=== PATIENT | female | born 1970 | race Caucasian/White ===

== ENCOUNTER 2023-10-15 16:56 | Outpatient (OUT) | payer OTHER, SELFPAY ==
[2023-10-15 17:41] LABS: Erythrocyte Sedimentation Rate 18 mm/hr (<=30)
[2023-10-15 18:56] LABS: Alanine Aminotransferase 22 U/L (14-59); Albumin Level 3.3 g/dL (3.4-5.0); Alkaline Phosphatase 105 U/L (46-116); Aspartate Amino Transferase 12 U/L (15-37); Bilirubin Direct <0.1 mg/dL (0.0-0.2); Bilirubin Total <0.1 mg/dL (0.2-1.0); Globulin 3.3 g/dL; Thyroid Stimulating Hormone 1.624 uIU/mL (0.358-3.740); Total Protein 6.6 g/dL (6.4-8.2)
[2023-10-15 19:01] LABS: C Reactive Protein 0.63 mg/dL (<=0.50)
[2023-10-17 08:15] LABS: HIV Ab/p24 Ag Screen Non Reactive (Non Reactive)
[2023-10-17 16:11] LABS: Deamidated Gliadin Abs, IgA 5 units (0-19); Deamidated Gliadin Abs, IgG 2 units (0-19); Endomysial Antibody IgA Negative (Negative); Immunoglobulin A, Qn, Serum 62 mg/dL (87-352); t-Transglutaminase (tTG) IgA <2 U/mL (0-3); t-Transglutaminase (tTG) IgG <2 U/mL (0-5)
[2023-10-20 22:07] LABS: Calprotectin, Fecal 47 ug/g (0-120)
[2023-10-22 12:08] LABS: Pancreatic Elastase, Fecal 125 (>200)
[2023-10-22 15:08] LABS: Ova + Parasite Exam Final report (.)
== END 2023-10-15 16:57 | disposition home or self-care (01) ==
PROVIDERS: PCP Family Medicine
DX: R19.8 Other specified symptoms and signs involving the digestive system and abdomen (principal)
CPT/HCPCS: 36415; 80076; 82656; 82784; 83993; 84443; 85652; 86140; 86231; 86258; 86364; 87045; 87046; 87177; 87209; 87389; 87427; 87493

== ENCOUNTER 2023-10-16 16:30 | Outpatient (REF) | payer OTHER, SELFPAY ==
[2023-10-17 12:10] LABS: C. Difficile PCR NEGATIVE (NEGATIVE)
== END 2023-10-16 16:31 | disposition home or self-care (01) ==
LOC: LAB 16:30
PROVIDERS: PCP Family Medicine
DX: R19.8 Other specified symptoms and signs involving the digestive system and abdomen (principal)
CPT/HCPCS: 87493

== ENCOUNTER 2024-05-20 10:57 | Outpatient (OUT) | payer OTHER, SELFPAY ==
--- NOTE | 2024-05-20 10:59 | MM_ITS ---
Patient Name: MIRIAM ALEXANDER MR#: [id number] : 1970 Exam Date: 05/20/2024 Ordering Doctor: ALEENA ORNELAS . RADIOLOGY REPORT PROCEDURE: MM TOMOSYNTHESIS SCREENING BI COMPARISON: MG MAMM SCREEN CRUZITO W CAD, 07/18/2018. MG MAMM SCREEN 3D [place] CAD, 01/26/2021. INDICATIONS: Screening Calculator Name NCI Breast Cancer Risk Assessment Tool 5 Year Breast Cancer Risk 0.80% Lifetime Breast Cancer Risk 7.00% Personal Breast Cancer No Personal Ovarian Cancer No Treatments None Family Cancers None LOCATION: [facility] BREAST COMPOSITION: There are scattered areas of fibroglandular density. FINDINGS: DIAGNOSTIC CATEGORY 2--BENIGN FINDING. NO CHANGE FROM COMPARISON. This exam includes additional mammographic views for implant evaluation and shows no visible implant abnormality. Scattered benign-appearing calcifications are present. Scattered benign-appearing lymph nodes are present. RIGHT BREAST: No significant suspicious finding. LEFT BREAST: No significant suspicious finding. RECOMMENDATIONS: ROUTINE MAMMOGRAM AND CLINICAL EVALUATION IN 12 MONTHS. PLEASE NOTE: A NORMAL MAMMOGRAM DOES NOT EXCLUDE THE POSSIBILITY OF BREAST CANCER. A CLINICALLY SUSPICIOUS PALPABLE LUMP SHOULD BE BIOPSIED. Dictated by: Keith Narayanan MD on 05/20/2024 at 12:08 Approved by: Keith Narayanan MD on 05/20/2024 at 12:10
--- OUTSIDE RECORDS SUMMARY | 2024-05-20 11:08 | XMS_ITS | CCD ---
Author Organization [facility] Care Team Providers Care Officer Lieutenant Name Role Phone MD Kristin Young Primary Care Provider [phone] MICHAEL Green Attending Provider Emery Cash Unavailable CECE GREEN Admitting Unavailable CECE GREEN Attending Unavailable HECTOR, DR ZARATE Primary Care Unavailable PETERCECE CHAPPELL Consulting Unavailable HECTOR, DR ZARATE Admitting Unavailable HECTOR, DR ZARATE Attending Unavailable HECTOR, DR ZARATE Primary Care Unavailable HECTOR, DR ZARATE Consulting Unavailable KARASIK ., DR HERRERA Admitting Unavailabl e KARASIK ., DR HERRERA Attending Unavailabl e HECTOR, DR ZARATE Primary Care Unavailable KARASIK ., DR HERRERA Consulting Unavailabl e PETERCECE Admitting Unavailable PETERCECE CHAPPELL Attending Unavailable HECTOR, DR ZARATE Primary Care Unavailable MISC, DR WELSH Consulting Unavailable HECTOR, DR ZARATE Primary Care Unavailable MISC, DR WELSH Admitting Unavailable MISC, DR WELSH Attending Unavailable MISC, DR WELSH Consulting Unavailable HECTOR, DR ZARATE Admitting Unavailable HECTOR, DR ZARATE Attending Unavailable HECTOR, DR ZARATE Primary Care Unavailable HECTOR, DR ZARATE Consulting Unavailable Lomax Kristin FRANZ Primary Care Provider Asaad, Imad Unavailable Asaad, Imad Attending Unavailable Asaad, Imad Admitting Unavailable Kristin Young Primary Care Unavailable FATUMA, LUIS ANTONIO E Attending Unavailable KRISTIN YOUNG Primary Care Unavailable SAROJ RAMIREZ Referring Unavailable LUIS ANTONIO BURRIS Attending Unavailable KRISTIN YOUNG Primary Care Unavailable SAROJ RAMIREZ Referring Unavailable FATUMA, LUIS ANTONIO E Attending Unavailable KRISTIN YOUNG Primary Care Unavailable LEVI, SAROJ B Referring Unavailable GRIM, LUIS ANTONIO E Attending Unavailable HECTOR, RUGEN Primary Care Unavailable LEVI, SAROJ B Referring Unavailable HECTOR, RUGEN Primary Care Unavailable GRIM, LUIS ANTONIO E Attending Unavailable LEVI, SAROJ B Referring Unavailable HECTOR, RUGEN Primary Care Unavailable LEVI, SAROJ B Referring Unavailable GRIM, LUIS ANTONIO E Attending Unavailable HECTOR, RUGEN Referring Unavailable LEVI, SAROJ B Attending Unavailable LEVI, SAROJ B Referring Unavailable LEVI, SAROJ B Attending Unavailable HECTOR, RUGEN Primary Care Unavailable LEVI, SAROJ B Referring Unavailable HECTOR, RUGEN Primary Care Unavailable GRIM, LUIS ANTONIO E Attending Unavailable Wilfrido, Katharina Mathews Attending Unavailable Wilfrido, Katharina Mathews Attending Unavailable Wilfrido, Katharina Mathews Attending Unavailable Wilfrido, Katharina Mathews Attending Unavailable Wilfrido, Katharina L Admitting Unavailable Wilfrido, Katharina Mathews Attending Unavailable HEMMERKIMBERLEE Attending Unavailable HECTOR, KANWALEN M Attending Unavailable WINDNABENJAMIN WOOD Attending Unavailable JEFF JOHNSON Attending Unavailable WINDBENJAMIN HERNDON Attending Unavailable WilfridoKatharina liz Primary Care Physician [phone] Allergies Allergy Classification Reported Allergen(s) Allergy Type Date of Onset Reaction(s) Facility (5 sources) NSAIDs Drug allergy 04-08-20 15 Unknown [place] [facility] Other (3 sources) Sulfonamides (Antibiotic) Drug allergy Unknown [place] [facility] Other (1 source) NSAIDs Drug allergy (disorder) 03-31-20 15 [facility] Repository (1 source) Sulfonamides (Antibiotic) Drug allergy (disorder) 03-24-20 15 [facility] Repository (2 sources) metroNIDAZOLE Drug Allergy 05-04-20 23 Nausea and Vomiting [facility] (2 sources) Sulfonamides (Antibiotic) Propensity to adverse reactions to drug 10-20-20 21 Rash, Hives [facility] (1 source) NSAIDs Drug allergy (disorder) 08-20-20 23 [facility] Repository (1 source) Sulfonamides (Antibiotic) Drug allergy (disorder) 10-24-20 23 [facility] Repository (2 sources) Sulfonamides (Antibiotic); Translations: [sulfa drugs] Propensity to adverse reactions (disorder) Miliaria crystallina (disorder), Nicole (disorder) [facility] Repository Medications Current Medications Medication Drug Class(es) Dates Sig (Normalized) Sig (Original) acetaminophen 500 mg oral tablet (2 sources) acetaminophen (TYLENOL) 500 MG tablet Take 1-2 tablets by mouth as needed for Pain or Fever. 0 Active ALPRAZolam 0.5 mg oral tablet (2 sources) Benzodiazepine Start: 11-16-2022 take 1 tablet by mouth twice daily as needed ALPRAZolam (Xanax) 0.5 MG tablet Take 1 tablet by mouth 2 times daily as needed. 0 11/16/2022 Active aspirin 81 mg delayed release oral tablet (1 source) Platelet Aggregation Inhibitor, Nonsteroidal Anti-inflammatory Drug take 1 tablet by mouth once daily as needed Aspirin [address] tablet Take 1 tablet by mouth daily. As needed 0 Active bacillus coagulans [id number] unt / inulin 250 mg oral capsule (2 sources) take 1-250 capsules by mouth once daily Bacillus Coagulans-Inulin (Probiotic) 1-250 BILLION-MG capsule Take by mouth. daily 0 Active clonazePAM 0.5 mg oral tablet (6 sources) Benzodiazepine Start: 05-14-2024 ClonazePAM 0.5 mg Tab 0.5 mg = 1 tab(s), Refills(s) 0 Start Date: 05/14/24 Status: Ordered take 1 tablet by jerry th once daily as needed, then take 0.5-1 tablets by mouth twice daily as needed clonazePAM (KlonoPIN) 1 MG tablet Take 1 tablet by mouth daily. 0.5 - 1 tablet BID prn tremor 0 Active clonazePAM 0.5 M G 1 tablet Orally PRN Active cyclobenzaprine hydrochloride 5 mg oral tablet (6 sources) Muscle Relaxant Start: 05-14-2024 take 1 tablet by mouth three times daily cyclobenzaprine 5 mg Tab 1 tab(s), Oral, TID, # 15, Refills(s) 0 Start Date: 05/14/24 Status: Ordered Start: 03-07-2023 take 1 tablet by jerry th three times daily as needed Cyclobenzaprine 5 MG tablet Take 1 tablet by mouth 3 times daily as needed. 0 03/07/2023 Active escitalopram 20 mg oral tablet (6 sources) Serotonin Reuptake Inhibitor Start: 05-14-2024 take 1 tablet by mouth once daily Lexapro 20 mg Tab 20 mg = 1 tab(s), Oral, Daily, # 30 tab(s), Refills(s) 0 Start Date: 05/14/24 Status: Ordered Start: 04-26-2023 take 1 tablet by jerry th once daily escitalopram 20 MG tablet Take 1 tablet by mouth daily. 0 04/26/2023 Active estrogens, conjugated ([facility]) 1.25 mg oral tablet (6 sources) Estrogen Start: 05-14-2024 take 1 tablet by mouth once daily Premarin 1.25 mg Tab 1.25 mg = 1 tab(s), Oral, Daily, # 30 tab(s), Refills(s) 0 Start Date: 05/14/24 Status: Ordered Start: 02-14-2023 Premarin 1.25 MG tablet famotidine 20 mg oral tablet (5 sources) Histamine-2 Receptor Antagonist take 1 tablet by mouth once daily faMOTIdine 20 MG tablet Take 1 tablet by mouth daily. 0 Active fluticasone propionate 0.05 mg/actuat metered dose nasal spray (1 source) Corticosteroid Start: 4 fluticasone Nasal 0.05 mg/inh Guffey 2 spray(s), Nasal, Daily, 16 gram, Refill(s) 0, each nostril Start Date: 05/14/24 Status: Ordered folic acid 1 mg oral tablet (4 sources) Start: 4 take 1 tablet by mouth once daily folic acid 1 mg Tab 1 mg = 1 tab(s), Oral, Daily, # 30 tab(s), Refills(s) 0 Start Date: 05/14/24 Status: Ordered Start: 04-25-2023 take 1 tablet by jerry th once daily Folic acid 1 MG tablet 1 tablet Orally Once a day for 30 day(s) 0 04/25/2023 Active 1.5 ml fremanezumab-vfrm 150 mg/ml auto-injector (6 sources) Start: 05-14-2024 Ajovy Autoinje ctor 225 mg/1.5 mL subcutaneous solution USE DIRECTED SUBCUTANEOUSLY EVERY 28 DAYS SUBCUTANEOUS MONTHLY 30 DAYS Start Date: 05/14/24 Status: Ordered Start: 02-08-2023 Ajovy 225 MG/1 .5ML Solution Prefilled Syringe INJECT SUBCUTANEOUSLY DIRECTED EVERY 28 DAYS 0 02/08/2023 Active Ajovy 225 MG/1.5 ML 1.5 mL Subcutaneous Active gabapentin 300 mg oral capsule (2 sources) Anti-epileptic Agent Start: 05-14-2024 take 1 capsule by mouth twice daily gabapentin 300 mg Cap 300 mg = 1 cap(s), Oral, BID, # 60 cap(s), Refills(s) 0 Start Date: 05/14/24 Status: Ordered Start: 10-15-2023 End: 04-12-2024 take 1 capsule by mouth at bedtime Gabapentin 300 MG capsule Take 1 capsule by mouth at bedtime. 90 capsule 1 10/15/2023 04/12/2024 Active ibuprofen 400 mg oral tablet (2 sources) Nonsteroidal Anti-inflammatory Drug Ibuprofen 400 MG tablet 1 tablet with food or milk as needed Orally PRN 0 Active levothyroxine sodium 0.05 mg oral tablet (4 sources) l-Thyroxine Start: 05-14-20 take 1 tablet by mouth once daily Synthroid 50 mcg Tab 50 mcg = 1 tab(s), Oral, Daily, # 60 tab(s), Refills(s) 0 Start Date: 05/14/24 Status: Ordered Start: 04-25-2023 Synthroid 50 M CG tablet Synthroid 50 MCG Oral for 90 Days Active metroNIDAZOLE 0.01 mg/mg topical gel (1 source) Nitroimidazole Antimicrobial Start: 05-14-2024 End: 06-11-2024 MetroGel 1% topical gel 1 jenniffer, Topical, Daily for 14 day(s), 60 gm, Refill(s) 1, [facility], 149, cm, 05/14/24 9:37:00 EDT, Height/Length Dosing, 64.2, kg, 05/14/24 9:37:00 EDT, Weight Dosing Start Date: 05/14/24 Stop Date: 06/11/24 Status: Ordered montelukast 10 mg oral tablet (6 sources) Leukotriene Receptor Antagonist Start: 05-14-2024 take 1 tablet by mouth once daily in the evening Singulair 10 mg Tab 10 mg = 1 tab(s), Oral, qPM, # 30 tab(s), Refills(s) 0 Start Date: 05/14/24 Status: Ordered take 1 tablet by mouth once lesa y Montelukast (Singulair) 10 MG tablet 1 tablet Orally Once a day 0 Active OXcarbazepine 300 mg oral tablet (6 sources) Anti-epileptic Agent Start: 05-14-2024 take 2 tablets by mouth twice daily Trileptal 300 mg Tab 600 mg = 2 tab(s), Oral, BID, # 120 tab(s), Refills(s) 0 Start Date: 05/14/24 Status: Ordered take 1 tablet by mouth twice tito ly OXcarbazepine (Trileptal) 300 MG tablet 1 tablet Orally BID 0 Active promethazine hydrochloride 12.5 mg oral tablet (6 sources) Phenothiazine Start: 05-14-2024 take 1 tablet by mouth every four hours as needed promethazine 12.5 mg oral tablet 12.5 mg = 1 tab(s), Oral, q4hr, PRN for motion sickness, # 60 tab(s), Refills(s) 0 Start Date: 05/14/24 Status: Ordered Promethazine HCl 12.5 MG tablet 1 tablet as needed Orally PRN 0 Active take 1 tablet by jerry th every twelve hours Promethazine HCl 25 MG 1 tablet as neede d Orally every 12 hrs Active sodium fluoride 0.011 mg/mg oral gel (2 sources) SODIUM FLUORIDE, DENTAL GEL, (PreviDent 5000 Dry Mouth) 1.1 % Gel PreviDent 5000 Dry Mouth 0 Active sucralfate 100 mg/ml oral suspension (7 sources) Aluminum Complex Start: 07-10-2023 take 10 mL by mouth twice daily 1 hour(s) before bedtime Sucralfate 1 GM/10ML 10 mL 1 hour before meals and at bedtime on an empty stomach Orally Twice a day for 90 days Jul, Active take 10 mL by mouth twice daily Sucralfate (Carafate) 1 GM/10ML oral suspension 10ml Orally BID 0 Active Zanaflex (1 source) Central alpha-2 Adrenergic Agonist Start: 05-14-2024 Zanaflex Oral, PRN Anxiety, Refills(s) 0 Start Date: 05/14/24 Status: Ordered topiramate 25 mg oral tablet (3 sources) take 1 tablet by mouth every twelve hours Topamax 25 MG 1 tablet Orally bid Active Ubrelvy 100 MG (2 sources) Ubrelvy 100 MG 1 tablet may take second dose at least 2 hours after first dose as needed Orally Once a day Active ubrogepant 100 mg oral tablet (2 sources) Start: 05-14-2024 Ubrelvy 100 mg oral tablet 100 mg = 1 tab(s), Refills(s) 0 Start Date: 05/14/24 Status: Ordered Ubrelvy 100 MG 1 tablet may take second dose at least 2 hours after first dose as needed Orally Once a day Active valACYclovir (5 sources) Herpesvirus Nucleoside Analog DNA Polymerase Inhibitor, Herpes Simplex Virus Nucleoside Analog DNA Polymerase Inhibitor, Herpes Zoster Virus Nucleoside Analog DNA Polymerase Inhibitor valACYclovir HC l (VALACYCLOVIR PO) Take by mouth. prn 0 Active Valtrex Active Completed/Discontinued Medications Medication Drug Class(es) Dates Sig (Normalized) Sig (Original) primidone 50 mg oral tablet (4 sources) Anti-epileptic Agent End: 10-15-2023 Primidone 50 MG tablet 2 tablets in morning and 3 tablets evening. 0 10/15/2023 Discontinued take 1 tablet by jerry th every twenty-four hours Primidone 50 MG 1 tablet Orally Once a day Active Problems Active Problems Problem Classification Problem Date Documented Da te Episodic/Chronic Adjustment disorders (2 sources) Adjustment disorder with anxious mood; Translations: [Adjustment disorder with anxiety] Onset: 8 05-04-2023 Chronic Complications of surgical procedures or medical care (4 sources) Post gastrointestinal tract surgery hypoglycemia; Translations: [Postsurgical malabsorption, not elsewhere classified] Onset: 1 05-04-2023 Chronic Diverticulosis and diverticulitis (2 sources) Diverticulitis; Translations: [Diverticulitis of intestine, part unspecified, without perforation or abscess without bleeding] Onset: 9 05-04-2023 Chronic Esophageal disorders (5 sources) Gastroesophageal reflux disease; Translations: [Gastro-esophageal reflux disease without esophagitis] Onset: 7 05-04-2023 Chronic Genitourinary symptoms and ill-defined conditions (4 sources) Female stress incontinence; Translations: [Stress incontinence (female) (male)] Onset: 8 05-04-2023 Chronic Headache; including migraine (6 sources) Migraine, unspecified, not intractable, without status migrainosus; Translations: [Migraine with aura] Onset: Chronic Immunizations and screening for infectious disease (1 source) Encounter for screening for human papillomavirus (HPV); Translations: [ENC SCREENING HUMAN PAPILLOMAVIRUS] Onset: 3 Episodic Inflammatory diseases of female pelvic organs (1 source) Bacterial vaginosis 05-14-2024 Episodic Menstrual disorders (2 sources) Excessive and frequent menstruation; Translations: [Excessive and frequent menstruation with regular cycle] Onset: 8 05-04-2023 Chronic Mood disorders (2 sources) Atypical depressive disorder; Translations: [Other specified depressive episodes] Onset: 8 05-04-2023 Chronic Nausea and vomiting (9 sources) Vomiting; Translations: [Vomiting, unspecified] Onset: 2 Resolved: 2 Episodic Nutritional deficiencies (2 sources) Vitamin D deficiency; Translations: [Vitamin D deficiency, unspecified] Onset: 7 05-04-2023 Chronic Osteoarthritis (2 sources) Arthritis of right acromioclavicular joint; Translations: [Primary osteoarthritis, right shoulder] Onset: 1 05-04-2023 Chronic Other and unspecified benign neoplasm (1 source) History of polyp of colon; Translations: [Personal history of colonic polyps] Episodic Other and unspecified benign neoplasm (1 source) Personal history of colonic polyps Episodic Other ear and sense organ disorders (2 sources) Otitis externa; Translations: [Unspecified otitis externa, unspecified ear] Onset: 0 05-04-2023 Chronic Other endocrine disorders (2 sources) Hypoglycemia; Translations: [Hypoglycemia, unspecified] Onset: 1 05-04-2023 Chronic Other gastrointestinal disorders (3 sources) Constipation alternates with diarrhea; Translations: [Other specified symptoms and signs involving the digestive system and abdomen] Episodic Other gastrointestinal disorders (2 sources) Bariatric surgery status Onset: 2 Resolved: 2 Episodic Other gastrointestinal disorders (2 sources) Other specified symptoms and signs involving the digestive system and abdomen Onset: 2 Resolved: 2 Episodic Other hereditary and degenerative nervous system conditions (2 sources) Essential tremor; Translations: [Essential tremor] Onset: 9 05-04-2023 Chronic Other hereditary and degenerative nervous system conditions (2 sources) Spasmodic torticollis; Translations: [Spasmodic torticollis] Onset: 7 05-04-2023 Chronic Other hereditary and degenerative nervous system conditions (2 sources) Restless legs; Translations: [Restless legs syndrome] Onset: 3 10-15-2023 Chronic Other liver diseases (5 sources) Disease of liver; Translations: [Liver disease, unspecified] Onset: 7 05-04-2023 Chronic Other lower respiratory disease (2 sources) Interstitial lung disease; Translations: [Interstitial pulmonary disease, unspecified] Onset: 7 05-04-2023 Chronic Other lower respiratory disease (1 source) Hiccough Episodic Other nervous system disorders (2 sources) Lesion of ulnar nerve; Translations: [Lesion of ulnar nerve, unspecified upper limb] Onset: 1 05-04-2023 Chronic Other nervous system disorders (4 sources) Psychosomatic musculoskeletal symptoms; Translations: [Tremor, unspecified] Onset: 3 05-04-2023 Episodic Other nervous system disorders (4 sources) Functional gait abnormality; Translations: [Unspecified abnormalities of gait and mobility] Onset: 3 05-04-2023 Episodic Other non-traumatic joint disorders (2 sources) Derangement of right shoulder joint; Translations: [Other specific joint derangements of right shoulder, not elsewhere classified] Onset: 1 05-04-2023 Chronic Other nutritional; endocrine; and metabolic disorders (3 sources) Body mass index 30+ - obesity; Translations: [Body mass index (BMI) 37.0-37.9, adult] Chronic Other nutritional; endocrine; and metabolic disorders (3 sources) Body mass index 40+ - severely obese; Translations: [Body mass index (BMI) 40.0-44.9, adult] Chronic Other skin disorders (1 source) Disorder of skin 05-14-2024 Episodic Other upper respiratory disease (2 sources) Allergic rhinitis; Translations: [Allergic rhinitis, unspecified] Onset: 9 05-04-2023 Chronic Other upper respiratory infections (2 sources) Chronic sinusitis; Translations: [Chronic sinusitis, unspecified] Onset: 8 05-04-2023 Chronic Regional enteritis and ulcerative colitis (2 sources) Ulcerative colitis; Translations: [Ulcerative colitis, unspecified, without complications] Onset: 8 05-04-2023 Chronic Residual codes; unclassified (4 sources) Obstructive sleep apnea (adult) (pediatric); Translations: [OBSTRUCTIVE SLEEP APNEA] Onset: Chronic Substance-related disorders (2 sources) Smoker; Translations: [Nicotine dependence, unspecified, uncomplicated] Onset: 7 05-04-2023 Chronic Systemic lupus erythematosus and connective tissue disorders (6 sources) Mucous membrane dryness; Translations: [Sicca syndrome, unspecified] Onset: 7 05-04-2023 Chronic Thyroid disorders (2 sources) Acquired hypothyroidism; Translations: [Hypothyroidism, unspecified] Onset: 3 05-04-2023 Chronic Unclassified (1 source) Cancer cervix screening status 05-14-2024 Unclassified (2 sources) Patient encounter status 05-14-2024 Past or Other Problems Problem Classification Problem Date Documented Da te Episodic/Chronic Abdominal pain (8 sources) Right sided abdominal pain; Translations: [Unspecified abdominal pain] Onset: 08-18-2015 05-04-2023 Episodic Deficiency and other anemia (2 sources) Anemia; Translations: [Anemia, unspecified] Onset: 04-27-2008 05-04-2023 Episodic Deficiency and other anemia (2 sources) Iron deficiency anemia; Translations: [Iron deficiency anemia, unspecified] Onset: 03-05-2017 05-04-2023 Episodic Diabetes mellitus without complication (2 sources) Impaired fasting glycemia; Translations: [Impaired fasting glucose] Onset: 04-27-2008 05-04-2023 Episodic Intestinal obstruction without hernia (2 sources) Intestinal obstruction; Translations: [Unspecified intestinal obstruction, unspecified as to partial versus complete obstruction] Onset: 07-23-2015 05-04-2023 Episodic Nutritional deficiencies (2 sources) Vitamin B deficiency; Translations: [Vitamin B deficiency, unspecified] Onset: 04-25-2023 05-04-2023 Episodic Other connective tissue disease (1 source) Myalgia, unspecified site; Translations: [MYALGIA UNSPECIFIED SITE] Onset: 07-07-2022 Episodic Other connective tissue disease (2 sources) Fibromyalgia; Translations: [Fibromyalgia] Onset: 01-12-2017 05-04-2023 Episodic Other eye disorders (2 sources) Dry eyes; Translations: [Dry eye syndrome of bilateral lacrimal glands] Onset: 04-25-2023 05-04-2023 Episodic Other gastrointestinal disorders (2 sources) Slow transit constipation; Translations: [Slow transit constipation] Onset: 04-22-2018 05-04-2023 Episodic Other lower respiratory disease (4 sources) Shortness of breath; Translations: [SHORTNESS OF BREATH] Onset: 07-06-2022 Episodic Other lower respiratory disease (2 sources) Parietoalveolar pneumopathy; Translations: [Other alveolar and parieto-alveolar conditions] Onset: 02-05-2017 05-04-2023 Episodic Other screening for suspected conditions (not mental disorders or infectious disease) (10 sources) Encounter for screening for malignant neoplasm of cervix; Translations: [Unspecified abnormal finding in specimens from other organs, systems and tissues] Onset: 01-01-2023 Episodic Residual codes; unclassified (4 sources) Other amnesia; Translations: [OTHER AMNESIA] Onset: 11-14-2022 Episodic Viral infection (4 sources) COVID-19; Translations: [Other specified viral infection] Onset: 03-24-2010 05-04-2023 Episodic Results Test Name Value Interpretation Reference Range Facility Ambulatory Visit Summaryon 0 05-14-2024 Ambulatory Visit Summary Ambulatory Visit Summary MIRIAM ESTRADA :1970 Visit Date:05/14/2024 Ambulatory Visit Instructions Your Diagnosis Well woman exam Cervical cancer screening Breast cancer screening by mammogram Your Care Team Attending Physician - Katharina Wu Primary Care Physician - Katharina Wu This Is Your Medications List clonazepam (ClonazePAM 0.5 mg Tab) conjugated estrogens (Premarin 1.25 mg Tab) cyclobenzaprine (cyclobenzaprine 5 mg Tab) escitalopram (Lexapro 20 mg Tab) fluticasone nasal (fluticasone Nasal 0.05 mg/inh Guffey) folic acid (folic acid 1 mg Tab) fremanezumab (Ajovy Autoinjector 225 mg/1.5 mL subcutaneous solution) gabapentin (gabapentin 300 mg Cap) levothyroxine (Synthroid 50 mcg Tab) montelukast (Singulair 10 mg Tab) oxcarbazepine (Trileptal 300 mg Tab) promethazine (promethazine 12.5 mg oral tablet) tizanidine (Zanaflex) ubrogepant (Ubrelvy 100 mg oral tablet) Procedures Performed Hysterectomy (04/18/2006). Discharge Vitals Temperature (Temporal Artery) 36.9 ?C Heart Rate (Peripheral) 83 Respiratory Rate 18 Blood Pressure 126/84 Height 149 cm Height 59 in Weight 64.25 kg Weight 141.35 lb BMI 28.94 What to do next Scheduled Follow-Up Appointments Sunday 1:40 PM EDT With: Katharina Wu Where: [facility] Medicine [facility] Ambulatory Visit Summary Ambulatory Visit Summary MIRIAM ESTRADA :1970 Visit Date:05/14/2024 Ambulatory Visit Instructions Your Care Team Attending Physician - Katharina Wu Primary Care Physician - Katharina Wu Procedures Performed Hysterectomy (04/18/2006). Discharge Vitals Height 149 cm Height 59 in Weight 64.25 kg Weight 141.35 lb BMI 28.94 Allergies sulfa drugs (Sweat rash, Hives) Patient Survey You may receive a survey via text or e-mail asking about your office visit. Please share your experience with us by completing your survey. We appreciate your feedback and thank you for choosing us for your care. [facility] Family Medicine Office/Clini c Noteon 05-14-2024 Family Medicine Office/Clinic Note Family Medicine Office/Clinic Note HPI Staff Miriam is a 53 year old female presenting for well woman Woman check up: Last pap: 05/2023 Last Vesta: 05/26 Results of lap pap: Where was it done: [place] at Dr. Rodriguez hx: # of pregnancies..3 ...abortions... none live births.... 3 living children.. 2 menstrual cycle (normal,heavy,ect): none since 2006 with Hysterectomy History of STD: none Do you want tested for STD today: no Vaginal discharge, odor, itching: odor Self breast exam at home? yes, 2x yearly Family Hx of breast, cervical or uterine cancer- none Has vaginal bacteria vaginosis is taking Vee gentle wash, vaginal probiotic,vaginal suppositories for this when it flares up Has breast implants 2009 History of Present Illness pt presents today for well woman exam Review of Systems PHQ Score Initial Depression Screen Score: 0 SCORE Physical Exam Vitals & Measurements T: 36.9 ?C(Temporal Artery) HR: 83(Peripheral) RR: 18 BP: 126/84 SpO2: 94% HT: 59 in HT: 149 cm WT: 64.25 kg WT: 141.35 lb BMI: 28.94 General: Well developed, well nourished, in no acute distress Neck: Neck supple. No masses or palpable cervical nodes. Trachea midline. Thyroid without nodules, masses, tenderness, or enlargement Breast: No mass, nodule, discharge, or erythema bilaterally, and no axillary lymphadenopathy implants [id number] Lungs: Normal respiratory effort and clear to auscultation Cardio: Regular rate and rhythm, normal S1 and S2, no murmur, no rub Abdomen: Soft, non-distended, non-tender, normal bowel sounds x4 Gyno: normal external genitalia. Urethra no discharge. Vagina normal without lesions, no vaginal discharge. Cervix normal, without lesions. Uterus normal. No adnexal masses. Pap obtained Neurologic: Grossly normal Skin: [place], moist, no tenting Lymph Nodes: No cervical adenopathy, nodes normal Mental Status: Alert and oriented x3. Normal mood and affect Assessment/Plan 1. Well woman exam (Z01.419: Encounter for gynecological examination (general) (routine) without abnormal findings) pt presents today for well woman exam. pap obtained without difficulty. BSE discussed. mammogram order provided for [facility]. pt has issues with chronic BV. will send orders to [facility] for suppositories. will treat with metrogel for 14 days first. RTC 3 months Ordered: metronidazole topical, 1 jenniffer, Topical, Daily for 14 day(s), 60 gm, Refill(s) 1, [facility], 149, cm, 05/14/24 9:37:00 EDT, Height/Length Dosing, 64.2, kg, 05/14/24 9:37:00 EDT, Weight Dosing New Preventive 40 to 64 years 6[address] PAP w/ HPV and Genotype rflx 2. Cervical cancer screening (Z12.4: Encounter for screening for malignant neoplasm of cervix) pap obtained without difficulty Ordered: metronidazole topical, 1 jenniffer, Topical, Daily for 14 day(s), 60 gm, Refill(s) 1, [facility], 149, cm, 05/14/24 9:37:00 EDT, Height/Length Dosing, 64.2, kg, 05/14/24 9:37:00 EDT, Weight Dosing New Preventive 40 to 64 years 85756 PAP 524174 w/ HPV and Genotype rflx 3. Breast cancer screening by mammogram (Z12.31: Encounter for screening mammogram for malignant neoplasm of breast) mammogram order given Ordered: metronidazole topical, 1 jenniffer, Topical, Daily for 14 day(s), 60 gm, Refill(s) 1, [facility], 149, cm, 05/14/24 9:37:00 EDT, Height/Length Dosing, 64.2, kg, 05/14/24 9:37:00 EDT, Weight Dosing New Preventive 40 to 64 years 03531 PAP 117623 w/ HPV and Genotype rflx 4. Other skin changes (R23.8: Other skin changes) pt has a raised, dry, flaky area on right areola at the 3 o'clock position, that has been there for about 1 year. will refer to derm for further evaluation. Ordered: metronidazole topical, 1 jenniffer, Topical, Daily for 14 day(s), 60 gm, Refill(s) 1, [facility], 149, cm, 05/14/24 9:37:00 EDT, Height/Length Dosing, 64.2, kg, 05/14/24 9:37:00 EDT, Weight Dosing [facility] [place] Referral New Preventive 40 to 64 years 73170 PAP 614639 w/ HPV and Genotype rflx 5. Bacterial vaginitis (N76.0: Acute vaginitis) pt has been struggling with BV for 2 years. has been using OTC washes and supplements. but it just keeps coming back. will order 14 day course of metrogel. then will send order for Boric acid through [facility] Ordered: metronidazole topical, 1 jenniffer, Topical, Daily for 14 day(s), 60 gm, Refill(s) 1, [facility], 149, cm, 05/14/24 9:37:00 EDT, Height/Length Dosing, 64.2, kg, 05/14/24 9:37:00 EDT, Weight Dosing New Preventive 40 to 64 years 86418 PAP 030265 w/ HPV and Genotype rflx 6. BMI 28.0-28.9,adult (Z68.28: Body mass index [BMI] 28.0-28.9, adult) BMI education given Ordered: New Preventive 40 to 64 years [address]95 7. Former smoker (Z87.891: Personal history of nicotine dependence) continue not smoking Ordered: New Preventive 40 to 64 years 28243 Follow-up No qualifying data available Problem List/Past Medical History Ongoing Bacterial vaginitis Breast cancer scr (more content not included)... Normal [facility] Comment on above: Result Comment: Elec tronically Signed By: Katharina Wu\.ana lilia\Date and Time Signed: 05/14/24 12:44 EDT SED RATE - CRPon 11-15-2023 CRP EXTENDED RANGE 3.25 MG/L High (0.00 - 3.20) [facility] Comment on above: Order Comment: FACIL ITY: [facility] [id number] Performed By: #### E SRCRP #### [facility] [address] [facility], [id number] SED RATE WEST. 11 MM/HR Normal (0 - 25) [facility] Comment on above: Order Comment: FACIL ITY: [facility] [id number] Performed By: #### E SRCRP #### [facility] [address] [facility], [id number] Drug Screen,Urineon 12-20-20 23 Amphetamine Screen,Urine Negative Normal Negative [facility] Comment on above: Performed By: #### U RDS #### [facility] [address] [id number] [place] Barbiturate Screen,Urine Negative Normal Negative [facility] Comment on above: Performed By: #### U RDS #### [facility] [address] [place] [address] [place] Benzodiazepines Screen,Urine Negative Normal Negative [facility] Comment on above: Performed By: #### U RDS #### [address] Cannabinoid Screen,Urine Positive High Negative [facility] Comment on above: Result Comment: Thes e are unconfirmed results and should not be used for legal purposes. Drug Cut-Off Concentration: AMPH 1000 ng/mL MARCELLUS 200 ng/mL TULIO 200 ng/mL COCM 300 ng/mL OP 300 ng/mL PCP 25 ng/mL THC 20 ng/mL PERFORMED BY: [place] [address] PATHOLOGIST [employer] PROFESSOR KENNEDY LEBRON M.D. Performed By: #### U RDS #### [address] Cocaine Screen,Urine Negative Normal Negative [facility] Comment on above: Performed By: #### U RDS #### [address] Opiate Screen,Urine Negative Normal Negative [facility] Comment on above: Performed By: #### U RDS #### [address] Phencyclidine Screen,Urine Negative Normal Negative [facility] Comment on above: Performed By: #### U RDS #### [address] 10-24-2023 L - -------- Specimen: [id number] Received: 10/24/23 Status: TEJAS Payne Num: [id number] Spec Type: Surgical Subm Dr: Mariza Paredes MD Tissues: A Colon Biopsy (DUODENUM BX) B Colon Biopsy (RANOM COLON BX) Procedures: HE/4, Gross/Micro L4/2 -------- Age/ Patient Sex Location Account Attending Physician -------- Miriam Estrada 53/F [id number] Mariza Paredes MD -------- SPEC NUM: [id number] RECD: 10/24/23 STATUS: TEJAS PAYNE NUM: [id number] JACKIE: 10/24/23[facility] DR: Mariza Paredes MD ENTERED: 10/24/23 [facility] DR: KALA TYPE: Surgical DEPT: S ORDERED: HE/4, Gross/Micro L4/2 ORDERED: HE/4, Gross/Micro L4/2 Pathological Diagnosis A. Duodenum, Biopsy: No Significant Pathologic Abnormality. B. Colon, Biopsy: No Evidence Of Colitis. Clinical Information Nausea, colon polyps, rule out celiac, rule out microscopic colitis Gross Description A. Received in formalin labeled with the patient's name, date of and duodenum, rule out celiac are two bauer tissues measuring 0.3 x 0.2 x 0.2 cm and 0.5 x 0.2 x 0.2 cm. Entirely submitted in one cassette labeled A1. B. Received in formalin labeled with the patient's name, date of and random colon biopsy are four bauer tissues ranging from 0.2 cm to 0.3 x 0.2 x 0.2 cm. Entirely submitted in one cassette labeled B1. -------- Specimen: [id number] Received: 10/24/23 Status: TEJAS Payne Num: [id number] Spec Type: Surgical Subm Dr: Mariza Paredes MD Tissues: A Colon Biopsy (DUODENUM BX) B Colon Biopsy (RANOM COLON BX) Procedures: HE/Humberto, Gross/Micro L4/2 -------- Patient: Miriam Estrada [id number] (Continued) -------- Specimen: [id number] Received: 10/24/23 (Continued) Signed (signature on file) Kathrin Steel MD 10/25/23 2103 -------- Specimen: [id number] Received: 10/24/23 Status: TEJAS Payne Num: [id number] Spec Type: Surgical Subm Dr: Mariza Paredes MD Tissues: A Colon Biopsy (DUODENUM BX) B Colon Biopsy (RANOM COLON BX) Procedures: HE/4, Gross/Micro L4/2 -------- Patient: Miriam Estrada [id number] (Continued) -------- Specimen: [id number] Received: 10/24/23 (Continued) Microscopic Description A. Two H E slides reviewed. The microscopic examination confirms the diagnosis. B. Two H E slides reviewed. The microscopic examination confirms the diagnosis. CPT Codes 54418q9 -------- -------- Specimen: [id number] Received: 10/24/23-1258 Status: TEJAS Payne Num: [id number] Spec Type: Surgical Subm Dr: Mariza Paredes MD Tissues: A Colon Biopsy (DUODENUM BX) B Colon Biopsy (RANOM COLON BX) Procedures: HE/4, Gross/Micro L4/2 -------- Patient: Miriam Estrada [id number] (Continued) -------- Signed (signature on file) Kathrin Steel MD 10/25/232102 Normal [facility] PAP ACOG PANEL 2: 30 to 65on 03-19-2023 Age Gdln ACOG Testing 30-[address] [facility] Comment on above: Performed By: #### 4 [id number] #### [facility] [address] [place] [address] Dr. Elke Mart FOLATEon 01-01-2023 FOLATE 23.80 ng/mL Normal 8.60-58.[address] [facility] Comment on above: Performed By: #### F OL, FT4 #### [facility] [address] [place] [address] Dr. Elke Mart FREE T4on 01-01-2023 Free T4 [Mass/Vol] 0.59 ng/dL Critically low 0.76-1.46 [facility] Comment on above: Performed By: #### F OL, FT4 #### [facility] [address] [place] [address] Dr. Elke Mart TSHon 01-01-2023 TSH 1.091 uIU/mL Normal 0.358-3.740 [facility] Comment on above: Performed By: #### T SH #### [facility] [address] [place] [address] Dr. Elke Mart METHYLMALONIC ACID (MMA)on 0 11-18-2022 Methylmalonic Acid, Serum 109 nmol/L Normal 0-[address] [facility] Comment on above: Performed By: #### M MA2 #### [facility] [address] [place] [address] Dr. Elke Mart FREE T4on 11-14-2022 Free T4 [Mass/Vol] 0.44 ng/dL Critically low 0.76-1.46 [facility] Comment on above: Performed By: #### B 12FOL, FT4 #### [facility] [address] [place] [address] Dr. Elke Mart TSHon 11-14-2022 TSH 0.856 uIU/mL Normal 0.358-3.740 [facility] Comment on above: Performed By: #### T SH #### [facility] [address] [place] [address] Dr. Elke Mart VIT B12 AND FOLATEon 023 Cobalamin (Vitamin B12) [Mass/Vol] 356.0 pg/mL Normal 193.0-986.[address] [facility] Comment on above: Performed By: #### B 12FOL, FT4 #### [facility] [address] [place] [address] Dr. Elke Mart FOLATE 7.80 ng/mL Critically low 8.60-58.90 [facility] Comment on above: Performed By: #### B 12FOL, FT4 #### [facility] [address] [place] [address] Dr. Elke Mart RESPIRATORY PANEL PLUSon Adenovirus Not detected Normal NOT DETECTED [facility] Comment on above: Performed By: #### R SPLUS #### [facility] [address] [place] [address] Dr. Elke Lowery. Parapertusis Not detected Normal NOT DETECTED [facility] Comment on above: Performed By: #### R SPLUS #### [facility] [address] [place] [address] Dr. Elke Clay Pertussis Not detected Normal NOT DETECTED [facility] [place] [facility] Comment on above: Performed By: #### R SPLUS #### [facility] [address] [place] [address] Dr. Elke Mart Chlamydia Pneumoniae Not detected Normal NOT DETECTED [facility] Comment on above: Performed By: #### R SPLUS #### [facility] [address] [place] [address] Dr. Elke Mart Coronavirus 229E Not detected Normal NOT DETECTED [facility] Comment on above: Performed By: #### R SPLUS #### [facility] [address] [place] [address] Dr. Elke Mart Coronavirus HKU1 Not detected Normal NOT DETECTED [facility] Comment on above: Performed By: #### R SPLUS #### [facility] [address] [place] [address] Dr. Elke Mart Coronavirus NL63 Not detected Normal NOT DETECTED [facility] Comment on above: Performed By: #### R SPLUS #### [facility] [address] [place] [address] Dr. Elke Matr Coronavirus OC43 Not detected Normal NOT DETECTED [facility] Comment on above: Performed By: #### R SPLUS #### [facility] [address] [place] [address] Dr. Elke Mart Influenza A H1 2009 Not detected Normal NOT DETECTED [facility] Comment on above: Performed By: #### R SPLUS #### [facility] [address] [place] [address] Dr. Elke Mart Influenza A H3 Not detected Normal NOT DETECTED [facility] Comment on above: Performed By: #### R SPLUS #### [facility] [address] [address] [address] Elke Mart Influenza B Not detected Normal NOT DETECTED [facility] Comment on above: Performed By: #### R SPLUS #### [facility] [address] [place] [address] Dr. Elke Mart Metapneumovirus Not detected Normal NOT DETECTED [facility] Comment on above: Performed By: #### R SPLUS #### [facility] [address] [place] [address] Dr. Elke Mart Mycoplas. Pneumoniae Not detected Normal NOT DETECTED [facility] Comment on above: Performed By: #### R SPLUS #### [facility] [address] [place] [address] Dr. Elke Mart Parainfluenza 1 Not detected Normal NOT DETECTED [facility] Comment on above: Performed By: #### R SPLUS #### [facility] [address] [place] [address] Dr. Elke Mart Parainfluenza 2 Not detected Normal NOT DETECTED [facility] Comment on above: Performed By: #### R SPLUS #### [facility] [address] [place] [address] Dr. Elke Mart Parainfluenza 3 Not detected Normal NOT DETECTED [facility] Comment on above: Performed By: #### R SPLUS #### [facility] [address] [place] [address] Dr. Elke Mart Parainfluenza 4 Not detected Normal NOT DETECTED [facility] Comment on above: Performed By: #### R SPLUS #### [facility] [address] [place] [address] Dr. Elke Mart Rhino/Enterovirus Not detected Normal NOT DETECTED [facility] Comment on above: Performed By: #### R SPLUS #### [facility] [address] [place] [address] Dr. Elke Mart RP2 Header 1 RESPIRATORY PANEL: VIRUSES Normal [facility] Comment on above: Performed By: #### R SPLUS #### [facility] [address] [place] [address] Dr. Elke Mart RP2 Header 2 RESPIRATORY PANEL: BACTERIA Normal [facility] Comment on above: Performed By: #### R SPLUS #### [facility] [address] [place] [address] Dr. Elke Mart RSV Not detected Normal NOT DETECTED [facility] Comment on above: Performed By: #### R SPLUS #### [facility] [address] [place] [address] Dr. Elke Mart SARS-CoV-2 (COVID-19) RNA ROMERO+probe Ql (Unsp spec) Not detected Normal NOT DETECTED [facility] Comment on above: Performed By: #### R SPLUS #### [facility] [address] [place] [address] Dr. Elke Mart CNOVSPon 11-12-2019 CNOVS Visit (SP) Office ([place]) BENJAMINMIRIAM L ([id number]) 1970 F Date Time Provider Department 11/12/19 3:30 PM SUMAYA JEAN During your visit today, we recorded the following information about you: Temperature Pulse Respiration Blood pressure 97.7 degrees 71/minute 16/minute 107/58 Weight Height 51.5 kg 1.524 m SUMAYA JEAN PA-C 11/12/2019 4:03 PM Signed CC: Iron deficieny anemia S/p gastric bypass HPI: Miriam Estrada is a 49 year old female who presents in follow up. She has a history of gastric bypass surgery and has required IV iron. With her last IV injectafer infusions in September 2019, she did develop hypophosphotemia and required supplementation for this. She has been on K phos since. She denies any bleeding or significant fatigue. She feels well overall. SUBJECTIVE ROS: GENERAL: No weight loss, malaise or fevers., SEE HPI HEENT: Negative for frequent or significant headaches, No changes in hearing or vision, no nose bleeds or other nasal problems RESPIRATORY: Negative for cough, wheezing or shortness of breath. CARDIOVASCULAR: Negative for chest pain, leg swelling or palpitations. GI: Negative for abdominal discomfort, blood in stools or black stools or change in bowel habits : No history of dysuria, frequency or incontinence MUSCULOSKELETAL: Negative for: joint pain or swelling, back pain and muscle pain SKIN: Negative for lesions, rash, and itching. HEMATOLOGY/LYMPHOLOGY : Negative for prolonged bleeding, bruising easily or swollen nodes. NEURO: No history of headaches, syncope, paralysis, seizures or tremors All other systems reviewed are negative. Current Outpatient Medications Medication Sig - sucralfate (CARAFATE) 100 mg/mL suspension Take 1 g by mouth four times daily. - K-PHOS ORIGINAL 500 mg tablet Take 500 mg by mouth four times daily. - ALPRAZolam (XANAX) 0.5 mg tablet Take 0.5 mg by mouth as needed. - cyclobenzaprine (FLEXERIL) 5 mg tablet Take 5 mg by mouth as needed. - eletriptan (RELPAX) 40 mg tablet TAKE 1 TABLET BY MOUTH FOR HEADACH, IF HEADACHE RETURNS MAY REPEAT DOSE AFTER - ondansetron (ZOFRAN) 4 mg tablet Take 4 mg by mouth as needed. - OXcarbazepine (TRILEPTAL) 300 mg tablet Take 300 mg by mouth twice daily. - valACYclovir (VALTREX) 500 mg tablet Take 500 mg by mouth as needed. - PREMARIN 0.9 mg tablet 0.9 mg once daily. No current facility-administered medications for this visit. PAST MEDICAL HISTORY Diagnosis Date - Lymphadenopathy, inguinal PHYSICAL EXAM: LMP (LMP Unknown) BP 107/58 Pulse 71 Temp 36.5 ?C (97.7 ?F) (Oral) Resp 16 Ht 152.4 cm (5') Wt 51.5 kg (113 lb 9.6 oz) LMP (LMP Unknown) SpO2 100% BMI 22.19 kg/m? General appearance: well appearing, alert, in no acute distress, well-hydrated, well nourished Skin: skin color, texture, turgor normal, no suspicious rashes or lesions Head: normal Eyes: Anicteric sclera. Pupils are equally round and reactive to light. Extraocular movements are intact. Neck: Supple, no adenopathy; thyroid symmetric, normal size Lymph Nodes: No Submandibular, cervical, supraclavicular, axillary, or inguinal lymphadenopathy present Back: no tenderness to palpation Lungs: clear to auscultation, no wheezing or rhonchi Heart: Negative. RRR without murmur, gallop, or rubs. No ectopy. Abdomen: Normal abdominal exam, Abdomen soft, non-tender. Bowel sounds normal. No masses, organomegaly Extremities: Extremities normal. No deformities, edema, or skin discoloration. Good capillary refill. Musculoskeletal: No joint swelling, deformity, or tenderness. Peripheral pulses: Normal Neuro: Gait normal. Power normal. Reflexes normal and symmetric. Sensation grossly intact. LAB: Hemoglobin (g/dL) Date Value 11/12/2019 12.2 Hematocrit (%) Date Value 11/12/2019 38.6 WBC (k/uL) Date Value 11/12/2019 6.78 ASSESSMENT/PLAN: 1. Iron deficiency anemia, unspecified iron deficiency anemia type - ICD9: 280.9, ICD10: D50.9 (primary diagnosis) She has a history of iron deficiency anemia from gastric bypass surgery. Her last injectafer was in 09/2018. She is feeling well and her hemoglobin remains normal. Her iron studies are pending. At this time we will check her labs every 6 months or sooner if she becomes symptomatic. She will follow up with Dr. Summers in 1 year. 2. History of Jd-en-Y gastric bypass - ICD9: V45.86, ICD10: Z98.84 Probably cause of her iron deficiency. MICHAEL DE LEON 11/12/2019 3:48 PM Signed Patient noticed some weight loss the last couple months. Madeleine Greene Referring Provider: KRISTIN YOUNG [[id number]] Allergies As of Date: 11/12/2019 Noted Allergy Reaction NSAIDS (NON-STEROIDAL ANTI-INFLAM* 5 16 - Unknown SULFA (SULFONAMIDE ANTIBIOTICS) 04/08/2015 4 - Hives Date Reviewed: 11/12/2019 Reviewed by: Sumaya Jean - Fully Assessed Reason for Visit: Fe DEF [Other] Cmt: follow up ([place] patient) Reason For Visit History Recorded Primary Visit Diagnosis:Iron deficiency anemia, unspecified iron deficiency anemia type [D50.9] Other Visit Diagnosis:History of Jd-en-Y gastric bypass [Z98.84] Order(s):CBC + DIFF (FOR REMOTE [facility] USE) [SQRCBCDF] Order #: [id number] STANDING IRON + TIBC [SQIRON] Order #: [id number] STANDING FERRITIN BLD [SQFERR] Order #: [id number] STANDING Follow-up and Disposition History Recorded Prescriptions as of 11/12/2019 Sig: SUCRALFATE 100 MG/ML ORAL PETE* Take 1 g by mouth four times * K-PHOS ORIGINAL 500 MG SOLUBL* Take 500 mg by mouth four teressa* ALPRAZOLAM 0.5 MG TABLET Take 0.5 mg by mouth as neede* CYCLOBENZAPRINE 5 MG TABLET Take 5 mg by mouth as needed.* ELETRIPTAN 40 MG TABLET TAKE 1 TABLET BY MOUTH FOR HE* ONDANSETRON HCL 4 MG TABLET Take 4 mg by mouth as needed.* OXCARBAZEPINE 300 MG TABLET Take 300 mg by mouth twice da* VALACYCLOVIR 500 MG TABLET Take 500 mg by mouth as neede* PREMARIN 0.9 MG TABLET 0.9 mg once daily. 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 Madeleine Greene Encounter Status:Closed by SUMAYA JEAN on 11/12/19 Normal [facility] [place] Comp Metabolic Panelon 11-12 Albumin [Mass/Vol] 4.6 g/dL Normal 3.9-4.9 [facility] Comment on above: Performed By: #### I LUKAS, FERR #### [facility] [address] [place], [place] [address] ALP [Catalytic activity/Vol] 71 U/L Normal 34-123 [facility] [place] Comment on above: Performed By: #### I LUKAS, FERR #### [facility] [address] [address] ALT [Catalytic activity/Vol] 16 U/L Normal 7-38 [facility] [place] Comment on above: Performed By: #### I LUKAS, FERR #### [facility] [address] [place], [place] [address] Anion gap [Moles/Vol] 12 mmol/L Normal 9-18 [facility] Comment on above: Performed By: #### I LUKAS, FERR #### [facility] [address] [place], [place] [address] AST [Catalytic activity/Vol] 18 U/L Normal 13-35 [facility] [place] Comment on above: Performed By: #### I LUKAS, FERR #### [facility] [address] [place], [place] [address] Bilirubin [Mass/Vol] 0.2 mg/dL Normal 0.2-1.3 [facility] Comment on above: Performed By: #### I LUKAS, FERR #### [facility] [address] [place], [place] [address] Calcium [Mass/Vol] 9.3 mg/dL Normal 8.5-10.2 [facility] Comment on above: Performed By: #### I LUKAS, FERR #### [facility] [address] [place], [place] [address] Chloride [Moles/Vol] 101 mmol/L Normal 97-105 [facility] Comment on above: Performed By: #### I LUKAS, FERR #### [facility] [address] [phone] CO2 [Moles/Vol] 23 mmol/L Normal 22-30 [facility] [place] Comment on above: Performed By: #### Manish GAYTAN, FERR #### [facility] [address] [phone] Creatinine [Mass/Vol] 0.69 mg/dL Normal 0.58-0.96 [facility] Comment on above: Performed By: #### Manish GAYTAN, FERR #### [address] [place] [id number] [place] [place] [phone] eGFR- Amer. >60 Normal [facility] Comment on above: Performed By: #### Manish GAYTAN, FERR #### [place] [id number] [place] [phone] GFR/1.73 sq M predicted among non-blacks MDRD (S/P/Bld) [Vol rate/Area] mL/min/{1.73_m2} Normal [facility] [place] Comment on above: Result Comment: eGFR (Estimated GFR) Units of measure: mL/min/1.73 meters squared eGFR is derived from the reexpressed MDRD Study equation using the following parameters: serum creatinine, age, gender and race. The creatinine assay has been calibrated to be traceable to IDMS. An eGFR <60 mL/min/1.73m2 for >3 months is consistent with chronic kidney disease. Refer to KDOQI guidelines for clinical interpretation. In patients with unstable renal function, e.g. those with acute kidney injury, the eGFR may not accurately reflect actual GFR. Performed By: #### Manish GAYTAN, FERR #### [facility] [address] [place] [phone] Glucose [Mass/Vol] 103 mg/dL High 74-99 [facility] Comment on above: Result Comment: The [place] Diabetes Association (ADA) provides guidance for cutoff values for fasting glucose and random glucose. The ADA defines fasting as no caloric intake for at least 8 hours. Fasting plasma glucose results between 100 to 125 mg/dL indicate increased risk for diabetes (prediabetes). Fasting plasma glucose results greater than or equal to 126 mg/dL meet the criteria for diagnosis of diabetes. In the absence of unequivocal hyperglycemia, results should be confirmed by repeat testing. In a patient with classic symptoms of hyperglycemia or hyperglycemic crisis, random plasma glucose results greater than or equal to 200 mg/dL meet the criteria for diagnosis of diabetes. Reference: Standards of Medical Care in Diabetes 2016, [place] [employer] Association. Diabetes Care. 2016.39(Suppl 1). Performed By: #### Manish GAYTAN FERR #### [facility] [address] [place] [address] Potassium [Moles/Vol] 4.3 mmol/L Normal 3.7-5.1 [facility] Comment on above: Performed By: #### Manish GAYTAN FERR #### [place] [address] Protein [Mass/Vol] 6.5 g/dL Normal 6.3-8.0 [facility] Comment on above: Performed By: #### Manish GAYTAN FERR #### [place] [address] [place] [address] Sodium [Moles/Vol] 136 mmol/L Normal 136-144 [facility] Comment on above: Performed By: #### Manish GAYTAN FERR #### [place] [address] [place] [address] Urea nitrogen [Mass/Vol] 5 mg/dL Low 7-21 [facility] [place] Comment on above: Performed By: #### Manish GAYTAN FERR #### [place] [address] [place] [address] Ferritinon 11-12-2019 Ferritin [Mass/Vol] 148.0 ng/mL Normal 14.7-205.1 [facility] Comment on above: Performed By: #### Manish GAYTAN FERR #### [place] [address] Iron and TIBCon 11-12-2019 Iron [Mass/Vol] 86 ug/dL Normal 41-186 [facility] [place] Comment on above: Performed By: #### I LUKAS, FERR #### [facility] [address] [place], [place] [address] TIBC 382 ug/dL Normal 232-386 [facility] [place] Comment on above: Performed By: #### I LUKAS, FERR #### [facility] [address] [place], [place] [address] Transferrin Saturatn 23 % Normal 15-57 [facility] Comment on above: Performed By: #### I LUKAS, FERR #### [facility] [address] [place], [place] [id number] PROGRESSon 11-12-2019 PROGRESS HNO ID: [id number] Author: Sumaya Jean Service: ? Author Type: Physician Devops Architect Type: Progress Notes Filed: 11/12/2019 4:03 PM Note Text: CC: Iron deficieny anemia S/p gastric bypass HPI: Miriam Estrada is a 49 year old female who presents in follow up. She has a history of gastric bypass surgery and has required IV iron. With her last IV injectafer infusions in September 2019, she did develop hypophosphotemia and required supplementation for this. She has been on K phos since. She denies any bleeding or significant fatigue. She feels well overall. SUBJECTIVE ROS: GENERAL: No weight loss, malaise or fevers., SEE HPI HEENT: Negative for frequent or significant headaches, No changes in hearing or vision, no nose bleeds or other nasal problems RESPIRATORY: Negative for cough, wheezing or shortness of breath. CARDIOVASCULAR: Negative for chest pain, leg swelling or palpitations. GI: Negative for abdominal discomfort, blood in stools or black stools or change in bowel habits : No history of dysuria, frequency or incontinence MUSCULOSKELETAL: Negative for: joint pain or swelling, back pain and muscle pain SKIN: Negative for lesions, rash, and itching. HEMATOLOGY/LYMPHOLOGY : Negative for prolonged bleeding, bruising easily or swollen nodes. NEURO: No history of headaches, syncope, paralysis, seizures or tremors All other systems reviewed are negative. Current Outpatient Medications Medication Sig - sucralfate (CARAFATE) 100 mg/mL suspension Take 1 g by mouth four times daily. - K-PHOS ORIGINAL 500 mg tablet Take 500 mg by mouth four times daily. - ALPRAZolam (XANAX) 0.5 mg tablet Take 0.5 mg by mouth as needed. - cyclobenzaprine (FLEXERIL) 5 mg tablet Take 5 mg by mouth as needed. - eletriptan (RELPAX) 40 mg tablet TAKE 1 TABLET BY MOUTH FOR HEADACH, IF HEADACHE RETURNS MAY REPEAT DOSE AFTER - ondansetron (ZOFRAN) 4 mg tablet Take 4 mg by mouth as needed. - OXcarbazepine (TRILEPTAL) 300 mg tablet Take 300 mg by mouth twice daily. - valACYclovir (VALTREX) 500 mg tablet Take 500 mg by mouth as needed. - PREMARIN 0.9 mg tablet 0.9 mg once daily. No current facility-administered medications for this visit. PAST MEDICAL HISTORY Diagnosis Date - Lymphadenopathy, inguinal PHYSICAL EXAM: LMP (LMP Unknown) BP 107/58 Pulse 71 Temp 36.5 ?C (97.7 ?F) (Oral) Resp 16 Ht 152.4 cm (5') Wt 51.5 kg (113 lb 9.6 oz) LMP (LMP Unknown) SpO2 100% BMI 22.19 kg/m? General appearance: well appearing, alert, in no acute distress, well-hydrated, well nourished Skin: skin color, texture, turgor normal, no suspicious rashes or lesions Head: normal Eyes: Anicteric sclera. Pupils are equally round and reactive to light. Extraocular movements are intact. Neck: Supple, no adenopathy; thyroid symmetric, normal size Lymph Nodes: No Submandibular, cervical, supraclavicular, axillary, or inguinal lymphadenopathy present Back: no tenderness to palpation Lungs: clear to auscultation, no wheezing or rhonchi Heart: Negative. RRR without murmur, gallop, or rubs. No ectopy. Abdomen: Normal abdominal exam, Abdomen soft, non-tender. Bowel sounds normal. No masses, organomegaly Extremities: Extremities normal. No deformities, edema, or skin discoloration. Good capillary refill. Musculoskeletal: No joint swelling, deformity, or tenderness. Peripheral pulses: Normal Neuro: Gait normal. Power normal. Reflexes normal and symmetric. Sensation grossly intact. LAB: Hemoglobin (g/dL) Date Value 11/12/2019 12.2 Hematocrit (%) Date Value 11/12/2019 38.6 WBC (k/uL) Date Value 11/12/2019 6.78 ASSESSMENT/PLAN: 1. Iron deficiency anemia, unspecified iron deficiency anemia type - ICD9: 280.9, ICD10: D50.9 (primary diagnosis) She has a history of iron deficiency anemia from gastric bypass surgery. Her last injectafer was in 09/2018. She is feeling well and her hemoglobin remains normal. Her iron studies are pending. At this time we will check her labs every 6 months or sooner if she becomes symptomatic. She will follow up with Dr. Summers in 1 year. 2. History of Jd-en-Y gastric bypass - ICD9: V45.86, ICD10: Z98.84 Probably cause of her iron deficiency. SUMAYA JEAN PA-C Normal [facility] [place] Remote CBCDIF (for [facility] use o nly)on 11-12-2019 Abs Baso 0.06 k/uL Normal <0.11 [facility] [place] Abs Hemphill 0.44 k/uL Normal <0.87 [facility] [place] Abs Neut 4.85 k/uL Normal 1.45-7.50 [facility] [place] Absolute nRBC <0.01 Normal <0.01 [facility] Basophils/100 WBC (Bld) 0.9 % Normal [facility] DTYPE Auto Diff Normal [facility] Eosinophils (Bld) [#/Vol] 0.05 10*3/uL Normal <0.46 [facility] [place] Eosinophils/100 WBC (Bld) 0.7 % Normal [facility] Erythrocyte distribution width (RBC) [Ratio] 13.3 % Normal 11.5-15.0 [facility] Hematocrit (Bld) [Volume fraction] 38.6 % Normal 36.0-46.0 [facility] Hemoglobin (Bld) [Mass/Vol] 12.2 g/dL Normal 11.5-15.5 [facility] Lymphocytes (Bld) [#/Vol] 1.37 10*3/uL Normal 1.00-4.00 [facility] Lymphocytes/100 WBC (Bld) 20.2 % Normal [facility] MCH (RBC) [Entitic mass] 31.1 pG Normal 26.0-34.0 [facility] MCHC (RBC) [Mass/Vol] 31.6 g/dL Normal 30.5-36.0 [facility] MCV (RBC) [Entitic vol] 98.5 fL Normal 80.0-100.0 [facility] Monocytes/100 WBC (Bld) 6.5 % Normal [facility] Neutrophils/100 WBC (Bld) 71.7 % Normal [facility] NRBCs 0.0 /100 WBC Normal 0 [facility] Platelet mean volume (Bld) [Entitic vol] 8.9 fL Low 9.0-12.7 [facility] [place] Platelets (Bld) [#/Vol] 383 10*3/uL Normal 150-400 [facility] RBC (Bld) [#/Vol] 3.92 10*6/uL Normal 3.90-5.20 [facility] WBC (Bld) [#/Vol] 6.78 10*3/uL Normal 3.70-11.00 [facility] Ferritinon 07-22-2019 Ferritin [Mass/Vol] 138.0 ng/mL Normal 14.7-205.1 [facility] Comment on above: Performed By: #### I LUKAS, FERR #### [facility] [address] [place] [address] Iron and TIBCon 07-22-2019 Iron [Mass/Vol] 73 ug/dL Normal 41-186 [facility] [place] Comment on above: Performed By: #### I LUKAS, FERR #### [facility] [address] [place] [id number] TIBC 360 ug/dL Normal 232-386 [facility] [place] Comment on above: Performed By: #### I LUKAS, FERR #### [facility] [address] [place] [address] Transferrin Saturatn 20 % Normal 15-57 [facility] Comment on above: Performed By: #### I LUKAS FERR #### [facility] [place] [address] Remote Abs Gran + CBC (for F HC use only)on 07-22-2019 Absol Gran Count 8.16 k/uL High 1.45-7.50 [facility] Erythrocyte distribution width (RBC) [Ratio] 13.1 % Normal 11.5-15.0 [facility] [place] Hematocrit (Bld) [Volume fraction] 36.4 % Normal 36.0-46.0 [facility] Hemoglobin (Bld) [Mass/Vol] 11.8 g/dL Normal 11.5-15.5 [facility] [place] MCH (RBC) [Entitic mass] 31.8 pG Normal 26.0-34.0 [facility] [place] MCHC (RBC) [Mass/Vol] 32.4 g/dL Normal 30.5-36.0 [facility] MCV (RBC) [Entitic vol] 98.1 fL Normal 80.0-100.0 [facility] [place] Platelet mean volume (Bld) [Entitic vol] 8.7 fL Low 9.0-12.7 [facility] [place] Platelets (Bld) [#/Vol] 353 10*3/uL Normal 150-400 [facility] RBC (Bld) [#/Vol] 3.71 10*6/uL Low 3.90-5.20 [facility] WBC (Bld) [#/Vol] 8.59 10*3/uL Normal 3.70-11.00 [facility] Ferritinon 04-22-2019 Ferritin [Mass/Vol] 186.3 ng/mL Normal 14.7-205.1 [facility] Comment on above: Performed By: #### I CHRIS GAYTAN #### [facility] [address] [place] [address] Iron and TIBCon 04-22-2019 Iron [Mass/Vol] 91 ug/dL Normal 41-186 [facility] [place] Comment on above: Performed By: #### I LUKAS FERR #### [facility] [place] [id number] TIBC 309 ug/dL Normal 232-386 [facility] [place] Comment on above: Performed By: #### I LUKAS, CHRIS #### [facility] [address] [place] [id number] Transferrin Saturatn 29 % Normal 15-57 [facility] Comment on above: Performed By: #### I LUKAS, CHRIS #### [facility] [address] [place] [id number] Remote Abs Gran + CBC (for F HC use only)on 04-22-2019 Absol Gran Count 5.01 k/uL Normal 1.45-7.50 [facility] Erythrocyte distribution width (RBC) [Ratio] 12.7 % Normal 11.5-15.0 [facility] Hematocrit (Bld) [Volume fraction] 36.7 % Normal 36.0-46.0 [facility] Hemoglobin (Bld) [Mass/Vol] 12.3 g/dL Normal 11.5-15.5 [facility] MCH (RBC) [Entitic mass] 32.3 pG Normal 26.0-34.0 [facility] MCHC (RBC) [Mass/Vol] 33.5 g/dL Normal 30.5-36.0 [facility] MCV (RBC) [Entitic vol] 96.3 fL Normal 80.0-100.0 [facility] [place] Platelet mean volume (Bld) [Entitic vol] 8.5 fL Low 9.0-12.7 [facility] [place] Platelets (Bld) [#/Vol] 289 10*3/uL Normal 150-400 [facility] RBC (Bld) [#/Vol] 3.81 10*6/uL Low 3.90-5.20 [facility] WBC (Bld) [#/Vol] 7.10 10*3/uL Normal 3.70-11.00 [facility] CBCon 01-21-2019 Absolute nRBC <0.01 Normal <0.01 [facility] [place] Comment on above: Performed By: #### C BC #### [facility] [address] [place], [place] [address] Erythrocyte distribution width (RBC) [Ratio] 13.4 % Normal 11.5-15.0 [facility] [place] Comment on above: Performed By: #### C BC #### [facility] [address] [place], [place] [address] Hematocrit (Bld) [Volume fraction] 36.7 % Normal 36.0-46.0 [facility] [place] Comment on above: Performed By: #### C BC #### [facility] [address] [place], [place] [address] Hemoglobin (Bld) [Mass/Vol] 11.7 g/dL Normal 11.5-15.5 [facility] [place] Comment on above: Performed By: #### C BC #### [place] [address] [place], [place] [address] MCH (RBC) [Entitic mass] 31.5 pG Normal 26.0-34.0 [facility] [place] Comment on above: Performed By: #### C BC #### [place] [address] [place], [place] [address] MCHC (RBC) [Mass/Vol] 31.9 g/dL Normal 30.5-36.0 [facility] Comment on above: Performed By: #### C BC #### [facility] [address] [place], [place] [address] MCV (RBC) [Entitic vol] 98.7 fL Normal 80.0-100.0 [facility] [place] Comment on above: Performed By: #### C BC #### [facility] [address] [place], [place] [address] Platelet mean volume (Bld) [Entitic vol] 10.0 fL Normal 9.0-12.7 [facility] [place] Comment on above: Performed By: #### C BC #### [place] [address] [place], [place] [address] Platelets (Bld) [#/Vol] 348 10*3/uL Normal 150-400 [facility] [place] Comment on above: Performed By: #### C BC #### [place] [address] RBC (Bld) [#/Vol] 3.72 10*6/uL Low 3.90-5.20 [facility] Comment on above: Performed By: #### C BC #### [place] [phone] WBC (Bld) [#/Vol] 6.03 10*3/uL Normal 3.70-11.00 [facility] Comment on above: Performed By: #### C BC #### [place] [phone] Ferritinon 01-21-2019 Ferritin [Mass/Vol] 201.0 ng/mL Normal 14.7-205.1 [facility] Comment on above: Performed By: #### I LUKAS, FERR #### [place] [phone] Iron and TIBCon 01-21-2019 Iron [Mass/Vol] 85 ug/dL Normal 41-186 [facility] [place] Comment on above: Performed By: #### I LUKAS, FERR #### [place] [phone] TIBC 346 ug/dL Normal 232-386 [facility] [place] Comment on above: Performed By: #### I LUKAS, FERR #### [place] [phone] Transferrin Saturatn 25 % Normal 15-57 [facility] Comment on above: Performed By: #### I LUKAS, FERR #### [place] [phone] Remote Abs Gran + CBC (for [facility] use only)on 01-21-2019 Absol Gran Count Duplicate request Normal 1.45-7.50 [facility] Comment on above: Result Comment: Acco unt Credited Performed By: #### R AGCBC #### [facility] [address] [place] [address] Absolute nRBC Duplicate request Normal <0.01 [facility] Comment on above: Result Comment: Acco unt Credited BB [id number] 0010 Performed By: #### R AGCBC #### [place] [address] [place] [address] Comment Duplicate request Normal [facility] Comment on above: Result Comment: Acco unt Credited BB [id number] 0010 Performed By: #### R AGCBC #### [place] [phone] Erythrocyte distribution width (RBC) [Ratio] Duplicate request Normal 11.5-15.0 [facility] [place] Comment on above: Result Comment: Acco unt Credited BB [id number] 0010 Performed By: #### R AGCBC #### [facility] [address] [place] [address] Hematocrit (Bld) [Volume fraction] Duplicate request Normal 36.0-46.0 [facility] [place] Comment on above: Result Comment: Acco unt Credited BB [id number] 0010 Performed By: #### R AGCBC #### [facility] [address] [place] [address] Hemoglobin (Bld) [Mass/Vol] Duplicate request Normal 11.5-15.5 [facility] [place] Comment on above: Result Comment: Acco unt Credited BB [id number] [id number] Performed By: #### R AGCBC #### [facility] [address] [place] [address] MCH (RBC) [Entitic mass] Duplicate request Normal 26.0-34.0 [facility] [place] Comment on above: Result Comment: Acco unt Credited BB [id number] 0010 Performed By: #### R AGCBC #### [facility] [address] [place], [place] [address] MCHC (RBC) [Mass/Vol] Duplicate request Normal 30.5-36 .0 [facility] [place] Comment on above: Result Comment: Acco unt Credited BB [id number] 0010 Performed By: #### R AGCBC #### [facility] [address] [place] [address] MCV (RBC) [Entitic vol] Duplicate request Normal 80.0-100.0 [facility] [place] Comment on above: Result Comment: Acco unt Credited BB [id number] 0010 Performed By: #### R AGCBC #### [place] [address] [place] [address] Platelet mean volume (Bld) [Entitic vol] Duplicate request Normal 9.0-12.7 [facility] [place] Comment on above: Result Comment: Acco unt Credited BB [id number] 0010 Performed By: #### R AGCBC #### [facility] [address] [place], [place] [address] Platelets (Bld) [#/Vol] Duplicate request Normal 150-400 [facility] [place] Comment on above: Result Comment: Acco unt Credited BB [id number] 0010 Performed By: #### R AGCBC #### [facility] [address] [place], [place] [address] RBC (Bld) [#/Vol] Duplicate request Normal 3.90-5.20 [facility] [place] Comment on above: Result Comment: Acco unt Credited BB [id number] 0010 Performed By: #### R AGCBC #### [facility] [address] [place] [id number] Recheck Duplicate request Normal [facility] Comment on above: Result Comment: Acco unt Credited BB [id number] 0010 Performed By: #### R AGCBC #### [facility] [address] [place], [place] [address] Review Duplicate request Normal [facility] Comment on above: Result Comment: Acco unt Credited BB [id number] 0010 Performed By: #### R AGCBC #### [facility] [address] [place], [place] [address] WBC (Bld) [#/Vol] Duplicate request Normal 3.70-11.00 [facility] [place] Comment on above: Result Comment: Acco unt Credited BB [id number] 0010 Performed By: #### R AGCBC #### [facility] [address] [place], [place] [address] Vital Signs Date Time Vital Sign Value Performing Clinician Facility 10-15-2023 11:26-0500 Body height 149.9 cm Saroj Ramirez MD Work Phone: [facility] 10-15-2023 11:26-0500 Body mass index (BMI) [Ratio] 27.47 kg/m2 Saroj Ramirez MD Work Phone: [facility] 10-15-2023 11:26-0500 Body weight 61.69 kg Saroj Ramirez MD Work Phone: [facility] 10-15-2023 11:26-0500 Diastolic blood pressure 67 mm[Hg] Saroj Ramirez MD Work Phone: [facility] 10-15-2023 11:26-0500 Heart rate 86 /min Saroj Ramirez MD Work Phone: [facility] 10-15-2023 11:26-0500 Systolic blood pressure 128 mm[Hg] Saroj Ramirez MD Work Phone: [facility] 08-20-2023 13:30-0400 Body height 149.86 cm Imad Asaad Other [employer] Other 08-20-2023 13:30-0400 Body mass index (BMI) [Ratio] 27.83 kg/m2 Imad Asaad Other [facility] [facility] Other 08-20-2023 13:30-0400 Body weight 62.51 kg Imad Asaad Other [facility] Other 08-20-2023 13:30-0400 Diastolic blood pressure 88 mm[Hg] Imad Asaad Other [facility] Other 08-20-2023 13:30-0400 Systolic blood pressure 127 mm[Hg] Imad Asaad Other [facility] [facility] Other 05-04-2023 08:10-0400 Body height 149.9 cm Saroj Ramirez MD Work Phone: [facility] 05-04-2023 08:10-0400 Body mass index (BMI) [Ratio] 26.38 kg/m2 Saroj Ramirez MD Work Phone: [facility] 05-04-2023 08:10-0400 Body weight 59.24 kg Saroj Ramirez MD Work Phone: [facility] 05-04-2023 08:10-0400 Diastolic blood pressure 87 mm[Hg] Saroj Ramirez MD Work Phone: [facility] 05-04-2023 08:10-0400 Heart rate 73 /min Saroj Ramirez MD Work Phone: [facility] 05-04-2023 08:10-0400 Systolic blood pressure 134 mm[Hg] Saroj Ramirez MD Work Phone: [facility] 06-26-2022 13:45-0400 Body height 149.86 cm Emery Cash Other [facility] [employer] Other 06-26-2022 13:45-0400 Body mass index (BMI) [Ratio] 27.26 kg/m2 Emery Gonzalezcatrina Other [employer] Other 06-26-2022 13:45-0400 Body weight 61.24 kg Emery Cash Other [employer] Other 06-26-2022 13:45-0400 Diastolic blood pressure 81 mm[Hg] Emery Gonzalezcatrina Other [employer] Other 06-26-2022 13:45-0400 Systolic blood pressure 123 mm[Hg] Emery Cash Other [employer] Other Encounters Encounter Date Encounter Type Care Provider Facility Start: 05-14-2024 End: 05-14-2024 ambulatory Katharina L Wilfrido [place] [place]: 05-14-2024 End: 05-14-2024 Lab Drop off Katharina L Wilfrido [facility] Start: 05-14-2024 End: 05-14-2024 ambulatory Katharina L Wilfrido Facility:[facility] [employer] [facility] Start: 05-12-2024 End: 05-12-2024 ambulatory BENJAMIN LAMBERT Not Available Start: 04-29-2024 End: 04-29-2024 ambulatory JEFF JOHNSON Not Available Start: 04-24-2024 ambulatory RUGEN HECTOR Facility:[facility] Start: 04-10-2024 ambulatory RUGEN HECTOR Facility:[facility] Start: 04-04-2024 ambulatory LIUS ANTONIO E GRIM Facility:[facility] Start: 03-26-2024 ambulatory LUIS ANTONIO E IM Facility:[facility] Start: 03-14-2024 End: 03-14-2024 ambulatory [facility] Start: 03-13-2024 End: 03-13-2024 ambulatory Katharina L Wilfrido Facility:[facility] Emperatriz gaxiola Start: 03-12-2024 ambulatory CANTON Glendy VANDANA Facility:[facility] Start: 02-28-2024 ambulatory LUIS ANTONIO Glendy VANDANA Facility:[facility] Start: 02-27-2024 End: 02-27-2024 ambulatory BENJAMIN LAMBERT Not Available Start: 02-22-2024 ambulatory SAROJ Guerra ty:[facility] Start: 01-18-2024 End: 01-18-2024 ambulatory KIMBERLEE ECHAVARRIA Not Available Start: 10-24-2023 End: 10-24-2023 ambulatory Imad Asaad Facility:[facility] Start: 10-15-2023 End: 10-15-2023 Office outpatient visit 25 minutes Saroj Ramirez MD Work Phone: [facility] Comment on above: Functional tremor (P rimary Dx); Functional gait disorder; Restless legs syndrome (RLS) Start: 10-15-2023 ambulatory SAROJ Guerra ty:[facility] Start: 10-02-2023 End: 10-02-2023 ambulatory KRISTIN Barrett HECTOR Not Available Start: 08-20-2023 End: 08-20-2023 ambulatory Imad Asaad Other [employer] Other Start: 08-20-2023 Office outpatient ne w 45 minutes Imad Asaad [facility] Start: 07-05-2023 End: 07-05-2023 ambulatory Emery Cash Other [employer] Other Start: 07-05-2023 Telephone encounter Emery aCsh [facility] Start: 05-04-2023 End: 05-04-2023 Office consultation new/estab patient 80 min Saroj Ramirez MD Work Phone: [facility] Comment on above: Functional tremor (P rimary Dx); Functional gait disorder Start: 05-04-2023 ambulatory RUGEN HECTOR Facility:[facility] Start: 03-12-2023 End: 03-12-[address] JAVIER LEIVA . Facility:[facility] Start: 01-01-2023 End: 01-02-[address] KRISTIN YOUNG Facility:[facility] Start: 12-05-2022 End: 12-06-2022 ambulatory CECE GREEN Facility:[facility] Start: 11-14-2022 End: 11-15-2022 ambulatory CECE GREEN Facility:[facility] Start: 07-06-2022 End: 07-06-[address] KRISTIN YOUNG Facility:[facility] Start: 06-26-2022 End: 06-26-2022 ambulatory Emery Cash Other [place] [employer] Other Start: 06-26-2022 Patient encounter procedure Emery Cash [facility] Start: 2022 End: 2022 Patient encounter procedure MD Kristin Young Work Phone: [facility] [address] Start: 04-21-2022 End: 04-21-[address] KRISTIN YOUNG Facility:[facility] Procedures Date Procedure Procedure Detail Performing Clinician Start: 04-25-2023 Laboratory test result abnormal Abnormal laboratory test result Saroj Ramirez MD Work Phone: Start: 2022 MRI of head MD Kristin Young Work Phone: Start: 04-17-2019 H/O: hysterectomy History of hysterectomy Saroj Beck Work Phone: Start: 04-18-2006 Hysterectomy Katharina Wilfrido Bilateral augmentati on mammoplasty Katharina Wilfrido Bypass of stomach Katharina Schwa b Cholecystectomy Katharina Wilfrido H/O: surgery Emery Cash Other Tonsillectomy Katharina Wilfrido Plan of Treatment Date Care Activity Detail Author Start: 08-13-2024 ambulatory Ambulatory Facility:[facility] Emperatriz padillae Start: 04-28-2024 End: 04-28-2024 Patient encounter procedure 04/28/2024 11:30 AM EDT Office Visit [facility] [address] [place] [address] [place] [address] Saroj Ramirez MD [address] [place] [id number] [facility] Start: 10-15-2023 End: 10-15-2023 Patient encounter procedure 10/15/2023 11:30 AM EST Office Visit [facility] [address] [place] [address] [place] [address] Saroj Ramirez MD [address] [place] [id number] [facility] Start: 07-06-2023 Influenza vaccination [facility] Start: 2022 Zoster vaccine hzv live for subcutaneous use ZOSTER (SHINGLES) VACCINE (1 of 2) [facility] Start: 04-04-2020 Screening for malignant neoplasm of colon COLORECTAL CANCER SCREENING DISCUSSION [facility] Start: 2017 Screening for malignant neoplasm of colon COLORECTAL CANCER SCREENING DISCUSSION [facility] Start: 2012 Lipid panel LIPID SCREENING [facility] Start: 2012 Screening for malignant neoplasm of breast MAMMOGRAM SCREENING DISCUSSION [facility] Start: 1993 Screening for malignant neoplasm of cervix CERVICAL CANCER SCREENING DISCUSSION [facility] Start: 1991 Third diphtheria, tetanus and acellular pertussis (DTaP) vaccination TDAP (ADULT) [facility] Start: 1987 HIV screening HIV SCREENING DISCUSSION [facility] Start: 1978 PNEUMOCOCCAL VACCINE SERIES (1 - PCV) PNEUMOCOCCAL VACCINE SERIES (1 - PCV) [facility] Start: 1972 COVID-19 VACCINE (#1) COVID-19 VACCINE (#1) [facility] Start: 1972 Hepatitis B vaccination HEP B VACCINE (1 of 3 - 3-dose series) [facility] Start: 1972 Hepatitis C screening HEPATITIS C VIRUS SCREENING [facility] Start: 1972 Tetanus vaccination TETANUS [facility] Start: 1972 Thyroid stimulating hormone measurement TSH [facility] Payers Date Payer Category Payer Unknown [id number] 2023 Self-pay [id number] 2022 Unknown [id number] 2002 Unknown [employer] [place] [id number] 2002-Present [address] [place] [address] [id number] 1972 Unknown [id number] 2.16.840.1.009847.3.579.2.593 1972 Unknown [id number] 2.16.840.1.729535.3.579.2.593 1972 Unknown [id number] 2.16.840.1.738417.3.579.2.593 1972 Unknown [id number] 2.16.840.1.344702.3.579.2.593 1972 Unknown [id number] 2.16.840.1.053612.3.579.2.593 1972 Unknown [id number] 2.16.840.1.972306.3.579.2.593 1972 Unknown [id number] 2.16.840.1.107360.3.579.2.727 1972 Unknown [id number] 2.16.840.1.691233.3.579.2.727 1972 Unknown [id number] 2.16.840.1.602493.3.579.2.727 1972 Unknown [id number] 2.16840.1.911129.3.579.2.727 1972 Unknown [id number] 2.16840.1.382557.3.579.2.7 1972 Unknown [id number] 2.16840.1.268196.3.579.2.1258 1972 Unknown [id number] 2.840.1.799968.3.579.2.1258 1972 Unknown [id number] 2.840.1.197895.3.579.2.1258 1972 Unknown [id number] 2.0.1.238526.3.579.2.1258 1972 Unknown [id number] 2.840.1.435050.3.579.2.9 1969 Unknown [id number] 2.840.1.826696.3.579.2.594 1969 Unknown [id number] 2.0.1.787683.3.579.2.594 1969 Unknown [id number] 2.0.1.679570.3.579.2.594 1969 Unknown [id number] 2.840.1.729812.3.579.2.594 1969 Unknown [id number] 2.840.1.018752.3.579.2.594 1969 Unknown [id number] 2.840.1.473873.3.579.2.594 1969 Unknown [id number] 2.840.1.499974.3.579.2.594 1969 Unknown [id number] 2.840.1.269933.3.579.2.594 1969 Unknown [id number] 2.840.1.516842.3.579.2.594 1959 Unknown [id number] 1959 Unknown [id number] 2.16. 840.1.458984.19 Unknown [id number] 2.16.840.1.853973.3.579.2.531 Social History Date Type Detail Facility Tobacco smoking stat [facility] Unknown if ever smoked [facility] Work Phone: Start: 1970 Sex Assigned At Female F [facility] Start: 05-04-2023 Sex Assigned At F [facility] Start: 05-04-2023 Tobacco smoking stat [facility] Occasional tobacco smoker [facility] History of tobacco use Cigarette Smoker [facility] Start: 05-04-2023 Tobacco use and exposure Smokeless tobacco non-user [facility] Start: 05-04-2023 End: 10-15-2023 Alcohol intake Current drinker of alcohol (finding) [facility] Start: 05-04-2023 End: 10-15-2023 Alcohol intake [facility] Start: 1970 Sex Assigned At Not on file [facility] Start: 05-14-2024 Tobacco smoking status Ex-smoker (fi nding) [facility] Tobacco smoking status Never [facility] Clinical Notes 06-26-2022 to 10-15-2023 Aniya Ware - 10/15/2023 11:30 AM All Ramirez MD - 10/15/2023 11:30 AM ESTPatient Instructions Note Date & Type Note Facility 10-15-2023 History of Presen t illness Narrative Patient name and verified. [facility] Follow up visit Miriam Estrada returns today to the Movement Disorders clinic for follow up for tremor. She presents unaccompanied. HISTORY OF PRESENT ILLNESS: Interval History: At her last visit, 05/04/2023 Saroj Ramirez MD, made the diagnosis of FND. Since then, she has been doing more reading about the condition and is part of the FND hope group on facebook. The condition has been making more sense to her. She recounts that when the tremor first started it was intermittent and mild. Her mother passed about 2 months before she got COVID and after she got COVID the tremor became much more prominent. 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 She has been noticing that her symptoms are worsening. She is now having some cognitive difficulties. She is having a difficult time remembering things even when she was just told them. She has a sister who was diagnosed with cervical dystonia. Her sisters head tremor looks very similar to the patients head tremor. We stopped primidone and she is having a lot more difficulty falling asleep. Her legs are restless and hurt very badly. She gets creepy crawlies and aching. Disease Summary: Handedness: right handed Onset of symptoms: 2017 Initial symptoms: Head tremor Initial history (04/2023): Tremor began in 2017 in the head. Had been having an internal tremor for 2 years prior to that when she looks back. Also notes that in 2017 the tremor seemed to begin all the sudden in 2017. Diagnosed with Essential Tremors by Dr. Chauhan at [facility]. The head was always moving side to side (no-no). The tremor had an intermittent quality at first. She notices that earlier in the day the tremor is much slower earlier in the day and becomes much quicker in terms of frequency later in the day. She describes times when the tremor is so severe that it will feel like a whole body convulsion like state. Alcohol will temporily slow the tremor. Xanax and clonazepam have also helped the tremor in the past In the last year she has developed weird tics. Hard to describe and has not seen these.When the tremor is severe it is difficult to stand. It is more difficult to stand than it is to walk. She is in the process for an appeal for disability. Sister has cervical dystonia with a no-no head tremor. Mother had hand and voice tremor. Current relevant medication regimen Trileptal for migraines Promethlazine Primidone 50mg, 2 tabs AM and 3 tabs PM Medications Tried Propranolol - made her nauseous all the time PAST MEDICAL HISTORY, FAMILY HISTORY, SOCIAL HISTORY, ALLERGIES, MEDICATIONS Past Medical History She has a past medical history of Anxiety, Depression, and GERD (gastroesophageal reflux disease). She has no past medical history of Hyperthyroidism. Past Surgical History She has no past surgical history on file. Family History She family history is not on file. Social History She reports that she has been smoking cigarettes. She has never used smokeless tobacco. She reports current alcohol use of about 1.0 standard drink of alcohol per week. She reports current drug use. Drug: Marijuana. Allergies She is allergic to metronidazole, nsaids, and sulfa antibiotics. Current Medications Current Outpatient Medications Medication Sig acetaminophen (TYLENOL) 500 MG tablet Take 1-2 tablets by mouth as needed for Pain or Fever. Ajovy 225 MG/1.5ML Solution Prefilled Syringe INJECT SUBCUTANEOUSLY DIRECTED EVERY 28 DAYS ALPRAZolam (Xanax) 0.5 MG tablet Take 1 tablet by mouth 2 times daily as needed. Aspirin [address] tablet Take 1 tablet by mouth daily. As needed Bacillus Coagulans-Inulin (Probiotic) 1-250 BILLION-MG capsule Take by mouth. daily clonazePAM (KlonoPIN) 1 MG tablet Take 1 tablet by mouth daily. 0.5 - 1 tablet BID prn tremor Cyclobenzaprine 5 MG tablet Take 1 tablet by mouth 3 times daily as needed. escitalopram 20 MG tablet Take 1 tablet by mouth daily. faMOTIdine 20 MG tablet Take 1 tablet by mouth daily. Folic acid 1 MG tablet 1 tablet Orally Once a day for 30 day(s) Ibuprofen 400 MG tablet 1 tablet with food or milk as needed Orally PRN Montelukast (Singulair) 10 MG tablet 1 tablet Orally Once a day OXcarbazepine (Trileptal) 300 MG tablet 1 tablet Orally BID Premarin 1.25 MG tablet Promethazine HCl 12.5 MG tablet 1 tablet as needed Orally PRN SODIUM FLUORIDE, DENTAL GEL, (PreviDent 5000 Dry Mouth) 1.1 % Gel PreviDent 5000 Dry Mouth Sucralfate (Carafate) 1 GM/10ML oral suspension 10ml Orally BID Synthroid 50 MCG tablet valACYclovir HCl (VALACYCLOVIR PO) Take by mouth. prn Primidone 50 MG tablet 2 tablets in morning and 3 tablets evening. (Patient not taking: Reported on 08/15/2023) REVIEW OF SYSTEMS: 14 point review of systems were reviewed and pertinent findings are as noted in the HPI. All others were negative. RELEVANT PRIOR EVALUATIONS AND TESTS: Imaging (personally reviewed): PHYSICAL EXAM: Vitals: Vitals: 10/15/23 1126 BP: 128/67 Pulse: 86 Coordination/Complex Motor: - Yes-yes head tremor, no dystonia, 6-7hz - Mild postural arm tremor bilaterally, possibly transmitted from neck - Whole body tremor affecting legs and arms. - With finger finger tapping at different speeds the tremor adopted the frequency of the finger tapping. - There was suppression of the whole body tremor with tongue drawing ABCs, the head tremor dampened but did not fully suppress - With walking there was a whole body bouncing type tremor this did not improve with walking backward or walking in tandem forwards or backwards. - With stance and drawing a figure of eight with the foot on the floor there was a decrease in frequency in leg tremor and there was full suppression of the head tremor. 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 Restless legs syndrome (RLS) She has tremor with variability, inconsistency, distractibility, and incongruence which fulfills criteria for clinically definite functional movement disorder expressed as functional tremor. This is further supported by giveaway weakness in the legs. The neurological examination is otherwise normal. Deep brain stimulation would not likely help this etiology of tremor. We again discussed the diagnosis and it seemed to resonate with her more so than last visit. She may benefit from cognitive behavioral therapy. 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 Cognitive therapy induces and trains normal function when there is dysfunction of networks I will start gabapentin 300mg before bed for the restless legs and difficulty sleeping - Follow up with me in 6 months Total time: 33 minutes, which includes [id number] time, counseling and educating the patient, chart completion, reviewing records and relevant labs/imaging, review of medications, changes in medical history and placing referrals. 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 Cognitive therapy induces and trains normal function when there is dysfunction of networks I will start gabapentin 300mg before bed for the restless legs and difficulty sleeping - Follow up with me in 6 months documented in this encounter [facility] 08-20-2023 Evaluation note Encounter Date Diagnosis Assessment Notes Aug, Alternating constipation and diarrhea (ICD-10 - R19.8) Aug, Nausea (ICD-10 - R11.0) Aug, History of Jd-en-Y gastric bypass (ICD-10 - Z98.84) Patient is post gastric bypass about 17 years ago Aug, Personal history of colonic polyps (ICD-10 - Z86.010) Patient is over due for a colonoscopy scheduled today, prep instructions given today, Risks and benefits of procedure explained to patient; patient verbalizes understanding. Aug, Hiccups (ICD-10 - R06.6) Patient reports that she had the flu a few months ago and now has reoccuring hiccups Paitent is advised to have a EGD scheduled today, prep instructions given today Risks and benefits of procedure explained to patient; patient verbalizes understanding. [employer] Other 06-30-2023 History of Present illness Narrative* Saroj Ramirez MD - 05/04/2023 8:00 AM EDT Movement Disorders Clinic New Patient Visit Miriam Estrada is here today to the Movement Disorders clinic for a new patient visit. She is accompanied by and additional history is obtained from her , Vick. She was referred by Kristin Young MD regarding Severe tremors, wants to get a Deep Brain Stimulator HISTORY OF PRESENT ILLNESS: Handedness: right handed Onset of symptoms: 2017 Initial symptoms: Head tremor Miriam Estrada is a 52 y.o. female who presents for evaluation for advanced therapy for severe medication refractory tremor. Tremor began in 2017 in the head. Had been having an internal tremor for 2years prior to that when she looks back. Also notes that in 2017 the tremor seemed to begin all thesudden in 2017. Diagnosed with Essential Tremors by Dr. hCauhan at [facility]. The head was always movingside to side (no-no). The tremor had an intermittent quality at first. She notices that earlier in the day the tremor is much slower earlier in the day and becomes much quicker in terms of frequency later in the day. She describes times when the tremor is so severe that it will feel like a whole body convulsion like state. Alcohol will temporily slow the tremor. Xanax and clonazepam have also helped the tremor in the past In the last year she has developed weird tics. Hard to describe and has not seen these. When the tremor is severe it is difficult to stand. It is more difficult to stand than it is to walk. She is in the process for an appeal for disability. Sister has cervical dystonia with a no-no head tremor. Mother had hand and voice tremor. Current relevant medication regimen Trileptal for migraines Promethlazine Primidone 50mg, 2 tabs AM and 3 tabs PM Medications Tried Propranolol - made her nauseous all the time PAST MEDICAL HISTORY, FAMILY HISTORY, SOCIAL HISTORY, ALLERGIES, MEDICATIONS Past Medical History She has a past medical history of Anxiety, Depression, and GERD (gastroesophageal reflux disease). She has no past medical history of Hyperthyroidism. Past Surgical History She has no past surgical history on file. Family History She family history is not on file. Social History She has no history on file for tobacco use, alcohol use, and drug use. Allergies She is allergic to metronidazole, nsaids, and sulfa antibiotics. Current Medications Current Outpatient Medications Medication Sig acetaminophen (TYLENOL) 500 MG tablet Take 1-2 tablets by mouth as needed for Pain or Fever. ALPRAZolam (Xanax) 0.5 MG tablet Take 1 tablet by mouth 2 times daily as needed. Aspirin [address] tablet Take 1 tablet by mouth daily. clonazePAM (KlonoPIN) 1 MG tablet Take 1 tablet by mouth daily. Cyclobenzaprine 5 MG tablet Take 1 tablet by mouth 3 times daily as needed. escitalopram 20 MG tablet Take 1 tablet by mouth daily. REVIEW OF SYSTEMS: 14 point review of systems were reviewed and pertinent findings are as noted in the HPI. All otherswere negative. RELEVANT PRIOR EVALUATIONS AND TESTS: Imaging (personally reviewed): PHYSICAL EXAM: Vitals: Vitals: 05/04/23 0810 BP: 134/87 Pulse: 73 Mental status/Cognition: Alert; good attention, responds appropriately Speech/language: fluency intact and comprehension intact Cranial nerves: CN II CN III,IV, Pupils equal, round, reactive and with consensual response.. Extraocular movements intact and There are no square wave jerks CN V CN VII There is no hypomimia CN VIII Hearing intact to voice grossly and No nystagmus noted CN IX & X No dysarthria. There is no hypophonia CN XI Shoulder shrug strength 5/5 bilaterally CN XII Tongue protrudes midline Motor: Normal muscle bulk throughout Mvmt Root Nerve Muscle Right Left Comments SA C5/6 Ax Deltoid 5 5 EF C5/6 Mc Biceps 5 5 EE C6/7/8 Rad Triceps 5 5 WF C6/7 Med FCR 5 5 WE C7/8 PIN ECU 5 5 F Ab C8/T1 U ADM/FDI 5 5 HF L1/2/3 Fem Illopsoas [address] weakness KE L2/3/4 Fem Quad 5 5 DF L4/5 D Peron Tib Ant 5 5 PF S1/2 Tibial Grc/Meliza 5 5 Reflexes: Right Left Comments Pectoralis Biceps (C5/6) 2+ 2+ Brachioradialis (C5/6) 2+ 2+ Triceps (C6/7) 2+ 2+ Patellar (L3/4) 2+ 2+ Achilles (S1) 2+ 2+ Ellis Plantar Jaw jerk Coordination/Complex Motor: - Yes-yes head tremor, no dystonia, 6-7hz - Mild postural arm tremor bilaterally, possibly transmitted from neck - Whole body tremor affecting legs and arms. - With finger finger tapping at different speeds the tremor adopted the frequency of the finger tapping. - There was suppression of the whole body tremor with tongue drawing ABCs, the head tremor dampenedbut did not fully suppress - With walking there was a whole body bouncing type tremor this did not improve with walking backward or walking in tandem forwards or backwards. - With stance and drawing a figure of eight with the foot on the floor there was a decrease in frequency in leg tremor and there was full suppression of the head tremor. 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 This is further supported by giveaway weakness in the legs. The neurological examination is otherwise normal. Deep brain stimulation would not likely help this etiology of tremor. - I extensively discussed the diagnosis, how the diagnosis was made at the bedside, and some strategies to address these symptoms. - Cognitive behavioral therapy can be beneficial if patient fully understand the diagnosis and is willing to commit substantial resources to ensure its success. - Physical therapy would also be benficial - It was not clear that she was ready to accept the diagnosis - Resources to help in the recovery were discussed, including www.neurosymptoms.org and the book Overcoming functional neurological symptoms . - If the diagnosis begins to resonate with her, we will be happy to provide resources for CBT and PT - I would be delighted to review progress in a follow up evaluation in 6 months and welcome troubleshooting via telephone or mychart as needed in the interim. Total time: 71 minutes, which includes [id number] time, counseling and educating the patient, chart completion, reviewing records and relevant labs/imaging, review of medications, changes in medical history and placing referrals. Signed, Bhavesh Ramirez MD [employer] - Clinical Movement Disorders Division Department of Neurology [facility]* Patient Instructions* Saroj Ramirez MD - 05/04/2023 8:00 AM EDT It was good to meet you today. Your condition is most consistent with Functional Neurologic Disorder (FND) manifesting as Functional Tremor Here are resources to help recovery for functional neurologic disorder: - www.neurosymptoms.org - www.fndhope.org - the book Overcoming functional neurological symptoms . When you are ready and the diagnosis makes sense to you. Let us know and we can set up Cognitive Behavioral Therapy (CBT) in our Functional Movement Disorders clinic. We will also set you up with physical therapy for motor retrainment to augment training of normal function. [facility] NotePROCEDURE: Departing VCT 64, 5 mm slice axial images were acquired with coronal reconstruction through the sinuses without contrast. HISTORY: Bilateral orbital pressure, chronic sinus infections FINDINGS: Normal paranasal sinus and ethmoid air cell development. No significant mucosal thickening, mass or fluid collections. No osteomeatal unit compromise. Midline nasal septum. No nasal mass. No significant leodan bullosa formation. Normal intracranial and orbital contents. Normal mastoid air cells and tympanic cavity aeration. Normal nasopharyngeal soft tissues. IMPRESSION: 1. No evidence of acute or chronic sinusitis, or osteomeatal unit compromise. 2. Normal orbits. Report reported and signed by Kyle Villaseñor on 08/04/[address] [place], [place] [id number] Evaluation note* Encounter Date Diagnosis Assessment Notes Treatment Notes Treatment Clinical Notes Jun, Nausea (ICD-10 - R11.0) Continue Carafate without change Follow up in 1 year Jun, History of Jd-en-Y gastric bypass (ICD-10 - Z98.84) Jun, Alternating constipation and diarrhea (ICD-10 - R19.8) Pt to call if symptoms worsen [employer] Other Evaluation + Plan note Future Appointments Appointment Date:08/13/2024 01:40:00 PM Scheduled Provider:Katharina Wu Location:[facility] Appointment Type: Open Diagnostic Tests Pending * PAP [id number] w/ HPV and Genotype rflx [facility] assessment information available [facility] Work Phone: Evaluation note* Diagnosis Functional tremor- Primary Musculoskeletal malfunction arising from mental factors Functional gait disorder Abnormality of gait [facility] [employer] Other Evaluation note* Diagnosis Functional tremor- Primary Musculoskeletal malfunction arising from mental factors Functional gait disorder Abnormality of gait Restless legs syndrome (RLS) [facility] - Reported* Type Description Date Surgical History CHOLECYSTECTOMY 2006 Surgical History GASTRIC BYPASS RUEN-Y 2006 Surgical History HYSTERECTOMY 2006 Surgical History TUBAL LIGATION Hospitalization History see above [facility] [employer] Other Hospital course Narrative No data available for this section [facility] No data available for this section [facility] No data available for this section [facility] (narrative)* Consultation (Routine) - New Request Specialty Diagnoses / Procedures Referred By Tyrone chavarria Referred To Contact Neurology Diagnoses Functional tremor Saroj Ramirez MD [address] [place] [address] Referral ID Status Reason Start Date Expiration Date V isits Requested Visits Authorized [id number] New Request 10/15/2023 11/08/2024 1 1 [facility] Summary Purpose Family History No Family History Records FoundNo Family History Records FoundNo Family History Records FoundNo Family History Records FoundNo Family History Records FoundNo Family History Records FoundNo Family History Records FoundNo Family History Records Found No data available for this section Advance Directives Advance Directive Response Recorded Date/ Time Advance Directives No May 03 1:57pm Chief Complaint and Reason for Visit Chief Complaint g43.909 Additional Source Comments INFORMATION SOURCE (unrecogn ized section and content) DATE CREATED AUTHOR 11/13/2019 [facility] DATE CREATED AUTHOR AUTHOR'S ORGANIZ ATION 08/08/2022 [facility] DATE CREATED AUTHOR AUTHOR'S ORGANIZ ATION 03/20/2023 [facility] DATE CREATED AUTHOR AUTHOR'S ORGANIZ ATION 11/17/2023 [facility] DATE CREATED AUTHOR AUTHOR'S ORGANIZ ATION 12/14/2023 [facility] DATE CREATED AUTHOR AUTHOR'S ORGANIZ ATION 04/25/2024 [facility] DATE CREATED AUTHOR AUTHOR'S ORGANIZ ATION 05/19/2024 [facility] DATE CREATED AUTHOR AUTHOR'S ORGANIZ ATION 05/19/2024 [facility] d[facility] Specialists EPIC Care Teams (unrecognized sec tion and content) Personnel Name: Wilfrido BALL Katharina L Address: Address: [address] [place] [address]- Team Status: Inactive Member Role Status Dates Kristin Young MD Primary Care Provider Active Cece Green PA-C Attending Provider Active Team Status: Active Member Role Status Dates Kristin Young MD Primary Care Provider Active Officer Lieutenant Relationship Specialty Start Date End Date Kristin Young MD [address] [address] PCP - General Family Medicine 05/04/23 Officer Lieutenant Relationship Specialty Start Date End Date Kristin Young MD [address] [place] [address] [address] PCP - General Family Medicine 05/04/23 Goals (unrecognized section and content) Goals may be documented in a n alternate sectionNo InformationNo InformationNo Information No data available for this section REASON FOR VISIT (unrecogniz ed section and content) Reason Comments New Patient 52 y.o female here f or consult. Specialty Diagnoses / Procedures Referred By Contac t Referred To Contact Neurologic Surgery Diagnoses Essential tremor Kristin Young MD [address] [place] [address] Referral ID Status Reason Start Date Expiration Date V isits Requested Visits Authorized [id number] New Request 03/22/2023 04/15/2024 1 1 Reason Comments Follow-up tremor FOR RECORDS PERTAINING TO PATIENTS WHO ARE OR HAVE BEEN ENROLLED IN A CHEMICAL DEPENDENCY/SUBSTANCEABUSE PROGRAM, SOME INFORMATION MAY BE OMITTED. This clinical summary was aggregated from multiple sources. Caution should be exercised in using it in the provision of clinical care. This summary normalizes information from multiple sources, and as a consequence, information in this document may materially change the coding, format and clinical context of patient data. In addition, data may be omitted in some cases. CLINICAL DECISIONS SHOULD BE BASED ON THE PRIMARY CLINICAL RECORDS. [facility]. provides no warranty or guarantee of the accuracy or completeness of information in this document.
== END 2024-05-20 10:58 | disposition home or self-care (01) ==
LOC: MAMMO 10:57
PROVIDERS: PCP Family Medicine; Visit Provider Nurse Practitioner
DX: Z12.31 Encounter for screening mammogram for malignant neoplasm of breast (principal)
CPT/HCPCS: 77063; 77067

== ENCOUNTER 2024-05-20 11:45 | Outpatient (OUT) | payer OTHER, SELFPAY ==
--- OUTSIDE RECORDS SUMMARY | 2024-05-20 11:52 | XMS_ITS | CCD ---
Author Organization [facility] Care Team Providers Care Camera Systems Engineer Name Role Phone MD Kristin Young Primary Care Provider MICHAEL Green Attending Provider Emery Cash Unavailable [...] Care Unavailable HECTOR, DR ZARATE Consulting Unavailable [place] Kristin FRANZ Primary Care Provider [phone] Asaad, Imad Unavailable Asaad, Imad Attending Unavailable [...] Attending Unavailable WilfridoKatharina liz Primary Care Physician [phone] Allergies Allergy Classification Reported Allergen(s) Allergy Type Date of Onset Reaction(s) Facility (5 sources) NSAIDs Drug allergy 04-08-20 15 Unknown [facility] Other (3 sources) Sulfonamides (Antibiotic) Drug allergy Unknown [facility] Other (1 source) NSAIDs Drug allergy (disorder) 03-31-20 15 [facility] (1 source) Sulfonamides (Antibiotic) Drug allergy (disorder) 03-24-20 15 [facility] (2 sources) metroNIDAZOLE Drug Allergy 05-04-20 23 Nausea and Vomiting [facility] (2 sources) Sulfonamides (Antibiotic) Propensity to adverse reactions to drug 10-20-20 21 Rash, Hives [facility] (1 source) NSAIDs Drug allergy (disorder) 08-20-20 23 [facility] Repository (1 source) Sulfonamides (Antibiotic) Drug allergy (disorder) 10-24-20 23 [facility] Repository (2 sources) Sulfonamides (Antibiotic); Translations: [sulfa drugs] Propensity to adverse reactions (disorder) Miliaria crystallina (disorder), Nicole (disorder) [facility] Repository Medications Current Medications Medication Drug [...] daily. As needed 0 Active bacillus coagulans [id number] unt / inulin 250 mg oral capsule [...] mouth daily. 0 04/26/2023 Active estrogens, conjugated (half-way) 1.25 mg oral tablet (6 sources) Estrogen [...] Corticosteroid Start: 4 fluticasone Nasal 0.05 mg/inh Dike 2 spray(s), Nasal, Daily, 16 gram, Refill(s) [...] Ordered take 1 tablet by mouth once elsa y Montelukast (Singulair) 10 MG tablet 1 [...] Tab) fluticasone nasal (fluticasone Nasal 0.05 mg/inh Dike) folic acid (folic acid 1 mg Tab) [...] 1:40 PM EDT With: Katharina Wu Where: [facility] [place] [facility] Ambulatory Visit Summary Ambulatory Visit Summary MIRIAM [...] you for choosing us for your care. [facility] Family Medicine Office/Clini c Noteon 05-14-2024 Family [...] masses. Pap obtained Neurologic: Grossly normal Skin: [place], moist, no tenting Lymph Nodes: No cervical adenopathy, nodes normal Mental Status: Alert and oriented x3. Normal mood and affect Assessment/Plan 1. Well woman exam (Z01.419: Encounter for gynecological examination (general) (routine) without abnormal findings) pt presents today for well woman exam. pap obtained without difficulty. BSE discussed. mammogram order provided for [facility]. pt has issues with chronic BV. will send orders to [facility] for suppositories. will treat with metrogel for 14 days first. RTC 3 months Ordered: metronidazole topical, 1 jenniffer, Topical, Daily for 14 day(s), 60 gm, Refill(s) 1, [facility], 149, cm, 05/14/24 9:37:00 EDT, Height/Length Dosing, 64.2, kg, 05/14/24 9:37:00 EDT, Weight Dosing [facility] 40 to 64 years [address] PAP w/ HPV and Genotype rflx 2. Cervical cancer screening (Z12.4: Encounter for screening for malignant neoplasm of cervix) pap obtained without difficulty Ordered: metronidazole topical, 1 jenniffer, Topical, Daily for 14 day(s), 60 gm, Refill(s) 1, [facility], 149, cm, 05/14/24 9:37:00 EDT, Height/Length Dosing, 64.2, kg, 05/14/24 9:37:00 EDT, Weight Dosing [facility] 40 to 64 years [address]1294 PAP 072469 w/ HPV and Genotype rflx 3. Breast cancer screening by mammogram (Z12.31: Encounter for screening mammogram for malignant neoplasm of breast) mammogram order given Ordered: metronidazole topical, 1 jenniffer, Topical, Daily for 14 day(s), 60 gm, Refill(s) 1, [facility], 149, cm, 05/14/24 9:37:00 EDT, Height/Length Dosing, 64.2, kg, 05/14/24 9:37:00 EDT, Weight Dosing New Preventive 40 to 64 years [address]128 PAP 303848 w/ HPV and Genotype rflx 4. Other [...] 64.2, kg, 05/14/24 9:37:00 EDT, Weight Dosing [facility] External Ambulatory Referral New Preventive 40 to 64 years 67149 PAP 607677 w/ HPV and Genotype rflx 5. Bacterial [...] Dosing New Preventive 40 to 64 years 89430 PAP 714112 w/ HPV and Genotype rflx 6. BMI 28.0-28.9,adult (Z68.28: Body mass index [BMI] 28.0-28.9, adult) BMI education given Ordered: New Preventive 40 to 64 years [address]95 7. Former smoker (Z87.891: Personal history of nicotine dependence) continue not smoking Ordered: New Preventive 40 to 64 years [address]248 Follow-up No qualifying data available Problem List/Past Medical History Ongoing Bacterial vaginitis Breast cancer scr (more content not included)... Normal [facility] Comment on above: Result Comment: Elec tronically Signed By: Katharina Wu\.ana lilia\Date and Time Signed: 05/14/24 12:44 EDT SED RATE - CRPon 11-15-2023 CRP EXTENDED RANGE 3.25 MG/L High (0.00 - 3.20) [facility] Comment on above: Order Comment: FACIL ITY: [facility] [id number] Performed By: #### E SRCRP #### [facility] [address] [facility], [id number] SED RATE WEST. 11 MM/HR Normal (0 - 25) [place] [facility] Comment on above: Order Comment: FACIL ITY: [facility] [id number] Performed By: #### E SRCRP #### [facility] [address] [facility], [id number] Drug Screen,Urineon 12-20-20 23 Amphetamine Screen,Urine Negative Normal Negative [facility] Comment on above: Performed By: #### U RDS #### [facility] [address] [id number] [place] Barbiturate Screen,Urine Negative Normal Negative [facility] Comment on above: Performed By: #### U RDS #### [facility] [address] [place] [address] [place] Benzodiazepines Screen,Urine Negative Normal Negative [facility] Comment on above: Performed By: #### U RDS #### [address] Cannabinoid Screen,Urine Positive High Negative [facility] Comment on above: Result Comment: Thes e are unconfirmed results and should not be used for legal purposes. Drug Cut-Off Concentration: AMPH 1000 ng/mL MARCELLUS 200 ng/mL TULIO 200 ng/mL COCM 300 ng/mL OP 300 ng/mL PCP 25 ng/mL THC 20 ng/mL PERFORMED BY: [place] [address] PATHOLOGIST ENGRAVER AUTOMATIC KENNEDY LEBRON M.D. Performed By: #### U RDS #### [address] Cocaine Screen,Urine Negative Normal Negative [facility] Comment on above: Performed By: #### U RDS #### [address] Opiate Screen,Urine Negative Normal Negative [facility] Comment on above: Performed By: #### U RDS #### [address] Phencyclidine Screen,Urine Negative Normal Negative [facility] Comment on above: Performed By: #### U RDS #### [address] 10-24-2023 L - -------- Specimen: [id number] Received: 10/24/23 Status: TEJAS Payne Num: [id number] Spec Type: Surgical Subm Dr: Mariza Paredes MD Tissues: A Colon Biopsy (DUODENUM BX) B Colon Biopsy (RANOM COLON BX) Procedures: HE/4, Gross/Micro L4/2 -------- Age/ Patient Sex Location Account Attending Physician -------- Miriam Estrada 53/F [id number] Mariza Paredes MD -------- SPEC NUM: [id number] RECD: 10/24/23 STATUS: TEJAS PAYNE NUM: [id number] JACKIE: 10/24/23- [facility] DR: Mariza Paredes MD ENTERED: 10/24/[address] [facility] [address]: KALA TYPE: Surgical DEPT: S ORDERED: [...] in one cassette labeled B1. -------- Specimen: [id number] Received: 10/24/23 Status: TEJAS Payne Num: [id number] Spec Type: Surgical Subm Dr: Mariza Paredes MD Tissues: A Colon Biopsy (DUODENUM BX) B Colon Biopsy (RANOM COLON BX) Procedures: HE/Humberto, Gross/Micro L4/2 -------- Patient: Miriam Estrada [id number] (Continued) -------- Specimen: [id number] Received: 10/24/23 (Continued) Signed (signature on file) Kathrin Steel MD 10/25/23 2103 -------- Specimen: [id number] Received: 10/24/23 Status: TEJAS Payne Num: [id number] Spec Type: Surgical Subm Dr: Mariza Paredes MD Tissues: A Colon Biopsy (DUODENUM BX) B Colon Biopsy (RANOM COLON BX) Procedures: HE/4, Gross/Micro L4/2 -------- Patient: Miriam Estrada [id number] (Continued) -------- Specimen: [id number] Received: 10/24/23 (Continued) Microscopic Description A. Two H E slides reviewed. The microscopic examination confirms the diagnosis. B. Two H E slides reviewed. The microscopic examination confirms the diagnosis. CPT Codes [id number] -------- -------- Specimen: [id number] Received: 10/24/23-1258 Status: TEJAS Payne Num: [id number] Spec Type: Surgical Subm Dr: Mariza Paredes MD Tissues: A Colon Biopsy (DUODENUM BX) B Colon Biopsy (RANOM COLON BX) Procedures: HE/4, Gross/Micro L4/2 -------- Patient: Miriam Estrada [id number] (Continued) -------- Signed (signature on file) Kathrin Steel MD 10/25/232102 Normal [facility] PAP ACOG PANEL 2: 30 to 65on 03-19-2023 Age Gdln ACOG Testing [address] [facility] Comment on above: Performed By: #### 4 [id number] #### [facility] [address] [place] [address] Dr. Elke Mart FOLATEon 01-01-2023 FOLATE 23.80 ng/mL Normal 8.60-58.90 [facility] Comment on above: Performed By: #### F OL, FT4 #### [facility] [address] [place] [address] Dr. Elke Mart FREE T4on 01-01-2023 Free T4 [Mass/Vol] 0.59 ng/dL Critically low 0.76-1.46 [facility] Comment on above: Performed By: #### F OL, FT4 #### [facility] [address] [place] [address] Dr. Elke Mart TSHon 01-01-2023 TSH 1.091 uIU/mL Normal 0.358-3.740 [facility] Comment on above: Performed By: #### T SH #### [facility] [address] [place] [address] Dr. Elke Mart METHYLMALONIC ACID (MMA)on 0 11-18-2022 Methylmalonic Acid, Serum 109 nmol/L Normal 0-378 [facility] Comment on above: Performed By: #### M MA2 #### [facility] [address] [place] [address] Dr. Elke Mart FREE T4on 11-14-2022 Free T4 [Mass/Vol] 0.44 ng/dL Critically low 0.76-1.46 [facility] Comment on above: Performed By: #### B 12FOL, FT4 #### [facility] [address] [place] [address] Dr. Elke Mart TSHon 11-14-2022 TSH 0.856 uIU/mL Normal 0.358-3.740 [facility] Comment on above: Performed By: #### T SH #### [facility] [address] [place] [address] Dr. Elke Mart VIT B12 AND FOLATEon 023 Cobalamin (Vitamin B12) [Mass/Vol] 356.0 pg/mL Normal 193.0-986.0 [facility] Comment on above: Performed By: #### B 12FOL, FT4 #### [facility] [address] [place] [address] Dr. Elke Mart FOLATE 7.80 ng/mL Critically low 8.60-58.90 [facility] Comment on above: Performed By: #### B 12FOL, FT4 #### [facility] [address] [place] [address] Dr. Elke Mart RESPIRATORY PANEL PLUSon Adenovirus Not detected Normal NOT DETECTED [facility] Comment on above: Performed By: #### R SPLUS #### [facility] [address] [place] [address] Dr. Elke Lowery. Parapertusis Not detected Normal NOT DETECTED [facility] Comment on above: Performed By: #### R SPLUS #### [facility] [address] [place] [address] Dr. Elke Clay Pertussis Not detected Normal NOT DETECTED [facility] Comment on above: Performed By: #### R SPLUS #### [facility] [address] [place] [address] Dr. Elke Mart Chlamydia Pneumoniae Not detected Normal NOT DETECTED [facility] Comment on above: Performed By: #### R SPLUS #### [facility] [address] [place] [address] Dr. Elke Mart Coronavirus 229E Not detected Normal NOT DETECTED [facility] Comment on above: Performed By: #### R SPLUS #### [facility] [address] [place] [address] Dr. Elke Mart Coronavirus HKU1 Not detected Normal NOT DETECTED [facility] Comment on above: Performed By: #### R SPLUS #### [facility] [address] [place] [address] Dr. Elke Mart Coronavirus NL63 Not detected Normal NOT DETECTED [facility] Comment on above: Performed By: #### R SPLUS #### [facility] [address] [place] [address] Dr. Elke Mart Coronavirus OC43 Not detected Normal NOT DETECTED [facility] Comment on above: Performed By: #### R SPLUS #### [facility] [address] [place] [address] Dr. Elke Mart Influenza A H1 2009 Not detected Normal NOT DETECTED [facility] Comment on above: Performed By: #### R SPLUS #### [facility] [address] [place] [address] Dr. Elke Mart Influenza A H3 Not detected Normal NOT DETECTED The [facility] Comment on above: Performed By: #### R SPLUS #### [facility] [address] [address] [address] Elke Mart Influenza B Not detected Normal NOT DETECTED [facility] Comment on above: Performed By: #### R SPLUS #### [facility] [address] [place] [address] Dr. Elke Mart Metapneumovirus Not detected Normal NOT DETECTED [facility] Comment on above: Performed By: #### R SPLUS #### [facility] [address] [place] [address] Dr. Elke Mart Mycoplas. Pneumoniae Not detected Normal NOT DETECTED [facility] Comment on above: Performed By: #### R SPLUS #### [facility] [address] [place] [address] Dr. Elke Mart Parainfluenza 1 Not detected Normal NOT DETECTED [facility] Comment on above: Performed By: #### R SPLUS #### [facility] [address] [place] [address] Dr. Elke Mart Parainfluenza 2 Not detected Normal NOT DETECTED [facility] Comment on above: Performed By: #### R SPLUS #### [facility] [address] [place] [address] Dr. Elke Mart Parainfluenza 3 Not detected Normal NOT DETECTED [facility] Comment on above: Performed By: #### R SPLUS #### [facility] [address] [place] [address] Dr. Elke Mart Parainfluenza 4 Not detected Normal NOT DETECTED [facility] Comment on above: Performed By: #### R SPLUS #### [facility] [address] [place] [address] Dr. Elke Mart Rhino/Enterovirus Not detected Normal NOT DETECTED [facility] Comment on above: Performed By: #### R SPLUS #### [facility] [address] [place] [address] Dr. Elke Mart RP2 Header 1 RESPIRATORY PANEL: VIRUSES Normal [facility] Comment on above: Performed By: #### R SPLUS #### [facility] [address] [place] [address] Dr. Elke Mart RP2 Header 2 RESPIRATORY PANEL: BACTERIA Normal [facility] Comment on above: Performed By: #### R SPLUS #### [facility] [address] [place] [address] Dr. Elke Mart RSV Not detected Normal NOT DETECTED [facility] Comment on above: Performed By: #### R SPLUS #### [facility] [address] [place] [address] Dr. Elke Mart SARS-CoV-2 (COVID-19) RNA ROMERO+probe Ql (Unsp spec) Not detected Normal NOT DETECTED [facility] Comment on above: Performed By: #### R SPLUS #### [facility] [address] [place] [address] Dr. Elke Mart CNOVSPon 11-12-2019 CNOVS Visit (SP) Office ([place]) BENJAMINMIRIAM L ([id number]) 1970 F Date Time Provider Department 11/12/19 [...] months. Madeleine Greene Referring Provider: KRISTIN YOUNG [[id number]] Allergies As of Date: 11/12/2019 Noted Allergy [...] (FOR REMOTE [facility] USE) [SQRCBCDF] Order #: [id number] STANDING IRON + TIBC [SQIRON] Order #: [id number] STANDING FERRITIN BLD [SQFERR] Order #: [id number] STANDING Follow-up and Disposition History Recorded Prescriptions [...] 11/12/19 Normal [facility] Comp Metabolic Panelon 11-12 Albumin [Mass/Vol] 4.6 g/dL Normal 3.9-4.9 [facility] Comment on above: Performed By: #### I LUKAS, FERR #### [facility] [address] [place], [place] [address] ALP [Catalytic activity/Vol] 71 U/L Normal 34-123 [facility] Comment on above: Performed By: #### I LUKAS, FERR #### [facility] [address] [address] ALT [Catalytic activity/Vol] 16 U/L Normal 7-38 [facility] Comment on above: Performed By: #### I LUKAS, FERR #### [facility] [address] [place], [place] [address] Anion gap [Moles/Vol] 12 mmol/L Normal 9-18 [facility] Comment on above: Performed By: #### I LUKAS, FERR #### [facility] [address] [place], [place] [address] AST [Catalytic activity/Vol] 18 U/L Normal 13-35 [facility] Comment on above: Performed By: #### I LUKAS, FERR #### [facility] [address] [place], [place] [address] Bilirubin [Mass/Vol] 0.2 mg/dL Normal 0.2-1.3 [facility] Comment on above: Performed By: #### I LUKAS, FERR #### [facility] [address] [place], [place] [address] Calcium [Mass/Vol] 9.3 mg/dL Normal 8.5-10.2 [facility] Comment on above: Performed By: #### I LUKAS, FERR #### [facility] [address] [place], [place] [address] Chloride [Moles/Vol] 101 mmol/L Normal 97-105 [facility] Comment on above: Performed By: #### I LUKAS, FERR #### [facility] [address] [place] [phone] CO2 [Moles/Vol] 23 mmol/L Normal 22-30 [facility] Comment on above: Performed By: #### Manish GAYTAN, FERR #### [facility] [address] [phone] Creatinine [Mass/Vol] 0.69 mg/dL Normal 0.58-0.96 [facility] Comment on above: Performed By: #### Manish GAYTAN, FERR #### [address] [place] [phone] eGFR- Amer. >60 Normal [facility] Comment on above: Performed By: #### Manish GAYTAN, FERR #### [address] [place] [phone] GFR/1.73 sq M predicted among non-blacks MDRD (S/P/Bld) [Vol rate/Area] mL/min/{1.73_m2} Normal [facility] Comment on above: Result Comment: eGFR (Estimated [...] Performed By: #### Manish GAYTAN, FERR #### [facility] [address] [phone] Glucose [Mass/Vol] 103 mg/dL High 74-99 [facility] Comment on above: Result Comment: The [place] Diabetes Association (ADA) provides guidance for cutoff [...] Standards of Medical Care in Diabetes 2016, [place] [employer]. Diabetes Care. 2016.39(Suppl 1). Performed By: #### Manish GAYATN FERR #### [facility] [address] [address] Potassium [Moles/Vol] 4.3 mmol/L Normal 3.7-5.1 [facility] Comment on above: Performed By: #### Manish GAYTAN FERR #### [place] [address] Protein [Mass/Vol] 6.5 g/dL Normal 6.3-8.0 [facility] Comment on above: Performed By: #### Manish GAYTAN FERR #### [address] [place] [address] Sodium [Moles/Vol] 136 mmol/L Normal 136-144 [facility] Comment on above: Performed By: #### Manish GAYTAN FERR #### [address] [place] [address] Urea nitrogen [Mass/Vol] 5 mg/dL Low 7-21 [facility] Comment on above: Performed By: #### Manish GAYTAN FERR #### [address] [place] [address] Ferritinon 11-12-2019 Ferritin [Mass/Vol] 148.0 ng/mL Normal 14.7-205.1 [facility] Comment on above: Performed By: #### Manish GAYTAN FERR #### [place] [address] Iron and TIBCon 11-12-2019 Iron [Mass/Vol] 86 ug/dL Normal 41-186 [facility] Comment on above: Performed By: #### I LUKAS, FERR #### [facility] [address] [place], [place] [address] TIBC 382 ug/dL Normal 232-386 [facility] Comment on above: Performed By: #### I LUKAS, FERR #### [facility] [address] [place], [place] [address] Transferrin Saturatn 23 % Normal 15-57 [facility] Comment on above: Performed By: #### I LUKAS, FERR #### [facility] [address] [place], [place] [id number] PROGRESSon 11-12-2019 PROGRESS HNO ID: [id number] Author: Sumaya Jean Service: ? Author Type: Physician Inorganic Chemistry Professor Type: Progress Notes Filed: 11/12/2019 4:03 PM [...] PA-C Normal [facility] Remote CBCDIF (for [facility] use o nly)on 11-12-2019 Abs Baso 0.06 k/uL Normal <0.11 [facility] Abs Peach 0.44 k/uL Normal <0.87 [facility] Abs Neut 4.85 k/uL Normal 1.45-7.50 [facility] Absolute nRBC <0.01 Normal <0.01 [facility] Basophils/100 WBC (Bld) 0.9 % Normal [facility] DTYPE Auto Diff Normal [facility] Eosinophils (Bld) [#/Vol] 0.05 10*3/uL Normal <0.46 [facility] Eosinophils/100 WBC (Bld) 0.7 % Normal [facility] Erythrocyte distribution width (RBC) [Ratio] 13.3 % Normal 11.5-15.0 [facility] Hematocrit (Bld) [Volume fraction] 38.6 % Normal 36.0-46.0 [facility] Hemoglobin (Bld) [Mass/Vol] 12.2 g/dL Normal 11.5-15.5 [facility] Lymphocytes (Bld) [#/Vol] 1.37 10*3/uL Normal 1.00-4.00 [facility] Lymphocytes/100 WBC (Bld) 20.2 % Normal [facility] MCH (RBC) [Entitic mass] 31.1 pG Normal 26.0-34.0 [facility] MCHC (RBC) [Mass/Vol] 31.6 g/dL Normal 30.5-36.0 [facility] MCV (RBC) [Entitic vol] 98.5 fL Normal 80.0-100.0 [facility] Monocytes/100 WBC (Bld) 6.5 % Normal [facility] Neutrophils/100 WBC (Bld) 71.7 % Normal [facility] NRBCs 0.0 /100 WBC Normal 0 [facility] Platelet mean volume (Bld) [Entitic vol] 8.9 fL Low 9.0-12.7 [facility] Platelets (Bld) [#/Vol] 383 10*3/uL Normal 150-400 [facility] RBC (Bld) [#/Vol] 3.92 10*6/uL Normal 3.90-5.20 [facility] WBC (Bld) [#/Vol] 6.78 10*3/uL Normal 3.70-11.00 [facility] Ferritinon 07-22-2019 Ferritin [Mass/Vol] 138.0 ng/mL Normal 14.7-205.1 [facility] Comment on above: Performed By: #### I LUKAS, FERR #### [facility] [address] [place] [address] Iron and TIBCon 07-22-2019 Iron [Mass/Vol] 73 ug/dL Normal 41-186 [facility] Comment on above: Performed By: #### I LUKAS, FERR #### [facility] [address] [place] [id number] TIBC 360 ug/dL Normal 232-386 [facility] Comment on above: Performed By: #### I LUKAS, FERR #### [facility] [address] [place] [address] Transferrin Saturatn 20 % Normal 15-57 [facility] Comment on above: Performed By: #### I LUKAS FERR #### [facility] [place] [address] Remote Abs Gran + CBC (for F HC use only)on 07-22-2019 Absol Gran Count 8.16 k/uL High 1.45-7.50 [facility] Erythrocyte distribution width (RBC) [Ratio] 13.1 % Normal 11.5-15.0 [facility] Hematocrit (Bld) [Volume fraction] 36.4 % Normal 36.0-46.0 [facility] Hemoglobin (Bld) [Mass/Vol] 11.8 g/dL Normal 11.5-15.5 [facility] MCH (RBC) [Entitic mass] 31.8 pG Normal 26.0-34.0 [facility] MCHC (RBC) [Mass/Vol] 32.4 g/dL Normal 30.5-36.0 [facility] MCV (RBC) [Entitic vol] 98.1 fL Normal 80.0-100.0 [facility] Platelet mean volume (Bld) [Entitic vol] 8.7 fL Low 9.0-12.7 [facility] Platelets (Bld) [#/Vol] 353 10*3/uL Normal 150-400 [facility] RBC (Bld) [#/Vol] 3.71 10*6/uL Low 3.90-5.20 [facility] WBC (Bld) [#/Vol] 8.59 10*3/uL Normal 3.70-11.00 [facility] Ferritinon 04-22-2019 Ferritin [Mass/Vol] 186.3 ng/mL Normal 14.7-205.1 [facility] Comment on above: Performed By: #### I CHRIS GAYTAN #### [facility] [place] [address] Iron and TIBCon 04-22-2019 Iron [Mass/Vol] 91 ug/dL Normal 41-186 [facility] Comment on above: Performed By: #### I LUKAS FERR #### [facility]0 [place] [id number] TIBC 309 ug/dL Normal 232-386 [facility] Comment on above: Performed By: #### I LUKAS, CHRIS #### [facility] [address] [place] [id number] Transferrin Saturatn 29 % Normal 15-57 [facility] Comment on above: Performed By: #### I LUKAS, CHRIS #### [facility] [address] [place] [id number] Remote Abs Gran + CBC (for F HC use only)on 04-22-2019 Absol Gran Count 5.01 k/uL Normal 1.45-7.50 [facility] Erythrocyte distribution width (RBC) [Ratio] 12.7 % Normal 11.5-15.0 [facility] Hematocrit (Bld) [Volume fraction] 36.7 % Normal 36.0-46.0 [facility] Hemoglobin (Bld) [Mass/Vol] 12.3 g/dL Normal 11.5-15.5 [facility] MCH (RBC) [Entitic mass] 32.3 pG Normal 26.0-34.0 [facility] MCHC (RBC) [Mass/Vol] 33.5 g/dL Normal 30.5-36.0 [facility] MCV (RBC) [Entitic vol] 96.3 fL Normal 80.0-100.0 [facility] Platelet mean volume (Bld) [Entitic vol] 8.5 fL Low 9.0-12.7 [facility] Platelets (Bld) [#/Vol] 289 10*3/uL Normal 150-400 [facility] RBC (Bld) [#/Vol] 3.81 10*6/uL Low 3.90-5.20 [facility] WBC (Bld) [#/Vol] 7.10 10*3/uL Normal 3.70-11.00 [facility] CBCon 01-21-2019 Absolute nRBC <0.01 Normal <0.01 [facility] Comment on above: Performed By: #### C BC #### [facility] [address] [place], [place] [address] Erythrocyte distribution width (RBC) [Ratio] 13.4 % Normal 11.5-15.0 [facility] Comment on above: Performed By: #### C BC #### [facility] [address] [place], [place] [address] Hematocrit (Bld) [Volume fraction] 36.7 % Normal 36.0-46.0 [facility] Comment on above: Performed By: #### C BC #### [facility] [address] [place], [place] [address] Hemoglobin (Bld) [Mass/Vol] 11.7 g/dL Normal 11.5-15.5 [facility] Comment on above: Performed By: #### C BC #### [place] [address] [place], [place] [address] MCH (RBC) [Entitic mass] 31.5 pG Normal 26.0-34.0 [facility] Comment on above: Performed By: #### C BC #### [place] [address] [place], [place] [address] MCHC (RBC) [Mass/Vol] 31.9 g/dL Normal 30.5-36.0 [facility] Comment on above: Performed By: #### C BC #### [facility] [address] [place], [place] [address] MCV (RBC) [Entitic vol] 98.7 fL Normal 80.0-100.0 [facility] Comment on above: Performed By: #### C BC #### [facility] [address] [place], [place] [address] Platelet mean volume (Bld) [Entitic vol] 10.0 fL Normal 9.0-12.7 [facility] Comment on above: Performed By: #### C BC #### [place] [address] [place], [place] [address] Platelets (Bld) [#/Vol] 348 10*3/uL Normal 150-400 [facility] Comment on above: Performed By: #### C BC #### [place] [address] RBC (Bld) [#/Vol] 3.72 10*6/uL Low 3.90-5.20 [facility] Comment on above: Performed By: #### C BC #### [place] [phone] WBC (Bld) [#/Vol] 6.03 10*3/uL Normal 3.70-11.00 [facility] Comment on above: Performed By: #### C BC #### [place] [phone] Ferritinon 01-21-2019 Ferritin [Mass/Vol] 201.0 ng/mL Normal 14.7-205.1 [facility] Comment on above: Performed By: #### I LUKAS, FERR #### [place] [phone] Iron and TIBCon 01-21-2019 Iron [Mass/Vol] 85 ug/dL Normal 41-186 [facility] Comment on above: Performed By: #### I LUKAS, FERR #### [place] [phone] TIBC 346 ug/dL Normal 232-386 [facility] Comment on above: Performed By: #### I LUKAS, FERR #### [place] [phone] Transferrin Saturatn 25 % Normal 15-57 [facility] Comment on above: Performed By: #### I LUKAS, FERR #### [place] [phone] Remote Abs Gran + CBC (for F HC use only)on 01-21-2019 Absol Gran Count Duplicate request Normal 1.45-7.50 [facility] Comment on above: Result Comment: Acco unt Credited Performed By: #### R AGCBC #### [facility] [address] [place] [address] Absolute nRBC Duplicate request Normal <0.01 [facility] Comment on above: Result Comment: Acco unt Credited BB [id number] 0010 Performed By: #### R AGCBC #### [place] [address] [place] [address] Comment Duplicate request Normal [facility] Comment on above: Result Comment: Acco unt Credited BB [id number] 0010 Performed By: #### R AGCBC #### [place] [phone] Erythrocyte distribution width (RBC) [Ratio] Duplicate request Normal 11.5-15.0 [facility] Comment on above: Result Comment: Acco unt Credited BB [id number] 0010 Performed By: #### R AGCBC #### [facility] [address] [place] [address] Hematocrit (Bld) [Volume fraction] Duplicate request Normal 36.0-46.0 [facility] Comment on above: Result Comment: Acco unt Credited BB [id number] 0010 Performed By: #### R AGCBC #### [facility] [address] [place] [address] Hemoglobin (Bld) [Mass/Vol] Duplicate request Normal 11.5-15.5 [facility] Comment on above: Result Comment: Acco unt Credited BB [id number] 0010 Performed By: #### R AGCBC #### [facility] [address] [place] [address] MCH (RBC) [Entitic mass] Duplicate request Normal 26.0-34.0 [facility] Comment on above: Result Comment: Acco unt Credited BB [id number] 0010 Performed By: #### R AGCBC #### [facility] [address] [place], [place] [address] MCHC (RBC) [Mass/Vol] Duplicate request Normal 30.5-36 .0 [facility] Comment on above: Result Comment: Acco unt Credited BB [id number] 0010 Performed By: #### R AGCBC #### [facility] [address] [place] [address] MCV (RBC) [Entitic vol] Duplicate request Normal 80.0-100.0 [facility] Comment on above: Result Comment: Acco unt Credited BB [id number] 0010 Performed By: #### R AGCBC #### [place] [address] [place] [address] Platelet mean volume (Bld) [Entitic vol] Duplicate request Normal 9.0-12.7 [facility] Comment on above: Result Comment: Acco unt Credited BB [id number] 0010 Performed By: #### R AGCBC #### [facility] [address] [place], [place] [address] Platelets (Bld) [#/Vol] Duplicate request Normal 150-400 [facility] Comment on above: Result Comment: Acco unt Credited BB [id number] 0010 Performed By: #### R AGCBC #### [facility] [address] [place], [place] [address] RBC (Bld) [#/Vol] Duplicate request Normal 3.90-5.20 [facility] Comment on above: Result Comment: Acco unt Credited BB [id number] 0010 Performed By: #### R AGCBC #### [facility] [address] [place] [id number] Recheck Duplicate request Normal [facility] Comment on above: Result Comment: Acco unt Credited BB [id number] 0010 Performed By: #### R AGCBC #### [facility] [address] [place], [place] [address] Review Duplicate request [facility] [place] Comment on above: Result Comment: Acco unt Credited BB [id number] 0010 Performed By: #### R AGCBC #### [facility] [address] [place], [place] [address] WBC (Bld) [#/Vol] Duplicate request Normal 3.70-11.00 [facility] Comment on above: Result Comment: Acco unt Credited BB [id number] 0010 Performed By: #### R AGCBC #### [facility] [address] [place], [place] [address] Vital Signs Date Time Vital Sign Value Performing Clinician Facility 10-15-2023 11:26-0500 Body height 149.9 cm Saroj Ramirez MD Work Phone: [facility] 10-15-2023 11:26-0500 Body mass index (BMI) [Ratio] 27.47 kg/m2 Saroj Ramirez MD Work Phone: [facility] 10-15-2023 11:26-0500 Body weight 61.69 kg Saroj Ramirez MD Work Phone: [facility] 10-15-2023 11:26-0500 Diastolic blood pressure 67 mm[Hg] Saroj Ramirez MD Work Phone: [facility] 10-15-2023 11:26-0500 Heart rate 86 /min Saroj Ramirez MD Work Phone: [facility] 10-15-2023 11:26-0500 Systolic blood pressure 128 mm[Hg] Saroj Ramirez MD Work Phone: [facility] 08-20-2023 13:30-0400 Body height 149.86 cm Imad Asaad Other [facility] Other 08-20-2023 13:30-0400 Body mass index (BMI) [Ratio] 27.83 kg/m2 Imad Asaad Other [facility] Other 08-20-2023 13:30-0400 Body weight 62.51 kg Imad Asaad Other [facility] Other 08-20-2023 13:30-0400 Diastolic blood pressure 88 mm[Hg] Imad Asaad Other [facility] Other 08-20-2023 13:30-0400 Systolic blood pressure 127 mm[Hg] Imad Asaad Other [facility] Other 05-04-2023 08:10-0400 Body height 149.9 cm Saroj Ramirez MD Work Phone: [facility] 05-04-2023 08:10-0400 Body mass index (BMI) [Ratio] 26.38 kg/m2 Saroj Ramirez MD Work Phone: [facility] 05-04-2023 08:10-0400 Body weight 59.24 kg Saroj Ramirez MD Work Phone: [facility] 05-04-2023 08:10-0400 Diastolic blood pressure 87 mm[Hg] Saroj Ramirez MD Work Phone: [facility] 05-04-2023 08:10-0400 Heart rate 73 /min Saroj Ramirez MD Work Phone: [facility] 05-04-2023 08:10-0400 Systolic blood pressure 134 mm[Hg] Saroj Ramirez MD Work Phone: [facility] 06-26-2022 13:45-0400 Body height 149.86 cm Emery Cash Other [facility] [employer] Other 06-26-2022 13:45-0400 Body mass index (BMI) [Ratio] 27.26 kg/m2 Emery Gonzalezcatrina Other [facility] Other 06-26-2022 13:45-0400 Body weight 61.24 kg Emery Cash Other [facility] Other 06-26-2022 13:45-0400 Diastolic blood pressure 81 mm[Hg] Emery Gonzalezcatrina Other [facility] Other 06-26-2022 13:45-0400 Systolic blood pressure 123 mm[Hg] Emery Cash Other [facility] Other Encounters Encounter Date Encounter Type Care Provider Facility Start: 05-14-2024 End: 05-14-2024 ambulatory Katharina L Wilfrido Facility:[facility] Start: 05-14-2024 End: 05-14-2024 Lab Drop off Katharina L Wilfrido [facility] Start: 05-14-2024 End: 05-14-2024 ambulatory Katharina L Wilfrido Facility:[facility] Emperatriz gaxiola Start: 05-12-2024 End: 05-12-2024 ambulatory BENJAMIN LAMBERT Not Available Start: 04-29-2024 End: 04-29-2024 ambulatory JEFF JOHNSON Not Available Start: 04-24-2024 ambulatory RUGEN HECTOR Facility:[facility] Start: 04-10-2024 ambulatory RUGEN HECTOR Facility:[facility] Start: 04-04-2024 ambulatory LUIS ANTONIO E GRIM Facility:[facility] Start: 03-26-2024 ambulatory LUIS ANTONIO E IM Facility:[facility] Start: 03-14-2024 End: 03-14-2024 ambulatory [facility] Start: 03-13-2024 End: 03-13-2024 ambulatory Katharina L Wilfrido Facility:[facility] Emperatriz gaxiola Start: 03-12-2024 ambulatory BALLWIN Glendy VANDANA Facility:[facility] Start: 02-28-2024 ambulatory LUIS ANTONIO Glendy VANDANA Facility:[facility] Start: 02-27-2024 End: 02-27-2024 ambulatory BENJAMIN LAMBERT Not Available Start: 02-22-2024 ambulatory SAROJ Guerra ty:[facility] Start: 01-18-2024 End: 01-18-2024 ambulatory KIMBERLEE ECHAVARRIA Not Available Start: 10-24-2023 End: 10-24-2023 ambulatory Imad Asaad Facility:[facility] Start: 10-15-2023 End: 10-15-2023 Office outpatient visit 25 minutes Saroj Ramirez MD Work Phone: [facility] Comment on above: Functional tremor (P rimary Dx); Functional gait disorder; Restless legs syndrome (RLS) Start: 10-15-2023 ambulatory SAROJ Guerra ty:[facility] Start: 10-02-2023 End: 10-02-2023 ambulatory KRISTIN Barrett HECTOR Not Available Start: 08-20-2023 End: 08-20-2023 ambulatory Imad Asaad Other [facility] Other Start: 08-20-2023 Office outpatient ne w 45 minutes Imad Asaad [facility] Start: 07-05-2023 End: 07-05-2023 ambulatory Emery Cash Other [facility] Other Start: 07-05-2023 Telephone encounter Emery Cash [facility] Start: 05-04-2023 End: 05-04-2023 Office consultation new/estab patient 80 min Saroj Ramirez MD Work Phone: [facility] Comment on above: Functional tremor (P rimary Dx); Functional gait disorder Start: 05-04-2023 ambulatory RUGEN HECTOR Facility:[facility] Start: 03-12-2023 End: 03-12-[address] JAVIER LEIVA . Facility:[facility] Start: 01-01-2023 End: 01-02-[address] KRISTIN YOUNG Facility:[facility] Start: 12-05-2022 End: 12-06-2022 ambulatory CECE GREEN Facility:[facility] Start: 11-14-2022 End: 11-15-2022 ambulatory CECE GREEN Facility:[facility] Start: 07-06-2022 End: 07-06-[address] KRISTIN YOUNG Facility:[facility] Start: 06-26-2022 End: 06-26-2022 ambulatory Emery Cash Other [employer] Other Start: 06-26-2022 Patient encounter procedure Emery Cash [facility] Start: 2022 End: 2022 Patient encounter procedure MD Kristin Young Work Phone: [facility] [address] Start: 04-21-2022 End: 04-21-2022 ambulatory [...] Activity Detail Author Start: 08-13-2024 ambulatory Ambulatory Facility:[facility] Emperatriz padillae Start: 04-28-2024 End: 04-28-2024 Patient encounter procedure 04/28/2024 11:30 AM EDT Office Visit [facility] [address] [place] [address] [place] [address] Saroj Ramirez MD [address] [place] [address] [facility] Start: 10-15-2023 End: 10-15-2023 Patient encounter procedure 10/15/2023 11:30 AM EST Office Visit [facility] [address] [place] [address] [place] [address] Saroj Ramirez MD [address] [place] [address] [facility] Start: 07-06-2023 Influenza vaccination [facility] Start: 2022 Zoster vaccine hzv live for subcutaneous use ZOSTER (SHINGLES) VACCINE (1 of 2) [facility] Start: 04-04-2020 Screening for malignant neoplasm of colon COLORECTAL CANCER SCREENING DISCUSSION [facility] Start: 2017 Screening for malignant neoplasm of colon COLORECTAL CANCER SCREENING DISCUSSION [facility] Start: 2012 Lipid panel LIPID SCREENING [facility] Start: 2012 Screening for malignant neoplasm of breast MAMMOGRAM SCREENING DISCUSSION [facility] Start: 1993 Screening for malignant neoplasm of cervix CERVICAL CANCER SCREENING DISCUSSION [facility] Start: 1991 Third diphtheria, tetanus and acellular pertussis (DTaP) vaccination TDAP (ADULT) [facility] Start: 1987 HIV screening HIV SCREENING DISCUSSION [facility] Start: 1978 PNEUMOCOCCAL VACCINE SERIES (1 - PCV) PNEUMOCOCCAL VACCINE SERIES (1 - PCV) [facility] Start: 1972 COVID-19 VACCINE (#1) COVID-19 VACCINE (#1) [facility] Start: 1972 Hepatitis B vaccination HEP B VACCINE (1 of 3 - 3-dose series) [facility] Start: 1972 Hepatitis C screening HEPATITIS C VIRUS SCREENING [facility] Start: 1972 Tetanus vaccination TETANUS [facility] Start: 1972 Thyroid stimulating hormone measurement TSH [facility] Payers Date Payer Category Payer Unknown [id number] 2023 Self-pay [id number] 2022 Unknown [id number] 2002 Unknown [employer] [place] [id number] 2002-Present [address] [place] [address] [id number] 1972 Unknown [id number] 2.16.840.1.994906.3.579.2.593 1972 Unknown [id number] 2.16.840.1.428449.3.579.2.593 1972 Unknown [id number] 2.16.840.1.292700.3.579.2.593 1972 Unknown [id number] 2.16.840.1.373311.3.579.2.593 1972 Unknown [id number] 2.16.840.1.429735.3.579.2.593 1972 Unknown [id number] 2.16.840.1.310843.3.579.2.593 1972 Unknown [id number] 2.16.840.1.284376.3.579.2.727 1972 Unknown [id number] 2.16.840.1.114539.3.579.2.727 1972 Unknown [id number] 2.16.840.1.614427.3.579.2.727 1972 Unknown [id number] 2.16840.1.969336.3.579.2.727 1972 Unknown [id number] 2.16840.1.243709.3.579.2.7 1972 Unknown [id number] 2.16840.1.684395.3.579.2.1258 1972 Unknown [id number] 2.840.1.617314.3.579.2.1258 1972 Unknown [id number] 2.840.1.178793.3.579.2.1258 1972 Unknown [id number] 2.0.1.423984.3.579.2.1258 1972 Unknown [id number] 2.840.1.381278.3.579.2.9 1969 Unknown [id number] 2.840.1.057112.3.579.2.594 1969 Unknown [id number] 2.0.1.934182.3.579.2.594 1969 Unknown [id number] 2.0.1.986875.3.579.2.594 1969 Unknown [id number] 2.840.1.593295.3.579.2.594 1969 Unknown [id number] 2.840.1.151636.3.579.2.594 1969 Unknown [id number] 2.840.1.407494.3.579.2.594 1969 Unknown [id number] 2.840.1.687275.3.579.2.594 1969 Unknown [id number] 2.840.1.347014.3.579.2.594 1969 Unknown [id number] 2.840.1.781226.3.579.2.594 1959 Unknown [id number] 1959 Unknown [id number] 2.16. 840.1.169293.19 Unknown [id number] 2.16.840.1.733767.3.579.2.531 Social History Date Type Detail Facility Tobacco smoking stat [facility] Unknown if ever smoked [facility] Work Phone: Start: 1970 Sex Assigned At Female F [facility] Start: 05-04-2023 Sex Assigned At F [facility] Start: 05-04-2023 Tobacco smoking stat [facility] Occasional tobacco smoker [facility] History of tobacco use Cigarette Smoker [facility] Start: 05-04-2023 Tobacco use and exposure Smokeless tobacco non-user [facility] Start: 05-04-2023 End: 10-15-2023 Alcohol intake Current drinker of alcohol (finding) [facility] Start: 05-04-2023 End: 10-15-2023 Alcohol intake [facility] Start: 1970 Sex Assigned At Not on file [facility] Start: 05-14-2024 Tobacco smoking status Ex-smoker (fi nding) [facility] Tobacco smoking status Never [facility] Clinical Notes 06-26-2022 to 10-15-2023 Aniya Ware [...] with Essential Tremors by Dr. Chauhan at [facility]. The head was always moving side [...] months Total time: 33 minutes, which includes papw-db-nhxr time, counseling and educating the patient, chart completion, reviewing records and relevant labs/imaging, review of medications, changes in medical history and placing referrals. Signed, Bhavehs Ramirez MD Adjunct Political Science Instructor - Clinical Movement Disorders Division Department of Neurology [facility] documented in this encounter [facility] 10-15-2023 Instructions Saroj Ramirez MD - [...] in 6 months documented in this encounter [facility] 08-20-2023 Evaluation note Encounter Date Diagnosis [...] procedure explained to patient; patient verbalizes understanding. [facility] Other 06-30-2023 History of Present illness Narrative* [...] with Essential Tremors by Dr. Chauhan at [facility]. The head was always movingside to [...] interim. Total time: 71 minutes, which includes lyno-ai-njtq time, counseling and educating the patient, chart completion, reviewing records and relevant labs/imaging, review of medications, changes in medical history and placing referrals. Signed, Bhavesh Ramirez MD Adjunct Political Science Instructor - Clinical Movement Disorders Division Department of Neurology [facility] Inst[facility]* Patient Instructions* Saroj Ramirez MD [...] of [facility]. 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 Appointment Type: Open Diagnostic Tests Pending * PAP [id number] w/ HPV and Genotype rflx [facility] Work Phone: Evaluation note* Diagnosis Functional tremor- Primary Musculoskeletal malfunction arising from mental factors Functional gait disorder Abnormality of gait [facility] [facility]Evaluation noteNo InformationNortLower [facility]ucks [facility] [employer] Other Evaluation note* Diagnosis Functional tremor- Primary Musculoskeletal malfunction arising from mental factors Functional gait disorder Abnormality of gait Restless legs syndrome (RLS) documented in [facility] N[facility]ative - Reported* Type Description Date Surgical History CHOLECYSTECTOMY 2006 Surgical History GASTRIC BYPASS RUEN-Y 2006 Surgical History HYSTERECTOMY 2006 Surgical History TUBAL LIGATION Hospitalization History see above [facility] [employer] Other Hospital course Narrative No data available for this section [facility] No data available for this section [facility] No data available for this section [facility] System[facility] (narrative)* Consultation (Routine) - New Request Specialty Diagnoses / Procedures Referred By Tyrone chavarria Referred To Contact Neurology Diagnoses Functional tremor Saroj Ramirez MD [address] [place] [address] Referral ID Status Reason Start Date Expiration Date V isits Requested Visits Authorized [id number] New Request 10/15/2023 11/08/2024 1 1 [facility] Summary Purpose Family History No Family History [...] AUTHOR 11/13/2019 [facility] DATE CREATED AUTHOR AUTHOR'S ORGANIZ ATION 08/08/2022 [facility] Specialist DATE CREATED AUTHOR AUTHOR'S ORGANIZ ATION 03/20/2023 [facility] DATE CREATED AUTHOR AUTHOR'S ORGANIZ ATION 11/17/2023 [facility] DATE CREATED AUTHOR AUTHOR'S ORGANIZ ATION 12/14/2023 [facility] DATE CREATED AUTHOR AUTHOR'S ORGANIZ ATION 04/25/2024 [facility] DATE CREATED AUTHOR AUTHOR'S ORGANIZ ATION 05/19/2024 [facility] DATE CREATED AUTHOR AUTHOR'S ORGANIZ ATION 05/19/2024 [facility] dical Specialists EPIC Care Teams (unrecognized sec tion and content) Personnel Name: Wilfrido BALL Katharina L Address: Address: [address] [place] [id number]- Team Status: Inactive Member Role Status Dates Kristin Young MD Primary Care Provider Active Cece Green PA-C Attending Provider Active Team Status: Active Member Role Status Dates Kristin Young MD Primary Care Provider Active Camera Systems Engineer Relationship Specialty Start Date End Date Kristin Young MD [address] [address] PCP - General Family Medicine 05/04/23 Camera Systems Engineer Relationship Specialty Start Date End Date Kristin Young MD [address] [address] PCP - General Family Medicine 05/04/23 Goals [...] Diagnoses Essential tremor Kristin Young MD [address] [place] [address] Referral ID Status Reason Start Date Expiration Date V isits Requested Visits Authorized [id number] New Request 03/22/2023 04/15/2024 1 1 Reason [...] BE BASED ON THE PRIMARY CLINICAL RECORDS. [facility]. provides no warranty or guarantee of the accuracy or completeness of information in this document.
[2024-05-20 12:16] LABS: Erythrocyte Sedimentation Rate 25 mm/hr (<=30)
[2024-05-20 16:13] LABS: C Reactive Protein <0.50 mg/dL (<=0.50)
== END 2024-05-20 11:46 | disposition home or self-care (01) ==
LOC: LAB 11:46
PROVIDERS: PCP Family Medicine
DX: Z12.31 Encounter for screening mammogram for malignant neoplasm of breast (principal); M79.7 Fibromyalgia; R76.8 Other specified abnormal immunological findings in serum; Z79.899 Other long term (current) drug therapy
CPT/HCPCS: 36415; 77063; 77067; 85652; 86140

== ENCOUNTER 2025-03-02 14:02 | Outpatient (OUT) | payer OTHER, SELFPAY ==
[2025-03-03 05:09] LABS: C-Reactive Protein, Cardiac 0.65 mg/L (0.00-3.00)
== END 2025-03-02 14:03 | disposition home or self-care (01) ==
PROVIDERS: PCP Family Medicine
DX: M35.00 Sjogren syndrome, unspecified (principal); R76.8 Other specified abnormal immunological findings in serum; Z79.899 Other long term (current) drug therapy
CPT/HCPCS: 36415; 86140

== ENCOUNTER 2025-06-25 11:35 | Outpatient (OUT) | payer OTHER, SELFPAY ==
--- OUTSIDE RECORDS SUMMARY | 2025-06-25 11:46 | XMS_ITS | CCD ---
Author Organization [facility] Care Team Providers Care Crayon Sawyer Name Role Phone MD Tessa Young Primary Care Provider MICHEAL Green Attending Provider Emery Cash Unavailable CECE GREEN Admitting Unavailable PETER, CECE Attending Unavailable HECTOR, DR ZARATE Primary Care Unavailable PETER, CECE Consulting Unavailable HECTOR, DR ZARATE Admitting Unavailable HECTOR, DR ZARATE Attending Unavailable HECTOR, DR AZRATE Primary Care Unavailable HECTOR, DR ZARATE Consulting Unavailable KARASIK ., DR HERRERA Admitting Unavailabl e KARASIK ., DR HERRERA Attending Unavailabl e HECTOR, DR ZARATE Primary Care Unavailable KARASIK ., DR HERRERA Consulting Unavailabl e PETER, CECE Admitting Unavailable PETER, CECE Attending Unavailable HECTOR, DR ZARATE Primary Care Unavailable MISC, DR WELSH Consulting Unavailable HECTOR, DR ZARATE Primary Care Unavailable MISC, DR WELSH Admitting Unavailable MISC, DR WELSH Attending Unavailable MISC, DR WELSH Consulting Unavailable HECTOR, DR ZARATE Admitting Unavailable HECTOR, DR ZARATE Attending Unavailable HECTOR, DR ZARATE Primary Care Unavailable HECTOR, DR ZARATE Consulting Unavailable Hector Tessa FRANZ Primary Care Provider Asaad, Imad Unavailable Asaad, Imad Attending Unavailable Asaad, Imad Admitting Unavailable HectorTessa navarro Primary Care Unavailable Katharina Anna Primary Care Physician [phone] SAROJ RAMIREZ Referring Unavailable HECTORTESSA Primary Care Unavailable SAROJ RAMIREZ Referring Unavailable HECTORTESSA Primary Care Unavailable SAROJ RAMIREZ Referring Unavailable HECTORTESSA Primary Care Unavailable SAROJ RAMIREZ Referring Unavailable HECTORTESSA Primary Care Unavailable Wilfrido, Katharina Mathews Attending Unavailable Wilfrido, Katharina Mathews Attending Unavailable Wilfrido, Katharina Mathews Attending Unavailable Wilfrido, Katharina Mathews Attending Unavailable Wilfrido, Katharina Mathews Admitting Unavailable Wilfrido, Katharina Mathews Attending Unavailable Hector Tessa FRANZ Primary Care Provider Tessa Young MD Unavailable YOLANDA JIMENEZ Attending Unavailable JEFF DHILLON Attending Unavailable ALEJO, JEFF Attending Unavailable BENJAMIN LOZANO Attending Unavailable ALEJO, JEFF Attending Unavailable LUZ HALL Attending Unavailable YOLANDA JIMENEZ Attending Unavailable HEMYOLANDA GIL Attending Unavailable ALEJO, JEFF Attending Unavailable ISABEL, LUZ Attending Unavailable BENJAMIN LOZANO Attending Unavailable Tessa Young MD Primary Care Provider Jeff Dhillon DO Attending Provider LEVI, SAROJ B Referring Unavailable GRIM, ANALIA E Attending Unavailable HECTOR, RUGEN Primary Care Unavailable HECTOR, RUGEN Primary Care Unavailable LEVI, SAROJ B Referring Unavailable GRIM, ANALIA E Attending Unavailable HECTOR, RUGEN Primary Care Unavailable LEVI, SAROJ B Referring Unavailable GRIM, ANALIA E Attending Unavailable HECTOR, RUGEN Primary Care Unavailable LEVI, SAROJ B Referring Unavailable GRIM, ANALIA E Attending Unavailable GRIM, ANALIA E Attending Unavailable HECTOR, RUGEN Primary Care Unavailable SELF, SELF Referring Unavailable HECTOR, RUGEN Primary Care Unavailable GRIM, ANALIA E Attending Unavailable LEONIE ALBRIGHT Referring Unavailable LEVI, SAROJ B Referring Unavailable GRIM, ANALIA E Attending Unavailable HECTOR, RUGEN Primary Care Unavailable LEVI, SAROJ B Referring Unavailable HECTOR, RUGEN Primary Care Unavailable GRIM, ANALIA E Attending Unavailable LEVI, SAROJ B Referring Unavailable HECTOR, RUGEN Primary Care Unavailable GRIM, ANALIA E Attending Unavailable LEVI, SAROJ B Referring Unavailable GRIM, ANALIA E Attending Unavailable HECTOR, RUGEN Primary Care Unavailable LEVI, SAROJ B Referring Unavailable GRIM, ANALIA E Attending Unavailable HECTOR, RUGEN Primary Care Unavailable LEONIE ALBRIGHT Attending Unavailable SELF, SELF Referring Unavailable HECTOR, RUGEN Primary Care Unavailable LEVI, SAROJ B Referring Unavailable GRIM, ANALIA E Attending Unavailable HECTOR, RUGEN Primary Care Unavailable LEVI, SAROJ B Referring Unavailable GRIMANALIA E Attending Unavailable HECTOR, RUGEN Primary Care Unavailable HECTOR, RUGEN Primary Care Unavailable LEVI, SAROJ B Referring Unavailable GRIM, ANALIA E Attending Unavailable HECTOR, RUGEN Primary Care Unavailable LEVI, SAROJ B Referring Unavailable GRIM, ANALIA E Attending Unavailable LEVI, SAROJ B Referring Unavailable GRIM, ANALIA E Attending Unavailable HECTOR, RUGEN Primary Care Unavailable LEVI, SAROJ B Referring Unavailable HECTOR, RUGEN Primary Care Unavailable GRIM, ANALIA E Attending Unavailable LEVI, SAROJ B Referring Unavailable HECTOR, RUGEN Primary Care Unavailable GRIM, ANALIA E Attending Unavailable HECTOR, RUGEN Primary Care Unavailable GRIM, ANALIA E Attending Unavailable HECTOR, RUGEN Referring Unavailable HECTOR, RUGEN Primary Care Unavailable GRIM, ANALIA E Attending Unavailable JOSE RAMON, ROZENA L Referring Unavailable GRIM, ANALIA E Attending Unavailable HECTOR, RUGEN Primary Care Unavailable JOSE RAMON, ROZENA L Referring Unavailable GRIM, ANALIA E Attending Unavailable HECTOR, RUGEN Primary Care Unavailable JOSE RAMON, ROZENA L Referring Unavailable GRIM, ANALIA E Attending Unavailable HECTOR, RUGEN Primary Care Unavailable JOSE RAMON, ROZENA L Referring Unavailable GRIM, ANALIA E Attending Unavailable HECTOR, RUGEN Primary Care Unavailable HECTOR, RUGEN Referring Unavailable GRIM, ANALIA E Attending Unavailable HECTOR, RUGEN Primary Care Unavailable JOSE RAMON, ROZENA L Referring Unavailable LEVI, SAROJ B Referring Unavailable GRIM, ANALIA E Attending Unavailable HECTOR, RUGEN Primary Care Unavailable HECTOR, RUGEN Primary Care Unavailable LEVI, SAROJ B Referring Unavailable GRIM, ANALIA E Attending Unavailable LEVI, SAROJ B Referring Unavailable GRIM, ANALIA E Attending Unavailable HECTOR, RUGEN Primary Care Unavailable Allergies Allergy Classification Reported Allergen(s) Allergy Type Date of Onset Reaction(s) Facility (20 sources) NSAIDs Drug allergy 04-08-20 15 Unknown ii4b Other (3 sources) Sulfonamides (Antibiotic) Drug allergy Unknown ii4b Other (1 source) NSAIDs Drug allergy (disorder) 03-31-20 15 [facility] (1 source) Sulfonamides (Antibiotic) Drug allergy (disorder) 03-24-20 15 [facility] (20 sources) metroNIDAZOLE Drug Allergy 05-04-20 23 Nausea and Vomiting, GI intolerance [facility] (20 sources) Sulfonamides (Antibiotic) Propensity to adverse reactions to drug 10-20-20 21 Rash, Hives [facility] (2 sources) NSAIDs Drug allergy (disorder) 08-20-20 23 [facility] Repository (2 sources) Sulfonamides (Antibiotic) Drug allergy (disorder) 10-24-20 23 [facility] Repository (2 sources) Sulfonamides (Antibiotic); Translations: [sulfa drugs] Propensity to adverse reactions to drug Miliaria crystallina (disorder), Weal (disorder) [facility] [place] (20 sources) levoFLOXacin Drug Allergy 02-26-20 24 [facility] (20 sources) Sulfanilamide Allergy to substance 07-01-20 23 Unknown [facility] Medications Current Medications Medication Drug Class(es) Dates Sig (Normalized) Sig (Original) acetaminophen 500 mg oral tablet (3 sources) acetaminophen (TYLENOL) 500 MG tablet Take 1-2 tablets by mouth as needed for Pain or Fever. Active ALPRAZolam 0.5 mg oral tablet (20 sources) Benzodiazepine Start: 10-02-2023 End: 02-06-2025 take 1 tablet by mouth once as needed ALPRAZolam (Xanax) 0.5 MG tablet Indications: Adjustment disorder with anxiety (CMS/HCC) Take 1 tablet (0.5 mg) by mouth every 12 (twelve) hours for 15 days PRN 30 tablet 01/22/2025 Active Start: 11-16-2022 take 1 tablet by [facility] twice daily as needed ALPRAZolam (Xanax) 0.5 MG tablet Take 1 tablet by mouth 2 times daily as needed. 11/16/2022 Active Atogepant (Qulipta) 60 MG tablet (15 sources) Start: 02-23-2025 End: 03-11-2025 take 1 tablet by mouth once daily Atogepant (Qulipta) 60 MG tablet Indications: Migraine without aura and without status migrainosus, not intractable (CMS/HCC) , Migraine with aura and without status migrainosus, not intractable (CMS/HCC) Take 1 tablet by mouth Daily 30 tablet 2 02/23/2025 03/11/2025 Discontinued (Other) Start: 02-23-2025 End: 03-25-2025 take 1 tablet by mouth once daily Atogepant (Qulipta) 60 MG tablet Indications: Migraine without aura and without status migrainosus, not intractable (CMS/HCC) , Migraine with aura and without status migrainosus, not intractable (CMS/HCC) Take 1 tablet by mouth Daily 30 tablet 2 02/23/2025 03/25/2025 Active take 1 tablet by jerry th once daily Atogepant (Qulipta) 60 MG tablet Take 1 tablet by mouth Daily Neurology prescribes. Active take 1 tablet by jerry th once daily Atogepant (Qulipta) 60 MG tablet Take 1 tablet by mouth 1 (one) time each day Active bacillus coagulans [id number] unt / inulin 250 mg oral capsule (3 sources) take 1-250 capsules by mouth once daily Bacillus Coagulans-Inulin (Probiotic) 1-250 BILLION-MG capsule Take by mouth. daily Active onabotulinumtoxina 200 unt injection (17 sources) Acetylcholine Release Inhibitor Start: 2023 End: 2023 onabotulinumtoxinA (Botox) injection 200 Units Start: 10-23-2024 End: 10-23-2024 inject 200 [IU] by intramuscular injection once 200 Units, Intramuscular, Once, On Erma 10/23/24 at 1215, For 1 dose, Charging context for this clinic-administered medication: Medically Necessary/Insurance Start: 06-26-2024 End: 06-26-2024 onabotulinumtoxinA (Botox) i njection 155 Units Start: 06-26-2024 End: 06-26-2024 inject 155 [IU] by intramuscular injection once 155 Units, Intramuscular, Once, On Erma 06/26/24 at 1330, For 1 dose, Charging context for this clinic-administered medication: Medically Necessary/Insurance Onabotulinumtoxi nA (BOTOX IJ) Inject as directed One injection every 3 months for migraines and tremors Active cholecalciferol 1.25 mg oral capsule (2 sources) Vitamin D Start: 03-19-2025 take 1 capsule by mouth once, then take 1 capsule by mouth every week, then take 1 capsule by mouth every month cholecalciferol (Vitamin D-3) 1.25 MG (91124 UT) capsule Indications: Vitamin D deficiency Take 1 capsule (1.25 mg) by mouth See administration instructions Take 1 capsule once a week x 4 weeks, then take 1 capsule monthly. 6 capsule 03/19/2025 Active Start: 03-19-2025 take 1 capsule by mo ut once, then take 1 capsule by mouth every week, then take 1 capsule by mouth every month cholecalciferol (Vitamin D-3) 1.25 MG (88333 UT) capsule Indications: Vitamin D deficiency Take 1 capsule (1.25 mg) by mouth See administration instructions Take 1 capsule once a week x 4 weeks, then take 1 capsule monthly. 6 capsule 03/19/2025 Active clonazePAM 0.5 mg oral table t (20 sources) Benzodiazepine Start: 05-14-2023 take 1 tablet by jerry th once daily as needed, then take 0.5-1 tablets by mouth twice daily as needed clonazePAM (KlonoPIN) 1 MG tablet Take 1 tablet by mouth daily. 0.5 - 1 tablet BID prn tremor Active cyclobenzaprine hydrochlorid e 5 mg oral tablet (20 sources) Muscle Relaxant Start: 03-07-2023 take 1 tablet by mouth three times daily End: 09-04-2024 take 1 tablet by mouth three times daily as needed for muscle spasms cyclobenzaprine (Flexeril) 10 MG tablet Take 10 mg by mouth 3 (three) times a day as needed for muscle spasms 09/04/2024 Discontinued escitalopram 20 mg oral tablet (20 sources) Serotonin Reuptake Inhibitor Start: 04-26-2023 escitalopram (Lexapro) 20 MG tablet Indications: Adjustment disorder with anxiety (CMS/HCC) TAKE ONE AND ONE-HALF TABLETS DAILY 135 tablet 3 02/16/2025 Active estrogens, conjugated (halfway) 1.25 mg oral tablet (20 sources) Estrogen Start: 02-14-2023 take 1 tablet by mouth once daily famotidine 10 mg oral tablet (20 sources) Histamine-2 Receptor Antagonist Start: 10-24-2023 take 1 tablet by mouth once daily take 1 tablet by mouth once elsa y famotidine (Pepcid) 20 MG tablet Take 1 tablet by mouth Daily Active fluticasone propionate 0.05 mg/actuat metered dose nasal spray (20 sources) Corticosteroid Start: 05-14-2024 fluticasone Na marshall 0.05 mg/inh [place] 2 spray(s), Nasal, Daily, 16 gram, Refill(s) 0, each nostril Start Date: 05/14/24 Status: Ordered Start: 01-18-2024 take 1-2 spray(s) na marshall route once daily fluticasone (Flonase) 50 MCG/ACT nasal spray Indications: Non-seasonal allergic rhinitis due to pollen Administer 1-2 sprays into each nostril Daily Shake gently. Before first use, prime pump. After use, clean tip and replace cap. 16 g 5 01/18/2024 Active folic acid 1 mg oral tablet (20 sources) Start: 04-25-2023 take 1 tablet by mouth once daily 1.5 ml fremanezumab-vfrm 150 mg/ml prefilled syringe (20 sources) Start: 08-06-2024 End: 09-04-2024 fremanezumab (Ajovy) 225 MG/1.5ML auto-injector Indications: Migraine without aura and without status migrainosus, not intractable (CMS/HCC) USE DIRECTED SUBCUTANEOUSLY EVERY 28 DAYS SUBCUTANEOUS MONTHLY 30 DAYS 1.5 mL 3 08/06/2024 09/04/2024 Discontinued (Duplicate order) Start: 05-14-2024 Ajovy Autoinje ctor 225 mg/1.5 mL subcutaneous solution USE DIRECTED SUBCUTANEOUSLY EVERY 28 DAYS SUBCUTANEOUS MONTHLY 30 DAYS Start Date: 05/14/24 Status: Ordered Start: 10-24-2023 End: 03-11-2025 inject 225 mg by subcutaneous injection every 30 days Ajovy 225 MG/1.5ML prefilled syringe Inject 225 mg under the skin every 30 (thirty) days 12/18/2024 03/11/2025 Discontinued Start: 02-08-2023 End: 06-01-2025 Ajovy 225 MG/1.5ML Solution Prefilled Syringe INJECT SUBCUTANEOUSLY DIRECTED EVERY 28 DAYS 02/08/2023 Active gabapentin 300 mg oral capsule (10 sources) Anti-epileptic Agent Start: 05-14-2024 take 1 capsule by mouth twice daily gabapentin 300 mg Cap 300 mg = 1 cap(s), Oral, BID, # 60 cap(s), Refills(s) 0 Start Date: 05/14/24 Status: Ordered Start: 01-09-2024 End: 11-28-2024 take 2 capsules by mouth at bedtime Gabapentin 300 MG capsule Take 2 capsules by mouth at bedtime. 180 capsule 1 01/09/2024 11/28/2024 Discontinued Start: 10-24-2023 [facility] Start: 10-15-2023 End: 04-12-2024 take 1 capsule by mouth at bedtime Gabapentin 300 MG capsule Take 1 capsule by mouth at bedtime. 90 capsule 1 10/15/2023 04/12/2024 Active End: 09-04-2024 take 1 tablet by mouth at bedtime gabapentin (Neurontin) 600 MG tablet Take 1 tablet by mouth at bedtime 09/04/2024 Discontinued (Ineffective) ibuprofen 400 mg oral tablet (3 sources) Nonsteroidal Anti-inflammatory Drug take 1 tablet by mouth at mealtime as needed Ibuprofen 400 MG tablet 1 tablet with food or milk as needed Orally PRN Active levothyroxine sodium 0.05 mg oral tablet (20 sources) l-Thyroxine Start: 05-14-20 take 1 tablet by mouth once daily Synthroid 50 mcg Tab 50 mcg = 1 tab(s), Oral, Daily, # 60 tab(s), Refills(s) 0 Start Date: 05/14/24 Status: Ordered Start: 04-25-2023 take 1 tablet by [facility] once daily Synthroid 50 MCG Oral for 90 Days [...] Status: Ordered montelukast 10 mg oral tablet (20 sources) Leukotriene Receptor Antagonist Start: 10-24-2023 montelukast (Singulair) 10 MG tablet Indications: Memory changes TAKE 1 TABLET DAILY 90 tablet 3 07/11/2024 Active Multiple Vitamin (multivitamin) tablet (2 sources) take 1 tablet by mouth once daily Multiple Vitamin (multivitamin) tablet Take 1 tablet by mouth Daily Active OXcarbazepine 300 mg oral tablet (20 sources) Anti-epileptic Agent Start: 05-14-2024 take 2 tablets by mouth twice daily Trileptal 300 mg Tab 600 mg = 2 tab(s), Oral, BID, # 120 tab(s), Refills(s) 0 Start Date: 05/14/24 Status: Ordered Start: 10-24-2023 OXcarbazepine (Trileptal) 300 MG tablet Indications: Migraine with aura and without status migrainosus, not intractable (CMS/HCC) TAKE ONE AND ONE-HALF TABLETS TWICE A DAY 270 tablet 3 05/26/2024 Active promethazine hydrochloride 12.5 mg oral tablet (8 sources) Phenothiazine Start: 10-24-2023 take 1 tablet by mouth every four hours as needed promethazine 12.5 mg oral tablet 12.5 mg = 1 tab(s), Oral, q4hr, PRN for motion sickness, # 60 tab(s), Refills(s) 0 Start Date: 05/14/24 Status: Ordered take 1 tablet by jerry th every twelve hours Promethazine HCl 25 MG 1 tablet as neede d Orally every 12 hrs Active saccharomyces boulardii 250 mg oral capsule (20 sources) take 1 capsule by mouth once daily saccharomyces boulardii (Florastor) 250 MG capsule Take 250 mg by mouth Daily Active sodium fluoride 0.011 mg/mg oral gel (3 sources) SODIUM FLUORIDE, DENTAL GEL, (PreviDent 5000 Dry Mouth) 1.1 % Gel PreviDent 5000 Dry Mouth Active sucralfate 100 mg/ml oral suspension (20 sources) Aluminum Complex Start: take 10 mL by mouth twice daily 1 hour(s) before bedtime Sucralfate 1 GM/10ML 10 mL 1 hour before meals and at bedtime on an empty stomach Orally Twice a day for 90 days Jul, Active Start: 03-22-2023 take 1 mL by mouth twice daily Zanaflex (1 source) Central alpha-2 Adrenergic Agonist Start: 05-14-2024 Zanaflex Oral, PRN Anxiety, Refills(s) 0 Start Date: 05/14/24 Status: Ordered topiramate 25 mg oral tablet (3 sources) take 1 tablet by mouth every twelve hours Topamax 25 MG 1 tablet Orally bid Active traZODone hydrochloride 50 mg oral tablet (15 sources) Serotonin Reuptake Inhibitor Start: 03-11-2025 traZODone (Desyrel) 50 MG tablet Indications: Primary insomnia Take 1-1.5 tablets (50-75 mg) by mouth as needed at bedtime for sleep 03/11/2025 Active Start: 02-10-2025 End: 03-11-2025 traZODone (Desyrel) 100 MG t ablet Indications: Primary insomnia Take 1 tablet (100 mg) by mouth as needed at bedtime for sleep 02/10/2025 03/11/2025 Discontinued (Reorder) Start: 02-03-2025 traZODone (Talib yrel) 50 MG tablet Indications: Primary insomnia Take 0.5-1 tablets (25-50 mg) by mouth as needed at bedtime for sleep 30 tablet 2 02/03/2025 Active Ubrelvy 100 MG (2 sources) Ubrelvy 100 MG 1 tablet may take second dose at least 2 hours after first dose as needed Orally Once a day Active ubrogepant 100 mg oral table t (20 sources) Start: 02-28-2024 End: 03-16-2025 Ubrogepant (Ubrelvy) 100 MG tablet Indications: Migraine without aura and without status migrainosus, not intractable (CMS/HCC) TAKE 1 TAB AT ONSET OF MIGRAINE NEEDED, MAY REPEAT 1 TAB IN 2 HRS NO MORE THAN 2/DAY AND 2/WK 16 tablet 2 03/16/2025 Active Ubrelvy 100 MG 1 tablet may take second dose at least 2 hours after first dose as needed Orally Once a day Active valACYclovir 500 mg oral tablet (20 sources) Herpesvirus Nucleoside Analog DNA Polymerase Inhibitor, Herpes Simplex Virus Nucleoside Analog DNA Polymerase Inhibitor, Herpes Zoster Virus Nucleoside Analog DNA Polymerase Inhibitor Start: 12-01-2024 End: 12-01-2025 take 2 tablets by mouth in the morning valACYclovir (Valtrex) 500 MG tablet Indications: Herpes simplex with complication Take 2 tablets (1,000 mg) by mouth in the morning and 2 tablets (1,000 mg) before bedtime. 120 tablet 11 12/01/2024 12/01/2025 Active Start: 10-24-2023 take 1 tablet by jerry th once daily Start: 08-09-2023 End: 08-08-2024 take 2 tablets by mouth in the morning valACYclovir (Valtrex) 500 MG tablet Indications: Herpes simplex with complication Take 2 tablets (1,000 mg) by mouth in the morning and 2 tablets (1,000 mg) before bedtime. 120 tablet 11 08/09/2023 08/08/2024 Active valACYclovir HCl (VALACYCLOVIR PO) Take by mouth. prn Active valACYclovir HCl (VALACYCLOVIR PO) Take by mouth. prn 0 Active Valtrex Active Completed/Discontinued Medications Medication Drug Class(es) Dates Sig (Normalized) Sig (Original) aspirin 81 mg delayed release oral tablet (2 sources) Platelet Aggregation Inhibitor, Nonsteroidal Anti-inflammatory Drug End: 11-28-2024 take 1 tablet by mouth once daily as needed Aspirin [address] tablet Take 1 tablet by mouth daily. As needed 11/28/2024 Discontinued primidone 50 mg oral tablet (4 sources) Anti-epileptic Agent End: 10-15-2023 Primidone 50 MG tablet 2 tablets in morning and 3 tablets evening. 0 10/15/2023 Discontinued take 1 tablet by jerry th every twenty-four hours Primidone 50 MG 1 tablet Orally Once a day Active Problems Active Problems Problem Classification Problem Date Documented Da te Episodic/Chronic Adjustment disorders (20 sources) Adjustment disorder with anxious mood; Translations: [Adjustment disorder with anxiety] Onset: 8 05-04-2023 Chronic Complications of surgical procedures or medical care (20 sources) Post gastrointestinal tract surgery hypoglycemia; Translations: [Postsurgical malabsorption, not elsewhere classified] Onset: 1 05-04-2023 Chronic Deficiency and other anemia (20 sources) Iron deficiency anemia; Translations: [Iron deficiency anemia, unspecified] Onset: 7 05-04-2023 Episodic Diabetes mellitus without complication (20 sources) Impaired fasting glycemia; Translations: [Impaired fasting glucose] Onset: 8 05-04-2023 Episodic Diverticulosis and diverticulitis (20 sources) Diverticulitis; Translations: [Diverticulitis of intestine, part unspecified, without perforation or abscess without bleeding] Onset: 9 Resolved: 5 05-04-2023 Chronic Esophageal disorders (20 sources) Gastroesophageal reflux disease; Translations: [Gastro-esophageal reflux disease without esophagitis] Onset: 7 05-04-2023 Chronic Genitourinary symptoms and ill-defined conditions (20 sources) Female stress incontinence; Translations: [Stress incontinence (female) (male)] Onset: 8 05-04-2023 Chronic Headache; including migraine (20 sources) Migraine, unspecified, not intractable, without status migrainosus; Translations: [Migraine with aura] Onset: 7 Resolved: 5 Chronic Immunizations and screening for infectious disease (1 source) Encounter for screening for human papillomavirus (HPV); Translations: [ENC SCREENING HUMAN PAPILLOMAVIRUS] Onset: 3 Episodic Menopausal disorders (20 sources) Atrophy of vagina; Translations: [Postmenopausal atrophic vaginitis] Onset: 3 05-22-2023 Chronic Menstrual disorders (20 sources) Excessive and frequent menstruation; Translations: [Excessive and frequent menstruation with regular cycle] Onset: 8 05-04-2023 Chronic Miscellaneous mental health disorders (20 sources) Conversion disorder with motor symptom or deficit; 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] Onset: 3 07-02-2023 Chronic Mood disorders (20 sources) Atypical depressive disorder; Translations: [Other specified depressive episodes] Onset: 8 05-04-2023 Chronic Nausea and vomiting (9 sources) Vomiting; Translations: [Vomiting, unspecified] Onset: 2 Resolved: 2 Episodic Neoplasms of unspecified nature or uncertain behavior (4 sources) Thrombocytosis; Translations: [Thrombocytosis] Onset: 5 03-19-2025 Episodic Nutritional deficiencies (20 sources) Vitamin D deficiency; Translations: [Vitamin D deficiency, unspecified] Onset: 7 05-04-2023 Chronic Nutritional deficiencies (20 sources) Vitamin B deficiency; Translations: [Vitamin B deficiency, unspecified] Onset: 3 05-04-2023 Episodic Osteoarthritis (20 sources) Arthritis of right acromioclavicular joint; Translations: [Primary osteoarthritis, right shoulder] Onset: 1 Resolved: 5 05-04-2023 Chronic Other and unspecified benign neoplasm (1 source) History of polyp of colon; Translations: [Personal history of colonic polyps] Episodic Other and unspecified benign neoplasm (1 source) Personal history of colonic polyps Episodic Other gastrointestinal disorders (3 sources) Constipation alternates with diarrhea; Translations: [Other specified symptoms and signs involving the digestive system and abdomen] Episodic Other gastrointestinal disorders (2 sources) Bariatric surgery status Onset: 2 Resolved: 2 Episodic Other gastrointestinal disorders (2 sources) Other specified symptoms and signs involving the digestive system and abdomen Onset: 2 Resolved: 2 Episodic Other hereditary and degenerative nervous system conditions (20 sources) Essential tremor; Translations: [Essential tremor] Onset: 9 05-04-2023 Chronic Other hereditary and degenerative nervous system conditions (20 sources) Spasmodic torticollis; Translations: [Spasmodic torticollis] Onset: 7 05-04-2023 Chronic Other hereditary and degenerative nervous system conditions (20 sources) Restless legs; Translations: [Restless legs syndrome] Onset: 3 10-15-2023 Chronic Other infections; including parasitic (11 sources) Personal history of other infectious and parasitic diseases; Translations: [History of COVID-19] Onset: 5 03-11-2025 Episodic Other liver diseases (20 sources) Disease of liver; Translations: [Liver disease, unspecified] Onset: 7 05-04-2023 Chronic Other liver diseases (4 sources) Elevated liver enzymes level; Translations: [Abnormal levels of other serum enzymes] Onset: 5 03-19-2025 Episodic Other lower respiratory disease (20 sources) Interstitial lung disease; Translations: [Interstitial pulmonary disease, unspecified] Onset: 7 05-04-2023 Chronic Other lower respiratory disease (1 source) Hiccough Episodic Other nervous system disorders (3 sources) Lesion of ulnar nerve; Translations: [Lesion of ulnar nerve, unspecified upper limb] Onset: 1 05-04-2023 Chronic Other nervous system disorders (20 sources) Ulnar neuropathy of right arm; Translations: [Lesion of ulnar nerve, right upper limb] Onset: 3 05-22-2023 Chronic Other nervous system disorders (20 sources) Carpal tunnel syndrome of right wrist; Translations: [Carpal tunnel syndrome, right upper limb] Onset: 4 02-26-2024 Chronic Other nervous system disorders (1 source) Other speech disturbances; Translations: [Other speech disturbances] Onset: 4 Episodic Other non-traumatic joint disorders (20 sources) Derangement of right shoulder joint; Translations: [...] mass index (BMI) 40.0-44.9, adult] Chronic Other nutritional; endocrine; and metabolic disorders (11 sources) Overweight; Translations: [Overweight] Onset: 5 03-11-2025 Episodic Other upper respiratory disease (15 sources) Allergic rhinitis due to pollen; Translations: [Allergic rhinitis due to pollen] Onset: 5 02-03-2025 Chronic Other upper respiratory infections (20 sources) Chronic sinusitis; Translations: [Chronic sinusitis, unspecified] Onset: 8 05-04-2023 Chronic Otitis media and related conditions (2 sources) Dysfunction of left eustachian tube; Translations: [Unspecified Eustachian tube disorder, left ear] 02-03-2025 Episodic Regional enteritis and ulcerative colitis (20 sources) Ulcerative colitis; Translations: [Ulcerative colitis, unspecified, without complications] Onset: 8 05-04-2023 Chronic Residual codes; unclassified (4 sources) Obstructive sleep apnea (adult) (pediatric); Translations: [OBSTRUCTIVE SLEEP APNEA] Onset: 3 Chronic Screening and history of mental health and substance abuse codes (11 sources) Ex-smoker; Translations: [Personal history of nicotine dependence] Onset: 03-11-2025 Episodic Spondylosis; intervertebral disc disorders; other back problems (20 sources) Disorder of vertebral column; Translations: [Sacrococcygeal disorders, not elsewhere classified] Onset: Resolved: 02-03-2025 Episodic Systemic lupus erythematosus and connective tissue disorders (20 sources) Mucous membrane dryness; Translations: [Sicca syndrome, unspecified] Onset: 7 05-04-2023 Chronic Thyroid disorders (20 sources) Acquired hypothyroidism; Translations: [Hypothyroidism, unspecified] Onset: 3 05-04-2023 Chronic Unclassified (1 source) Cancer cervix screening status 05-14-2024 Unclassified (2 sources) Patient encounter status 05-14-2024 Past or Other Problems Problem Classification Problem Date Documented Da te Episodic/Chronic Abdominal pain (20 sources) Right sided abdominal pain; Translations: [Unspecified abdominal pain] Onset: 08-18-2015 Resolved: 03-11-2025 05-04-2023 Episodic Anxiety disorders (20 sources) Acute stress disorder; Translations: [Acute stress reaction] Onset: 02-26-2024 Resolved: 03-11-2025 02-26-2024 Chronic Conditions associated with dizziness or vertigo (20 sources) Dizziness; Translations: [Dizziness and giddiness] Onset: 07-02-2023 07-02-2023 Episodic Deficiency and other anemia (20 sources) Anemia; Translations: [Anemia, unspecified] Onset: 04-27-2008 Resolved: 03-11-2025 05-04-2023 Episodic Diabetes or abnormal glucose tolerance complicating ; childbirth; or the puerperium (20 sources) History of gestational diabetes mellitus; Translations: [Personal history of gestational diabetes] Onset: 04-05-2021 07-02-2023 Episodic Headache; including migraine (20 sources) Headache; Translations: [Headache] Onset: 02-26-2024 Resolved: 03-11-2025 02-26-2024 Episodic Inflammatory diseases of female pelvic organs (14 sources) Bacterial vaginosis; Translations: [Acute vaginitis] Onset: 02-03-2025 Resolved: 03-11-2025 05-14-2024 Episodic Intestinal obstruction without hernia (20 sources) Intestinal obstruction; Translations: [Unspecified intestinal obstruction, unspecified as to partial versus complete obstruction] Onset: 07-23-2015 Resolved: 02-03-2025 05-04-2023 Episodic Mood disorders (1 source) Mood disorders Onset: 11-27-2024 11-27-2024 Nonmalignant breast conditions (20 sources) Pain of breast; Translations: [Mastodynia] Onset: 05-22-2023 Resolved: 03-11-2025 05-22-2023 Episodic Other connective tissue disease (1 source) Myalgia, unspecified site; Translations: [MYALGIA UNSPECIFIED SITE] Onset: 07-07-2022 Episodic Other connective tissue disease (20 sources) Fibromyalgia; Translations: [Fibromyalgia] Onset: 01-12-2017 05-04-2023 Episodic Other ear and sense organ disorders (20 sources) Otitis externa; Translations: [Unspecified otitis externa, unspecified ear] Onset: 05-06-2020 Resolved: 02-03-2025 05-04-2023 Chronic Other endocrine disorders (20 sources) Hypoglycemia; Translations: [Hypoglycemia, unspecified] Onset: 03-22-2021 Resolved: 03-11-2025 05-04-2023 Chronic Other eye disorders (20 sources) Dry eyes; Translations: [Dry eye syndrome of bilateral lacrimal glands] Onset: 04-25-2023 05-04-2023 Episodic Other female genital disorders (20 sources) Pruritus of vagina; Translations: [Other specified noninflammatory disorders of vagina] Onset: 05-22-2023 05-22-2023 Episodic Other gastrointestinal disorders (20 sources) Slow transit constipation; Translations: [Slow transit constipation] Onset: 04-22-2018 05-04-2023 Episodic Other lower respiratory disease (4 sources) Shortness of breath; Translations: [SHORTNESS OF BREATH] Onset: 07-06-2022 Episodic Other lower respiratory disease (20 sources) Parietoalveolar pneumopathy; Translations: [Other alveolar and parieto-alveolar conditions] Onset: 02-05-2017 05-04-2023 Episodic Other nervous system disorders (5 sources) Psychosomatic musculoskeletal symptoms; Translations: [Tremor, unspecified] Onset: 05-04-2023 05-04-2023 Episodic Other nervous system disorders (5 sources) Functional gait abnormality; Translations: [Unspecified abnormalities of gait and mobility] Onset: 05-04-2023 05-04-2023 Episodic Other nervous system disorders (20 sources) Tremor; Translations: [Tremor, unspecified] Onset: 02-26-2024 Resolved: 03-11-2025 02-26-2024 Episodic Other screening for suspected conditions (not mental disorders or infectious disease) (20 sources) Encounter for screening for malignant neoplasm of cervix; Translations: [Unspecified abnormal finding in specimens from other organs, systems and tissues] Onset: 01-01-2023 Resolved: 03-11-2025 Episodic Other skin disorders (14 sources) Disorder of skin; Translations: [Other skin changes] Onset: 02-03-2025 Resolved: 03-11-2025 05-14-2024 Episodic Other upper respiratory disease (20 sources) Allergic rhinitis; Translations: [Allergic rhinitis, unspecified] Onset: 09-16-2009 Resolved: 02-03-2025 05-04-2023 Chronic Other upper respiratory infections (20 sources) Viral upper respiratory tract infection; Translations: [Acute upper respiratory infection, unspecified] Onset: 10-02-2023 Resolved: 02-03-2025 10-02-2023 Episodic Residual codes; unclassified (20 sources) Hypersomnia; Translations: [Hypersomnia, unspecified] Onset: 02-26-2024 Resolved: 03-11-2025 02-26-2024 Chronic Residual codes; unclassified (20 sources) Obstructive sleep apnea syndrome; Translations: [Obstructive sleep apnea (adult) (pediatric)] Onset: 02-26-2024 Resolved: 03-11-2025 02-26-2024 Chronic Residual codes; unclassified (4 sources) Other amnesia; Translations: [OTHER AMNESIA] Onset: 11-14-2022 Episodic Residual codes; unclassified (20 sources) Memory impairment; Translations: [Other amnesia] Onset: 02-26-2024 02-26-2024 Episodic Substance-related disorders (20 sources) Smoker; Translations: [Nicotine dependence, unspecified, uncomplicated] Onset: 12-26-2016 Resolved: 03-11-2025 05-04-2023 Chronic Unclassified (1 source) Onset: 11-28-2024 11-28-2024 Viral infection (20 sources) COVID-19; Translations: [Other specified viral infection] Onset: 03-24-2010 Resolved: 03-11-2025 05-04-2023 Episodic Results Test Name Value Interpretation Reference Range Facility CBC (INCLUDES DIFF/PLT)on Basophils (Bld) [#/Vol] 0.041 10*3/uL Normal 0-200 [facility] Comment on above: Performed By: #### 1 7306, 496, 6399, 03322, 5616, 7600, 63099 #### [facility] of [address], [address] [place] [address] [employer] Driver Instructor: Khris Alaniz MD Basophils/100 WBC (Bld) 0.9 % Normal [facility] Comment on above: Performed By: #### 1 7306, 496, 6399, 69360, 5616, 7600, 89989 #### [facility] of [place] [address] [employer] Instructor: Khris Alaniz MD Eosinophils (Bld) [#/Vol] 0.059 10*3/uL Normal 15-500 [facility] Comment on above: Performed By: #### 1 7306, 496, 6399, 90948, 5616, 7600, 11858 #### [facility] of [place] [address] [employer] Instructor: Khris Alaniz MD Eosinophils/100 WBC (Bld) 1.3 % Normal [facility] Comment on above: Performed By: #### 1 7306, 496, 6399, 35644, 5616, 7600, 32918 #### [facility] of [place] [address] [employer] Instructor: Khris Alaniz MD Erythrocyte distribution width (RBC) [Ratio] 13.3 % Normal 11.0-15.0 [facility] Comment on above: Performed By: #### 1 7306, 496, 6399, 37260, 5616, 7600, 46072 #### [facility] of [place] [address] [employer] Instructor: Khris Alaniz MD Hematocrit (Bld) [Volume fraction] 35.4 % Normal 35.0-45.0 [facility] Comment on above: Performed By: #### 1 7306, 496, 6399, 67969, 5616, 7600, 85831 #### [facility] of [place] [address] [employer] Instructor: Khris Alaniz MD Hemoglobin (Bld) [Mass/Vol] 11.5 g/dL Low 11.7-15.5 [facility] Comment on above: Performed By: #### 1 7306, 496, 6399, 12558, 5616, 7600, 75550 #### [facility] of [place] [address] [employer] Instructor: Khris Alaniz MD Lymphocytes (Bld) [#/Vol] 0.95 10*3/uL Normal 850-3900 [facility] Comment on above: Performed By: #### 1 7306, 496, 6399, 11007, 5616, 7600, 24588 #### [facility] of [place] [address] [employer] Instructor: Khris Alaniz MD Lymphocytes/100 WBC (Bld) 21.1 % Normal [facility] Comment on above: Performed By: #### 1 7306, 496, 6399, 60620, 5616, 7600, 60011 #### [facility] of [place] [address] [employer] Instructor: Khris Alaniz MD MCH (RBC) [Entitic mass] 29.9 pg Normal 27.0-33.0 [facility] Comment on above: Performed By: #### 1 7306, 496, 6399, 33975, 5616, 7600, 99231 #### [facility] of [place] [address] [employer] Instructor: Khris Alaniz MD MCHC (RBC) [Mass/Vol] 32.5 g/dL Normal 32.0-36.0 [facility] Comment on above: Result Comment: For adults, a slight decrease in the calculated MCHC value (in the range of 30 to 32 g/dL) is most likely not clinically significant; however, it should be interpreted with caution in correlation with other red cell parameters and the patient's clinical condition. Performed By: #### 1 7306, 496, 6399, 63739, 5616, 7600, 66065 #### [facility] [place] [address] [employer] Instructor: Khris Alaniz MD MCV (RBC) [Entitic vol] 91.9 fL Normal 80.0-100.0 [facility] Comment on above: Performed By: #### 1 7306, 496, 6399, 85622, 5616, 7600, 56027 #### [facility] of [place] [address] [employer] Instructor: Khris Alaniz MD Monocytes (Bld) [#/Vol] 0.261 10*3/uL Normal 200-950 [facility] Comment on above: Performed By: #### 1 7306, 496, 6399, 52992, 5616, 7600, 19072 #### [facility] of [place] [address] [employer] Instructor: Khris Alaniz MD Monocytes/100 WBC (Bld) 5.8 % Normal [facility] Comment on above: Performed By: #### 1 7306, 496, 6399, 27890, 5616, 7600, 13941 #### [facility] of [address], [address] [place] [address] [employer] Driver Instructor: Khris Alaniz MD Neutrophils (Bld) [#/Vol] 3.191 10*3/uL Normal 2858-2333 [facility] Comment on above: Performed By: #### 1 7306, 496, 6399, 72751, 5616, 7600, 67133 #### [facility] of [address], [address] [place] [address] [employer] Driver Instructor: Khris Alaniz MD Neutrophils/100 WBC (Bld) 70.9 % Normal [facility] Comment on above: Performed By: #### 1 7306, 496, 6399, 53709, 5616, 7600, 88981 #### [facility] of [place] [address] [employer] Instructor: Khris Alaniz MD Platelet mean volume (Bld) [Entitic vol] 9.1 fL Normal 7.5-12.5 [facility] Comment on above: Performed By: #### 1 7306, 496, 6399, 33229, 5616, 7600, 07404 #### [facility] of [address], [address] [place] [address] [employer] Driver Instructor: Khris Alaniz MD Platelets (Bld) [#/Vol] 488 10*3/uL High 140-400 [facility] Comment on above: Performed By: #### 1 7306, 496, 6399, 44038, 5616, 7600, 99481 #### [facility] of [place] [address] [employer] Instructor: Khris Alaniz MD RBC (Bld) [#/Vol] 3.85 10*6/uL Normal 3.80-5.10 [facility] Comment on above: Performed By: #### 1 7306, 496, 6399, 01922, 5616, 7600, 88186 #### [facility] of [place] [address] [employer] Instructor: Khris Alaniz MD WBC (Bld) [#/Vol] 4.5 10*3/uL Normal 3.8-10.8 [facility] Comment on above: Performed By: #### 1 7306, 496, 6399, 85476, 5616, 7600, 24863 #### [facility] of [place] [address] [employer] Instructor: Khris Alaniz MD COMPREHENSIVE METABOLIC PANE [facility] 03-12-2025 Albumin [Mass/Vol] 4.1 g/dL Normal 3.6-5.1 [facility] Comment on above: Performed By: #### 1 7306, 496, 6399, 02299, 5616, 7600, 21385 #### [facility] of [place] [address] [employer] Instructor: Khris Alaniz MD Albumin/Globulin [Mass ratio] 1.7 {ratio} Normal 1.0-2.5 [facility] Comment on above: Performed By: #### 1 7306, 496, 6399, 49305, 5616, 7600, 68327 #### [facility] of [address], [address] [place] [address] [employer] Instructor: Khris Alaniz MD ALP [Catalytic activity/Vol] 141 U/L Normal 37-153 [facility] Comment on above: Performed By: #### 1 7306, 496, 6399, 96631, 5616, 7600, 08470 #### [facility] of [place] [address] [employer] Instructor: Khris Alaniz MD ALT [Catalytic activity/Vol] 50 U/L High 6-29 [facility] Comment on above: Performed By: #### 1 7306, 496, 6399, 79091, 5616, 7600, 35360 #### [facility] of [place] [address] [employer] Instructor: Khris Alaniz MD AST [Catalytic activity/Vol] 38 U/L High 10-35 [facility] Comment on above: Performed By: #### 1 7306, 496, 6399, 07816, 5616, 7600, 68210 #### [facility] of [place] [address] [employer] Instructor: Khris Alaniz MD Bilirubin [Mass/Vol] 0.2 mg/dL Normal 0.2-1.2 [facility] Comment on above: Performed By: #### 1 7306, 496, 6399, 66769, 5616, 7600, 75595 #### [facility] of [place] [address] [employer] Instructor: Khris Alaniz MD BUN/CREATININE RATIO SEE NOTE: Normal 6-22 [facility] Comment on above: Result Comment: Not Reported: BUN and Creatinine are within reference range. Performed By: #### 1 7306, 496, 6399, 90872, 5616, 7600, 78443 #### [facility] [place] [address] [employer] Instructor: Khris Alaniz MD Calcium [Mass/Vol] 8.6 mg/dL Normal 8.6-10.4 [facility] Comment on above: Performed By: #### 1 7306, 496, 6399, 16755, 5616, 7600, 16772 #### [facility] of [place] [address] [employer] Instructor: Khris Alaniz MD Chloride [Moles/Vol] 100 mmol/L Normal 98-110 [facility] Comment on above: Performed By: #### 1 7306, 496, 6399, 00838, 5616, 7600, 77611 #### [facility] [place] [address] [employer] Instructor: Khris Alaniz MD CO2 [Moles/Vol] 25 mmol/L Normal 20-32 [facility] Comment on above: Performed By: #### 1 7306, 496, 6399, 78322, 5616, 7600, 05991 #### [facility] [place] [address] [employer] Instructor: Khris Alaniz MD Creatinine [Mass/Vol] 0.68 mg/dL Normal 0.50-1.03 [facility] Comment on above: Performed By: #### 1 7306, 496, 6399, 79037, 5616, 7600, 22322 #### [facility] of [place] [address] [employer] Instructor: Khris Alaniz MD GFR/1.73 sq M.predicted among non-blacks MDRD (S/P/Bld) [Vol rate/Area] 105 mL/min/{1.73_m2} Normal > OR = 60 [facility] Comment on above: Performed By: #### 1 7306, 496, 6399, 83257, 5616, 7600, 09257 #### [facility] [address], [address] [place] [address] [employer] Instructor: Khris Alaniz MD Globulin (S) [Mass/Vol] 2.4 g/dL Normal 1.9-3.7 [facility] Comment on above: Performed By: #### 1 7306, 496, 6399, 92742, 5616, 7600, #### [facility] [address], [address] [place] [address] [employer] Driver Instructor: Khris Alaniz MD Glucose [Mass/Vol] 106 mg/dL High 65-99 [facility] Comment on above: Result Comment: Fasting reference interval For someone without known diabetes, a glucose value between 100 and 125 mg/dL is consistent with prediabetes and should be confirmed with a follow-up test. Performed By: #### 1 7306, 496, 6399, 72838, 5616, 7600, #### [facility] [place] [address] [employer] Instructor: Khris Alaniz MD Potassium [Moles/Vol] 4.9 mmol/L Normal 3.5-5.3 [facility] Comment on above: Performed By: #### 1 7306, 496, 6399, 28738, 5616, 7600, 61483 #### [facility] [address], [address] [place] [address] [employer] Driver Instructor: Khris Alaniz MD Protein [Mass/Vol] 6.5 g/dL Normal 6.1-8.1 [facility] Comment on above: Performed By: #### 1 7306, 496, 6399, 91328, 5616, 7600, 14960 #### [facility] [address], [address] [place] [address] [employer] Driver Instructor: Khris Alaniz MD Sodium [Moles/Vol] 134 mmol/L Low 135-146 [facility] Comment on above: Performed By: #### 1 7306, 496, 6399, 60016, 5616, 7600, 35108 #### [facility] [place] [address] [employer] Instructor: Khris Alaniz MD Urea nitrogen [Mass/Vol] 7 mg/dL Normal 7-25 [facility] Comment on above: Performed By: #### 1 7306, 496, 6399, 81981, 5616, 7600, 99508 #### [facility] [address], [address] [place] [address] [employer] Driver Instructor: Khris Alaniz MD HEMOGLOBIN A1con 03-12-2025 HbA1c (Bld) [Mass fraction] 5.9 % High <5.7 [facility] Comment on above: Result Comment: For someone without known diabetes, a hemoglobin A1c value between 5.7% and 6.4% is consistent with prediabetes and should be confirmed with a follow-up test. For someone with known diabetes, a value <7% indicates that their diabetes is well controlled. A1c targets should be individualized based on duration of diabetes, age, comorbid conditions, and other considerations. This assay result is consistent with an increased risk of diabetes. Currently, no consensus exists regarding use of hemoglobin A1c for diagnosis of diabetes for children. Performed By: #### 1 7306, 496, 6399, 23423, 5616, 7600, 68276 #### [facility] [place] [address] [employer] Instructor: Khris Alaniz MD IRON, TIBC AND FERRITIN PANE Mathew 03-12-2025 % SATURATION 14 % (calc) Low 16-45 [facility] Comment on above: Order Comment: FASTI NG:YES FASTING: YES Performed By: #### 1 7306, 496, 6399, 64365, 5616, 7600, 02311 #### [facility] [address], [address] [place] [address] [employer] Driver Instructor: Khris Alaniz MD Ferritin [Mass/Vol] 8 ng/mL Low 16-232 [facility] Comment on above: Order Comment: FASTI NG:YES FASTING: YES Performed By: #### 1 7306, 496, 6399, 05736, 5616, 7600, 06450 #### [facility] [place] [address] [employer] Instructor: Khris Alaniz MD IRON BINDING CAPACITY 531 mcg/dL (calc) High 250-450 [facility] Comment on above: Order Comment: FASTI NG:YES FASTING: YES Performed By: #### 1 7306, 496, 6399, 51406, 5616, 7600, 02494 #### [facility] [place] [address] [employer] Instructor: Khris Alaniz MD IRON, TOTAL 76 mcg/dL Normal 45-160 [facility] Comment on above: Order Comment: FASTI NG:YES FASTING: YES Performed By: #### 1 7306, 496, 6399, 74859, 5616, 7600, 06595 #### [facility] [place] [address] [employer] Instructor: Khris Alaniz MD LIPID PANEL, [facility] 05-0 Cholesterol [Mass/Vol] 209 mg/dL High <200 [facility] Comment on above: Performed By: #### 1 7306, 496, 6399, 38724, 5616, 7600, 22117 #### [facility] [place] [address] [employer] Instructor: Khris Alaniz MD Cholesterol in HDL [Mass/Vol] 106 mg/dL Normal > OR = 50 [facility] Comment on above: Performed By: #### 1 7306, 496, 6399, 03257, 5616, 7600, 08910 #### [facility] [place] [address] [employer] Instructor: Khris Alaniz MD Cholesterol in LDL [Mass/Vol] 84 mg/dL Normal [facility] Comment on above: Result Comment: Refe rence range: <100 Desirable range <100 mg/dL for primary prevention; <70 mg/dL for patients with CHD or diabetic patients with > or = 2 CHD risk factors. LDL-C is now calculated using the Edilberto calculation, which is a validated novel method providing better accuracy than the Friedewald equation in the estimation of LDL-C. Dimitris LUCIANO et al. TASHI. 2013;310(19): 7598-0065 (http://education.[employer]/faq/MAU513) Performed By: #### 1 7306, 496, 6399, 50908, 5616, 7600, 84583 #### [facility] [place] [address] [employer] Instructor: Khris Alaniz MD Cholesterol.total/C holesterol in HDL [Mass ratio] 2.0 {ratio} Normal <5.0 [facility] Comment on above: Performed By: #### 1 7306, 496, 6399, 99300, 5616, 7600, 88835 #### [facility] [place] [address] [employer] Instructor: Khris Alaniz MD NON HDL CHOLESTEROL 103 mg/dL (calc) Normal <130 [facility] Comment on above: Result Comment: For patients with diabetes plus 1 major ASCVD risk factor, treating to a non-HDL-C goal of <100 mg/dL (LDL-C of <70 mg/dL) is considered a therapeutic option. Performed By: #### 1 7306, 496, 6399, 37436, 5616, 7600, 94657 #### [facility] [place] [address] [employer] Instructor: Khris Alaniz MD Triglyceride [Mass/Vol] 93 mg/dL Normal <150 [facility] Comment on above: Performed By: #### 1 7306, 496, 6399, 63976, 5616, 7600, 47351 #### [facility] [place] [address] [employer] Instructor: Khris Alaniz MD TSH W/REFLEX TO FT4on 2024 TSH W/REFLEX TO FT4 0.56 mIU/L Normal [facility] Comment on above: Result Comment: Refe rence Range > or = 20 Years 0.40-4.50 Ranges First trimester 0.26-2.66 Second trimester 0.55-2.73 Third trimester 0.43-2.91 Performed By: #### 1 7306, 496, 6399, 21552, 5616, 7600, 76263 #### [facility] [address], [address] [place] [address] [employer] Driver Instructor: Khris Alaniz MD VITAMIN B12on 03-12-2025 Cobalamin (Vitamin B12) [Mass/Vol] 178 pg/mL Low 200-1100 [facility] Comment on above: Performed By: #### 1 7306, 496, 6399, 73377, 5616, 7600, 10542 #### [facility] [address], [address] [place] [address] [employer] Instructor: Khris Alaniz MD VITAMIN D,25-OH,TOTAL,IAon 0 03-12-2025 VITAMIN D,25-OH,TOTAL,IA 8 ng/mL Low 30-100 [facility] Comment on above: Result Comment: Suzie min D Status 25-OH Vitamin D: Deficiency: <20 ng/mL Insufficiency: 20 - 29 ng/mL Optimal: > or = 30 ng/mL For 25-OH Vitamin D testing on patients on D2-supplementation and patients for whom quantitation of D2 and D3 fractions is required, the [facility](TM) 25-OH VIT D, (D2,D3), LC/MS/MS is recommended: order code 59115 (patients >2yrs). See Note 1 Note 1 For additional information, please refer to http://education.[employer]/faq/RIB785 (This link is being provided for informational/ educational purposes only.) Performed By: #### 1 7306, 496, 6399, 32912, 5616, 7600, 74678 #### [facility] [address] [place] [address], [address] [place], [place] [id number] Truck Driver Instructor: Khris Alaniz MD C-REACTIVE PROTEIN, CARDIACo n 03-03-2025 C-REACTIVE PROTEIN, CARDIAC 0.65 mg/L 0.00 - 3.00 mg/L [facility] Comment on above: Relative Risk for Fu ture Cardiovascular Event Low <1.00 Average 1.00 - 3.00 High >3.00 Performed at: [facility] [id number] Shredding Machine Knife Changer: Quincy Anguiano PhD, Phone: [phone] [facility] NO DIFFon 02-20-2025 Hematocrit (Bld) [Volume fraction] 35.6 % Low (37.0 - 47.0) [facility] Comment on above: Order Comment: NSR F OR CRP & MTX PANEL REDRAW FACILITY: [facility] [id number] Performed By: #### C BC, ESR, MCV, RDW-SD #### [facility] [address] [facility], [id number] Hemoglobin (Bld) [Mass/Vol] 11.5 g/dL Low (12.0 - 16.0) [facility] Comment on above: Order Comment: NSR F OR CRP & MTX PANEL REDRAW FACILITY: [facility] [id number] Performed By: #### C BC, ESR, MCV, RDW-SD #### [facility] [address] [facility], [id number] MCH (RBC) [Entitic mass] 29.6 pg Normal (27.0 - 33.0) [facility] Comment on above: Order Comment: NSR F OR CRP & MTX PANEL REDRAW FACILITY: [facility] [id number] Performed By: #### C BC, ESR, MCV, RDW-SD #### [facility] [address] [facility], [address] MCHC (RBC) [Mass/Vol] 32.3 g/dL Normal (30.0 - 37.0) [facility] Comment on above: Order Comment: NSR F OR CRP & MTX PANEL REDRAW FACILITY: [facility] [id number] Performed By: #### C BC, ESR, MCV, RDW-SD #### [facility] [address] [place], [address] MCV (RBC) [Entitic vol] 91.5 fL Normal (81.0 - 99.0) [facility] Comment on above: Order Comment: NSR F OR CRP & MTX PANEL REDRAW FACILITY: [facility] [id number] Performed By: #### C BC, ESR, MCV, RDW-SD #### [facility] [address] [place], [address] PLT 495 x10^3ul High (130 - 400) [facility] Comment on above: Order Comment: NSR F OR CRP & MTX PANEL REDRAW FACILITY: [facility] [id number] Performed By: #### C BC, ESR, MCV, RDW-SD #### [facility] [address] [place], [address] RBC 3.89 x10^6ul Low (4.20 - 5.40) [facility] Comment on above: Order Comment: NSR F OR CRP & MTX PANEL REDRAW FACILITY: [facility] [id number] Performed By: #### C BC, ESR, MCV, RDW-SD #### [place] [facility] [address] [place], [address] RDW-SD 47.8 fl Normal (37.0 - 49.0) [facility] Comment on above: Order Comment: NSR F OR CRP & MTX PANEL REDRAW FACILITY: [facility] [id number] Performed By: #### C BC, ESR, MCV, RDW-SD #### [facility] [address] [place], [address] WBC 6.87 x10^3ul Normal (3.80 - 10.60) [facility] Comment on above: Order Comment: NSR F OR CRP & MTX PANEL REDRAW FACILITY: [facility] [id number] Performed By: #### C BC, ESR, MCV, RDW-SD #### [facility] [address] [place], [address] SED RATE WEST.on 02-20-2025 SED RATE WEST. 5 MM/HR Normal (0 - 25) [place] [facility] Comment on above: Performed By: #### C BC, ESR, MCV, RDW-SD #### [facility] [address] [place], [address] RF FACTORon 08-20-2024 RF FACTOR 18 IU/ML High (0 - 12) [facility] Comment on above: Performed By: #### E SRCRP, CCP, RHF #### [facility] [address] [facility], [address] SED RATE - CRPon 08-20-2024 CRP EXTENDED RANGE 4.98 MG/L High (0.00 - 3.20) Emmanuel fidel [facility] Comment on above: Order Comment: FACIL ITY: [facility] [id number] Performed By: #### E SRCRP, CCP, RHF #### [facility] [address] [place], [address] SED RATE WEST. 18 MM/HR Normal (0 - 25) [facility] Comment on above: Order Comment: FACIL ITY: [facility] [id number] Performed By: #### E SRCRP, CCP, RHF #### [facility] [address] [facility], [address] Ambulatory Visit Summaryon 1 Ambulatory Visit Summary Ambulatory Visit Summary MIRIAM ESTRADA :1970 Visit Date:08/13/2024 Ambulatory Visit Instructions Your Diagnosis Chronic vaginitis Former smoker BMI 30.0-30.9,adult Exogenous obesity Your Care Team Attending Physician - Katharina Wu Primary Care Physician - Katharina Wu This Is Your Medications List clonazepam (ClonazePAM 0.5 mg Tab) conjugated estrogens (Premarin 1.25 mg Tab) cyclobenzaprine (cyclobenzaprine 5 mg Tab) escitalopram (Lexapro 20 mg Tab) fluticasone nasal (fluticasone Nasal 0.05 mg/inh Stafford) folic acid (folic acid 1 mg Tab) fremanezumab (Ajovy Autoinjector 225 mg/1.5 mL subcutaneous solution) gabapentin (gabapentin 300 mg Cap) levothyroxine (Synthroid 50 mcg Tab) montelukast (Singulair 10 mg Tab) oxcarbazepine (Trileptal 300 mg Tab) promethazine (promethazine 12.5 mg oral tablet) tizanidine (Zanaflex) ubrogepant (Ubrelvy 100 mg oral tablet) Procedures Performed Hysterectomy (04/18/2006), Augmentation of bilateral breasts, Cholecystectomy, Gastric bypass, Tonsillectomy. Discharge Vitals Temperature (Oral) 36.5 ?C Heart Rate (Peripheral) 93 Respiratory Rate 18 Blood Pressure 124/82 Height 149.0 cm Height 59 in Weight 68.2 kg Weight 150.04 lb BMI 30.72 Medications What How Much When Instructions Unchanged clonazepam (ClonazePAM 0.5 mg Tab) 1 Tablets Unchanged conjugated estrogens (Premarin 1.25 mg Tab) 1 Tablets By Mouth Every day Unchanged cyclobenzaprine (cyclobenzaprine 5 mg Tab) 1 By Mouth 3 times a day Unchanged escitalopram (Lexapro 20 mg Tab) 1 Tablets By Mouth Every day Unchanged fluticasone nasal (fluticasone Nasal 0.05 mg/ inh Stafford) 2 Sprays Nasal Inhalation Every day each nostril Unchanged folic acid (folic acid 1 mg Tab) 1 Tablets By Mouth Every day Unchanged fremanezumab (Ajovy Autoinjector 225 mg/ 1.5 mL subcutaneous solution) USE DIRECTED SUBCUTANEOUSLY EVERY 28 DAYS SUBCUTANEOUS MONTHLY 30 DAYS Unchanged gabapentin (gabapentin 300 mg Cap) 1 Capsules By Mouth 2 times a day Unchanged levothyroxine (Synthroid 50 mcg Tab) 1 Tablets By Mouth Every day Unchanged montelukast (Singulair 10 mg Tab) 1 Tablets By Mouth Once a day (in the evening) Unchanged oxcarbazepine (Trileptal 300 mg Tab) 2 Tablets By Mouth 2 times a day Unchanged promethazine (promethazine 12.5 mg oral tablet) 1 Tablets By Mouth Every 4 hours as needed for for motion sickness Unchanged tizanidine (Zanaflex) By Mouth As needed for Anxiety Unchanged ubrogepant (Ubrelvy 100 mg oral tablet) 1 Tablets Allergies sulfa drugs (Sweat rash, Hives) Problems Ongoing - Any problem that you are currently receiving treatment for. Bacterial vaginitis Breast cancer screening by mammogram Cervical cancer screening Chronic vaginitis Other skin changes Well woman exam Patient Survey You may receive a survey via text or e-mail asking about your office visit. Please share your experience with us by completing your survey. We appreciate your feedback and thank you for choosing us for your care. Normal [facility] Family Medicine Office/Clini c Noteon 08-13-2024 Family Medicine Office/Clinic Note Family Medicine Office/Clinic Note HPI Staff Miriam is a 54 year old female presenting with 3 month f/u IWONA- Patient has issues with chronic BV, tx'd with Metrogel for 14 days Referral for Derm for flaky area on right areola for evaluation- June she was told no biopsy... she got this froze off no more issues Mammo was done 05/20/24 ( In chart) Her BV is doing good right now she still gets the smell yesterday she was a little itchy and wondering if she can take her other refills to make sure this is gone but wanted it ok'd by you first History of Present Illness pt presents today for follow up on chronic BV. was prescribed vaginal suppositories from [facility] 3 months ago Review of Systems PHQ Score Initial Depression Screen Score: 0 SCORE Physical Exam Vitals & Measurements T: 36.5 ?C(Oral) HR: 93(Peripheral) RR: 18 BP: 124/82 SpO2: 97% HT: 59 in HT: 149.0 cm WT: 68.2 kg WT: 150.04 lb BMI: 30.72 General: alert, no acute distress ENMT: oral mucosa moist, no pharyngeal erythema or exudate Cardiovascular: regular rate and rhythm, normal peripheral perfusion Respiratory: Lungs CTA, respirations non labored Extremities: no deformity, no trauma Neurological: oriented x 4, LOC appropriate for age, CN II-XII intact, motor strength equal & normal bilaterally, speech normal Assessment/Plan 1. Chronic vaginitis (N76.1: Subacute and chronic vaginitis) pt presents for 3 month follow up on chronic BV. pt feels they are the best they have been in a while. feels she may be starting to have symptoms now. will [facility] to [facility]. she will get refill on suppositories from [facility] next month. 2. Former smoker (Z87.891: Personal history of nicotine dependence) continue not smoking 3. BMI 30.0-30.9,adult (Z68.30: Body mass index [BMI] 30.0-30.9, adult) BMI education given 4. Exogenous obesity (E66.09: Other obesity due to excess calories) see above Orders: metronidazole topical, 1 jenniffer, Vaginal, Once a day (at bedtime), 70 gm, Refill(s) 1, 1 applicator full at bedtime for 7 nights, [facility], 149, cm, 08/13/24 13:57:00 EDT, Height/Length Dosing, 68.2, kg, 08/13/24 13:57:00 EDT, Weight Dosing Follow-up No qualifying data available Problem List/Past Medical History Ongoing Bacterial vaginitis Breast cancer screening by mammogram Cervical cancer screening Chronic vaginitis Other skin changes Well woman exam Historical No qualifying data Procedure/Surgical History Hysterectomy (04/18/2006), Augmentation of bilateral breasts, Cholecystectomy, Gastric bypass, Tonsillectomy. Medications Ajovy Autoinjector 225 mg/1.5 mL subcutaneous solution ClonazePAM 0.5 mg Tab, 0.5 mg= 1 tab(s) cyclobenzaprine 5 mg Tab, Oral, TID fluticasone Nasal 0.05 mg/inh Stafford, 2 spray(s), Nasal, Daily folic acid 1 mg Tab, 1 mg= 1 tab(s), Oral, Daily gabapentin 300 mg Cap, 300 mg= 1 cap(s), Oral, BID Lexapro 20 mg Tab, 20 mg= 1 tab(s), Oral, Daily metronidazole 0.75% Vag Gel w/Appl, 1 jenniffer, Vaginal, Once a day (at bedtime), 1 refills Premarin 1.25 mg Tab, 1.25 mg= 1 tab(s), Oral, Daily promethazine 12.5 mg oral tablet, 12.5 mg= 1 tab(s), Oral, q4hr, PRN Singulair 10 mg Tab, 10 mg= 1 tab(s), Oral, qPM Synthroid 50 mcg Tab, 50 mcg= 1 tab(s), Oral, Daily Trileptal 300 mg Tab, 600 mg= 2 tab(s), Oral, BID Ubrelvy 100 mg oral tablet, 100 mg= 1 tab(s) Zanaflex, Oral, PRN Allergies sulfa drugs (Sweat rash, Hives) Social History Tobacco Former smoker, quit more than 30 days ago, quit 2022 Tobacco Use:. Never Smokeless Tobacco Use:. Cigarettes, 08/13/2024 Family History Diabetes mellitus type 2: Mother and Father. Hypertension: Mother. IBS - Irritable bowel syndrome: Mother. Normal [facility] Comment on above: Result Comment: Elec tronically Signed By: Katharina Wu\.br\Date and Time Signed: 08/13/24 14:14 EDT Reminderson 05-21-2024 Reminders Reminders - From: Katharina Wu To: [facility] - Clinical; Sent: 05/19/2024 14:11:53 EDT Show up: 05/19/2024 14:12:00 EDT Subject: Ambulatory Reminder Due Date/Time: 05/20/2024 14:11:00 EDT pap results are negative Results: Date Result Name Value Ref Range 05/14/2024 11:55 HPV Aptima Negative (Negative - ) 05/14/2024 11:55 PAP Note Miriam called and advised. Normal [facility] PAP [id number] 05-19-2024 Cytology report Cyto stain Doc (Cvx/Vag) Note Invalid Interpretation Code [facility] Comment on above: Result Comment: TEST S RESULT FLAG UNITS REF RANGE LAB Clinician Provided Cytology Information Source.............Vagina No. of containers..01 ThinPrep Vial DIAGNOSIS: 01 NEGATIVE FOR INTRAEPITHELIAL LESION OR MALIGNANCY. THIS SPECIMEN WAS RESCREENED PART OF OUR ENTERTAINMENT DIRECTOR PROGRAM. Specimen adequacy: 01 Satisfactory for evaluation. Performed by: Bradford Quiñonez, Medical Laboratory Technologist ([facility]) QC reviewed by: Lilian Read, Medical Laboratory Technologist ([facility]) . 01 Note: Note 01 The Pap smear is a screening test designed to aid in the detection of premalignant and malignant conditions of the uterine cervix. It is not a diagnostic procedure and should not be used as the sole means of detecting cervical cancer. Both false-positive and false-negative reports do occur. Test Methodology: Note 01 This liquid based ThinPrep(R) pap test was screened with the use of an image guided system. HPV Genotype Reflex Note 01 Criteria not met, HPV Genotype not performed. FLAG LEGEND: L-Low Normal,H-High Normal,LL-Alert Low,HH-Alert High <-Panic Low,>-Panic High,A-Abnormal,AA-Critical Abnormal Performed at: [address] [address] Mounika Fraser MD, Performed By: #### 1 [id number] #### [facility] [address] [place] [address] HPV 16+18+31+33+35+39+4 5+51+52+56+58+59+66 +68 DNA Probe+sig amp Ql (Cvx) Negative Invalid Interpretation Code Negative [facility] Comment on above: Result Comment: This nucleic acid amplification test detects fourteen high-risk HPV types (16,18,31,33,35,39,45,51,52,56,58,59,66,68) without differentiation. Performed at: [facility] [address] [facility] [place] [id number] MD Bria Ribera Performed at: =G [facility] [address] [facility] [place] [id number] MD Bria Ribera Performed By: #### 1 [id number] #### [facility] [address] [place] [address] Ambulatory Visit Summaryon 0 05-14-2024 Ambulatory Visit [...] Tab) fluticasone nasal (fluticasone Nasal 0.05 mg/inh Stafford) folic acid (folic acid 1 mg Tab) [...] 1:40 PM EDT With: Katharina Wu Where: [facility] Family Medicine [facility] Ambulatory Visit Summary Ambulatory Visit Summary [...] you for choosing us for your care. [facility] Family Medicine Office/Clini c Noteon 05-14-2024 Family Medicine Office/Clinic Note Family Medicine Office/Clinic Note HPI Staff Miriam is a 53 year old female presenting for well woman Woman check up: Last pap: 05/2023 Last Vesta: 05/26 Results of lap pap: Where was it done: [facility] at Dr. Rodriguez hx: # of pregnancies..3 [...] masses. Pap obtained Neurologic: Grossly normal Skin: Gamaliel, moist, no tenting Lymph Nodes: No cervical adenopathy, nodes normal Mental Status: Alert and oriented x3. Normal mood and affect Assessment/Plan 1. Well woman exam (Z01.419: Encounter for gynecological examination (general) (routine) without abnormal findings) pt presents today for well woman exam. pap obtained without difficulty. BSE discussed. mammogram order provided for TB. pt has issues with chronic BV. will send orders to [facility] for suppositories. will treat with metrogel for 14 days first. RTC 3 months Ordered: metronidazole topical, 1 jenniffer, Topical, Daily for 14 day(s), 60 gm, Refill(s) 1, [facility], 149, cm, 05/14/24 9:37:00 EDT, Height/Length Dosing, 64.2, kg, 05/14/24 9:37:00 EDT, Weight Dosing New Preventive 40 to 64 years [address] PAP w/ HPV and Genotype rflx 2. Cervical cancer screening (Z12.4: Encounter for screening for malignant neoplasm of cervix) pap obtained without difficulty Ordered: metronidazole topical, 1 jenniffer, Topical, Daily for 14 day(s), 60 gm, Refill(s) 1, [facility], 149, cm, 05/14/24 9:37:00 EDT, Height/Length Dosing, 64.2, kg, 05/14/24 9:37:00 EDT, Weight Dosing [facility] 40 to 64 years [address] PAP [id number] w/ HPV and Genotype rflx 3. Breast cancer screening by mammogram (Z12.31: Encounter for screening mammogram for malignant neoplasm of breast) mammogram order given Ordered: metronidazole topical, 1 jenniffer, Topical, Daily for 14 day(s), 60 gm, Refill(s) 1, [facility], 149, cm, 05/14/24 9:37:00 EDT, Height/Length Dosing, 64.2, kg, 05/14/24 9:37:00 EDT, Weight Dosing [facility] 40 to 64 years [address] PAP [id number] w/ HPV and Genotype rflx 4. Other [...] 64.2, kg, 05/14/24 9:37:00 EDT, Weight Dosing [facility] External Ambulatory Referral New Preventive 40 to 64 years [address] PAP [id number] w/ HPV and Genotype rflx 5. Bacterial [...] Dosing New Preventive 40 to 64 years [address] PAP 966259 w/ HPV and Genotype rflx 6. BMI 28.0-28.9,adult (Z68.28: Body mass index [BMI] 28.0-28.9, adult) BMI education given Ordered: New Preventive 40 to 64 years 7. Former smoker (Z87.891: Personal history of nicotine dependence) continue not smoking Ordered: New Preventive 40 to 64 years [address] Follow-up No qualifying data available Problem List/Past Medical History Ongoing Bacterial vaginitis Breast cancer scr (more content not included)... Normal [facility] Comment on above: Result Comment: Elec tronically Signed By: Katharina Wu\.ana lilia\Date and Time Signed: 05/14/24 12:44 EDT PAP [id number] 05-14-2024 Gynecological Body Site VAGINA Normal [facility] Comment on above: Performed By: #### 1 [id number] #### [facility] [address] [place] [address] Drug Screen,Urineon 10-24-20 Amphetamine Screen,Urine Negative Normal Negative [facility] Comment on above: Performed By: #### U RDS #### [place] [address] [place] Barbiturate Screen,Urine Negative Normal Negative [facility] Comment on above: Performed By: #### U RDS #### [place] [address] [place] Benzodiazepines Screen,Urine Negative Normal Negative [facility] Comment on above: Performed By: #### U RDS #### [place] [address] [place] Cannabinoid Screen,Urine Positive High Negative [facility] Comment on above: Result Comment: Thes e are unconfirmed results and should not be used for legal purposes. Drug Cut-Off Concentration: AMPH 1000 ng/mL MARCELLUS 200 ng/mL TULIO 200 ng/mL COCM 300 ng/mL OP 300 ng/mL PCP 25 ng/mL THC 20 ng/mL PERFORMED BY: [place] [address] PATHOLOGIST DIET CONSULTANT KENNEDY LEBRON M.D. Performed By: #### U RDS #### [place] [address] [place] Cocaine Screen,Urine Negative Normal Negative [facility] Comment on above: Performed By: #### U RDS #### [place] [address] [place] Opiate Screen,Urine Negative Normal Negative [facility] Comment on above: Performed By: #### U RDS #### [place] [address] [place] Phencyclidine Screen,Urine Negative Normal Negative [facility] Comment on above: Performed By: #### U RDS #### [place] [id number] [facility] 10-24-2023 L Specimen: [id number] Received: 10/24/23 Status: TEJAS Tran Num: [id number] Spec Type: Surgical Subm Dr: Mariza Paredes MD Tissues: A Colon Biopsy (DUODENUM BX) B Colon Biopsy (RANOM COLON BX) Procedures: Alley GOODE/Keon L4/2 Age/ Patient Sex Location Account Attending Physician Miriam Estrada 53/Pia [id number] Mariza Paredes MD SPEC NUM: [id number] RECD: 10/24/23 STATUS: TEJAS TRAN NUM: [id number] JACKIE: 10/24/23- DR: Mariza Paredes MD ENTERED: 10/24/[address] [facility] [address]: SPEC TYPE: Surgical DEPT: S ORDERED: HE/4, Gross/Micro [...] Entirely submitted in one cassette labeled B1. Specimen: [id number] Received: 10/24/23 Status: TEJAS Elmer Num: [id number] Spec Type: Surgical Subm Dr: Mariaz Paredes MD Tissues: A Colon Biopsy (DUODENUM BX) B Colon Biopsy (RANOM COLON BX) Procedures: HE/4, Gross/Micro L4/2 Patient: Miriam Estrada [id number] (Continued) Specimen: [id number] Received: 10/24/23 (Continued) Signed (signature on file) Kathrin Steel MD 10/25/232102 Specimen: [id number] Received: 10/24/23 Status: TEJAS Tran Num: [id number] Spec Type: Surgical Subm Dr: Mariza Paredes MD Tissues: A Colon Biopsy (DUODENUM BX) B Colon Biopsy (RANOM COLON BX) Procedures: Alley GOODE/Micro L4/2 Patient: Miriam Estrada [id number] (Continued) Specimen: [id number] Received: 10/24/23-125 (Continued) Microscopic Description A. Two H E slides reviewed. The microscopic examination confirms the diagnosis. B. Two H E slides reviewed. The microscopic examination confirms the diagnosis. CPT Codes 83194a7 Specimen: [id number] Received: 10/24/23 Status: TEJAS Tran Num: [id number] Spec Type: Surgical Subm Dr: Mariza Paredes MD Tissues: A Colon Biopsy (DUODENUM BX) B Colon Biopsy (RANOM COLON BX) Procedures: HE/4, Gross/Micro L4/2 Patient: Miriam Estrada [id number] (Continued) Signed (signature on file) Kathrin Steel MD 10/25/23 210 Normal [facility] PAP ACOG PANEL 2: 30 to 65on 03-19-2023 Age Gdln ACOG Testing 30-65 Normal [facility] Comment on above: Performed By: #### 4 [id number] #### [facility] [address] [place] [address] Dr. Elke Mart FOLATEon 01-01-2023 FOLATE 23.80 ng/mL Normal 8.60-58.90 [facility] Comment on above: Performed By: #### F OL, FT4 #### [facility] [address] [place] [address] [address] Elke Mart FREE T4on 01-01-2023 Free T4 [Mass/Vol] 0.59 ng/dL Critically low 0.76-1.46 [facility] Comment on above: Performed By: #### F OL, FT4 #### [facility] [address] [place] [address] Dr. Elke Mart TSHon 01-01-2023 TSH 1.091 uIU/mL Normal 0.358-3.740 [facility] Comment on above: Performed By: #### T SH #### [facility] [address] [address] [address] Elke Mart METHYLMALONIC ACID (MMA)on 0 11-18-2022 Methylmalonic Acid, Serum 109 nmol/L Normal 0-378 [facility] Comment on above: Performed By: #### M MA2 #### [facility] [address] [place] [address] Dr. Elke Mart FREE T4on 11-14-2022 Free T4 [Mass/Vol] 0.44 ng/dL Critically low 0.76-1.46 [facility] Comment on above: Performed By: #### B 12FOL, FT4 #### [facility] [address] [place] [address] Dr. Elke Mart TSHon 11-14-2022 TSH 0.856 uIU/mL Normal 0.358-3.740 [facility] Comment on above: Performed By: #### T SH #### [facility] [address] [place] [address] Dr. Elke Mart VIT B12 AND FOLATEon 023 Cobalamin (Vitamin B12) [Mass/Vol] 356.0 pg/mL Normal 193.0-986.0 [facility] Comment on above: Performed By: #### B 12FOL, FT4 #### [facility] [address] [place] [address] Dr. Elke Mart FOLATE 7.80 ng/mL Critically low 8.60-58.90 [facility] Comment on above: Performed By: #### B 12FOL, FT4 #### [facility] [address] [place] [address] Dr. Elke Mart RESPIRATORY PANEL PLUSon Adenovirus Not detected Normal NOT DETECTED [facility] Comment on above: Performed By: #### R SPLUS #### [facility] [address] [place] [address] Dr. Elke Lowery. Parapertusis Not detected Normal NOT DETECTED [facility] Comment on above: Performed By: #### R SPLUS #### [facility] [address] [place] [address] Dr. Elke Clay Pertussis Not detected Normal NOT DETECTED [facility] Comment on above: Performed By: #### R SPLUS #### [facility] [address] [place] [address] Dr. Elke Mart Chlamydia Pneumoniae Not detected Normal NOT DETECTED [facility] Comment on above: Performed By: #### R SPLUS #### [facility] Laboratory [address] [address] [address] Elke Mart Coronavirus 229E Not detected Normal NOT DETECTED [facility] Comment on above: Performed By: #### R SPLUS #### [facility] Laboratory [address] [place] [address] Dr. Elke Mart Coronavirus HKU1 Not detected Normal NOT DETECTED [facility] Comment on above: Performed By: #### R SPLUS #### [facility] Laboratory [address] [place] [address] Dr. Elke Mart Coronavirus NL63 Not detected Normal NOT DETECTED [facility] Comment on above: Performed By: #### R SPLUS #### [facility] Laboratory [address] [place] [address] Dr. Elke Mart Coronavirus OC43 Not detected Normal NOT DETECTED [facility] Comment on above: Performed By: #### R SPLUS #### [facility] Laboratory [address] [place] [address] Dr. Elke Mart Influenza A H1 2009 Not detected Normal NOT DETECTED [facility] Comment on above: Performed By: #### R SPLUS #### [facility] Laboratory [address] [place] [address] Dr. Elke Mart Influenza A H3 Not detected Normal NOT DETECTED [facility] Comment on above: Performed By: #### R SPLUS #### [facility] Laboratory [address] [place] [address] Dr. Elke Mart Influenza B Not detected Normal NOT DETECTED [facility] Comment on above: Performed By: #### R SPLUS #### [facility] Laboratory [address] [place] [address] Dr. Elke Mart Metapneumovirus Not detected Normal NOT DETECTED [facility] Comment on above: Performed By: #### R SPLUS #### [facility] Laboratory [address] [place] [address] Dr. Elke Mart Mycoplas. Pneumoniae Not detected Normal NOT DETECTED [facility] [place] Comment on above: Performed By: #### R SPLUS #### [facility] Laboratory [address] [place] [address] Dr. Elke Mart Parainfluenza 1 Not detected Normal NOT DETECTED [facility] Comment on above: Performed By: #### R SPLUS #### [facility] Laboratory [address] [place] [address] Dr. Elke Mart Parainfluenza 2 Not detected Normal NOT DETECTED [facility] Comment on above: Performed By: #### R SPLUS #### [facility] Laboratory [address] [place] [address] Dr. Elke Mart Parainfluenza 3 Not detected Normal NOT DETECTED [facility] Comment on above: Performed By: #### R SPLUS #### [facility] Laboratory [address] [place] [address] Dr. Elke Mart Parainfluenza 4 Not detected Normal NOT DETECTED [facility] Comment on above: Performed By: #### R SPLUS #### [facility] Laboratory [address] [place] [address] Dr. Elke Mart Rhino/Enterovirus Not detected Normal NOT DETECTED [facility] Comment on above: Performed By: #### R SPLUS #### [facility] Laboratory [address] [place] [address] Dr. Elke Mart RP2 Header 1 RESPIRATORY PANEL: VIRUSES Normal [facility] Comment on above: Performed By: #### R SPLUS #### [facility] Laboratory [address] [place] [address] Dr. Elke Mart RP2 Header 2 RESPIRATORY PANEL: BACTERIA Normal [facility] Comment on above: Performed By: #### R SPLUS #### [facility] Laboratory [address] [place] [address] Dr. Elke Mart RSV Not detected Normal NOT DETECTED [facility] Comment on above: Performed By: #### R SPLUS #### [facility] Laboratory [address] [place] [address] Dr. Elke Mart SARS-CoV-2 (COVID-19) RNA ROMERO+probe Ql (Unsp spec) Not detected Normal NOT DETECTED [facility] Comment on above: Performed By: #### R SPLUS #### [facility] Laboratory [address] [place] [address] Dr. Elke Mart CNOVSPon 11-12-2019 CNOVSP Visit (SP) Office ([place]) MIRIAM ESTRADA ([id number]) 1970 F Date Time Provider Department 11/12/19 3:30 PM SUMAYA CARDONA During your visit today, we recorded the following information about you: Temperature Pulse Respiration Blood pressure 97.7 degrees 71/minute 16/minute 107/58 Weight Height 51.5 kg 1.524 m SUMAYA CARDONA PA-C 11/12/2019 4:03 PM Signed CC: Iron [...] SKIN: Negative for lesions, rash, and itching. HEMATOLOGY/LYMPHOLOG Y: Negative for prolonged bleeding, bruising easily or [...] tablet 0.9 mg once daily. No current facility-administere d medications for this visit. PAST MEDICAL HISTORY [...] last couple months. 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 Madeleine Greene Encounter Status:Closed by SUMAYA CARDONA on 11/12/19 Normal [facility] Comp Metabolic Panelon 11-12 Albumin [Mass/Vol] 4.6 g/dL Normal 3.9-4.9 [facility] Comment on above: Performed By: #### I CHRIS GAYTAN #### [facility] [address] [place], [place] [address] ALP [Catalytic activity/Vol] 71 U/L Normal 34-123 [facility] Comment on above: Performed By: #### I CHRIS GAYTAN #### [facility] [address] [place], [place] [address] ALT [Catalytic activity/Vol] 16 U/L Normal 7-38 [facility] Comment on above: Performed By: #### I CHRIS GAYTAN #### [facility] [address] [place], [place] [address] Anion gap [Moles/Vol] 12 mmol/L Normal 9-18 [facility] Comment on above: Performed By: #### I CHRIS GAYTAN #### [facility] [address] [address] AST [Catalytic activity/Vol] 18 U/L Normal 13-35 [facility] Comment on above: Performed By: #### Manish GAYTAN, FERR #### [address] [address] Bilirubin [Mass/Vol] 0.2 mg/dL Normal 0.2-1.3 [facility] Comment on above: Performed By: #### Manish GAYTAN, FERR #### [address] [address] Calcium [Mass/Vol] 9.3 mg/dL Normal 8.5-10.2 [facility] Comment on above: Performed By: #### Manish GAYTAN, FERR #### [address] [place] [address] Chloride [Moles/Vol] 101 mmol/L Normal 97-105 [facility] Comment on above: Performed By: #### Manish GAYTAN, FERR #### [address] [address] CO2 [Moles/Vol] 23 mmol/L Normal 22-30 [facility] Comment on above: Performed By: #### Manish GAYTAN, FERR #### [address] [id number] Creatinine [Mass/Vol] 0.69 mg/dL Normal 0.58-0.96 [facility] Comment on above: Performed By: #### Manish GAYTAN, FERR #### [address] [id number] eGFR- Amer. >60 Normal [facility] Comment on above: Performed By: #### Manish GAYTAN, FERR #### [address] [address] GFR/1.73 sq M predicted among non-blacks MDRD (S/P/Bld) [Vol rate/Area] mL/min/{1.73_m2} Normal [facility] Comment on above: Result Comment: eGFR (Estimated [...] accurately reflect actual GFR. Performed By: #### CHRIS GASTON #### [facility] [address] [place], [place] [address] Glucose [Mass/Vol] 103 mg/dL High 74-99 [facility] Comment on above: Result Comment: The [place] Diabetes Association (ADA) provides guidance for cutoff [...] Standards of Medical Care in Diabetes 2016, [place] [employer]. Diabetes Care. 2016.39(Suppl 1). Performed By: #### CHRIS GASTON #### [facility] [address] [place], [place] [address] Potassium [Moles/Vol] 4.3 mmol/L Normal 3.7-5.1 [facility] Comment on above: Performed By: #### CHRIS GASTON #### [facility] [address] [place], [place] [address] Protein [Mass/Vol] 6.5 g/dL Normal 6.3-8.0 [facility] Comment on above: Performed By: #### I LUKAS, FERR #### [facility] [address] [address] Sodium [Moles/Vol] 136 mmol/L Normal 136-144 [facility] Comment on above: Performed By: #### I LUKAS, FERR #### [address] [address] Urea nitrogen [Mass/Vol] 5 mg/dL Low 7-21 [facility] Comment on above: Performed By: #### I LUKAS, FERR #### [address] [address] Ferritinon 11-12-2019 Ferritin [Mass/Vol] 148.0 ng/mL Normal 14.7-205.1 [facility] Comment on above: Performed By: #### I LUKAS, FERR #### [address] [address] Iron and TIBCon 11-12-2019 Iron [Mass/Vol] 86 ug/dL Normal 41-186 [facility] Comment on above: Performed By: #### I LUKAS, FERR #### [address] [address] TIBC 382 ug/dL Normal 232-386 [facility] Comment on above: Performed By: #### I LUKAS, FERR #### [address] [address] Transferrin Saturatn 23 % Normal 15-57 [facility] Comment on above: Performed By: #### I LUKAS, FERR #### [address] [address] PROGRESSon 11-12-2019 PROGRESS HNO ID: [id number] Author: Sumaya Cardona Service: ? Author Type: Physician Environmental Emergencies Planner Type: Progress Notes Filed: 11/12/2019 4:03 PM [...] SKIN: Negative for lesions, rash, and itching. HEMATOLOGY/LYMPHOLOG Y: Negative for prolonged bleeding, bruising easily or [...] tablet 0.9 mg once daily. No current facility-administere d medications for this visit. PAST MEDICAL HISTORY [...] Probably cause of her iron deficiency. SUMAYA CARDONA PA-C Normal [facility] Remote CBCDIF (for [facility] use o nly)on 11-12-2019 Abs Baso 0.06 k/uL Normal <0.11 [facility] Abs [place] 0.44 k/uL Normal <0.87 [facility] Abs Neut 4.85 k/uL Normal 1.45-7.50 [facility] Absolute nRBC <0.01 Normal <0.01 [facility] Basophils/100 WBC (Bld) 0.9 % Normal [facility] DTYPE Auto Diff Normal [facility] Eosinophils (Bld) [#/Vol] 0.05 10*3/uL Normal <0.46 [facility] Eosinophils/100 WBC (Bld) 0.7 % Normal [facility] Erythrocyte distribution width (RBC) [Ratio] 13.3 % Normal 11.5-15.0 [facility] Hematocrit (Bld) [Volume fraction] 38.6 % Normal 36.0-46.0 [facility] Hemoglobin (Bld) [Mass/Vol] 12.2 g/dL Normal 11.5-15.5 [facility] Lymphocytes (Bld) [#/Vol] 1.37 10*3/uL Normal 1.00-4.00 [facility] Lymphocytes/100 WBC (Bld) 20.2 % Normal [facility] MCH (RBC) [Entitic mass] 31.1 pG Normal 26.0-34.0 [facility] MCHC (RBC) [Mass/Vol] 31.6 g/dL Normal 30.5-36.0 [facility] MCV (RBC) [Entitic vol] 98.5 fL Normal 80.0-100.0 [facility] Monocytes/100 WBC (Bld) 6.5 % Normal [facility] Neutrophils/100 WBC (Bld) 71.7 % Normal [facility] NRBCs 0.0 /100 WBC Normal 0 [facility] Platelet mean volume (Bld) [Entitic vol] 8.9 fL Low 9.0-12.7 [facility] Platelets (Bld) [#/Vol] 383 10*3/uL Normal 150-400 [facility] RBC (Bld) [#/Vol] 3.92 10*6/uL Normal 3.90-5.20 [facility] WBC (Bld) [#/Vol] 6.78 10*3/uL Normal 3.70-11.00 [facility] Ferritinon 09-17-2019 Ferritin [Mass/Vol] 138.0 ng/mL Normal 14.7-205.1 [facility] Comment on above: Performed By: #### I LUKAS, FERR #### [facility] [address] [address] Iron and TIBCon 07-22-2019 Iron [Mass/Vol] 73 ug/dL Normal 41-186 [facility] Comment on above: Performed By: #### I LUKAS, FERR #### [facility] [address] [address] TIBC 360 ug/dL Normal 232-386 [facility] Comment on above: Performed By: #### I LUKAS, FERR #### [address] [place] [address] Transferrin Saturatn 20 % Normal 15-57 [facility] Comment on above: Performed By: #### Manish GAYTAN, FERR #### [address] [place] [address] Remote Abs Gran + CBC (for [facility] use only)on 07-22-2019 Absol Gran Count 8.16 k/uL High 1.45-7.50 [facility] Erythrocyte distribution width (RBC) [Ratio] 13.1 % Normal 11.5-15.0 [facility] Hematocrit (Bld) [Volume fraction] 36.4 % Normal 36.0-46.0 [facility] Hemoglobin (Bld) [Mass/Vol] 11.8 g/dL Normal 11.5-15.5 [facility] MCH (RBC) [Entitic mass] 31.8 pG Normal 26.0-34.0 [facility] MCHC (RBC) [Mass/Vol] 32.4 g/dL Normal 30.5-36.0 [facility] MCV (RBC) [Entitic vol] 98.1 fL Normal 80.0-100.0 [facility] Platelet mean volume (Bld) [Entitic vol] 8.7 fL Low 9.0-12.7 [facility] Platelets (Bld) [#/Vol] 353 10*3/uL Normal 150-400 [facility] RBC (Bld) [#/Vol] 3.71 10*6/uL Low 3.90-5.20 [facility] WBC (Bld) [#/Vol] 8.59 10*3/uL Normal 3.70-11.00 [facility] Ferritinon 04-22-2019 Ferritin [Mass/Vol] 186.3 ng/mL Normal 14.7-205.1 [facility] Comment on above: Performed By: #### I LUKAS, FERR #### [address] [phone] Iron and TIBCon 04-22-2019 Iron [Mass/Vol] 91 ug/dL Normal 41-186 [facility] Comment on above: Performed By: #### Manish GAYTAN, FERR #### [address] [phone] TIBC 309 ug/dL Normal 232-386 [facility] Comment on above: Performed By: #### Manish GAYTAN, FERR #### [address] [phone] Transferrin Saturatn 29 % Normal 15-57 [facility] Comment on above: Performed By: #### Manish GAYTAN, FERR #### [address] [place] [phone] Remote Abs Gran + CBC (for [facility] use only)on 04-22-2019 Absol Gran Count 5.01 k/uL Normal 1.45-7.50 [facility] Erythrocyte distribution width (RBC) [Ratio] 12.7 % Normal 11.5-15.0 [facility] Hematocrit (Bld) [Volume fraction] 36.7 % Normal 36.0-46.0 [facility] Hemoglobin (Bld) [Mass/Vol] 12.3 g/dL Normal 11.5-15.5 [facility] MCH (RBC) [Entitic mass] 32.3 pG Normal 26.0-34.0 [facility] MCHC (RBC) [Mass/Vol] 33.5 g/dL Normal 30.5-36.0 [facility] MCV (RBC) [Entitic vol] 96.3 fL Normal 80.0-100.0 [facility] Platelet mean volume (Bld) [Entitic vol] 8.5 fL Low 9.0-12.7 [facility] Platelets (Bld) [#/Vol] 289 10*3/uL Normal 150-400 [facility] RBC (Bld) [#/Vol] 3.81 10*6/uL Low 3.90-5.20 [facility] WBC (Bld) [#/Vol] 7.10 10*3/uL Normal 3.70-11.00 [facility] CBCon 01-21-2019 Absolute nRBC <0.01 Normal <0.01 [facility] Comment on above: Performed By: #### C BC #### [facility] [address] [place], [place] [address] Erythrocyte distribution width (RBC) [Ratio] 13.4 % Normal 11.5-15.0 [facility] Comment on above: Performed By: #### C BC #### [facility] [address] [place], [place] [address] Hematocrit (Bld) [Volume fraction] 36.7 % Normal 36.0-46.0 [facility] Comment on above: Performed By: #### C BC #### [facility] [address] [place], [place] [address] Hemoglobin (Bld) [Mass/Vol] 11.7 g/dL Normal 11.5-15.5 [facility] Comment on above: Performed By: #### C BC #### [facility] [address] [place], [place] [address] MCH (RBC) [Entitic mass] 31.5 pG Normal 26.0-34.0 [facility] Comment on above: Performed By: #### C BC #### [facility] [address] [place], [place] [address] MCHC (RBC) [Mass/Vol] 31.9 g/dL Normal 30.5-36.0 [facility] Comment on above: Performed By: #### C BC #### [phone] [place] [address] MCV (RBC) [Entitic vol] 98.7 fL Normal 80.0-100.0 [facility] Comment on above: Performed By: #### C BC #### [address] [address] [place] [address] Platelet mean volume (Bld) [Entitic vol] 10.0 fL Normal 9.0-12.7 [facility] Comment on above: Performed By: #### C BC #### [place] [address] Platelets (Bld) [#/Vol] 348 10*3/uL Normal 150-400 [facility] Comment on above: Performed By: #### C BC #### [place] [address] RBC (Bld) [#/Vol] 3.72 10*6/uL Low 3.90-5.20 [facility] Comment on above: Performed By: #### C BC #### [place] [address] WBC (Bld) [#/Vol] 6.03 10*3/uL Normal 3.70-11.00 [facility] Comment on above: Performed By: #### C BC #### [place] [address] Ferritinon 01-21-2019 Ferritin [Mass/Vol] 201.0 ng/mL Normal 14.7-205.1 [facility] Comment on above: Performed By: #### I LUKAS, FERR #### [address] [place] [address] [place] [address] Iron and TIBCon 01-21-2019 Iron [Mass/Vol] 85 ug/dL Normal 41-186 [facility] Comment on above: Performed By: #### I LUKAS, FERR #### [place] [phone] TIBC 346 ug/dL Normal 232-386 [facility] Comment on above: Performed By: #### I LUKAS, FERR #### [place] [phone] Transferrin Saturatn 25 % Normal 15-57 [facility] Comment on above: Performed By: #### I LUKAS, FERR #### [place] [phone] Remote Abs Gran + CBC (for [facility] use only)on 01-21-2019 Absol Gran Count Duplicate request Normal 1.45-7.50 [facility] Comment on above: Result Comment: Acco unt Credited Performed By: #### R AGCBC #### [place] [phone] Absolute nRBC Duplicate request Normal <0.01 [facility] Comment on above: Result Comment: Acco unt Credited BB [id number] 0010 Performed By: #### R AGCBC #### [place] [phone] Comment Duplicate request Normal [facility] Comment on above: Result Comment: Acco unt Credited BB [id number] 0010 Performed By: #### R AGCBC #### [place] [phone] Erythrocyte distribution width (RBC) [Ratio] Duplicate request Normal 11.5-15.0 [facility] Comment on above: Result Comment: Acco unt Credited BB [id number] 0010 Performed By: #### R AGCBC #### [place] [phone] Hematocrit (Bld) [Volume fraction] Duplicate request Normal 36.0-46.0 [facility] Comment on above: Result Comment: Acco unt Credited BB [id number] 0010 Performed By: #### R AGCBC #### [facility] [address] [place], [place] [address] Hemoglobin (Bld) [Mass/Vol] Duplicate request Normal 11.5-15.5 [facility] Comment on above: Result Comment: Acco unt Credited BB [id number] 0010 Performed By: #### R AGCBC #### [address] [place], [place] [address] MCH (RBC) [Entitic mass] Duplicate request Normal 26.0-34.0 [facility] Comment on above: Result Comment: Acco unt Credited BB [id number] 0010 Performed By: #### R AGCBC #### [address] [place], [place] [address] MCHC (RBC) [Mass/Vol] Duplicate request Normal 30.5-36.0 [facility] Comment on above: Result Comment: Acco unt Credited BB [id number] 0010 Performed By: #### R AGCBC #### [facility] [address] [place], [place] [address] MCV (RBC) [Entitic vol] Duplicate request Normal 80.0-100.0 [facility] Comment on above: Result Comment: Acco unt Credited BB [id number] 0010 Performed By: #### R AGCBC #### [facility] [address] [place], [place] [address] Platelet mean volume (Bld) [Entitic vol] Duplicate request Normal 9.0-12.7 [facility] Comment on above: Result Comment: Acco unt Credited BB [id number] 0010 Performed By: #### R AGCBC #### [facility] [address] [place], [place] [address] Platelets (Bld) [#/Vol] Duplicate request Normal 150-400 [facility] Comment on above: Result Comment: Acco unt Credited BB [id number] 0010 Performed By: #### R AGCBC #### [facility] [address] [place] [address] RBC (Bld) [#/Vol] Duplicate request Normal 3.90-5.20 [facility] Comment on above: Result Comment: Acco unt Credited BB [id number] 0010 Performed By: #### R AGCBC #### [facility] [address] [place] [address] Recheck Duplicate request Normal [facility] Comment on above: Result Comment: Acco unt Credited BB [id number] 0010 Performed By: #### R AGCBC #### [facility] [address] [place] [address] Review Duplicate request Normal [facility] Comment on above: Result Comment: Acco unt Credited BB [id number] 0010 Performed By: #### R AGCBC #### [facility] [address] [place] [phone] WBC (Bld) [#/Vol] Duplicate request Normal 3.70-11.00 [facility] Comment on above: Result Comment: Acco unt Credited BB [id number] 0010 Performed By: #### R AGCBC #### [facility] [address] [place] [phone] Vital Signs Date Time Vital Sign Value Performing Clinician Facility 04-30-2025 11:43-0400 Diastolic blood pressure 88 mm[Hg] Tessa Young MD Work Phone: [facility] 04-30-2025 11:43-0400 Heart rate 83 /min Tessa Young MD Work Phone: [facility] 04-30-2025 11:43-0400 SaO2% (BldA) [Mass fraction] 98 % Tessa Young MD Work Phone: [facility] 04-30-2025 11:43-0400 Systolic blood pressure 124 mm[Hg] Tessa Young MD Work Phone: [facility] 03-19-2025 10:02-0400 Body height 149.9 cm Yolanda Hemmer PA Work Phone: [facility] 03-19-2025 10:02-0400 Body mass index (BMI) [Ratio] 29.85 kg/m2 Yolanda Hemmer PA Work Phone: [facility] 03-19-2025 10:02-0400 Body weight 67.04 kg Yolanda Hemmer PA Work Phone: [facility] 03-19-2025 10:02-0400 Diastolic blood pressure 76 mm[Hg] Yolanda Hemmer PA Work Phone: [facility] 03-19-2025 10:02-0400 Heart rate 86 /min Yolanda Hemmer PA Work Phone: [facility] 03-19-2025 10:02-0400 Respiratory rate 16 /min Yolanda Hemmer PA Work Phone: [facility] 03-19-2025 10:02-0400 SaO2% (BldA) [Mass fraction] 96 % Yolanda Hemmer PA Work Phone: [facility] 03-19-2025 10:02-0400 Systolic blood pressure 114 mm[Hg] Yolanda Hemmer PA Work Phone: [facility] 03-16-2025 13:58-0400 Body height 149.9 cm Luz Lowe PA Work Phone: [facility] 03-16-2025 13:58-0400 Body mass index (BMI) [Ratio] 27.27 kg/m2 Luz Lowe PA Work Phone: [facility] 03-16-2025 13:58-0400 Body weight 61.24 kg Luz Lowe PA Work Phone: [facility] 03-16-2025 13:58-0400 Diastolic blood pressure 86 mm[Hg] Luz Lowe PA Work Phone: [facility] 03-16-2025 13:58-0400 Systolic blood pressure 136 mm[Hg] Luz Lowe PA Work Phone: [facility] 03-11-2025 10:14-0400 Body height 149.9 cm Yolanda Hemmer PA Work Phone: [facility] 03-11-2025 10:14-0400 Body mass index (BMI) [Ratio] 29.93 kg/m2 Yolanda Hemmer PA Work Phone: [facility] 03-11-2025 10:14-0400 Body weight 67.22 kg Yolanda Hemmer PA Work Phone: [facility] 03-11-2025 10:14-0400 Diastolic blood pressure 92 mm[Hg] Yolanda Hemmer PA Work Phone: [facility] 03-11-2025 10:14-0400 Heart rate 85 /min Yolanda Hemmer PA Work Phone: [facility] 03-11-2025 10:14-0400 Respiratory rate 16 /min Yolanda Hemmer PA Work Phone: [facility] 03-11-2025 10:14-0400 SaO2% (BldA) [Mass fraction] 96 % Yolanda Hemmer PA Work Phone: [facility] 03-11-2025 10:14-0400 Systolic blood pressure 132 mm[Hg] Yolanda Hemmer PA Work Phone: [facility] 02-03-2025 14:08-0400 Body height 149.9 cm Yolanda Hemmer PA Work Phone: [facility] 02-03-2025 14:08-0400 Body mass index (BMI) [Ratio] 32.48 kg/m2 Yolanda Hemmer PA Work Phone: [facility] 02-03-2025 14:08-0400 Body weight 72.94 kg Yolanda Hemmer PA Work Phone: [facility] 02-03-2025 14:08-0400 Diastolic blood pressure 96 mm[Hg] Yolanda Hemmer PA Work Phone: [facility] 02-03-2025 14:08-0400 Heart rate 78 /min Yolanda Hemmer PA Work Phone: [facility] 02-03-2025 14:08-0400 Respiratory rate 16 /min Yolanda Hemmer PA Work Phone: [facility] 02-03-2025 14:08-0400 SaO2% (BldA) [Mass fraction] 97 % Yolanda Hemmer PA Work Phone: [facility] 02-03-2025 14:08-0400 Systolic blood pressure 138 mm[Hg] Yolanda Hemmer PA Work Phone: [facility] 11-28-2024 07:37-0500 Body height 149.9 cm Leonie Albright ROTARY DRILL OPERATOR HELPER-HEALTH CARE LEGAL ASSISTANT Work Phone: [facility] 11-28-2024 07:37-0500 Body mass index (BMI) [Ratio] 32.11 kg/m2 Leonie Albright ROTARY DRILL OPERATOR HELPER-HEALTH CARE LEGAL ASSISTANT Work Phone: [facility] 11-28-2024 07:37-0500 Body temperature 97 [degF] Leonie Albright ROTARY DRILL OPERATOR HELPER-HEALTH CARE LEGAL ASSISTANT Work Phone: [facility] 11-28-2024 07:37-0500 Body weight 72.12 kg Leonie Albright ROTARY DRILL OPERATOR HELPER-HEALTH CARE LEGAL ASSISTANT Work Phone: [facility] 11-28-2024 07:37-0500 Diastolic blood pressure 81 mm[Hg] Leonie Albright ROTARY DRILL OPERATOR HELPER-HEALTH CARE LEGAL ASSISTANT Work Phone: [facility] 11-28-2024 07:37-0500 Heart rate 95 /min Leonie Albright ROTARY DRILL OPERATOR HELPER-HEALTH CARE LEGAL ASSISTANT Work Phone: [facility] 11-28-2024 07:37-0500 Systolic blood pressure 136 mm[Hg] Leonie Albright ROTARY DRILL OPERATOR HELPER-HEALTH CARE LEGAL ASSISTANT Work Phone: [facility] 11-26-2024 14:36-0500 Body height 149.9 cm Luz Lowe PA Work Phone: [facility] 11-26-2024 14:36-0500 Body mass index (BMI) [Ratio] 30.7 kg/m2 Luz Lowe PA Work Phone: [facility] 11-26-2024 14:36-0500 Body weight 68.95 kg Luz Lowe PA Work Phone: [facility] 11-26-2024 14:36-0500 Diastolic blood pressure 88 mm[Hg] Luz Lowe PA Work Phone: [facility] 11-26-2024 14:36-0500 Systolic blood pressure 126 mm[Hg] Luz Lowe PA Work Phone: [facility] 10-23-2024 11:51-0500 Diastolic blood pressure 88 mm[Hg] Jeff Alejo DO Work Phone: [facility] 10-23-2024 11:51-0500 Heart rate 90 /min Jeff Alejo DO Work Phone: [facility] 10-23-2024 11:51-0500 SaO2% (BldA) [Mass fraction] 98 % Jeff Alejo DO Work Phone: [facility] 10-23-2024 11:51-0500 Systolic blood pressure 148 mm[Hg] Jeff Alejo DO Work Phone: [facility] 09-04-2024 12:38-0400 Body height 149.9 cm Benjamin Reecegel MARINE SAFETY OFFICER Work Phone: [facility] 09-04-2024 12:38-0400 Body mass index (BMI) [Ratio] 29.89 kg/m2 Benjamin Kaylienagel MARINE SAFETY OFFICER Work Phone: [facility] 09-04-2024 12:38-0400 Body weight 67.13 kg Benjamin Chevygel MARINE SAFETY OFFICER Work Phone: [facility] 09-04-2024 12:38-0400 Diastolic blood pressure 106 mm[Hg] Benjamin Lozano MARINE SAFETY OFFICER Work Phone: [facility] 09-04-2024 12:38-0400 Heart rate 102 /min Benjamin Lozano MARINE SAFETY OFFICER Work Phone: [facility] 09-04-2024 12:38-0400 Systolic blood pressure 150 mm[Hg] Benjamin Lozano MARINE SAFETY OFFICER Work Phone: [facility] 06-26-2024 12:45-0400 Diastolic blood pressure 82 mm[Hg] Jeff Alejo DO Work Phone: [facility] 06-26-2024 12:45-0400 Systolic blood pressure 140 mm[Hg] Jeff Alejo DO Work Phone: [facility] 10-15-2023 11:26-0500 Body height 149.9 cm Saroj Ramirez MD Work Phone: [facility] 10-15-2023 11:26-0500 Body mass index (BMI) [Ratio] 27.47 kg/m2 Saroj Ramirez MD Work Phone: [facility] 10-15-2023 11:26-0500 Body weight 61.69 kg Saroj Ramirez MD Work Phone: [facility] 10-15-2023 11:26-0500 Diastolic blood pressure 67 mm[Hg] Saroj Ramirez MD Work Phone: [facility] 10-15-2023 11:26-0500 Heart rate 86 /min Saroj Ramirez MD Work Phone: [facility] 10-15-2023 11:26-0500 Systolic blood pressure 128 mm[Hg] Saroj Ramirez MD Work Phone: [facility] 08-20-2023 13:30-0400 Body height 149.86 cm Imad Asakasia Other [facility] Other 08-20-2023 13:30-0400 Body mass index (BMI) [Ratio] 27.83 kg/m2 Imad Asaad Other [facility] [employer] [facility] Other 08-20-2023 13:30-0400 Body weight 62.51 kg Imad Asaad Other [facility] Other 08-20-2023 13:30-0400 Diastolic blood pressure 88 mm[Hg] Imad Asaad Other [facility] Other 08-20-2023 13:30-0400 Systolic blood pressure 127 mm[Hg] Imad Asaad Other [facility] Other 05-04-2023 08:10-0400 Body height 149.9 cm Saroj Ramirez MD Work Phone: [facility] 05-04-2023 08:10-0400 Body mass index (BMI) [Ratio] 26.38 kg/m2 Saroj Ramirez MD Work Phone: [facility] 05-04-2023 08:10-0400 Body weight 59.24 kg Saroj Ramirez MD Work Phone: [facility] 05-04-2023 08:10-0400 Diastolic blood pressure 87 mm[Hg] Saroj Ramirez MD Work Phone: [facility] 05-04-2023 08:10-0400 Heart rate 73 /min Saroj Ramirez MD Work Phone: [facility] 05-04-2023 08:10-0400 Systolic blood pressure 134 mm[Hg] Saroj Ramirez MD Work Phone: [facility] 06-26-2022 13:45-0400 Body height 149.86 cm Emery Cash Other [facility] Other 06-26-2022 13:45-0400 Body mass index (BMI) [Ratio] 27.26 kg/m2 Emery Cash Other [facility] Other 06-26-2022 13:45-0400 Body weight 61.24 kg Emery Cash Other [facility] Other 06-26-2022 13:45-0400 Diastolic blood pressure 81 mm[Hg] Emery Cash Other [facility] Other 06-26-2022 13:45-0400 Systolic blood pressure 123 mm[Hg] Emery Cash Other [facility] Other Encounters Encounter Date Encounter Type Care Provider Facility Start: 06-16-2025 ambulatory [facility] Facility:[facility] Start: 06-12-2025 ambulatory [facility] Facility:[facility] Start: 06-05-2025 ambulatory [facility] Facility:[facility] Start: 05-22-2025 ambulatory [facility] Facility:[facility] Start: 04-30-2025 End: 04-30-2025 ambulatory Tessa Young MD Work Phone: [facility] Work Phone: Start: 04-30-2025 End: 04-30-2025 Patient encounter procedure Jeff Dhillon DO -[facility] [place] Work Phone: Start: 04-24-2025 ambulatory ANALIA E GRIM Facility:[facility] Start: 04-10-2025 ambulatory RUGEN HECTOR Facility:[facility] Start: 03-27-2025 [facility] Start: 03-19-2025 End: 03-19-2025 Bamboo flowsheet Yolanda Jimenez PA Work Phone: [facility] Start: 03-19-2025 End: 03-19-2025 Bamboo flowsheet Yolanda Jimenez PA Work Phone: [facility] Start: 03-19-2025 End: 03-19-2025 Office outpatient visit 25 minutes Yolanda Jimenez PA Work Phone: [facility] Comment on above: Vitamin B deficiency (Primary Dx); Vitamin D deficiency; Impaired fasting glucose; Acquired hypothyroidism (CMS/HCC); Other iron deficiency anemia; Elevated liver enzymes; Thrombocytosis Start: 03-19-2025 End: 03-19-2025 ambulatory YOLANDA JIMENEZ Not Available Start: 03-16-2025 End: 03-16-2025 Bamboo flowsheet Luz Lowe PA Work Phone: [facility] Start: 03-16-2025 End: 03-16-2025 Bamboo flowsheet Luz Lowe PA Work Phone: [facility] Start: 03-16-2025 End: 03-16-2025 Office outpatient visit 15 minutes Luz Lowe PA Work Phone: [facility] Comment on above: Essential tremor (Pr imary Dx); Migraine without aura and without status migrainosus, not intractable (CMS/HCC); Memory changes Start: 03-16-2025 End: 03-16-2025 ambulatory LUZ LOWE Not Available Start: 03-13-2025 End: 03-18-2025 Telephone encounter Yolanda Jimenez PA Work Phone: [facility] Start: 03-12-2025 ambulatory [facility] Facility:[facility] Start: 03-11-2025 End: 03-11-2025 Bamboo flowsheet Yolanda Jimenez PA Work Phone: [facility] Start: 03-11-2025 End: 03-11-2025 Bamboo flowsheet Yolanda Jimenez PA Work Phone: [facility] Start: 03-11-2025 End: 03-11-2025 ambulatory YOLANDA Arnold ITALIA Not Available Start: 03-11-2025 End: 03-11-2025 Patient encounter status Yolanda YUEN Work Phone: [facility] Work Phone: Start: 03-11-2025 End: 03-11-2025 Periodic preventive med est patient 40-64yrs Yolanda YUEN Work Phone: [facility] Comment on above: Wellness examination (Primary Dx); Encounter for screening mammogram for malignant neoplasm of breast; Primary insomnia; Liver disease; Sicca syndrome (CMS/HCC); Acquired hypothyroidism (CMS/HCC); Impaired fasting glucose; Vitamin B deficiency; Vitamin D deficiency; Other iron deficiency anemia; History of Jd-en-Y gastric bypass; 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 (CMS/HCC); Essential tremor; Sjogren's syndrome with keratoconjunctivitis sicca; Seasonal allergic rhinitis due to pollen; History of COVID-19; Carpal tunnel syndrome, right upper limb; Dizziness; Spasmodic torticollis; Migraine with aura and without status migrainosus, not intractable (CMS/HCC); Pruritus of vagina; Restless legs syndrome (RLS); Ulnar neuropathy of right upper extremity; Disorder of lung with Sjogren's syndrome (HCC) (CMS/HCC); Interstitial lung disease (CMS/HCC); Parietoalveolar pneumopathy (CMS/HCC); Gastroesophageal reflux disease without esophagitis; Slow transit constipation; Other ulcerative colitis without complication; Atrophy of vagina; Excessive and frequent menstruation; Female stress incontinence; Urge incontinence of urine; Arthritis of right acromioclavicular joint; Arthritis of right hand; Fibromyalgia; Internal derangement of right shoulder; Sacroiliac joint pain; Postablative ovarian failure; Chronic sinusitis, unspecified location; Diverticulosis of colon without hemorrhage; Herpes simplex with complication; Abnormal laboratory test result; Adjustment disorder with anxiety (CMS/HCC); Atypical depressive disorder (CMS/HCC); Dry eyes; 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); History of gestational diabetes mellitus; History of hysterectomy; Memory changes; Overweight; Former smoker Start: 03-02-2025 End: 03-03-2025 Clinisync Result Encounter Generic External Data Provider [facility] Unsolicited Start: 03-02-2025 End: 03-03-2025 Clinisync Result Encounter Generic External Data Provider [facility] External Department Unsolicited Start: 02-19-2025 ambulatory ANALIA BURRIS Facility:[facility] Start: 02-12-2025 ambulatory SAROJ B LEVI Facili ty:[facility] Start: 02-03-2025 End: 02-03-2025 Bamboo flowsheet Yolanda Jimenez PA Work Phone: [facility] Start: 02-03-2025 End: 02-03-2025 Bamboo flowsheet Yolanda Jimenez PA Work Phone: [facility] Start: 02-03-2025 End: 02-03-2025 Office outpatient visit 15 minutes Yolanda Jimenez PA Work Phone: [facility] Comment on above: Primary insomnia (Pr imary Dx); ETD (Eustachian tube dysfunction), left Start: 02-03-2025 End: 02-03-2025 ambulatory YOLANDA JIMENEZ Not Available Start: 01-29-2025 End: 01-29-2025 Bamboo flowsheet Jeff Dhillon DO Work Phone: [facility] Start: 01-29-2025 End: 01-29-2025 Bamboo flowsheet Jeff Alejo DO Work Phone: [facility] Start: 01-29-2025 End: 01-29-2025 ambulatory JEFF ALEJO Not Available Start: 01-15-2025 ambulatory SAROJ B LEVI Facili ty:[facility] Start: 12-25-2024 ambulatory SAROJ B LEVI Facili ty:[facility] Start: 12-19-2024 ambulatory SAROJ B LEVI Facili ty:[facility] Start: 11-28-2024 End: 11-28-2024 Office outpatient visit 40 minutes Leonie Albright ROTARY DRILL OPERATOR HELPER-HEALTH CARE LEGAL ASSISTANT Work Phone: [facility] Comment on above: Functional neurologi dorita symptom disorder (conversion disorder), with abnormal movement (Primary Dx) Start: 11-28-2024 ambulatory LEONIE ALBRIGHT Facility :[facility] Start: 11-27-2024 ambulatory SAROJ B LEVI Facili ty:[facility] Start: 11-26-2024 End: 11-26-2024 Office outpatient visit 15 minutes Luz YUEN Work Phone: [facility] Comment on above: Intractable chronic migraine without aura and without status migrainosus (CMS/HCC) (Primary Dx); Essential tremor; 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) Start: 11-26-2024 End: 11-26-2024 ambulatory LUZ HALL Not Available Start: 11-26-2024 End: 11-26-2024 Bamboo flowsheet Luz YUEN Work Phone: [facility] Start: 11-26-2024 End: 11-26-2024 Bamboo flowsheet Luz YUEN Work Phone: [facility] Start: 11-03-2024 ambulatory SAROJ B LEVI Facili ty:[facility] Start: 10-24-2024 ambulatory SAROJ B LEVI Facili ty:[facility] Start: 10-23-2024 End: 10-23-2024 Bamboo flowsheet Jeff Dhillon DO Work Phone: [facility] Start: 10-23-2024 End: 10-23-2024 Bamboo flowsheet Jeff Dhillon DO Work Phone: [facility] Start: 10-23-2024 End: 10-23-2024 ambulatory JEFF DHILLON Not Available Start: 10-23-2024 End: 10-23-2024 Patient encounter procedure Jeff Dhillon DO Work Phone: [facility] Comment on above: Intractable chronic migraine without aura and without status migrainosus (CMS/HCC) (Primary Dx) Start: 10-15-2024 ambulatory SAROJ B LEVI Facili ty:[facility] Start: 09-12-2024 ambulatory SAROJ B LEVI Facili ty:[facility] Start: 09-04-2024 End: 09-04-2024 Bamboo flowsheet Benjamin Reecegel MARINE SAFETY OFFICER Work Phone: [facility] Start: 09-04-2024 End: 09-04-2024 Bamboo flowsheet Benjamin Lozano MARINE SAFETY OFFICER [facility] Start: 09-04-2024 End: 09-04-2024 Office outpatient visit 25 minutes Benjamin Lozano MARINE SAFETY OFFICER Work Phone: [facility] Comment on above: Migraine without aur a and without status migrainosus, not intractable (CMS/HCC) (Primary Dx); Essential tremor Start: 09-04-2024 End: 09-04-2024 ambulatory BENJAMIN Jay CHEVYNINA Not Available Start: 09-04-2024 ambulatory SAROJ B LEVI Facili ty:[facility] Start: 09-03-2024 ambulatory SAROJ B LEVI Facili ty:[facility] Start: 08-28-2024 ambulatory RUGEN HECTOR Facility:[facility] Start: 08-27-2024 ambulatory RUGEN HECTOR Facility:[facility] Start: 08-13-2024 End: 08-13-2024 ambulatory Katharina Mathews Wilfrido Facility:[facility] Start: 08-13-2024 ambulatory [facility] Facility:[facility] Start: 08-06-2024 ambulatory [facility] Start: 07-30-2024 ambulatory RUGEN HECTOR Facility:[facility] Start: 07-21-2024 End: 07-21-2024 Refill Nely Cheney LPN [facility] Comment on above: Adjustment disorder with anxiety (CMS/HCC) Start: 07-16-2024 ambulatory RUGEN HECTOR Facility:[facility] Start: 07-08-2024 ambulatory SAROJ [facility] Start: 06-30-2024 ambulatory RUGEN HECTOR Facility:[facility] Start: 06-27-2024 ambulatory SAROJ B LEVI Facili ty:[facility] Start: 06-26-2024 End: 06-26-2024 Bamboo flowsheet Jeff Dhillon DO Work Phone: [facility] Start: 06-26-2024 End: 06-26-2024 Bamboo flowsheet Jeff Dhillon DO Work Phone: [facility] Start: 06-26-2024 End: 06-26-2024 Patient encounter procedure Jeff Dhillon DO [facility] Comment on above: Intractable chronic migraine without aura and without status migrainosus (CMS/HCC) (Primary Dx) Start: 06-26-2024 End: 06-26-2024 ambulatory JEFF ALEJO Not Available Start: 06-18-2024 ambulatory SAROJ RAMIREZ [facility] ty:[facility] Start: 06-05-2024 End: 07-06-2024 ambulatory SAROJ [facility] Start: 05-26-2024 End: 06-05-2024 ambulatory [facility] Start: 05-14-2024 End: 05-14-2024 ambulatory Katharina L Wilfrido Facility:[facility] Start: 05-14-2024 End: 05-14-2024 Lab Drop off Katharina L Wilfrido [facility] Start: 05-14-2024 End: 05-14-2024 ambulatory Katharina L Wilfrido [facility] Start: 05-12-2024 End: 05-12-2024 ambulatory BENJAMIN LOZANO Not Available Start: 04-29-2024 End: 04-29-2024 ambulatory JEFF ALEJO Not Available Start: 03-14-2024 End: 03-14-2024 ambulatory Katharina L [facility] Start: 03-13-2024 End: 03-13-2024 ambulatory Katharina L Wilfrido [facility] Start: 10-24-2023 End: 10-24-2023 ambulatory Imad Asaad Facility:[facility] Start: 10-15-2023 End: 10-15-2023 Office outpatient visit 25 minutes Saroj Ramirez MD Work Phone: [facility] Comment on above: Functional tremor (P rimary Dx); Functional gait disorder; Restless legs syndrome (RLS) Start: 08-20-2023 End: 08-20-2023 ambulatory Imad Asaad Other [facility] Other Start: 08-20-2023 Office outpatient ne w 45 minutes Imad Asaad [facility] Start: 07-05-2023 End: 07-05-2023 ambulatory Emery Cash Other [facility] Other Start: 07-05-2023 Telephone encounter Emery DESIR [facility] Start: 05-04-2023 End: 05-04-2023 Office consultation new/estab patient 80 min Saroj Ramirez MD Work Phone: [facility] Comment on above: Functional tremor (P rimary Dx); Functional gait disorder Start: 03-12-2023 End: 03-12-[address] JAVIER FERRERA . Facility:[facility] Start: 01-01-2023 End: 01-02-[address] TESSA YOUNG Facility:[facility] Start: 12-05-2022 End: 12-06-2022 ambulatory CECE GREEN Facility:[facility] Start: 11-14-2022 End: 11-15-2022 ambulatory CECE GREEN Facility:[facility] Start: 07-06-2022 End: 07-06-[address] TESSA YOUNG Facility:[facility] Start: 06-26-2022 End: 06-26-2022 ambulatory Emery Cash Other [facility] Other Start: 06-26-2022 Patient encounter procedure Emery Cash [facility] Start: 2022 End: 2022 Patient encounter procedure MD Tessa Young Work Phone: [facility] [address] Start: 04-21-2022 End: 04-21-[address] RUGEN HECTOR Facility:[facility] Procedures Date Procedure Procedure Detail Performing Clinician Start: 03-02-2025 C-REACTIVE PROTEIN, CARDIAC Generic External Data Provider Start: 08-20-2024 Cyclic citrullinated peptide antibody Comment on above: Performed By: #### E SRCRP, CCP, RHF #### [facility] [address] 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-en-Y gastric bypass Jeff Dhillon DO Work Phone: Start: 04-18-2006 Hysterectomy Katharina Schwa b Bilateral augmentati on mammoplasty Katharina [place] Bypass of stomach Katharina Schwa b Cholecystectomy Katharina [place] H/O: hysterectomy History of hysterectomy Yolanda Jimenez PA Work Phone: H/O: surgery Emery Cash Other History of gastrointestinal tract bypass History of Jd-en-Y gastric bypass Yolanda Jimenez PA Work Phone: Laboratory test resu lt abnormal Abnormal laboratory test result Yolanda Jimenez PA Work Phone: Tonsillectomy Katharina [place] Plan of Treatment Date Care Activity Detail Author Start: 04-04-2029 Screening for malignant neoplasm of colon [facility] Start: 07-06-2025 Influenza vaccination Influenza Vaccine (Season Ended) [facility] Start: 06-22-2025 End: 06-22-2025 Patient encounter procedure 06/22/2025 1:00 PM EDT Office Visit [facility] [address] [place] [id number] Yolanda Jimenez PA [address] [place] [address] [facility] Start: 06-19-2025 End: 03-19-2026 25-hydroxyvitamin D3 [Mass/volume] in Serum or Plasma Vitamin D 25 hydroxy Total Lab Routine Vitamin D deficiency Expected: 06/19/2025 (Approximate), Expires: 03/19/2026 [facility] Comment on above: Expected: 06/19/2025 (Approximate), Expi res: 03/19/2026 Start: 06-19-2025 End: 03-19-2026 CBC panel - Blood by Automated count CBC Lab Routine Vitamin B deficiency Other iron deficiency anemia Thrombocytosis Expected: 06/19/2025 (Approximate), Expires: 03/19/2026 [facility] Work Phone: Comment on above: Expected: 06/19/2025 (Approximate), Expi res: 03/19/2026 Start: 06-19-2025 End: 03-19-2026 Cobalamin (Vitamin B12) [Mass/volume] in Serum or Plasma Vitamin B12 Lab Routine Vitamin B deficiency Expected: 06/19/2025 (Approximate), Expires: 03/19/2026 [facility] Comment on above: Expected: 06/19/2025 (Approximate), Expi res: 03/19/2026 Start: 06-19-2025 End: 03-19-2026 Comprehensive metabolic 2000 panel - Serum or Plasma Comprehensive metabolic panel Lab Routine Impaired fasting glucose Elevated liver enzymes Expected: 06/19/2025 (Approximate), Expires: 03/19/2026 [facility] Comment on above: Expected: 06/19/2025 (Approximate), Expi res: 03/19/2026 Start: 06-19-2025 End: 03-19-2026 Ferritin [Mass/volume] in Serum or Plasma Ferritin Lab Routine Other iron deficiency anemia Expected: 06/19/2025 (Approximate), Expires: 03/19/2026 [facility] Comment on above: Expected: 06/19/2025 (Approximate), Expi res: 03/19/2026 Start: 06-19-2025 End: 03-19-2026 Iron + transferrin + TIBC Iron + transferrin + TIBC Lab Routine Other iron deficiency anemia Expected: 06/19/2025 (Approximate), Expires: 03/19/2026 [facility] Comment on above: Expected: 06/19/2025 (Approximate), Expi res: 03/19/2026 Start: 05-20-2025 Screening for malignant neoplasm of breast Mammogram [facility] Start: 04-30-2025 End: 04-30-2025 Patient encounter procedure 04/30/2025 11:30 AM EDT Procedure Visit [facility] [address] [place] [address] Jeff Dhillon DO [address] [place] [address] [facility] Start: 03-19-2025 End: 03-19-2025 Patient encounter procedure [facility] Comment on above: Arrived Start: 03-16-2025 End: 03-16-2025 Patient encounter procedure [facility] Comment on above: Arrived Start: 03-11-2025 End: 03-11-2026 Cobalamin (Vitamin B12) [Mass/volume] in Serum or Plasma Vitamin B12 Lab Routine Wellness examination Vitamin B deficiency History of Jd-en-Y gastric bypass Expected: 03/11/2025 (Approximate), Expires: 03/11/2026 [facility] Comment on above: Expected: 03/11/2025 (Approximate), Expi res: 03/11/2026 Start: 03-11-2025 End: 05-11-2026 DBT Breast - bilateral screening Bilateral screening mammogram with tomosynthesis Imaging Routine Encounter for screening mammogram for malignant neoplasm of breast Expected: 03/11/2025, Expires: 05/11/2026 [facility] Work Phone: Comment on above: Expected: 03/11/2025, Expires: Start: 03-11-2025 End: 03-11-2025 Patient encounter procedure 03/11/2025 10:00 AM EDT Office Visit [facility] [address] [place] [id number] Yolanda Jimenez PA [address] [place] [address] [facility] Start: 02-03-2025 End: 02-03-2025 Patient encounter procedure 02/03/2025 2:00 PM EDT Office Visit [facility] [address] [place] [id number] Yolanda Jimenez PA [address] [place] [address] Arrived [facility] Comment on above: Arrived Start: 01-22-2025 End: 01-22-2025 Patient encounter procedure [facility] [place] [facility] Start: 11-26-2024 End: 11-26-2024 Patient encounter procedure [facility] [place] [facility] Comment on above: Arrived Start: 10-23-2024 End: 10-23-2024 Patient encounter procedure 10/23/2024 11:45 AM EST Procedure Visit [facility] [place] [facility] [address] [place] [id number] Jeff Dhillon, DO [address] [place] [address] [facility] [place] [facility] Start: 09-25-2024 End: 09-25-2024 Patient encounter procedure 09/25/2024 12:15 PM EST Procedure Visit [facility] [place] [address] [facility] [address] [place] [id number] Jeff Dhillon DO [address] [place] [address] [facility] Start: 09-04-2024 End: 09-04-2024 Patient encounter procedure [facility] Comment on above: Arrived Start: 07-06-2024 COVID-19 VACCINE ( season) COVID-19 VACCINE ( season) [facility] Start: 07-06-2024 Influenza vaccination Influenza Vaccine (#1) [facility] Start: 06-26-2024 End: 06-26-2024 Patient encounter procedure 06/26/2024 12:45 PM EDT [facility] [address] [place] [address] Jeff Dhillon DO [address] [place] [id number] [facility] Comment on above: Arrived Start: 04-28-2024 End: 04-28-2024 Patient encounter procedure 04/28/2024 11:30 AM EDT Office Visit [facility] [address] [place] [address] [place] [address] Saroj Ramirez MD [address] [place] [address] [facility] Start: 10-15-2023 End: 10-15-2023 Patient encounter procedure 10/15/2023 11:30 AM EST [facility] [address] [place] [address] [place] [phone] Saroj Ramirez MD [address] [place], [place] [id number] [facility] Start: 07-06-2023 Influenza vaccination [facility] Start: 2022 Zoster vaccine hzv live for subcutaneous use ZOSTER (SHINGLES) VACCINE (1 of 2) [facility] Start: 01-26-2022 Screening for malignant neoplasm of breast MAMMOGRAM SCREENING DISCUSSION [facility] Start: 04-04-2020 Screening for malignant neoplasm of colon COLORECTAL CANCER SCREENING DISCUSSION [facility] Start: 2017 Screening for malignant neoplasm of colon COLORECTAL CANCER SCREENING DISCUSSION [facility] Start: 2012 Lipid panel LIPID SCREENING [facility] Start: 2012 Screening for malignant neoplasm of breast MAMMOGRAM SCREENING DISCUSSION [facility] Start: 1993 Screening for malignant neoplasm of cervix CERVICAL CANCER SCREENING DISCUSSION [facility] Start: 1991 Hepatitis B vaccination HEP B VACCINE (1 of 3 - 19+ 3-dose series) [facility] Start: 1991 Third diphtheria, tetanus and acellular pertussis (DTaP) vaccination TDAP (ADULT) [facility] Start: 1987 HIV screening HIV SCREENING DISCUSSION [facility] Start: 1978 PNEUMOCOCCAL VACCINE SERIES (1 - PCV) PNEUMOCOCCAL VACCINE SERIES (1 - PCV) [facility] Start: 1978 PNEUMOCOCCAL VACCINE SERIES (1 of 2 - PCV) PNEUMOCOCCAL VACCINE SERIES (1 of 2 - PCV) [facility] Start: 1972 COVID-19 VACCINE (#1) COVID-19 VACCINE (#1) [facility] Start: 1972 Hepatitis B vaccination HEP B VACCINE (1 of 3 - 3-dose series) [facility] Start: 1972 Hepatitis C screening HEPATITIS C VIRUS SCREENING [facility] Start: 1972 Screening for malignant neoplasm of colon [facility] Start: 1972 Tetanus vaccination TETANUS [facility] Start: 1972 Thyroid stimulating hormone measurement TSH [facility] 25-hydroxyvitamin D3 [Mass/volume] in Serum or Plasma Vitamin D 25 hydroxy Total Lab Routine Wellness examination Vitamin D deficiency History of Jd-en-Y gastric bypass Ordered: 03/11/2025 [facility] Comment on above: Ordered: 03/11/2025 CBC W Auto Differential panel - Blood CBC and differential Lab Routine Wellness examination Vitamin B deficiency Other iron deficiency anemia History of Jd-en-Y gastric bypass Ordered: 03/11/2025 [facility] Comment on above: Ordered: 03/11/2025 Comprehensive metabolic 2000 panel - Serum or Plasma Comprehensive metabolic panel Lab Routine Wellness examination Liver disease Sicca syndrome (CMS/HCC) Impaired fasting glucose 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 ([facility]/HCC) Ordered: 03/11/2025 [facility] Comment on above: Ordered: 03/11/2025 Hemoglobin A1c/Hemoglobin.total in Blood Hemoglobin A1c Lab Routine Wellness examination Impaired fasting glucose Ordered: 03/11/2025 [facility] Comment on above: Ordered: 03/11/2025 Iron + transferrin + TIBC Iron + transferrin + TIBC Lab Routine Wellness examination Other iron deficiency anemia History of Jd-en-Y gastric bypass Ordered: 03/11/2025 [facility] Comment on above: Ordered: 03/11/2025 Lipid 1996 panel - Serum or Plasma Lipid panel Lab Routine Wellness examination Ordered: 03/11/2025 [facility] Comment on above: Ordered: 03/11/2025 TSH W/REFLEX TO FT4 TSH W/REFLEX TO FT4 Lab Routine Wellness examination Acquired hypothyroidism ([facility]/HCC) History of Jd-en-Y gastric bypass Ordered: 03/11/2025 [facility] Comment on above: Ordered: 03/11/2025 Payers Date Payer Category Payer Unknown [id number] 2023 Self-pay [id number] 2022 Private Health Insurance [id number] 2022 Unknown [id number] 2002 Unknown [id number]. 1.13.172.2.7.3.676570.315 1972 Unknown [id number] 2.16.84 0.1.353761.3.579.2.593 1972 Unknown [id number] 2.16.84 0.1.341059.3.579.2.593 1972 Unknown [id number] 2.16.84 0.1.754531.3.579.2.593 1972 Unknown [id number] 2.16.84 0.1.949103.3.579.2.593 1972 Unknown [id number] 2.16.84 0.1.163764.3.579.2.593 1972 Unknown [id number] 2.16.84 0.1.378116.3.579.2.593 1972 Unknown [id number] 2.16.8 40.1.481820.3.579.2.1286 1972 Unknown [id number] 2.16.8 40.1.730156.3.579.2.1286 1972 Unknown [id number] 2.16.8 40.1.298755.3.579.2.1286 1972 Unknown [id number] 2.16.8 40.1.916656.3.579.2.1286 1972 Unknown [id number] 2.16.8 40.1.707222.3.579.2.727 1972 Unknown [id number] 2.16.8 40.1.461691.3.579.2.727 1972 Unknown [id number] 2.16.8 40.1.200043.3.579.2.727 1972 Unknown [id number] 2.16.8 40.1.081731.3.579.2.727 1972 Unknown [id number] 2.16.8 40.1.053033.3.579.2.727 1972 Unknown [id number] 2.16.84 0.1.278205.3.579.2.1259 1972 Unknown [id number] 2.16.84 0.1.481224.3.579.2.1259 1972 Unknown [id number] 2.16.84 0.1.871812.3.579.2.1259 1972 Unknown [id number] 2.16.84 0.1.774016.3.579.2.1258 1972 Unknown [id number] 2.16.84 0.1.600781.3.579.2.1258 1972 Unknown [id number] 2.16.84 0.1.605444.3.579.2.1258 1972 Unknown [id number] 2.16.84 0.1.303321.3.579.2.1258 1972 Unknown [id number] .16.84 0.1.247627.3.579.2.1258 1972 Unknown [id number] 2.16.84 0.1.175728.3.579.2.1258 1972 Unknown [id number] .16.84 0.1.317756.3.579.2.1258 1972 Unknown [id number] .16.84 0.1.983214.3.579.2.9 1969 Unknown [id number] .0.1.324105.3.579.2.594 1969 Unknown [id number] . 840.1.205709.3.579.2.594 1969 Unknown [id number] 840.1.368212.3.579.2.594 1969 Unknown [id number] . 840.1.850444.3.579.2.594 1969 Unknown [id number] . 840.1.230576.3.579.2.594 1969 Unknown [id number] . 840.1.144877.3.579.2.594 1969 Unknown [id number] . 840.1.424215.3.579.2.594 1969 Unknown [id number] .16. 840.1.132524.3.579.2.594 1969 Unknown [id number] 2.16. 840.1.518469.3.579.2.594 1969 Unknown [id number] 2.16. 840.1.767270.3.579.2.594 1969 Unknown [id number] 2.16. 840.1.324800.3.579.2.594 1969 Unknown [id number] 2.16. 840.1.045490.3.579.2.594 1969 Unknown [id number] 2. 840.1.518312.3.579.2.594 1969 Unknown [id number] 2. 840.1.230394.3.579.2.594 1969 Unknown [id number] 2. 840.1.165755.3.579.2.594 1969 Unknown [id number] 2. 840.1.254993.3.579.2.594 1969 Unknown [id number] 2. 840.1.837991.3.579.2.594 1969 Unknown [id number] 2. 840.1.924342.3.579.2.594 1969 Unknown [id number] 2. 840.1.516571.3.579.2.594 1969 Unknown [id number] 2. 840.1.481413.3.579.2.594 1969 Unknown [id number] 2. 840.1.355689.3.579.2.594 1969 Unknown [id number] 2.16 840.1.079894.3.579.2.594 1969 Unknown [id number] 2. 840.1.475283.3.579.2.594 1969 Unknown [id number] 2. 840.1.904266.3.579.2.594 1969 Unknown [id number] 2.16. 840.1.059211.3.579.2.594 1969 Unknown [id number] 2.16. 840.1.692195.3.579.2.594 1969 Unknown [id number] 2.16. 840.1.106739.3.579.2.594 1969 Unknown [id number] 2.16. 840.1.819540.3.579.2.594 1969 Unknown [id number] 2.16. 840.1.899664.3.579.2.594 1959 Unknown [id number] 1959 Unknown [id number] 2.16. 840.1.682182.19 Unknown [id number] 2.16.8 40.1.990724.3.579.2.531 Social History Date Type Detail Facility Tobacco smoking stat us [facility] Unknown if ever smoked [facility] Work Phone: Start: 1970 Sex Assigned At Female [facility] Start: 05-04-2023 End: 03-19-2025 Sex Assigned At [facility] Start: 05-04-2023 End: 10-24-2023 Tobacco smoking status [facility] Occasional tobacco smoker [facility] History of tobacco use Cigarette Smoker [facility] Start: 05-04-2023 End: 02-27-2024 Tobacco use and exposure Smokeless tobacco non-user [facility] Start: 05-04-2023 End: 11-28-2024 Alcohol intake Current drinker of alcohol (finding) [facility] Start: 05-04-2023 End: 03-19-2025 Alcohol intake [facility] Work Phone: Start: 1970 Sex Assigned At Not on file [facility] Start: 02-27-2024 End: 05-14-2024 Tobacco smoking status [facility] status [facility] use Current smoker [facility] Start: 05-12-2024 End: 03-19-2025 Alcoholic beverage intake Lifetime non-drinker (finding) [facility] Start: 02-26-2024 Alcohol Comment caffeine: tea, 1-2 cups per day [facility] Start: 07-03-2023 Gender identity Identifies as female gender (finding) [facility] Start: 11-27-2024 Sexual orientation Heterosexual (finding) [facility] Sex Female (finding) [facility] Functional Status Date Assessment Result Facility 03-19-2025 Patient Health Quest ionnaire 2 item (PHQ-2) [Reported] [facility] 03-11-2025 Patient Health Quest ionnaire 2 item (PHQ-2) [Reported] [facility] Clinical Notes 06-26-2022 to 03-19-2025 ALPA Florez - 03/19/2025 10:00 AM EDTTelephone Encounter - Mamie Guzman - 03/18/2025 9:51 AM EDTTelephone Encounter - Mamie Guzman - 03/18/2025 9:51 AM EDTPatient Instructions Note Date & Type Note Facility 03-19-2025 History of Present illness Narrative Images from the original note were not included. Subjective Patient ID: Miriam Estrada is a 54 y.o. female who presents to discuss lab results. Miriam is present today to discuss abnormal lab results. She had quite a few abnormals and was just easier for pt to come in to discuss. Does have a multivitamin that the Bariatric Surgeon gave her, but she stopped taking them. Just got tired of taking them. Bariatric Advantage. Has backed off a lot on sweets, eats maybe 10 M&M's every few days. Admits she does like pasta. Current Outpatient Medications on File Prior to Visit Medication Sig Dispense Refill ALPRAZolam (Xanax) 0.5 MG tablet Take 1 tablet (0.5 mg) by mouth every 12 (twelve) hours for 15 days PRN 30 tablet 0 Atogepant (Qulipta) 60 MG tablet Take 1 tablet by mouth Daily Neurology prescribes. clonazePAM (KlonoPIN) 0.5 MG tablet Take 1 tablet by mouth at bedtime PRN cyclobenzaprine (Flexeril) 5 MG tablet TAKE 1 TABLET THREE TIMES A DAY NEEDED FOR MUSCLE SPASM 270 tablet 3 escitalopram (Lexapro) 20 MG tablet TAKE ONE AND ONE-HALF TABLETS DAILY 135 tablet 3 famotidine (Pepcid) 20 MG tablet Take 1 tablet by mouth Daily fluticasone (Flonase) 50 MCG/ACT nasal spray Administer 1-2 sprays into each nostril Daily Shake gently. Before first use, prime pump. After use, clean tip and replace cap. 16 g 5 folic acid (Folvite) 1 MG tablet TAKE 1 TABLET IN THE MORNING 100 tablet 3 levothyroxine (Synthroid, Levoxyl) 50 MCG tablet TAKE 1 TABLET IN THE MORNING BEFORE A MEAL 100 tablet 3 montelukast (Singulair) 10 MG tablet TAKE 1 TABLET DAILY 90 tablet 3 OnabotulinumtoxinA (BOTOX IJ) Inject as directed One injection every 3 months for migraines and tremors OXcarbazepine (Trileptal) 300 MG tablet TAKE ONE AND ONE-HALF TABLETS TWICE A DAY 270 tablet 3 Premarin 1.25 MG tablet TAKE 1 TABLET IN THE MORNING 100 tablet 3 saccharomyces boulardii (Florastor) 250 MG capsule Take 250 mg by mouth Daily sucralfate (Carafate) 1 GM/10ML suspension Take 10 mL by mouth On an empty stomach before meals and bedtime traZODone (Desyrel) 50 MG tablet Take 1-1.5 tablets (50-75 mg) by mouth as needed at bedtime for sleep Ubrogepant (Ubrelvy) 100 MG tablet TAKE 1 TAB AT ONSET OF MIGRAINE NEEDED, MAY REPEAT 1 TAB IN 2 HRS NO MORE THAN 2/DAY AND 2/WK 16 tablet 2 valACYclovir (Valtrex) 500 MG tablet Take 2 tablets (1,000 mg) by mouth in the morning and 2 tablets (1,000 mg) before bedtime. 120 tablet 11 [DISCONTINUED] Ubrogepant (Ubrelvy) 100 MG tablet TAKE 1 TAB AT ONSET OF MIGRAINE NEEDED, MAY REPEAT 1 TAB IN 2 HRS NO MORE THAN 2/DAY AND 2/WK 10 tablet 2 No current facility-administered medications on file prior to visit. I have reviewed and reconciled the history and medication list with the patient today. Allergies Allergen Reactions Levaquin [Levofloxacin] Metronidazole Nausea And Vomiting and GI intolerance Nsaids Other reaction(s): Unknown Sulfa Antibiotics Sulfanilamide Unknown Social History Tobacco Use Smoking status: Former Types: Cigarettes Smokeless tobacco: Never Vaping Use Vaping status: Never Used Substance Use Topics Alcohol use: Never Comment: caffeine: tea, 1-2 cups per day Drug use: Never Family History Problem Relation Name Age of Onset Lymphoma Mother Diabetes Mother Hypertension Mother Heart disease Mother Stroke Mother Cancer Mother COPD Father Heart disease Father Diabetes Father Lung disease Father Cancer Father Allergies Brother Mental illness Maternal Grandmother Cancer Maternal Grandmother Diabetes Maternal Grandfather Heart disease Maternal Grandfather Heart disease Paternal Grandmother Heart disease Paternal Grandfather Mental illness Son Past Medical History: Diagnosis Date Acute reaction to stress Allergic Allergies Anemia Anxiety Bacterial vaginitis 02/03/2025 Breast pain in female Carpal tunnel syndrome Depression (CMS/HCC) Diverticulitis 05/22/2023 Diverticulosis Encounter for gynecological examination (general) (routine) without abnormal findings Essential tremor Fibromyalgia Headache History of being hospitalized Bowel Obstruction 2013, childbirth History of CT scan 02/13/2019 CT scan shows mild edematous wall mild thickening in descending and sigmoid colon consistent with colitis History of EMG 10/18/2021 EMG shows Right upper extremity Carpal Tunnel History of mammogram Breast cancer screening by mammogram History of MRI 03/24/2021 MRI showed no fracture dislocation. Some spurring with some compression C3-C4 on the right. C4-C5 broad based disc bulge History of ultrasound, abdomen 05/13/2019 US of Abdomen was normal. Hot flashes due to surgical menopause Hypersomnia 02/26/2024 Patient experiences chronic daytime fatigue with associated memory changes, and headaches possibly. Sleep study 11/2022 was negative for ROSA M. Medication side effect may also be contributing to her symptoms. She does report previous history of ROSA M prior to gastric bypass surgery. She will nap throughout the day due to fatigue. Hypoglycemic disorder IBS (irritable bowel syndrome) Intestinal obstruction (CMS/HCC) 07/23/2015 Menopause Migraine Negative Hepatitis B and C Screening 2014 No evidence of acute or chronic sinusitis. Normal Orbits 08/04/2022 Normal hepatic morphology and echogenecity. Hepatic parenchyma is slightly coarsed. The hepatic morphology is normal. No Biliary duct dilatation post prior cholecystectomy. 01/22/2021 ROSA M (obstructive sleep apnea) 02/26/2024 Severe acute respiratory syndrome coronavirus 2 (SARS-CoV-2) detected 05/22/2023 Surgical menopause on hormone replacement therapy Tremor Ulcerative colitis 2000 Vaginal atrophy Vaginal itching Past Surgical History: Procedure Laterality Date BREAST SURGERY 2009 breast lift and augmentation CHOLECYSTECTOMY 2007 COLONOSCOPY 2016 polyp COLONOSCOPY 2015 polyps EXPLORATORY LAPAROTOMY 2014 Dr. Ferrera - adhesions lysis GASTRIC BYPASS 2006 ROUEN-Y HYSTERECTOMY 2007 LYMPH NODE DISSECTION 2010 marked for dissection TONSILLECTOMY 1974 TUBAL LIGATION Bilateral 1995 Visit Vitals BP 114/76 Pulse 86 Resp 16 Ht 4' 11 Wt 147 lb 12.8 oz SpO2 96% BMI 29.85 kg/m Smoking Status Former BSA 1.67 m Review of Systems Constitutional: Negative for chills, fatigue and fever. Respiratory: Negative for cough, shortness of breath and wheezing. Cardiovascular: Negative for chest pain, palpitations and leg swelling. Gastrointestinal: Negative for abdominal pain, constipation, diarrhea, nausea and vomiting. Skin: Negative for rash. Neurological: Positive for tremors. Objective Physical Exam Constitutional: General: She is not in acute distress. Appearance: She is well-developed. Comments: Very pleasant HENT: Head: Normocephalic and atraumatic. Left Ear: Hearing, tympanic membrane, ear canal and external ear normal. Eyes: General: No scleral icterus. Conjunctiva/sclera: Conjunctivae normal. Cardiovascular: Rate and Rhythm: Normal rate and regular rhythm. Heart sounds: Normal heart sounds. No murmur heard. Pulmonary: Effort: Pulmonary effort is normal. No respiratory distress. Breath sounds: Normal breath sounds. No wheezing, rhonchi or rales. Skin: General: Skin is warm and dry. Neurological: General: No focal deficit present. Mental Status: She is alert and oriented to person, place, and time. Motor: Tremor (Continuous upper body, Rhythmic) present. Psychiatric: Mood and Affect: Mood normal. Behavior: Behavior normal. Assessment/Plan Diagnoses and all orders for this visit: Vitamin B deficiency Recent labs reviewed in detail with patient. Advised pt that her Vitamin B12 level was low. She is agreeable to restarting her Bariatric multivitamin once a day. Reviewed ingredients of the vitamin and it should address multiple abnormalities see on recent labs. Will recheck in three months and review with her at her follow up in three months. Vitamin D deficiency - cholecalciferol (Vitamin D-3) 1.25 MG (77274 UT) capsule; Take 1 capsule (1.25 mg) by mouth See administration instructions Take 1 capsule once a week x 4 weeks, then take 1 capsule monthly. Start Vitamin D supplement as above. Will recheck in three months. Impaired fasting glucose Encouraged portion control, decrease simple sugars and carbohydrates. Acquired hypothyroidism (CMS/HCC) TSH was WNL on recent labs. Other iron deficiency anemia Restart Multivitamin. Will recheck in three months. Elevated liver enzymes Mild at this time. Pt has dealt with this in the past on occasion. Will recheck in three months. Continue to aim for healthy diet. Thrombocytosis Likely due to iron deficiency. Follow up in about 3 months (around 06/19/2025) for Test/Lab Review. documented in this encounter [facility] 03-18-2025 Telephone encounter Note Pt scheduled [facility] 03-18-2025 Miscellaneous Notes Pt scheduled Please let pt know that her recent labs showed multiple things that were abnormal and need to be addressed, it is nothing emergent, but as there are multiple things we need to address I would prefer she come in for an appointment to discuss the results. Please help her get set up for an appointment at her convenience. documented in this encounter [facility] 03-16-2025 History of Present illness Narrative Images from the original note were not included. Subjective Miriam Estrada is a 54 y.o. year old female No chief complaint on file. Past Medical History: Diagnosis Date Acute reaction to stress Allergic Allergies Anemia Anxiety Bacterial vaginitis 02/03/2025 Breast pain in female Carpal tunnel syndrome Depression (CMS/HCC) Diverticulitis 05/22/2023 Diverticulosis Encounter for gynecological examination (general) (routine) without abnormal findings Essential tremor Fibromyalgia Headache History of being hospitalized Bowel Obstruction 2014, childbirth History of CT scan 02/13/2019 CT scan shows mild edematous wall mild thickening in descending and sigmoid colon consistent with colitis History of EMG 10/18/2021 EMG shows Right upper extremity Carpal Tunnel History of mammogram Breast cancer screening by mammogram History of MRI 03/24/2021 MRI showed no fracture dislocation. Some spurring with some compression C3-C4 on the right. C4-C5 broad based disc bulge History of ultrasound, abdomen 05/13/2019 US of Abdomen was normal. Hot flashes due to surgical menopause Hypersomnia 02/26/2024 Patient experiences chronic daytime fatigue with associated memory changes, and headaches possibly. Sleep study 11/2022 was negative for ROSA M. Medication side effect may also be contributing to her symptoms. She does report previous history of ROSA M prior to gastric bypass surgery. She will nap throughout the day due to fatigue. Hypoglycemic disorder IBS (irritable bowel syndrome) Intestinal obstruction (CMS/HCC) 07/23/2015 Menopause Migraine Negative Hepatitis B and C Screening 2014 No evidence of acute or chronic sinusitis. Normal Orbits 08/04/2022 Normal hepatic morphology and echogenecity. Hepatic parenchyma is slightly coarsed. The hepatic morphology is normal. No Biliary duct dilatation post prior cholecystectomy. 01/22/2021 ROSA M (obstructive sleep apnea) 02/26/2024 Severe acute respiratory syndrome coronavirus 2 (SARS-CoV-2) detected 05/22/2023 Surgical menopause on hormone replacement therapy Tremor Ulcerative colitis 2000 Vaginal atrophy Vaginal itching Past Surgical History: Procedure Laterality Date BREAST SURGERY 2009 breast lift and augmentation CHOLECYSTECTOMY 2007 COLONOSCOPY 2016 polyp COLONOSCOPY 2015 polyps EXPLORATORY LAPAROTOMY 2013 Dr. Ferrera - adhesions lysis GASTRIC BYPASS 2006 ROUEN-Y HYSTERECTOMY 2007 LYMPH NODE DISSECTION 2010 marked for dissection TONSILLECTOMY 1974 TUBAL LIGATION Bilateral 1995 Family History Problem Relation Name Age of Onset Lymphoma Mother Diabetes Mother Hypertension Mother Heart disease Mother Stroke Mother Cancer Mother COPD Father Heart disease Father Diabetes Father Lung disease Father Cancer Father Allergies Brother Mental illness Maternal Grandmother Cancer Maternal Grandmother Diabetes Maternal Grandfather Heart disease Maternal Grandfather Heart disease Paternal Grandmother Heart disease Paternal Grandfather Mental illness Son Social History Tobacco Use Smoking status: Former Types: Cigarettes Smokeless tobacco: Never Substance Use Topics Alcohol use: Never Comment: caffeine: tea, 1-2 cups per day HPI MIGRAINE -BOTOX done January 2025 -Next one is in April -she states that her migraines are less in frequency -Stopped ajovy and started daily Qulipta -Seems to be about the same as ajovy -states that she is waiting to see if it lasts longer than the Ajovy did -averages about 2 migraines monthly. -this is a major improvement since last visit, she was at about 15 migraines monthly -dull HADDAD that last all day and located occipital and at her crown TREMOR -denies overall worsening -she thinks Botox has helped with this -on xanax -she takes this as needed -she only takes PRN, 1-2 times per month when she is out in a crowd GAIT INSTABILITY -denies any worsening -N/T in her feet and up to knees -worse in her left leg and hip -denies any recent falls NECK PAIN -no overall worsening -botox has helped -only taking Flexril twice a day ROS Review of Systems Constitutional: Positive for chills. Negative for fever. Respiratory: Negative. Negative for chest tightness and shortness of breath. Cardiovascular: Negative for chest pain and palpitations. Gastrointestinal: Negative for abdominal pain, nausea and vomiting. Musculoskeletal: Positive for neck pain. Neurological: Positive for dizziness, tremors, light-headedness and headaches. Negative for seizures, syncope, facial asymmetry, speech difficulty, weakness and numbness. Psychiatric/Behavioral: Negative for agitation, confusion and sleep disturbance. Endocrine: Negative. Objective Visit Vitals BP 136/86 Ht 4' 11 Wt 135 lb BMI 27.27 kg/m Smoking Status Former BSA 1.6 m GENERAL Apical RRR, no murmur Neurological Exam Mental Status Awake, alert and oriented to person, place and time. Recent and remote memory are intact. Speech is normal. Language is fluent with no aphasia. Attention and concentration are normal. Fund of knowledge is appropriate for level of education. Cranial Nerves CN III, IV, : Extraocular movements intact bilaterally. Normal lids and orbits bilaterally. Pupils equal round and reactive to light bilaterally. CN V: Facial sensation is normal. CN VII: Full and symmetric facial movement. CN VIII: Hearing is normal. CN IX, X: Palate elevates symmetrically. Normal gag reflex. CN XI: Shoulder shrug strength is normal. CN XII: Tongue midline without atrophy or fasciculations. Sensory Light touch is normal in upper and lower extremities. Temperature is normal in upper and lower extremities. Coordination Right: Chirpb-ey-xavn normal. Rapid alternating movement normal.Left: Ellcee-qs-tzjo normal. Rapid alternating movement normal. Persistent tremor that affects all extremities and head. Gait Able to rise from chair without using arms. Functional, steppage gait. Motor Examination RUE Strength deltoid, biceps, triceps, wrist extensors, wrist extensors, wrist flexor, school counsellor strength 5/5. LUE Strength deltoid, biceps, triceps, wrist extensors, wrist extensors, wrist flexor, school counsellor strength 5/5. RLE Strength illopsoas, quadriceps, tibialis anterior, and gastrocnemius strength 5/5. LLE Strength illopsoas, quadriceps, tibialis anterior, and gastrocnemius strength 5/5. Tone Normal tone x4 extremities. Reflexes: RUE biceps reflex 3, brachioradialis reflex 3 LUE biceps reflex 3, brachioradialis reflex 3 RLE knee reflex 3, LLE knee reflex 3, Assessment and Plan 1. Functional Tremor - Patient has persistent tremor that is generalized and worse in her head and upper extremities as well as gait instability with a steppage type gait with tremor noted in her lower extremities. Tremor is most consistent with a functional tremor and/or essential tremor worsened by stress and anxiety. She is following with a movement disorder clinic, Dr Ramirez, in [place] and diagnosed with FND w/tremor. They have weaned her off the primodone. She does respond to xanax somewhat and takes this rarely. Klonopin did not help. She also has trileptal for headaches which can help with tremor. MRI of the brain in 2017 was normal. She is in CBT and speech therapy. She has had some lessening with Botox as well. 2. Migraine - Headaches that turn into migraines that lessened in intensity with Trileptal and Ajovy. Imitrex and Cambia were not effective. CT of the sinuses 07/2018 was normal. Relpax was no longer effective. Patient has trialed amitriptyline and had side effect. She is currently on lexapro, so will avoid additional antidepressants. She has trialed Ubrelvy 100mg but occasionally has to redose. She does not respond to steroids. Depacon/magnesium infusion caused nausea and diarrhea. She continues on flexeril, trileptal, Ajovy and ubrelvy with persistent headaches, but less severe, that she relates to neck pain and tremor which is likely playing a role. She has had a great response to Botox with an 80% reduction in symptoms. 3. Memory changes - Was having issues with expressing her thoughts and what she describes as dyslexia. MOCA 11/01/2022 is 20/30. B12 and MMA were within normal range, folate slightly low at 7.8, TSH within normal range at 0.856, free T4 slightly low at 0.44. Sleep study 12/05/2022 negative for ROSA M. Neuropsychology evaluation revealed no clear pattern of cognitive impairment. Symptoms of fluctuating distractibility and attention difficulties thought to be worsened by underlying depression, anxiety, OCD like tendencies, fatigue, poor sleep, chronic pain, significant tremors, and medication side effects. Memory is at baseline. 4. Degenerative cervical spine disease - The patient was hyperreflexic on exam. MRI C spine 03/24/21 revealed joint spurring and moderate broad based disc bulge at C4-C5 with no significant stenosis. She continues with stiffness and slight decrease ROM when rotating head to the right. She is on flexeril. She does report some gait instability and falls. Dr Ramirez had tried her on Neurontin which did not help. 5. Hypersomnia - Patient experiences chronic daytime fatigue with associated memory changes, and headaches possibly. Sleep study 11/2022 was negative for ROSA M. Medication side effect may also be contributing to her symptoms. She does report previous history of ROSA M prior to gastric bypass surgery. She will nap throughout the day due to fatigue. She denies worsening. Diagnoses and all orders for this visit: Essential tremor Migraine without aura and without status migrainosus, not intractable (CMS/HCC) - Ubrogepant (Ubrelvy) 100 MG tablet; TAKE 1 TAB AT ONSET OF MIGRAINE NEEDED, MAY REPEAT 1 TAB IN 2 HRS NO MORE THAN 2/DAY AND 2/WK Memory changes PLAN 1. Continue with Botox by Dr. Dhillon as scheduled. She has had an excellent response. 2. Continue Qulipta 60mg PO daily for headache prevention. 3. Ajovy is currently on hold. 3. Continue Flexeril 5mg PO TID prn muscle spasm. 4. Continue Ubrelvy 100mg for abortive migraine therapy. 5. I counseled the patient on fall precautions. I discussed the high risk of trauma and debility associated with falls. Patient verbalized understanding. Follow up after Botox. documented in this encounter [facility] 03-13-2025 Telephone encounter Note Please let pt know that her recent labs showed multiple things that were abnormal and need to be addressed, it is nothing emergent, but as there are multiple things we need to address I would prefer she come in for an appointment to discuss the results. Please help her get set up for an appointment at her convenience. [facility] 03-11-2025 History of Present illness Narrative Images from the original note were not included. Subjective Patient ID: Miriam Estrada is a 54 y.o. female who presents for wellness. Subjective Miriam Estrada is a 54 y.o. female and is here for a comprehensive physical exam. The patient reports no problems. Is sleeping much better with the Trazodone. Only has to take 75 mg rarely, normally the 50 mg dosage is working well for her. Current Outpatient Medications on File Prior to Visit Medication Sig Dispense Refill Atogepant (Qulipta) 60 MG tablet Take 1 tablet by mouth Daily Neurology prescribes. ALPRAZolam (Xanax) 0.5 MG tablet Take 1 tablet (0.5 mg) by mouth every 12 (twelve) hours for 15 days PRN 30 tablet 0 clonazePAM (KlonoPIN) 0.5 MG tablet Take 1 tablet by mouth at bedtime. PRN cyclobenzaprine (Flexeril) 5 MG tablet TAKE 1 TABLET THREE TIMES A DAY NEEDED FOR MUSCLE SPASM (Patient taking differently: Take 5 mg by mouth Take 1 tablet in the morning and 2 tablets at night) 270 tablet 3 escitalopram (Lexapro) 20 MG tablet TAKE ONE AND ONE-HALF TABLETS DAILY 135 tablet 3 famotidine (Pepcid) 20 MG tablet Take 1 tablet by mouth in the morning. fluticasone (Flonase) 50 MCG/ACT nasal spray Administer 1-2 sprays into each nostril Daily Shake gently. Before first use, prime pump. After use, clean tip and replace cap. 16 g 5 folic acid (Folvite) 1 MG tablet TAKE 1 TABLET IN THE MORNING 100 tablet 3 levothyroxine (Synthroid, Levoxyl) 50 MCG tablet TAKE 1 TABLET IN THE MORNING BEFORE A MEAL 100 tablet 3 montelukast (Singulair) 10 MG tablet TAKE 1 TABLET DAILY 90 tablet 3 OnabotulinumtoxinA (BOTOX IJ) Inject as directed One injection every 3 months for migraines and tremors OXcarbazepine (Trileptal) 300 MG tablet TAKE ONE AND ONE-HALF TABLETS TWICE A DAY 270 tablet 3 Premarin 1.25 MG tablet TAKE 1 TABLET IN THE MORNING 100 tablet 3 saccharomyces boulardii (Florastor) 250 MG capsule Take 250 mg by mouth in the morning. sucralfate (Carafate) 1 GM/10ML suspension Take 10 mL by mouth. On an empty stomach before meals and bedtime Ubrogepant (Ubrelvy) 100 MG tablet TAKE 1 TAB AT ONSET OF MIGRAINE NEEDED, MAY REPEAT 1 TAB IN 2 HRS NO MORE THAN 2/DAY AND 2/WK 10 tablet 2 valACYclovir (Valtrex) 500 MG tablet Take 2 tablets (1,000 mg) by mouth in the morning and 2 tablets (1,000 mg) before bedtime. 120 tablet 11 [DISCONTINUED] Ajovy 225 MG/1.5ML prefilled syringe Inject 225 mg under the skin every 30 (thirty) days (Patient not taking: Reported on 03/11/2025) [DISCONTINUED] Atogepant (Qulipta) 60 MG tablet Take 1 tablet by mouth Daily 30 tablet 2 [DISCONTINUED] traZODone (Desyrel) 100 MG tablet Take 1 tablet (100 mg) by mouth as needed at bedtime for sleep No current facility-administered medications on file prior to visit. I have reviewed and reconciled the history and medication list with the patient today. Allergies Allergen Reactions Levaquin [Levofloxacin] Metronidazole Nausea And Vomiting and GI intolerance Nsaids Other reaction(s): Unknown Sulfa Antibiotics Sulfanilamide Unknown Social History Tobacco Use Smoking status: Former Types: Cigarettes Smokeless tobacco: Never Vaping Use Vaping status: Never Used Substance Use Topics Alcohol use: Never Comment: caffeine: tea, 1-2 cups per day Drug use: Never Family History Problem Relation Name Age of Onset Lymphoma Mother Diabetes Mother Hypertension Mother Heart disease Mother Stroke Mother Cancer Mother COPD Father Heart disease Father Diabetes Father Lung disease Father Cancer Father Allergies Brother Mental illness Maternal Grandmother Cancer Maternal Grandmother Diabetes Maternal Grandfather Heart disease Maternal Grandfather Heart disease Paternal Grandmother Heart disease Paternal Grandfather Mental illness Son Past Medical History: Diagnosis Date Acute reaction to stress Allergic Allergies Anemia Anxiety Bacterial vaginitis 02/03/2025 Breast pain in female Carpal tunnel syndrome Depression (CMS/HCC) Diverticulitis 05/22/2023 Diverticulosis Encounter for gynecological examination (general) (routine) without abnormal findings Essential tremor Fibromyalgia Headache History of being hospitalized Bowel Obstruction 2013, childbirth History of CT scan 02/13/2019 CT scan shows mild edematous wall mild thickening in descending and sigmoid colon consistent with colitis History of EMG 10/18/2021 EMG shows Right upper extremity Carpal Tunnel History of mammogram Breast cancer screening by mammogram History of MRI 03/24/2021 MRI showed no fracture dislocation. Some spurring with some compression C3-C4 on the right. C4-C5 broad based disc bulge History of ultrasound, abdomen 05/13/2019 US of Abdomen was normal. Hot flashes due to surgical menopause Hypersomnia 02/26/2024 Patient experiences chronic daytime fatigue with associated memory changes, and headaches possibly. Sleep study 11/2022 was negative for ROSA M. Medication side effect may also be contributing to her symptoms. She does report previous history of ROSA M prior to gastric bypass surgery. She will nap throughout the day due to fatigue. Hypoglycemic disorder IBS (irritable bowel syndrome) Intestinal obstruction (CMS/HCC) 07/23/2015 Menopause Migraine Negative Hepatitis B and C Screening 2014 No evidence of acute or chronic sinusitis. Normal Orbits 08/04/2022 Normal hepatic morphology and echogenecity. Hepatic parenchyma is slightly coarsed. The hepatic morphology is normal. No Biliary duct dilatation post prior cholecystectomy. 01/22/2021 ROSA M (obstructive sleep apnea) 02/26/2024 Severe acute respiratory syndrome coronavirus 2 (SARS-CoV-2) detected 05/22/2023 Surgical menopause on hormone replacement therapy Tremor Ulcerative colitis 2000 Vaginal atrophy Vaginal itching Past Surgical History: Procedure Laterality Date BREAST SURGERY 2009 breast lift and augmentation CHOLECYSTECTOMY 2007 COLONOSCOPY 2016 polyp COLONOSCOPY 2015 polyps EXPLORATORY LAPAROTOMY 2014 Dr. Ferrera - adhesions lysis GASTRIC BYPASS 2006 ROUEN-Y HYSTERECTOMY 2007 LYMPH NODE DISSECTION 2011 marked for dissection TONSILLECTOMY 1974 TUBAL LIGATION Bilateral 1995 Visit Vitals BP (!) 132/92 Pulse 85 Resp 16 Ht 4' 11 Wt 148 lb 3.2 oz SpO2 96% BMI 29.93 kg/m Smoking Status Former BSA 1.67 m Review of Systems Constitutional: Negative for chills, fatigue and fever. HENT: Negative for congestion, ear pain, rhinorrhea and sore throat. Eyes: Negative for pain, discharge and visual disturbance. Respiratory: Negative for cough, shortness of breath and wheezing. Cardiovascular: Negative for chest pain, palpitations and leg swelling. Gastrointestinal: Negative for abdominal pain, constipation, diarrhea, nausea and vomiting. Genitourinary: Negative for difficulty urinating, dysuria and frequency. Musculoskeletal: Negative for arthralgias and back pain. Skin: Negative for rash. Neurological: Positive for tremors. Negative for dizziness and numbness. Psychiatric/Behavioral: Negative for sleep disturbance. The patient is not nervous/anxious. Objective Physical Exam Constitutional: General: She is not in acute distress. Appearance: She is well-developed. She is obese. HENT: Head: Normocephalic and atraumatic. Left Ear: Hearing, tympanic membrane, ear canal and external ear normal. Nose: Nose normal. Mouth/Throat: Mouth: Mucous membranes are moist. Pharynx: No posterior oropharyngeal erythema. Eyes: General: No scleral icterus. Extraocular Movements: Extraocular movements intact. Conjunctiva/sclera: Conjunctivae normal. Pupils: Pupils are equal, round, and reactive to light. Cardiovascular: Rate and Rhythm: Normal rate and regular rhythm. Heart sounds: Normal heart sounds. No murmur heard. Pulmonary: Effort: Pulmonary effort is normal. No respiratory distress. Breath sounds: Normal breath sounds. No wheezing, rhonchi or rales. Abdominal: General: Bowel sounds are normal. Palpations: Abdomen is soft. Musculoskeletal: General: Normal range of motion. Cervical back: Neck supple. Tenderness present. Right lower leg: No edema. Left lower leg: No edema. Lymphadenopathy: Cervical: No cervical adenopathy. Skin: General: Skin is warm and dry. Capillary Refill: Capillary refill takes less than 2 seconds. Neurological: General: No focal deficit present. Mental Status: She is alert and oriented to person, place, and time. Motor: Tremor (Continuous upper body, rhythmic) present. Psychiatric: Mood and Affect: Mood normal. Behavior: Behavior normal. Assessment/Plan Diagnoses and all orders for this visit: Wellness examination - CBC and differential - Comprehensive metabolic panel - Hemoglobin A1c - Lipid panel - Iron + transferrin + TIBC - Vitamin D 25 hydroxy Total - TSH W/REFLEX TO FT4 - Vitamin B12; Future Wellness form reviewed in detail with the patient. Encouraged patient to stay up to date on immunizations and preventative testing. Encouraged healthy diet, stay active. Will continue with yearly wellness exams. Encounter for screening mammogram for malignant neoplasm of breast - Bilateral screening mammogram with tomosynthesis; Future Provided patient with an order for an updated Mammogram. If results are negative/normal, will plan to continue with routine yearly screenings. Primary insomnia - traZODone (Desyrel) 50 MG tablet; Take 1-1.5 tablets (50-75 mg) by mouth as needed at bedtime for sleep Sleep is much improved with 50-75 mg at night. She can continue with it as prescribed. Contact office with concerns. Liver disease - Comprehensive metabolic panel This is a chronic medical condition that is stable since last assessment. Will continue to monitor with routine labs. Sicca syndrome (CMS/HCC) - Comprehensive metabolic panel The patient is seeing a medical representative for this condition, treatment is deferred to that specialist. Correspondence from that specialist and any available testing were reviewed during today's visit. Acquired hypothyroidism (CMS/HCC) - TSH W/REFLEX TO FT4 This is a chronic medical condition that is stable since last assessment. Will continue to monitor with routine labs. Impaired fasting glucose - Comprehensive metabolic panel - Hemoglobin A1c This is a chronic medical condition that is stable since last assessment. Will continue to monitor with routine labs. Vitamin B deficiency - CBC and differential - Vitamin B12; Future This is a chronic medical condition that is stable since last assessment. Will continue to monitor with routine labs. Vitamin D deficiency - Vitamin D 25 hydroxy Total This is a chronic medical condition that is stable since last assessment. Will continue to monitor with routine labs. Other iron deficiency anemia - CBC and differential - Iron + transferrin + TIBC This is a chronic medical condition that is stable since last assessment. Will continue to monitor with routine labs. History of Jd-en-Y gastric bypass - CBC and differential - Comprehensive metabolic panel - Iron + transferrin + TIBC - Vitamin D 25 hydroxy Total - TSH W/REFLEX TO FT4 - Vitamin B12; Future This is a chronic medical condition that is stable since last assessment. Will continue to monitor with routine labs. 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 Will continue to monitor with routine labs. Essential tremor The patient is seeing a medical representative for this condition, treatment is deferred to that specialist. Correspondence from that specialist and any available testing were reviewed during today's visit. Former Smoker The patient was counseled on the importance of maintaining cigarette smoking abstinence. The patient continues to refrain from smoking and is committed to avoiding tobacco use. Sjogren's syndrome with keratoconjunctivitis sicca The patient is seeing a medical representative for this condition, treatment is deferred to that specialist. Correspondence from that specialist and any available testing were reviewed during today's visit. Seasonal allergic rhinitis due to pollen This is a chronic medical condition that is stable since last assessment. No changes in treatment are suggested at this time. History of COVID-19 H/o, no concerns at this time. Carpal tunnel syndrome, right upper limb This is a chronic medical condition that is stable since last assessment. Dizziness This is a chronic medical condition that is stable since last assessment. Spasmodic torticollis The patient is seeing a medical representative for this condition, treatment is deferred to that specialist. Correspondence from that specialist and any available testing were reviewed during today's visit. Migraine with aura and without status migrainosus, not intractable ([facility]) The patient is seeing a medical representative for this condition, treatment is deferred to that specialist. Correspondence from that specialist and any available testing were reviewed during today's visit. Pruritus of vagina The patient is seeing a medical representative for this condition, treatment is deferred to that specialist. Correspondence from that specialist and any available testing were reviewed during today's visit. Restless legs syndrome (RLS) The patient is seeing a medical representative for this condition, treatment is deferred to that specialist. Correspondence from that specialist and any available testing were reviewed during today's visit. Ulnar neuropathy of right upper extremity The patient is seeing a medical representative for this condition, treatment is deferred to that specialist. Correspondence from that specialist and any available testing were reviewed during today's visit. 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 Correspondence from that specialist and any available testing were reviewed during today's visit. Interstitial lung disease (CMS/HCC)y The patient is seeing a medical representative for this condition, treatment is deferred to that specialist. Correspondence from that specialist and any available testing were reviewed during today's visit. Parietoalveolar pneumopathy (CMS/HCC) The patient is seeing a medical representative for this condition, treatment is deferred to that specialist. Correspondence from that specialist and any available testing were reviewed during today's visit. Gastroesophageal reflux disease without esophagitis This is a chronic medical condition that is stable since last assessment. No changes in treatment are suggested at this time. Continue Famotidine as prescribed. Slow transit constipation This is a chronic medical condition that is stable since last assessment. No changes in treatment are suggested at this time. Continue probiotic daily. Other ulcerative colitis without complication This is a chronic medical condition that is stable since last assessment. No changes in treatment are suggested at this time. Continue probiotic daily. Atrophy of vagina The patient is seeing a medical representative for this condition, treatment is deferred to that specialist. Correspondence from that specialist and any available testing were reviewed during today's visit. Excessive and frequent menstruation The patient is seeing a medical representative for this condition, treatment is deferred to that specialist. Correspondence from that specialist and any available testing were reviewed during today's visit. Female stress incontinence This is a chronic medical condition that is stable since last assessment. No changes in treatment are suggested at this time. Urge incontinence of urine This is a chronic medical condition that is stable since last assessment. No changes in treatment are suggested at this time. Arthritis of right acromioclavicular joint This is a chronic medical condition that is stable since last assessment. No changes in treatment are suggested at this time. Arthritis of right hand This is a chronic medical condition that is stable since last assessment. No changes in treatment are suggested at this time. Fibromyalgia The patient is seeing a medical representative for this condition, treatment is deferred to that specialist. Correspondence from that specialist and any available testing were reviewed during today's visit. Internal derangement of right shoulder This is a chronic medical condition that is stable since last assessment. No changes in treatment are suggested at this time. Sacroiliac joint pain This is a chronic medical condition that is stable since last assessment. No changes in treatment are suggested at this time. Postablative ovarian failure The patient is seeing a medical representative for this condition, treatment is deferred to that specialist. Correspondence from that specialist and any available testing were reviewed during today's visit. Chronic sinusitis, unspecified location This is a chronic medical condition that is stable since last assessment. No changes in treatment are suggested at this time. Diverticulosis of colon without hemorrhage This is a chronic medical condition that is stable since last assessment. No changes in treatment are suggested at this time. Herpes simplex with complication This is a chronic medical condition that is stable since last assessment. No changes in treatment are suggested at this time. Abnormal laboratory test result Will continue to monitor with routine labs. Adjustment disorder with anxiety (CMS/HCC) Mood is stable at this time. Will continue to monitor. Atypical depressive disorder (CMS/HCC) Mood is stable at this time. Will continue to monitor. Dry eyes The patient is seeing a medical representative for this condition, treatment is deferred to that specialist. Correspondence from that specialist and any available testing were reviewed during today's visit. 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 Correspondence from that specialist and any available testing were reviewed during today's visit. History of gestational diabetes mellitus Will continue to monitor with routine labs. History of hysterectomy Patient is s/p Hysterectomy. Denies complaints at this time. Memory changes The patient is seeing a medical representative for this condition, treatment is deferred to that specialist. Correspondence from that specialist and any available testing were reviewed during today's visit. Overweight Has lost 12 pounds since her last appointment intentionally. Continue to work on improving her diet. Stay active. Follow up in about 3 months (around 06/11/2025) for Medication Follow Up. documented in this encounter [facility] 02-03-2025 History of Present illness Narrative Images from the original note were not included. Subjective Patient ID: Miriam Estrada is a 54 y.o. female who presents for insomnia. Miriam is present today for evaluation of insomnia. Admits she has had this for around 20 years (since her son ) she has a hard time falling asleep. States the insomnia was off/on but lately it has gotten worse. She did try Trazodone around 20 yrs ago and that did help. States not sleeping well has aggravated her other chronic health conditions. C/o crackling behind her left ear for quite a while. Happens on and off. Worse when she blows her nose. Occasionally painful. Feels like water gets caught in there. Uses sinus lavages, also uses Flonase. Current Outpatient Medications on File Prior to Visit Medication Sig Dispense Refill Ajovy 225 MG/1.5ML prefilled syringe Inject 225 mg under the skin every 30 (thirty) days cyclobenzaprine (Flexeril) 5 MG tablet TAKE 1 TABLET THREE TIMES A DAY NEEDED FOR MUSCLE SPASM (Patient taking differently: Take 5 mg by mouth Take 1 tablet in the morning and 2 tablets at night) 270 tablet 3 ALPRAZolam (Xanax) 0.5 MG tablet Take 1 tablet (0.5 mg) by mouth every 12 (twelve) hours for 15 days PRN 30 tablet 0 Atogepant (Qulipta) 60 MG tablet Take 1 tablet by mouth 1 (one) time each day clonazePAM (KlonoPIN) 0.5 MG tablet Take 1 tablet by mouth at bedtime. PRN escitalopram (Lexapro) 20 MG tablet TAKE ONE AND ONE-HALF TABLETS DAILY 150 tablet 3 famotidine (Pepcid) 20 MG tablet Take 1 tablet by mouth in the morning. fluticasone (Flonase) 50 MCG/ACT nasal spray Administer 1-2 sprays into each nostril Daily Shake gently. Before first use, prime pump. After use, clean tip and replace cap. 16 g 5 folic acid (Folvite) 1 MG tablet TAKE 1 TABLET IN THE MORNING 100 tablet 3 levothyroxine (Synthroid, Levoxyl) 50 MCG tablet TAKE 1 TABLET IN THE MORNING BEFORE A MEAL 100 tablet 3 montelukast (Singulair) 10 MG tablet TAKE 1 TABLET DAILY 90 tablet 3 OnabotulinumtoxinA (BOTOX IJ) Inject as directed One injection every 3 months for migraines and tremors OXcarbazepine (Trileptal) 300 MG tablet TAKE ONE AND ONE-HALF TABLETS TWICE A DAY 270 tablet 3 Premarin 1.25 MG tablet TAKE 1 TABLET IN THE MORNING 100 tablet 3 saccharomyces boulardii (Florastor) 250 MG capsule Take 250 mg by mouth in the morning. sucralfate (Carafate) 1 GM/10ML suspension Take 10 mL by mouth. On an empty stomach before meals and bedtime Ubrogepant (Ubrelvy) 100 MG tablet TAKE 1 TAB AT ONSET OF MIGRAINE NEEDED, MAY REPEAT 1 TAB IN 2 HRS NO MORE THAN 2/DAY AND 2/WK 10 tablet 2 valACYclovir (Valtrex) 500 MG tablet Take 2 tablets (1,000 mg) by mouth in the morning and 2 tablets (1,000 mg) before bedtime. 120 tablet 11 No current facility-administered medications on file prior to visit. I have reviewed and reconciled the history and medication list with the patient today. Allergies Allergen Reactions Levaquin [Levofloxacin] Metronidazole Nausea And Vomiting and GI intolerance Nsaids Other reaction(s): Unknown Sulfa Antibiotics Sulfanilamide Unknown Social History Tobacco Use Smoking status: Former Types: Cigarettes Smokeless tobacco: Never Vaping Use Vaping status: Never Used Substance Use Topics Alcohol use: Never Comment: caffeine: tea, 1-2 cups per day Drug use: Never Family History Problem Relation Name Age of Onset Lymphoma Mother Diabetes Mother Hypertension Mother Heart disease Mother Stroke Mother Cancer Mother COPD Father Heart disease Father Diabetes Father Lung disease Father Cancer Father Allergies Brother Mental illness Maternal Grandmother Cancer Maternal Grandmother Diabetes Maternal Grandfather Heart disease Maternal Grandfather Heart disease Paternal Grandmother Heart disease Paternal Grandfather Mental illness Son Past Medical History: Diagnosis Date Acute reaction to stress Allergic Allergies Anemia Anxiety Breast pain in female Carpal tunnel syndrome Depression (CMS/HCC) Diverticulosis Encounter for gynecological examination (general) (routine) without abnormal findings Essential tremor Fibromyalgia Headache History of being hospitalized Bowel Obstruction 2013, childbirth History of CT scan 02/13/2019 CT scan shows mild edematous wall mild thickening in descending and sigmoid colon consistent with colitis History of EMG 10/18/2021 EMG shows Right upper extremity Carpal Tunnel History of mammogram Breast cancer screening by mammogram History of MRI 03/24/2021 MRI showed no fracture dislocation. Some spurring with some compression C3-C4 on the right. C4-C5 broad based disc bulge History of ultrasound, abdomen 05/13/2019 US of Abdomen was normal. Hot flashes due to surgical menopause Hypoglycemic disorder IBS (irritable bowel syndrome) Intestinal obstruction (CMS/HCC) 07/23/2015 Menopause Migraine Negative Hepatitis B and C Screening 2014 No evidence of acute or chronic sinusitis. Normal Orbits 08/04/2022 Normal hepatic morphology and echogenecity. Hepatic parenchyma is slightly coarsed. The hepatic morphology is normal. No Biliary duct dilatation post prior cholecystectomy. 01/22/2021 Surgical menopause on hormone replacement therapy Tremor Ulcerative colitis 2000 Vaginal atrophy Vaginal itching Past Surgical History: Procedure Laterality Date BREAST SURGERY 2009 breast lift and augmentation CHOLECYSTECTOMY 2007 COLONOSCOPY 2016 polyp COLONOSCOPY 2015 polyps EXPLORATORY LAPAROTOMY 2013 Dr. Ferrera - adhesions lysis GASTRIC BYPASS 2006 ROUEN-Y HYSTERECTOMY 2007 LYMPH NODE DISSECTION 2011 marked for dissection TONSILLECTOMY 1974 TUBAL LIGATION Bilateral 1995 Visit Vitals BP (!) 138/96 Pulse 78 Resp 16 Ht 4' 11 Wt 160 lb 12.8 oz SpO2 97% BMI 32.48 kg/m Smoking Status Former BSA 1.74 m Review of Systems Constitutional: Negative for chills, fatigue and fever. HENT: Positive for ear pain (intermittent). Respiratory: Negative for cough, shortness of breath and wheezing. Cardiovascular: Negative for chest pain, palpitations and leg swelling. Gastrointestinal: Negative for abdominal pain, constipation, diarrhea, nausea and vomiting. Skin: Negative for rash. Neurological: Positive for tremors. Psychiatric/Behavioral: Positive for sleep disturbance. Objective Physical Exam Constitutional: General: She is not in acute distress. Appearance: She is well-developed. She is obese. HENT: Head: Normocephalic and atraumatic. Left Ear: Hearing, tympanic membrane, ear canal and external ear normal. Eyes: General: No scleral icterus. Conjunctiva/sclera: Conjunctivae normal. Cardiovascular: Rate and Rhythm: Normal rate and regular rhythm. Heart sounds: Normal heart sounds. No murmur heard. Pulmonary: Effort: Pulmonary effort is normal. No respiratory distress. Breath sounds: Normal breath sounds. No wheezing, rhonchi or rales. Skin: General: Skin is warm and dry. Neurological: General: No focal deficit present. Mental Status: She is alert and oriented to person, place, and time. Motor: Tremor (Continuous upper body) present. Psychiatric: Mood and Affect: Mood normal. Behavior: Behavior normal. Assessment/Plan Diagnoses and all orders for this visit: Primary insomnia - traZODone (Desyrel) 50 MG tablet; Take 0.5-1 tablets (25-50 mg) by mouth as needed at bedtime for sleep Will have patient try restarting the Trazodone at this time. Start with 1/2 tablet and increase to 50 if needed after the first few days. Advised of effect on Serotonin, and that Lexapro also has an effect on Serotonin. Will monitor for any interaction. Can consider alternative medications is Trazodone is not effective for her. Will recheck at her wellness, or sooner should she have any concerns. ETD (Eustachian tube dysfunction), left Reassurance given that her ear was WNL on exam today. Can continue saline rinses, Flonase as needed. Can also use saline nasal spray if needed. RTC for evaluation if pain increases/persists. Follow up for Wellness, Fasting Labs. documented in this encounter [facility] 11-28-2024 History of Present illness Narrative Miriam Estrada was offered and declined a Medical Best Worker for this exam/procedure/test 11/28/2024. Images from the original note were not included. [facility] Follow up visit Miriam Estrada returns today to the Movement Disorders clinic for follow up regarding functional movement disorder. Her last visit was on 10/15/[address] Ramirez At last visit Your condition remains most consistent with Functional [...] Follow up with me in 6 months HISTORY OF PRESENT ILLNESS Interval History 11/2024: She saw Analia yesterday for CBT. She reports that she has done much better with her anxiety since starting CBT. She tapered back off gabapentin as it was not helping the RLS symptoms. Her operations associate had mentioned to her that they could try some other medications but wanted to make sure we were ok with this. This was for Cymbalta and Lyrica. She has been getting botox for migraines and noticed that when they had went further down her head/neck the last time that the head tremor was reduced. They may be checking into expanding the botox more next time. Sleep can still be poor, she feels this is affected by pain and RLS symptoms. She does feel that if she stays in bed long enough that she does tend to feel rested. DISEASE SUMMARY Handedness: right handed Onset of symptoms: 2017 Initial symptoms: Head tremor Initial history (04/2023): Tremor began in 2017 in the head. Had been having an internal tremor for 2 years prior to that when she looks back. Also notes that in 2017 the tremor seemed to begin all the sudden in 2017. Diagnosed with Essential Tremors by Dr. Chauhan at [facility]. The head was always moving side [...] tremor. Mother had hand and voice tremor. Neurosurgical History none Medications Tried Propranolol - nausea Primidone 50mg, 2 tabs AM and 3 tabs PM-helped tremor initially, then xanax helps Klonopin did not help. She also has trileptal for headaches which can help with tremor Botox for migraine has helped lessen the head tremor slightly Neurontin up to 600mg nightly for RLS- did not help Current Relevant Medication Schedule Trileptal for migraines Promethazine 12.5mg as needed for nausea 2-3x weekly Botox by Dr. Dhillon. Saul for migraine prevention therapy every 3 months. Ubrelvy 100mg for abortive migraine therapy. Xanax is 0.5mg twice daily as needed for anxiety Clonazepam 1mg daily as needed for anxiety Cyclobenzaprine 5mg 3x daily (5mg morning, 10 mg night) Escitalopram 20mg daily for anxiety Medical marijuana Symptomatic Assessment and Review of Systems Treatment effective: partially Motor fluctuations: no Dyskinesias: no Independent with activities of daily living: yes Falls: no Freezing: no Shuffling: no Assistive devices used: no Vision changes: blurring Dry mouth: no Difficulty smelling: yes, intermittent issues Dysphagia: yes Voice changes: no Urinary problems: yes Constipation: yes Sudden sleep attacks: no Sleep disturbances: Sleep study 12/05/2022 negative for ROSA M She does report previous history of ROSA M prior to gastric bypass surgery. She will nap throughout the day due to fatigue. At baseline. Cognitive changes: Neuropsychology evaluation revealed no clear pattern of cognitive impairment. Symptoms of fluctuating distractibility and attention difficulties thought to be worsened by underlying depression, anxiety, OCD like tendencies, fatigue, poor sleep, chronic pain, significant tremors, and medication side effects. Medication side effect may also be contributing to her symptoms. Lightheadedness/Dizziness: yes Muscle cramping/toe curling: no Depression: yes Anxiety: yes Hallucinations/Delusions: no Symptoms of impulse control disorder: no Currently driving: yes Exercise: no Recent rehab services: no PAST MEDICAL HISTORY, FAMILY HISTORY, SOCIAL HISTORY, ALLERGIES, MEDICATIONS Past medical, surgical, family, and social histories have been reviewed and updated with the patient today and are located elsewhere in the medical record. Allergies She is allergic to metronidazole, nsaids, and sulfa antibiotics. Current Medications Current Outpatient Medications Medication Sig acetaminophen (TYLENOL) 500 MG tablet Take 1-2 tablets by mouth as needed for Pain or Fever. Ajovy 225 MG/1.5ML Solution Prefilled Syringe INJECT SUBCUTANEOUSLY DIRECTED EVERY 28 DAYS ALPRAZolam (Xanax) 0.5 MG tablet Take 1 tablet by mouth 2 times daily as needed. Bacillus Coagulans-Inulin (Probiotic) 1-250 BILLION-MG capsule Take [...] HCl (VALACYCLOVIR PO) Take by mouth. prn REVIEW OF SYSTEMS 14 point review of systems were reviewed and pertinent findings are listed in HPI. All others were negative. RELEVANT PRIOR EVALUATIONS AND TESTS PHYSICAL EXAM Vitals: 11/28/24 0737 BP: 136/81 Pulse: 95 Temp: 97 degrees F (36.1 degrees C) TempSrc: Temporal Weight: 72.1 kg (159 lb) Height: 1.499 m (4' 11 ) She is well-nourished, well-developed and in no acute distress. She is alert and oriented x 4 and has a normal fund of knowledge and normal language output. Voice is strong, speech is with vocal tremor. Patient wears glasses . Patient hears and responds/interacts appropriately. Walks without assistive device, no apparent weakness or lack of balance. Yes-yes head tremor, arms not shaking. ASSESSMENT/PLAN Miriam Estrada is a 54 y.o. 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 11/2024: since last visit, she has been seeing Analia Burris for CBT and she reports this has been most helpful. She has reduced anxiety. Sleep remains poor. She had history of ROSA M, but this improved after weight loss and her last sleep study was normal. She finds that pain can cause problems falling asleep as can what appears to be RLS. The addition of up to 600mg gabapentin did not help this, so she has tapered off. She has history of iron deficiency requiring infusions in past. I do not see any recent ferritin labs so I advised she get this checked with PCP to see if she may need another infusion. She has history of gastric bypass. She reports the iron deficiency has been for quite a while and that her mother has similar issue. If ferritin is less than 75 this could be contributing to RLS symptoms. Her operations associate has talked to her about changing to Lyrica or Cymbalta for fibromyalgia treatment. She has had botox for migraine and when they moved the injections down a little last time, her head tremor seemed better per her report. We discussed the benefits of increased physical activity for balance and anxiety and pain. We reviewed how some activities can improve her balance. I showed her some examples of exercise videos available on line Follow up in [address] Ramirez. The patient has been advised to call the office in the interim with any questions or concerns. Patient Instructions You are having botox for migraines and possibly further down neck. You can see if this helps the head tremor Continue your exercises and stretches When you see PCP for labs, ask if they have checked your ferritin levels again as you had to have infusions in past for anemia. Low ferritin (below 75) can contribute to restless leg feeling Also if you start the Lyrica for pain, it could help as well If pain better controlled you will find improved sleep If sleep improved tremor and anxiety will be better For balance issues, try an activity such as yoga or lindsey chi There are a lot of online free videos to watch as well Check out Parkinson[employer] website (https://www.parkinson.org) Go to Resources and Support, then to Online Education, then PD Health @ home ([email or web address] [email or web address]-[email or web address]-[email or web address] th) Scroll down to Past Events and notice you will find Mindfulness Mondays, Wellness Wednesdays, and Fitness Fridays. You can select which section you are interested in. Look for Fitness Fridays for exercise videos. There are several years of videos available for you to watch. Look through the titles to find ones you may want to watch. Follow up 6-[address] Ramirez For questions or concerns please contact our office [phone] or send mychart message ACTIVITY TIME I have personally spent 55 minutes in face to face and [id number]-ca-face activities for this patient on the day of the visit. Professional time spent includes the following activities, in addition to those noted in the documentation: Chart review, patient education, discussion of symptom management and further treatment options. Sincerely, Electronically signed by: SHAREE Upton 11/28/2024 8:19 AM [facility] Outpatient Neurology documented in this encounter [facility] 11-28-2024 Instructions SHAREE Upton - 11/28/2024 7:40 AM EST Images from the original note were not included. Patient Instructions You are having botox for migraines and possibly further down neck. You can see if this helps the head tremor Continue your exercises and stretches When you see PCP for labs, ask if they have checked your ferritin levels again as you had to have infusions in past for anemia. Low ferritin (below 75) can contribute to restless leg feeling Also if you start the Lyrica for pain, it could help as well If pain better controlled you will find improved sleep If sleep improved tremor and anxiety will be better For balance issues, try an activity such as yoga or lindsey chi There are a lot of online free videos to watch as well Check out Parkinson's [employer] website (https://www.parkinson.org) Go to Resources and Support, then to Online Education, then PD Health @ home ([email or web address].[email or web address]/resourc es-support/online-education/pdheal th) Scroll down to Past Events and notice you will find Mindfulness Mondays, Wellness Wednesdays, and Fitness Fridays. You can select which section you are interested in. Look for Fitness Fridays for exercise videos. There are several years of videos available for you to watch. Look through the titles to find ones you may want to watch. Follow up 6-[address] Ramirez For questions or concerns please contact our office [phone] or send mychart message documented in this encounter [facility] 11-26-2024 History of Present illness Narrative Images from the original note were not included. Subjective Miriam Estrada is a 54 y.o. year old female Chief Complaint Patient presents with Migraine Neck Pain Past Medical History: Diagnosis Date Acute reaction to stress Allergic Allergies Anemia Anxiety Breast pain in female Carpal tunnel syndrome Depression (CMS/HCC) Diverticulosis Encounter for gynecological examination (general) (routine) without abnormal findings Essential tremor Fibromyalgia Headache History of being hospitalized Bowel Obstruction 2013, childbirth History of CT scan 02/13/2019 CT scan shows mild edematous wall mild thickening in descending and sigmoid colon consistent with colitis History of EMG 10/18/2021 EMG shows Right upper extremity Carpal Tunnel History of mammogram Breast cancer screening by mammogram History of MRI 03/24/2021 MRI showed no fracture dislocation. Some spurring with some compression C3-C4 on the right. C4-C5 broad based disc bulge History of ultrasound, abdomen 05/13/2019 US of Abdomen was normal. Hot flashes due to surgical menopause Hypoglycemic disorder IBS (irritable bowel syndrome) Menopause Migraine (CMS/HCC) Negative Hepatitis B and C Screening 2014 No evidence of acute or chronic sinusitis. Normal Orbits 08/04/2022 Normal hepatic morphology and echogenecity. Hepatic parenchyma is slightly coarsed. The hepatic morphology is normal. No Biliary duct dilatation post prior cholecystectomy. 01/22/2021 Surgical menopause on hormone replacement therapy Tremor Ulcerative colitis (CMS/HCC) 2000 Vaginal atrophy Vaginal itching Past Surgical History: Procedure Laterality Date BREAST SURGERY 2009 breast lift and augmentation CHOLECYSTECTOMY 2007 COLONOSCOPY 2016 polyp COLONOSCOPY 2015 polyps EXPLORATORY LAPAROTOMY 2013 Dr. Ferrera - adhesions lysis GASTRIC BYPASS 2006 ROUEN-Y HYSTERECTOMY 2007 LYMPH NODE DISSECTION 2011 marked for dissection TONSILLECTOMY 1974 TUBAL LIGATION Bilateral 1995 Family History Problem Relation Name Age of Onset Lymphoma Mother Diabetes Mother Hypertension Mother Heart disease Mother Stroke Mother Cancer Mother COPD Father Heart disease Father Diabetes Father Lung disease Father Cancer Father Allergies Brother Mental illness Maternal Grandmother Cancer Maternal Grandmother Diabetes Maternal Grandfather Heart disease Maternal Grandfather Heart disease Paternal Grandmother Heart disease Paternal Grandfather Mental illness Son Social History Tobacco Use Smoking status: Former Types: Cigarettes Smokeless tobacco: Never Substance Use Topics Alcohol use: Never Comment: caffeine: tea, 1-2 cups per day HPI MIGRAINE -botox done last month -she states that her migraines are less in frequency -she feels botox this round has helped 50-70% -on Ajovy this helps but only last about 3 weeks -she states after this second round of botox her migraines have been better -she gets about 1 a month -Ubrelvy 100mg for break through migraines. Has to take 2 doses generally -she was averaging 10-15 headaches per month and now is around 8 headaches days per month -she got a zero gravity massage chair for [employer] and she uses 15 minutes per day and has noted some benefit for her neck -dull HADDAD that last all day and located occipital and at her crown -she has insomnia and has about 2 nights a week where she does not sleep at all -other nights she is sleeping 10 hours -she tosses and turns all night TREMOR -denies overall worsening -she thinks Botox has helped with this -on xanax -she takes this as needed -she only takes PRN, 1-2 times per month when she is out in a crowd GAIT INSTABILITY -denies any worsening -she feels like she drags her feet and she trips over her toes -N/T in her feet and up to knees -intermittent, worse at night -worse in her left leg and hip -denies any recent falls NECK PAIN -no overall worsening -pain is bilateral -botox has helped -can have symptoms in the arms -only taking Flexril twice a day ROS Review of Systems Constitutional: Positive for chills. Negative for fever. Respiratory: Negative. Negative for chest tightness and shortness of breath. Cardiovascular: Negative for chest pain and palpitations. Gastrointestinal: Negative for abdominal pain, nausea and vomiting. Musculoskeletal: Positive for neck pain. Neurological: Positive for dizziness, tremors, light-headedness and headaches. Negative for seizures, syncope, facial asymmetry, speech difficulty, weakness and numbness. Psychiatric/Behavioral: Negative for agitation, confusion and sleep disturbance. Endocrine: Negative. Objective Visit Vitals BP 126/88 Ht 4' 11 Wt 152 lb BMI 30.70 kg/m Smoking Status Former BSA 1.69 m GENERAL Apical RRR, no murmur Neurological Exam Mental Status Awake, alert and oriented to person, place and time. Recent and remote memory are intact. Speech is normal. Language is fluent with no aphasia. Attention and concentration are normal. Fund of knowledge is appropriate for level of education. Cranial Nerves CN III, IV, : Extraocular movements intact bilaterally. Normal lids and orbits bilaterally. Pupils equal round and reactive to light bilaterally. CN V: Facial sensation is normal. CN VII: Full and symmetric facial movement. CN VIII: Hearing is normal. CN IX, X: Palate elevates symmetrically. Normal gag reflex. CN XI: Shoulder shrug strength is normal. CN XII: Tongue midline without atrophy or fasciculations. Sensory Light touch is normal in upper and lower extremities. Temperature is normal in upper and lower extremities. Coordination Right: Ctipwn-[id number] normal. Rapid alternating movement normal.Left: Mlvmxo-ge-abvg normal. Rapid alternating movement normal. Persistent tremor that affects all extremities and head. Gait Able to rise from chair without using arms. Functional, steppage gait. Motor Examination RUE Strength deltoid, biceps, triceps, wrist extensors, wrist extensors, wrist flexor, school counsellor strength 5/5. LUE Strength deltoid, biceps, triceps, wrist extensors, wrist extensors, wrist flexor, school counsellor strength 5/5. RLE Strength illopsoas, quadriceps, tibialis anterior, and gastrocnemius strength 5/5. LLE Strength illopsoas, quadriceps, tibialis anterior, and gastrocnemius strength 5/5. Tone Normal tone x4 extremities. Reflexes: RUE biceps reflex 3, brachioradialis reflex 3 LUE biceps reflex 3, brachioradialis reflex 3 RLE knee reflex 3, LLE knee reflex 3, Assessment and Plan 1. Functional Tremor - Patient has persistent tremor that is generalized and worse in her head and upper extremities as well as gait instability with a steppage type gait with tremor noted in her lower extremities. Tremor is most consistent with a functional tremor and/or essential tremor worsened by stress and anxiety. She is following with a movement disorder clinic, Dr Ramirez, in [place] and diagnosed with FND w/tremor. They have weaned her off the primodone. She does respond to xanax somewhat and takes this rarely. Klonopin did not help. She also has trileptal for headaches which can help with tremor. MRI of the brain in 2017 was normal. She is in CBT and speech therapy. Botox has helped lessen the tremor slightly. 2. Migraine - Headaches that turn into migraines that lessened in intensity with Trileptal and Ajovy. Imitrex and Cambia were not effective. CT of the sinuses 07/2018 was normal. Relpax was no longer effective. Patient has trialed amitriptyline and had side effect. She is currently on lexapro, so will avoid additional antidepressants. She has trialed Ubrelvy 100mg but occasionally has to redose. She does not respond to steroids. Depacon/magnesium infusion caused nausea and diarrhea. She continues on flexeril, trileptal, Ajovy and ubrelvy with persistent headaches, but less severe, that she relates to neck pain and tremor which is likely playing a role. She is now getting Botox and has had a 50-70% lessening in her migraine frequency. 3. Memory changes - Was having issues with expressing her thoughts and what she describes as dyslexia. MOCA 11/01/2022 is 20/30. B12 and MMA were within normal range, folate slightly low at 7.8, TSH within normal range at 0.856, free T4 slightly low at 0.44. Sleep study 12/05/2022 negative for ROSA M. Neuropsychology evaluation revealed no clear pattern of cognitive impairment. Symptoms of fluctuating distractibility and attention difficulties thought to be worsened by underlying depression, anxiety, OCD like tendencies, fatigue, poor sleep, chronic pain, significant tremors, and medication side effects. She denies worsening. 4. Degenerative cervical spine disease - The patient was hyperreflexic on exam. MRI C spine 03/24/21 revealed joint spurring and moderate broad based disc bulge at C4-C5 with no significant stenosis. She continues with stiffness and slight decrease ROM when rotating head to the right. She is on flexeril. She does report some gait instability and falls. Dr Ramirez had tried her on Neurontin which did not help. Her symptoms persist. 5. Hypersomnia - Patient experiences chronic daytime fatigue with associated memory changes, and headaches possibly. Sleep study 11/2022 was negative for ROSA M. Medication side effect may also be contributing to her symptoms. She does report previous history of ROSA M prior to gastric bypass surgery. She will nap throughout the day due to fatigue. At baseline. 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 Continue with Botox by Dr. Dhillon. 2. Continue Ajovy for migraine prevention therapy every 3 months. 3. Continue Flexeril 5mg PO TID prn muscle spasm. 4. Continue Ubrelvy 100mg for abortive migraine therapy. 5. I counseled the patient on fall precautions. I discussed the high risk of trauma and debility associated with falls. Patient verbalized understanding. Follow up 4 months documented in this encounter [facility] 10-23-2024 History of Present illness Narrative Images from the original note were not included. Procedure - Therapeutic injection, Botulinum Toxin, Chronic Migraine Indication Chronic Migraine 54 year old female With chronic migraine Without aura that are intractable. She has more than 15 headache days a month and more than 8 of those are migraine. They last more than 4 hours and worse with exertion. She has tried and failed multiple different classes of medication. She meets all criteria for chronic migraine and for the necessity of Botox injections. The 1st set was not as helpful we would like so we will go ahead and go up on the dose of the 200 unit see if that is helpful. She also has a significant essential head tremor and I am hopeful that more in the cervical area may diminish the head tremor which may also help with some of the headaches if the muscle tightness is instigating them. Identification The patient was positively identified by name and date of . Consent The procedure with risks and benefits was explained to the patient. The risks included but were not limited to bleeding/bruising, weakness, ptosis, dysphagia, infection, and . Informed consent for the procedure was obtained and witnessed. All further questions were answered during this visit. Site Prep The areas to be injected were sterilized with 70% isopropanol alcohol. Lot # [id number] Exp: 01/2027 Dilution: 1:1 Procedure Procerus 10 units Ship Design Teacher, L 5 units Ship Design Teacher, R 5 units Frontalis, L 10+5 units Frontalis, R 10+5 units Temporalis, L 10+5+5+5 units Temporalis, R 10+5+5+5 units Occipitalis, L 5+5+5 units Occipitalis, R 5+5+5 units Paraspinalis cervicis, L 10+10 units Paraspinalis cervicis, R 10+10 units Trapezius, L 5+5+5 units Trapezius, L 5+5+5 units Other TOTAL UNITS INJECTED 200 WASTED 0 Disposition The patient tolerated the procedure well. Post-op care was discussed. The patient is aware that duration of action is ~ 90 days, and that delay in reinjection often results in recurrence of migraines Patient Instructions The patient was instructed to call or return for any excessive,weakness or any other unexpected symptoms. Assessment Chronic migraine without aura, intractable, without status migrainosus - G43.719 documented in this encounter [facility] 06-26-2024 History of Present illness Narrative Images from the original note were not included. Procedure - Therapeutic injection, Botulinum Toxin, Chronic Migraine Indication Chronic Migraine 54 year old female With chronic migraine Without aura that are intractable. They have been refractory to treatment. She has tried and failed at least 3 different classes of preventative and abortive medication. They do last more than 4 hours. She does meet the criteria for chronic migraine and meets the criteria for Botox injections. She is here for her 1st set of Botox injections today. Identification The patient was positively identified by name and date of . Consent The procedure with risks and benefits was explained to the patient. The risks included but were not limited to bleeding/bruising, weakness, ptosis, dysphagia, infection, and . Informed consent for the procedure was obtained and witnessed. All further questions were answered during this visit. Site Prep The areas to be injected were sterilized with 70% isopropanol alcohol. Lot # [id number] Exp: 09/2026 Dilution: 1:1 Procedure Procerus 5 units Ship Design Teacher, L 5 units Ship Design Teacher, R 5 units Frontalis, L 5+5 units Frontalis, R 5+5 units Temporalis, L 5+5+5+5 units Temporalis, R 5+5+5+5 units Occipitalis, L 5+5+5 units Occipitalis, R 5+5+5 units Paraspinalis cervicis, L 5+5 units Paraspinalis cervicis, R 5+5 units Trapezius, L 5+5+5 units Trapezius, L 5+5+5 units Other TOTAL UNITS INJECTED 155 WASTED 45 Disposition The patient tolerated the procedure well. Post-op care was discussed. The patient is aware that duration of action is ~ 90 days, and that delay in reinjection often results in recurrence of migraines Patient Instructions The patient was instructed to call or return for any excessive,weakness or any other unexpected symptoms. Assessment Chronic migraine without aura, intractable, without status migrainosus - G43.719 documented in this encounter [facility] 10-15-2023 History of Present illness Narrative Patient name and verified. Movement [...] with Essential Tremors by Dr. Chauhan at [facility]. The head was always moving side [...] She may benefit from cognitive behavioral therapy. Plan as worded to the patient: Your [...] months Total time: 33 minutes, which includes istv-kj-dtvu time, counseling and educating the patient, chart completion, reviewing records and relevant labs/imaging, review of medications, changes in medical history and placing referrals. Signed, Bhavesh Ramirez MD [employer] Police Officer - Clinical Movement Disorders Division Department of Neurology [facility] documented in this encounter [facility] 10-15-2023 Instructions Saroj Ramirez MD - [...] in 6 months documented in this encounter [facility] 08-20-2023 Evaluation note Encounter Date Diagnosis [...] procedure explained to patient; patient verbalizes understanding. ii4b Other 06-30-2023 History of Present illness Narrative* Saroj Ramirez MD - 05/04/2023 8:00 AM EDT Movement Disorders Clinic New Patient Visit Miriam Estrada is here today to the Movement Disorders clinic for a new patient visit. She is accompanied by and additional history is obtained from her , Vick. She was referred by Tsesa Young MD regarding Severe tremors, wants to get a Deep Brain Stimulator HISTORY OF PRESENT ILLNESS: Handedness: right handed Onset of symptoms: 2016 Initial symptoms: Head tremor Miriam Estrada is [...] with Essential Tremors by Dr. Chauhan at [facility]. The head was always movingside to [...] interim. Total time: 71 minutes, which includes pqwm-ss-hrqu time, counseling and educating the patient, chart completion, reviewing records and relevant labs/imaging, review of medications, changes in medical history and placing referrals. Signed, Bhavesh Ramirez MD [employer] Police Officer - Clinical Movement Disorders Division Department of Neurology [facility]* Patient Instructions* Saroj Ramirez MD - [...] of normal function. 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) Jun, Alternating constipation and diarrhea (ICD-10 - R19.8) Pt to call if symptoms worsen [facility] Other Evaluation + Plan note Future Appointments Appointment Date:08/13/2024 01:40:00 PM Scheduled Provider:Katharina Wu Location:[facility] Appointment Type: Open Diagnostic Tests Pending * PAP 202021 w/ HPV and Genotype rflx [facility]14[facility] Work Phone: Evalukigxv note* Diagnosis Functional tremor- Primary Musculoskeletal malfunction arising from mental factors Functional gait disorder Abnormality of gait [facility]No [facility] Other Evaluation note* Diagnosis Functional tremor- Primary Musculoskeletal malfunction arising from mental factors Functional gait disorder Abnormality of gait Restless legs syndrome (RLS) [facility] Diagnosis Essential tremor- Primary Adjustment disorder with anxiety (CMS/HCC) Adjustment disorder with anxiety 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) Dizziness Dizziness and giddiness Acquired hypothyroidism (CMS/HCC) Unspecified hypothyroidism Viral upper respiratory tract infection- Primary Acute upper respiratory infections of unspecified site Adjustment disorder with anxiety (CMS/HCC) Adjustment disorder with anxiety Acute non-recurrent maxillary sinusitis Migraine without aura and without status migrainosus, not intractable (CMS/HCC)- Primary Essential tremor [facility] Diagnosis Adjustment disorder with anxiety (CMS/HCC) Adjustment disorder with anxiety [facility] Diagnosis Intractable chronic migraine without aura and without status migrainosus (CMS/HCC)- Primary [facility] Diagnosis Essential tremor- Primary Adjustment disorder with anxiety (CMS/HCC) Adjustment disorder with anxiety 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) Dizziness Dizziness and giddiness Acquired hypothyroidism (CMS/HCC) Unspecified hypothyroidism Viral upper respiratory tract infection- Primary Acute upper respiratory infections of unspecified site Adjustment disorder with anxiety (CMS/HCC) Adjustment disorder with anxiety Acute non-recurrent maxillary sinusitis Intractable chronic migraine without aura and without status migrainosus (CMS/HCC)- Primary [facility] Diagnosis Essential tremor- Primary Adjustment disorder with anxiety (CMS/HCC) Adjustment disorder with anxiety 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) Dizziness Dizziness and giddiness Acquired hypothyroidism (CMS/HCC) Unspecified hypothyroidism Viral upper respiratory tract infection- Primary Acute upper respiratory infections of unspecified site Adjustment disorder with anxiety (CMS/HCC) Adjustment disorder with anxiety Acute non-recurrent maxillary sinusitis Intractable chronic migraine without aura and without status migrainosus (CMS/HCC)- Primary Essential tremor 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) [facility] Diagnosis Functional neurological symptom disorder (conversion disorder), with abnormal movement- Primary [facility] Diagnosis Essential tremor- Primary Adjustment disorder with anxiety (CMS/HCC) Adjustment disorder with anxiety 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) Dizziness Dizziness and giddiness Acquired hypothyroidism (CMS/HCC) Unspecified hypothyroidism Viral upper respiratory tract infection- Primary Acute upper respiratory infections of unspecified site Adjustment disorder with anxiety (CMS/HCC) Adjustment disorder with anxiety Acute non-recurrent maxillary sinusitis Primary insomnia- Primary Persistent disorder of initiating or maintaining sleep ETD (Eustachian tube dysfunction), left [facility] Diagnosis Essential tremor- Primary Adjustment disorder with anxiety (CMS/HCC) Adjustment disorder with anxiety 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) Dizziness Dizziness and giddiness Acquired hypothyroidism (CMS/HCC) Unspecified hypothyroidism Viral upper respiratory tract infection- Primary Acute upper respiratory infections of unspecified site Adjustment disorder with anxiety (CMS/HCC) Adjustment disorder with anxiety Acute non-recurrent maxillary sinusitis Wellness examination- Primary Encounter for screening mammogram for malignant neoplasm of breast Primary insomnia Persistent disorder of initiating or maintaining sleep Liver disease Unspecified disorder of liver Sicca syndrome (CMS/HCC) Sicca syndrome Acquired hypothyroidism (CMS/HCC) Unspecified hypothyroidism Impaired fasting glucose Vitamin B deficiency Unspecified vitamin B deficiency Vitamin D deficiency Other iron deficiency anemia 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 (CMS/HCC) Other and unspecified postsurgical nonabsorption Essential tremor Sjogren's syndrome with keratoconjunctivitis sicca Seasonal allergic rhinitis due to pollen History of COVID-19 Carpal tunnel syndrome, right upper limb Dizziness Dizziness and giddiness Spasmodic torticollis Migraine with aura and without status migrainosus, not intractable (CMS/HCC) Pruritus of vagina Pruritus of genital organs Restless legs syndrome (RLS) Ulnar neuropathy of right upper extremity Disorder of lung with Sjogren's syndrome (HCC) (CMS/HCC) Interstitial lung disease (CMS/HCC) 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) Unspecified alveolar and parietoalveolar pneumonopathy Gastroesophageal reflux disease without esophagitis Esophageal reflux Slow transit constipation Other ulcerative colitis without complication Atrophy of vagina Postmenopausal atrophic vaginitis Excessive and frequent menstruation Excessive or frequent menstruation Female stress incontinence Urge incontinence of urine Urge incontinence Arthritis of right acromioclavicular joint Arthritis of right hand Fibromyalgia Unspecified myalgia and myositis Internal derangement of right shoulder Sacroiliac joint pain Disorders of sacrum Postablative ovarian failure Chronic sinusitis, unspecified location Diverticulosis of colon without hemorrhage Herpes simplex with complication Unspecified herpes simplex complication Abnormal laboratory test result Other abnormal clinical finding Adjustment disorder with anxiety (CMS/HCC) Adjustment disorder with anxiety Atypical depressive disorder (CMS/HCC) Atypical depressive disorder Dry eyes Unspecified tear film insufficiency 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) History of gestational diabetes mellitus History of hysterectomy Acquired absence of both cervix and uterus Memory changes Overweight Former smoker Personal history of tobacco use, presenting hazards to health [facility] Diagnosis Essential tremor- Primary Adjustment disorder with anxiety (CMS/HCC) Adjustment disorder with anxiety 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) Dizziness Dizziness and giddiness Acquired hypothyroidism (CMS/HCC) Unspecified hypothyroidism Viral upper respiratory tract infection- Primary Acute upper respiratory infections of unspecified site Adjustment disorder with anxiety (CMS/HCC) Adjustment disorder with anxiety Acute non-recurrent maxillary sinusitis Essential tremor- Primary Migraine without aura and without status migrainosus, not intractable (CMS/HCC) Memory changes [facility] Diagnosis Essential tremor- Primary Adjustment disorder with anxiety (CMS/HCC) Adjustment disorder with anxiety 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) Dizziness Dizziness and giddiness Acquired hypothyroidism (CMS/HCC) Unspecified hypothyroidism Viral upper respiratory tract infection- Primary Acute upper respiratory infections of unspecified site Adjustment disorder with anxiety (CMS/HCC) Adjustment disorder with anxiety Acute non-recurrent maxillary sinusitis Vitamin D deficiency- Primary Vitamin B deficiency Unspecified vitamin B deficiency [facility] Diagnosis Essential tremor- Primary Adjustment disorder with anxiety (CMS/HCC) Adjustment disorder with anxiety 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) Dizziness Dizziness and giddiness Acquired hypothyroidism (CMS/HCC) Unspecified hypothyroidism Viral upper respiratory tract infection- Primary Acute upper respiratory infections of unspecified site Adjustment disorder with anxiety (CMS/HCC) Adjustment disorder with anxiety Acute non-recurrent maxillary sinusitis Vitamin B deficiency- Primary Unspecified vitamin B deficiency Vitamin D deficiency Impaired fasting glucose Acquired hypothyroidism (CMS/HCC) Unspecified hypothyroidism Other iron deficiency anemia Elevated liver enzymes Other nonspecific abnormal serum enzyme levels Thrombocytosis Essential thrombocythemia [facility] N[facility] - Reported* Type Description Date Surgical History CHOLECYSTECTOMY 2007 Surgical History GASTRIC BYPASS RUEN-Y 2006 Surgical History HYSTERECTOMY 2007 Surgical History TUBAL LIGATION Hospitalization History see above ii4b Other Hospital course Narrative No data available for this section [facility] No data available for this section [facility] No data available for this section [facility] (n[facility]ative)* Consultation (Routine) - New Request Specialty Diagnoses / Procedures Referred By Tyrone chavarria Referred To Contact Neurology Diagnoses Functional tremor Saroj Ramirez MD [address] [place] [id number] Referral ID Status Reason Start Date Expiration Date V isits Requested Visits Authorized [id number] New Request 10/15/2023 11/08/2024 1 [facility]No reason for referral information availableCh[facility] Work Phone: Summary Purpose Family History No Family History Records Found Relationship Condition Age at Onset Recorded Date/T dayron father Myocardial infarction Unknown Chronic obstructive pulmonary disease Unk nown mother Cerebrovascular accident (CVA) Unknown Hypertension Unknown Lymphoma Unknown family member Malignant neoplasm of stomach Unknown brother Unknown father Unknown family member Unknown Advance Directives No Advanced Directives Records Found Advance Directive Response Recorded Date/ Time Advance Directives No May 03 1:57pm Chief Complaint and Reason for Visit Chief Complaint g43.909 Additional Source Comments INFORMATION SOURCE (unrecogn ized section and content) DATE CREATED AUTHOR 11/13/2019 [facility] DATE CREATED AUTHOR AUTHOR'S ORGANIZ ATION 08/08/2022 [facility] dical Specialist DATE CREATED AUTHOR AUTHOR'S ORGANIZ ATION 03/20/[address] [facility] DATE CREATED AUTHOR AUTHOR'S ORGANIZ ATION 12/14/2023 [facility] DATE CREATED AUTHOR AUTHOR'S ORGANIZ ATION 05/23/2024 [facility] DATE CREATED AUTHOR AUTHOR'S ORGANIZ ATION 08/11/2024 [facility] DATE CREATED AUTHOR AUTHOR'S ORGANIZ ATION 08/14/[address] [facility] DATE CREATED AUTHOR AUTHOR'S ORGANIZ ATION 02/24/2025 [facility] DATE CREATED AUTHOR AUTHOR'S ORGANIZ ATION 03/14/2025 [facility] DATE CREATED AUTHOR AUTHOR'S ORGANIZ ATION 03/20/2025 [facility] dical Specialists EPIC DATE CREATED AUTHOR AUTHOR'S ORGANIZ ATION 06/17/2025 [facility] Care Teams (unrecognized sec tion and content) Team Status: Active Member Role Status Dates Tessa Young MD Primary Care Provider Active Team Status: Inactive Member Role Status Dates Tessa Young MD Primary Care Provider Active S tart: April 30, 2025 End: April 30, 2025 Jeff Dhillon DO Attending Provider Active Sta rt: April 30, 2025 End: April 30, 2025 Team Status: Inactive Member Role Status Dates Tessa Young MD Primary Care Provider Active MARRY PalenciaC Attending Provider Active Crayon Sawyer Relationship Specialty Start Date End Date Tessa Young MD [address] [facility] [address] [place] [address] PCP - General Family Medicine 05/04/23 Crayon Sawyer Relationship Specialty Start Date End Date Tessa Young MD [address] [facility] [address] [place] [address] PCP - General Family Medicine 05/04/23 Crayon Sawyer Relationship Specialty Start Date End Date Tessa Young MD [address] [facility] [address] [place] [address] PCP - General Family Medicine 04/10/23 Tessa Young MD [address] [facility] [address] [place] [address] PCP - Medical [employer] 11/05/02 11/04/99 Crayon Sawyer Relationship Specialty Start Date End Date Tessa Young MD [address] [facility] [address] [place] [address] PCP - General Family Medicine 04/10/23 Tessa Young MD [address] [facility] [address] [place] [address] PCP - Medical [employer] 11/05/02 11/04/99 Crayon Sawyer Relationship Specialty Start Date End Date Tessa Young MD [address] [facility] [address] [place] [address] PCP - General Family Medicine 04/10/23 Tessa Young MD [address] [facility] [address] [place] [address] PCP - Medical [employer] 11/05/02 11/04/99 Crayon Sawyer Relationship Specialty Start Date End Date Tessa Young MD [address] [facility] [address] [place] [address] PCP - General Family Medicine 04/10/23 Tessa Young MD [address] [facility] [address] [place] [address] PCP - Medical [employer] 11/05/02 11/04/99 Crayon Sawyer Relationship Specialty Start Date End Date Tessa Young MD [address] [facility] [address] [place] [address] PCP - General Family Medicine 04/10/23 Tessa Young MD [address] [facility] [address] [place] [address] PCP - Medical [employer] 11/05/02 11/04/99 Crayon Sawyer Relationship Specialty Start Date End Date Tessa Young MD [address] [facility] [address] [place] [address] PCP - General Family Medicine 04/10/23 Tessa Young MD [address] [facility] [address] [place] [address] PCP - Medical [employer] 11/05/02 11/04/99 Crayon Sawyer Relationship Specialty Start Date End Date Tessa Young MD [address] [facility] [address] [place] [address] PCP - General Family Medicine 04/10/23 Tessa Young MD [address] [facility] [address] [place] [address] PCP - Medical [employer] 11/05/02 11/04/99 Crayon Sawyer Relationship Specialty Start Date End Date Tessa Young MD [address] [facility] [address] [place] [address] PCP - General Family Medicine 04/10/23 Tessa Young MD [address] [facility] [address] [place] [address] PCP - Medical [employer] 11/05/02 11/04/99 Crayon Sawyer Relationship Specialty Start Date End Date Tessa Young MD [address] [facility] [address] [place] [address] PCP - General Family Medicine 04/10/23 Tessa Young MD [address] [facility] [address] [place] [address] PCP - Medical [employer] 11/05/02 11/04/99 Crayon Sawyer Relationship Specialty Start Date End Date Tessa Young MD [address] [facility] [address] [place] [address] PCP - General Family Medicine 05/04/23 Crayon Sawyer Relationship Specialty Start Date End Date Tessa Young MD [address] [facility] [address] [place] [address] PCP - General Family Medicine 04/10/23 Tessa Young MD [address] [facility] [address] [place] [address] PCP - Medical [employer] 11/05/02 11/04/99 Crayon Sawyer Relationship Specialty Start Date End Date Tessa Young MD [address] [facility] [address] [place] [address] PCP - General Family Medicine 04/10/23 Tessa Young MD [address] [facility] [address] [place] [address] PCP - Medical [employer] 11/05/02 11/04/99 Crayon Sawyer Relationship Specialty Start Date End Date Tessa Young MD [address] [facility] [address] [place] [address] PCP - General Family Medicine 04/10/23 Tessa Young MD [address] [facility] [address] [place] [address] PCP - Medical [employer] 11/05/02 11/04/99 Crayon Sawyer Relationship Specialty Start Date End Date Tessa Young MD [address] [facility] [address] [place] [address] PCP - General Family Medicine 04/10/23 Tessa Young MD [address] [facility] [address] [place] [address] PCP - Medical [employer] 11/05/02 11/04/99 Crayon Sawyer Relationship Specialty Start Date End Date Tessa Young MD [address] [facility] [address] [place] [address] PCP - General Family Medicine 04/10/23 Tessa Young MD [address] [facility] [address] [place] [address] PCP - Medical [employer] 11/05/02 11/04/99 Crayon Sawyer Relationship Specialty Start Date End Date Tessa Young MD [address] [facility] [address] [place] [address] PCP - General Family Medicine 04/10/23 Tessa Young MD [address] [facility] [address] [place] [address] PCP - Medical [employer] 11/05/02 11/04/99 Crayon Sawyer Relationship Specialty Start Date End Date Tessa Young MD [address] [facility] [address] [place] [address] PCP - General Family Medicine 04/10/23 Tessa Young MD [address] [facility] [address] [place] [address] PCP - Medical [employer] 11/05/02 11/04/99 Crayon Sawyer Relationship Specialty Start Date End Date Tessa Young MD [address] [facility] [address] [place] [address] PCP - General Family Medicine 04/10/23 Tessa Young MD [address] [facility] [address] [place] [address] PCP - Medical [employer] 11/05/02 11/04/99 Crayon Sawyer Relationship Specialty Start Date End Date Tessa Young MD [address] [facility] [address] [place] [address] PCP - General Family Medicine 04/10/23 Tessa Young MD [address] [facility] [address] [place] [address] PCP - Medical [employer] 11/05/02 11/04/99 Goals (unrecognized section and content) Goals may be documented in a n alternate sectionNo InformationNo InformationNo Information No data available for this sectionGoals may be documented in an alternate section REASON FOR VISIT (unrecogniz ed section and content) Reason Comments New Patient 52 y.o female here f or consult. Specialty Diagnoses / Procedures Referred By Contdarrell t Referred To Contact Neurologic Surgery Diagnoses Essential tremor Tessa Young MD [address] [place] [address] Referral ID Status Reason Start Date Expiration Date V isits Requested Visits Authorized [id number] New Request 03/22/2023 04/15/2024 1 1 Reason Comments Follow-up tremor Reason Onset Date Comments Med Refill 07/21/2024 Reason Comments Botulinum Toxin Injection Reason Comments Migraine Neck Pain Reason Comments Follow-up FOR RECORDS PERTAINING TO PATIENTS WHO ARE [...] BE BASED ON THE PRIMARY CLINICAL RECORDS. [employer] [facility]. provides no warranty or guarantee of the accuracy or completeness of information in this document.
[2025-06-25 12:36] LABS: Alanine Aminotransferase 23 U/L (14-59); Albumin Globulin Ratio 1.1; Albumin Level 3.7 g/dL (3.4-5.0); Alkaline Phosphatase 103 U/L (46-116); Anion Gap 11.7; Aspartate Amino Transferase 19 U/L (15-37); Blood Urea Nitrogen 7.0 mg/dL (7.0-18.0); Calcium 8.6 mg/dL (8.5-10.1); Carbon Dioxide 25.4 mmol/L (21.0-32.0); Chloride 92 mmol/L (98-107); Estimated GFR (African America >60 (>=60 mL/min/1.73m^2); Estimated GFR (Non-African Ame >60 (>=60 mL/min/1.73m^2); Globulin 3.4 g/dL; Glucose 104 mg/dL (74-106); Potassium 4.1 mmol/L (3.5-5.1); Sodium 125 mmol/L (136-145); Total Protein 7.1 g/dL (6.4-8.2)
[2025-06-25 12:53] LABS: Hematocrit 30.1 % (36.0-48.0); Hemoglobin 10.5 g/dL (12.0-16.0); Immature Granulocytes Abs Auto 0.01 10^3/uL (0.00-0.03); Immature Granulocytes Pct Auto 0.2 % (0.0-0.5); Lymphocytes Absolute Auto 1.1 10^3/uL (1.2-3.8); Mean Corpuscular HGB Conc 34.9 g/dL (29.9-35.2); Mean Corpuscular Hemoglobin 31.1 pg (26.7-34.0); Mean Corpuscular Volume 89.1 fL (81.0-99.0); Platelet Count 452 10^3/uL (150-450); Red Blood Count 3.38 10^6/uL (4.20-5.40); White Blood Count 6.3 10^3/uL (4.0-11.0)
[2025-06-25 13:13] LABS: Iron 73.0 ug/dL (50.0-170.0); Percent Iron Saturation 16.9 %; Total Iron Binding Capacity 431.0 ug/dL (250.0-450.0)
[2025-06-25 13:36] LABS: Ferritin 17.0 ng/mL (8.0-252.0)
[2025-06-26 04:08] LABS: Transferrin 339 mg/dL (192-364); Vitamin B12 632 pg/mL (232-1245)
== END 2025-06-25 11:36 | disposition home or self-care (01) ==
LOC: LAB 11:35
PROVIDERS: PCP Family Medicine; Visit Provider Physician Assistant
DX: E53.9 Vitamin B deficiency, unspecified (principal); D50.8 Other iron deficiency anemias; D75.839 Thrombocytosis, unspecified; E55.9 Vitamin D deficiency, unspecified; R73.01 Impaired fasting glucose; R74.8 Abnormal levels of other serum enzymes
CPT/HCPCS: 36415; 80053; 82306; 82607; 82728; 83540; 83550; 84466; 85025

== ENCOUNTER 2025-06-30 13:23 | Emergency (ER) | payer OTHER, SELFPAY ==
--- OUTSIDE RECORDS SUMMARY | 2025-06-26 11:00 | XMS_ITS | Encounter Summary ---
Author Organization [facility] enter Address [address] [place] [address] Care Team Providers Care Icing Mixer Name Role Phone Kristin Witt MD Primary Care Provider [phone] Reason for Visit * Reason Comments Counseling Follow-up Encounter Details Date Type Department Care Team ([facility] st Contact Info) Description 06/26/2025 11:00 AM EDT Telemed Clin Support Neurology Outpatient [facility] [place] [address] [place] [address] Analia Perez LISW [address] [place] [address] Adjustment disorder with mixed anxiety and depressed mood (Primary Dx); Functional neurological symptom disorder (conversion disorder), with abnormal movement; Functional tremor; Functional gait disorder Social History Tobacco Use Types Packs/Day Years Used Date Smoking Tobacco: Some Days Cigarettes Smokeless Tobacco: Never Alcohol Use Standard Drinks/Week Comments Yes 1 (1 standard drink = 0.6 oz pur e alcohol) Depression Answer Date Recorded PHQ-9 Total Score (Interpret ation of Total Score 1-4 = Minimal depression; 5-9 = Mild depression; 10-14 = Moderate depression; 15-19 = Moderately severe depression) 8 11/27/2024 Comments Unknown Sex and Gender Information Value Date Recorded Sex Assigned at Not on file Legal Sex Female 3:01 PM EDT Gender Identity Female 11/27/2024 6:15 PM EST Sexual Orientation Straight 11/27/2024 6: 15 PM EST documented as of this encounter Progress Notes * EITAN Selby - 06/26/2025 11:00 AM EDT You are about to read part of the chart with sensitive personal information. This part of the chart should not be discussed without provider and patient approval. OUTPATIENT BEHAVIORAL HEALTH PROGRESS NOTE (Neurology) Patient unable to meet due to change in her schedule. Rescheduled. JACEK Eastman, EITAN-S Clinical Program Manager Transportation [facility] Department of Neurology-Outpatient Care [place] [phone] direct phone documented in this encounter Plan of Treatment Upcoming Encounters Date Type Department Care Team (Late st Contact Info) Description 07/03/2025 1:00 PM EDT Telemed Clin Support Neurology Outpatient [facility] [place] [address] [place] [address] Analia Perez LISW [address] [place] [address] documented as of this encounter Visit Diagnoses Diagnosis Adjustment disorder with mixed anxiety and depressed mood- Primary Functional neurological symptom disorder (conversion disorder), with abnormal movement Functional tremor Musculoskeletal malfunction arising from mental factors Functional gait disorder Abnormality of gait documented in this encounter Additional Health Concerns Assessment Noted Time PHQ-9 Depression Total Score: 8 11/27/19 25 2:17 PM EST A fall risk assessment has been complete d for the patient 11/28/2024 7:00 AM EST documented as of this encounter Care Teams Icing Mixer Relationship Specialty Start Date End Date Kristin Witt MD [address] [place] [address] PCP - General Family Medicine 05/04/23 documented as of this encounter
--- OUTSIDE RECORDS SUMMARY | 2025-06-29 14:00 | XMS_ITS | Encounter Summary ---
Author Organization [facility] Address [address] [facility] [place] [address] Care Team Providers Care Spice Cleaner Name Role Phone Kristin Witt MD Primary Care Provider [phone] Kristin Witt MD Unavailable Reason for Referral * Consultation (Routine) - Authorized Specialty Diagnoses / Procedures Referred By Contac t Referred To Contact Gastroenterology Diagnoses Other ulcerative colitis without complication (HCC) Alternating constipation and diarrhea Dark stools Anemia, unspecified type Procedures [place] OFFICE/OUTPATIENT [facility] 60 MINUTES Yolanda Jimenez PA [address] [facility] [[email or web address] [address] [place] [address] Phone: tel: fax: Mariza Paredes MD [facility] Referrals ONLY fax: Referral ID Status Reason Start Date Expiration Date Visits Requested Visits Authorized [id number] Authorized Specialty Services Required 06/29/2025 12/26/2025 1 1 Reason for Visit * Reason Comments Med Refill Alprazolam Encounter Details Date Type Department Care Team (Late st Contact Info) Description 06/29/2025 2:00 PM EDT Office Visit [facility] [address] [place] [address] [place] [address] Yolanda Jimenez PA [address] [facility] [[email or web address]] [address] [place] [address] Hyponatremia (Primary Dx); Adjustment disorder with anxiety ; Other ulcerative colitis without complication (HCC); Alternating constipation and diarrhea; Dark stools; Anemia, unspecified type; Seasonal allergic rhinitis due to pollen Social History Tobacco Use Types Packs/Day Years Used Date Smoking Tobacco: Former Cigarettes Smokeless Tobacco: Never Alcohol Use Standard Drinks/Week Comments Never 0 (1 standard drink = 0.6 oz pure alcohol) caffeine: tea, 1-2 cups per day PHQ-2 Answer Date Recorded Patient Health Questionnaire-2 Score 0 06/29/2025 Comments Unknown Sex and Gender Information Value Date Recorded Sex Assigned at Female 07/03/2023 10:46 AM EDT Legal Sex Female 7:20 PM EDT Gender Identity Female 07/03/2023 10:46 AM EDT Sexual Orientation Not on file documented as of this encounter Last Filed Vital Signs Vital Sign Reading Time Taken Comments Blood Pressure 138/98 06/29/2025 2:12 PM EDT Pulse 85 06/29/2025 2:12 PM EDT Temperature - - Respiratory Rate 16 06/29/2025 2:12 PM EDT Oxygen Saturation 98% 06/29/2025 2:12 PM EDT Inhaled Oxygen Concentration - - Weight 66.9 kg (147 lb 6.4 oz) 06/29/2025 2:12 P M EDT Height 149.9 cm (4' 11 ) 06/29/2025 2:12 PM EDT Body Mass Index 29.77 06/29/2025 2:12 PM EDT documented in this encounter Functional Status * Over the past 2 weeks, how often have you been bothered by any of the following problems? Question Answer Date of Assessment Author Little interest or pleasure in doing things Not at all 06/29/2025 2:07 PM EDT Britt Paul LP N Feeling down, depressed, or hopeless Not at all 06/29/2025 2:07 PM EDT Britt Paul LP N Patient Health Questionnaire -2 Score 0 06/29/2025 2:07 PM EDT Britt Paul LP N documented as of this encounter Progress Notes * ALPA Florez - 06/29/2025 2:00 PM EDT Images from the original note were not included. HPI Med Refill Additional comments: Alprazolam Last edited by Britt Paul LPN on 06/29/2025 2:11 PM. Subjective Patient ID: Jennifer Estrada is a 55 y.o. female who presents to discuss lab results. Jennifer is present today to discuss abnormal lab results. She had labs completed on 06/25/25 with several abnormals. Cut back her water intake this weekend. Started drinking Vitamin Water. States her allergies are off the charts this past week. Taking Singulair, nasal rinses in the morning when needed, Flonase, and Zyrtec D, but still having symptoms. Admits to alternating constipation and diarrhea, admits to dark, sticky stools. Over the past 2 weeks, how often have you been bothered by any of the following problems? Little interest or pleasure in doing things: Not at all (currently on medications) Feeling down, depressed, or hopeless: Not at all (currently on medication) Patient Health Questionnaire-2 Score: 0 Current Outpatient Medications on File Prior to Visit Medication Sig Dispense Refill ALPRAZolam (Xanax) 0.5 MG tablet Take 1 tablet (0.5 mg) by mouth every 12 (twelve) hours for 15 days PRN 30 tablet 0 Atogepant (Qulipta) 60 MG tablet Take 1 tablet by mouth Daily Neurology prescribes. 30 tablet 2 cholecalciferol (Vitamin D-3) 1.25 MG (78831 UT) capsule Take 1 capsule (1.25 mg) by mouth See administration instructions Take 1 capsule once a week x 4 weeks, then take 1 capsule monthly. 6 capsule0 clonazePAM (KlonoPIN) 0.5 MG tablet Take 1 tablet by mouth at bedtime PRN cyclobenzaprine (Flexeril) 5 MG tablet TAKE 1 TABLET THREE TIMES A DAY NEEDED FOR MUSCLE SPASM 270 tablet 3 escitalopram (Lexapro) 20 MG tablet TAKE ONE AND ONE-HALF TABLETS DAILY 135 tablet 3 estrogens, conjugated, (Premarin) 1.25 MG tablet TAKE 1 TABLET IN THE MORNING 100 tablet 3 famotidine (Pepcid) 20 MG tablet [...] TAKE 1 TABLET DAILY 90 tablet 3 Multiple Vitamin (multivitamin) tablet Take 1 tablet by mouth Daily OnabotulinumtoxinA (BOTOX IJ) Inject as directed One injection every 3 months for migraines and tremors OXcarbazepine (Trileptal) 300 MG tablet TAKE ONE AND ONE-HALF TABLETS TWICE A DAY 270 tablet 3 saccharomyces boulardii (Florastor) 250 MG capsule Take 250 mg by mouth Daily sucralfate (Carafate) 1 GM/10ML suspension Take 10 mL by mouth On an empty stomach before meals andbedtime traZODone (Desyrel) 50 MG tablet Take 1-1.5 tablets (50-75 mg) by mouth as needed at bedtime for sleep 135 tablet 0 Ubrogepant (Ubrelvy) 100 MG tablet TAKE 1 TAB AT ONSET OF MIGRAINE NEEDED, MAY REPEAT 1 TAB IN 2HRS NO MORE THAN 2/DAY AND 2/WK 16 [...] pain in female Carpal tunnel syndrome Depression Diverticulitis 05/22/2023 Diverticulosis Encounter for gynecological examination [...] fatigue with associated memory changes, and headaches possibly.Sleep study 11/2022 was negative for ROSA M. Medication side effect may also be contributing to her symptoms. She does report previous history of ROSA M prior to gastric bypass surgery. She will nap throughout the day due to fatigue. Hypoglycemic disorder IBS (irritable bowel syndrome) Intestinal obstruction (HCC) 07/23/2015 Menopause Migraine Negative Hepatitis B and [...] on hormone replacement therapy Tremor Ulcerative colitis (HCC) 2000 Vaginal atrophy Vaginal itching Past Surgical History: Procedure Laterality Date BREAST SURGERY 2009 breast lift and augmentation CHOLECYSTECTOMY 2007 COLONOSCOPY 2016 polyp COLONOSCOPY 2015 polyps EXPLORATORY LAPAROTOMY 2014 Dr. Ferrera - adhesions lysis GASTRIC BYPASS 2006 ROUEN-Y HYSTERECTOMY 2007 LYMPH NODE DISSECTION 2011 marked for dissection TONSILLECTOMY 1974 TUBAL LIGATION Bilateral 1995 Visit Vitals BP (!) 138/98 Pulse 85 Resp 16 Ht 4' 11 Wt 147 lb 6.4 oz SpO2 98% BMI 29.77 kg/m?? Smoking Status Former BSA 1.67 m?? Review of Systems Constitutional: Negative for chills, fatigue and fever. HENT: Positive for postnasal drip and sore throat. Respiratory: Negative for cough, shortness of breath and wheezing. Cardiovascular: Negative for chest pain, palpitations and leg swelling. Gastrointestinal: Positive for constipation and diarrhea. Negative for abdominal pain, nausea and vomiting. Dark stools Skin: Negative for rash. Neurological: Positive for headaches. Objective Physical Exam Constitutional: General: She is [...] and Affect: Mood normal. Behavior: Behavior normal. Clinisync Result Encounter on 06/25/2025 Component Date Value Ref Range Status SODIUM 06/25/2025 125 (L) 136 - 145 mmol/L Final POTASSIUM 06/25/2025 4.1 3.5 - 5.1 mmol/L Final CHLORIDE 06/25/2025 92 (L) 98 - 107 mmol/L Final CARBON DIOXIDE 06/25/2025 25.4 21.0 - 32.0 mmol/L Final ANION GAP 06/25/2025 11.7 Final GLUCOSE 06/25/2025 104 74 - 106 mg/dL Final BLOOD UREA NITROGEN 06/25/2025 7.0 7.0 - 18.0 mg/dL Final CREATININE 06/25/2025 0.67 0.55 - 1.02 mg/dL Final [facility] EGFR-AF FIJIAN 06/25/2025 >60 >=60 mL/min/1.73m 2 Final [facility] EGFR-NON AF FIJIAN 06/25/2025 >60 >=60 mL/min/1.73m 2 Final BUN CREATININE RATIO 06/25/2025 10.4 Final CALCIUM 06/25/2025 8.6 8.5 - 10.1 mg/dL Final BILIRUBIN TOTAL 06/25/2025 0.2 0.2 - 1.0 mg/dL Final ASPARTATE AMINO TRANSFERASE 06/25/2025 19 15 - 37 U/L Final ALANINE AMINOTRANSFERASE 06/25/2025 23 14 - 59 U/L Final ALKALINE PHOSPHATASE 06/25/2025 103 46 - 116 U/L Final TOTAL PROTEIN 06/25/2025 7.1 6.4 - 8.2 g/dL Final ALBUMIN LEVEL 06/25/2025 3.7 3.4 - 5.0 g/dL Final GLOBULIN 06/25/2025 3.4 g/dL Final ALBUMIN GLOBULIN RATIO 06/25/2025 1.1 Final [facility] WBC 06/25/2025 6.3 4.0 - 11.0 10 3/uL Final [facility] RBC 06/25/2025 3.38 (L) 4.20 - 5.40 10 6/uL Final [facility] HGB 06/25/2025 10.5 (L) 12.0 - 16.0 g/dL Final TB[facility] HCT 06/25/2025 30.1 (L) 36.0 - 48.0 % Final [facility] MCV 06/25/2025 89.1 81.0 - 99.0 fL Final [facility] MCH 06/25/2025 31.1 26.7 - 34.0 pg Final [facility] MCHC 06/25/2025 34.9 29.9 - 35.2 g/dL Final [facility] RDW 06/25/2025 13.0 11.0 - 15.0 % Final [facility] PLT 06/25/2025 452 (H) 150 - 450 10 3/uL Final [facility] MPV 06/25/2025 8.5 (L) 9.5 - 13.5 fL Final NEUTROPHILS PERCENT AUTO 06/25/2025 72.6 43.0 - 75.0 % Final LYMPHOCYTES PERCENT AUTO 06/25/2025 16.7 (L) 20.5 - 60.0 % Final MONOCYTES PERCENT AUTO 06/25/2025 6.5 1.7 - 12.0 % Final [facility] EO % 06/25/2025 2.7 0.9 - 7.0 % Final BASOPHILS PERCENT AUTO 06/25/2025 1.3 0.2 - 2.0 % Final IMMATURE GRANULOCYTES PCT AUTO 06/25/2025 0.2 0.0 - 0.5 % Final NEUTROPHILS ABSOLUTE AUTO 06/25/2025 4.6 1.4 - 6.5 10 3/uL Final LYMPHOCYTES ABSOLUTE AUTO 06/25/2025 1.1 (L) 1.2 - 3.8 10 3/uL Final MONOCYTES ABSOLUTE AUTO 06/25/2025 0.4 0.3 - 0.8 10 3/uL Final [facility] EO # 06/25/2025 0.2 0.0 - 0.7 10 3/uL Final BASOPHILS ABSOLUTE AUTO 06/25/2025 0.1 0.0 - 0.1 10 3/uL Final IMMATURE GRANULOCYTES ABS AUTO 06/25/2025 0.01 0.00 - 0.03 10 3/uL Final [facility] IRON 06/25/2025 73.0 50.0 - 170.0 ug/dL Final [facility] TOTAL IRON BINDING CAPACITY 06/25/2025 431.0 250.0 - 450.0 ug/dL Final [facility] PERCENT IRON SATURATION 06/25/2025 16.9 % Final FERRITIN 06/25/2025 17.0 8.0 - 252.0 ng/mL Final VITAMIN D 06/25/2025 45.0 ng/mL Final Comment: <20 ng/mL Vit D deficient 20-<30 ng/mL Vit D insufficient 30-100 ng/mL Vit D sufficient >100 ng/mL Potential Toxicity TRANSFERRIN 06/25/2025 339 192 - 364 mg/dL Final Comment: Performed at: [facility] [employer] [id number] Escort Vehicle Driver: Quincy Anguiano PhD, Phone: [phone] VITAMIN B12 06/25/2025 632 232 - 1245 pg/mL Final Comment: Performed at: [facility] [employer] [id number] Escort Vehicle Driver: Quincy Anguiano PhD, Phone: [phone] Assessment/Plan Diagnoses and all orders for this visit: Hyponatremia - Basic metabolic panel Will recheck her sodium level this week. Will notify pt of the results once received. She will continue with restricted water intake, and supplementing with Vitamin Water. She states she wants to discuss with Neurology, the possibility of coming off of Trileptal. Adjustment disorder with anxiety - ALPRAZolam (Xanax) 0.5 MG tablet; Take 1 tablet (0.5 mg) by mouth every 12 (twelve) hours for 15 days PRN OARRS reviewed, Rx sent into patient's pharmacy. She can continue with it as needed. Other ulcerative colitis without complication (HCC) - Ambulatory referral to Gastroenterology; Future, Provided pt with referral to have updated Colonoscopy completed. Her last Colonoscopy was in 2016 and she is currently symptomatic. Alternating constipation and diarrhea - Ambulatory referral to Gastroenterology; Future See above. Dark stools - Ambulatory referral to Gastroenterology; Future See above. Anemia, unspecified type - Ambulatory referral to Gastroenterology; Future Recent labs reviewed with pt. Advised her Iron levels were WNL, she has needed iron infusions in the past. She will continue the bariatric multivitamin daily. Will evaluate further with Colonoscopy. Seasonal allergic rhinitis due to pollen - triamcinolone acetonide (Kenalog-40) injection 40 mg Pt is already on significant medication therapy for her allergies. She is agreeable to trying a Kenalog injection today. She tolerated this well. Advised pt that if needed, can refer pt to Mobile Marketing Specialist for further evaluation and treatment. Follow up in about 3 months (around 09/29/2025) for Medication Follow Up. documented in this encounter Plan of Treatment Scheduled Orders Name Type Priority Associated Diagnoses Orde r Schedule Basic metabolic panel Lab Routine Hyponatremia Ordered: 06/29/2025 Scheduled Referrals Name Type Priority Associated Diagnoses Order Schedule Ambulatory referral to Gastroenterology Outpatient Referral Routine Other ulcerative colitis without complication (HCC) Alternating constipation and diarrhea Dark stools Anemia, unspecified type Expected: 06/29/2025 (Approximate), Expires: 12/30/2025 documented as of this encounter Visit Diagnoses Diagnosis Hyponatremia- Primary Hyposmolality and/or hyponatremia Adjustment disorder with anxiety Adjustment disorder with anxiety Other ulcerative colitis without complication (HCC) Alternating constipation and diarrhea Dark stools Nonspecific abnormal finding in stool contents Anemia, unspecified type Seasonal allergic rhinitis due to pollen documented in this encounter Administered Medications Inactive Administered Medications - up to 3 most recent administrations Medication Order MAR Action Action Date Dose Rate Site triamcinolone acetonide (Kenalog-40) injection 40 mg 40 mg, Intramuscular, Once, On 06/29/25 at 1445, For 1 doseIndications:Seasonal allergic rhinitis due to pollen Given 06/29/2025 2:39 PM EDT 40 mg Right Ventrogluteal documented in this encounter Care Teams Spice Cleaner Relationship Specialty Start Date End Date Kristin Witt MD [address] [facility] [address] [place] [address] PCP - General Family Medicine 04/10/23 Kristin Witt MD [address] [facility] [address] [place] [address] PCP - Medical [place] [employer] 11/05/02 11/04/99 documented as of this encounter
[2025-06-30] VITALS (12 sets, daily range): BP systolic 122–166; BP diastolic 76–95; PULSE 110; TEMP 36.4; O2SAT 87–99; BMI 29.3
--- NOTE | 2025-06-30 13:30 | CT_ITS ---
The [address] [address] Patient Name: MIRIAM ALEXANDER MRN: [id number] date: 1970 Sex: F Assigned Patient Location: ED.MAIN Current Patient Location: ER Accession/Order Number: [id number] Exam Date: 06/30/2025 14:23 Report Date: 06/30/2025 14:49 At the request of: MILLY GRAJEDA DO Procedure: CT head/brain wo con CT BRAIN WITHOUT CONTRAST: CLINICAL HISTORY: headache COMPARISON: None TECHNIQUE: Contiguous axial unenhanced images were obtained through the brain. This CT exam was performed using one or more following dose reduction techniques: Automated exposure control, adjustment of the mA and/or kV according to patient size, or use of iterative reconstruction technique. FINDINGS: There is no evidence of midline shift, intra or extra-axial fluid collection, hemorrhage or CT evidence of stroke. Posterior fossa appears unremarkable. Visualized intraorbital contents demonstrate no acute findings. Visualized paranasal sinuses are clear. The surrounding soft tissues are normal. CT/CT head/brain wo con IMPRESSION: NO ACUTE INTRACRANIAL ABNORMALITY. Impression dictated by: Kyle Armendariz Jr., D.O. 06/30/2025 2:49 PM Dictation Location: [place] [address] Electronically authenticated by: [id number] Y Date: 06/30/2025 14:49
--- OUTSIDE RECORDS SUMMARY | 2025-06-30 13:33 | XMS_ITS | Encounter Summary ---
Author Organization [facility] Address [address] [facility] [place] [address] Care Team Providers Care Living Skills Advisor Name Role Phone Kristin Witt MD Primary Care Provider [phone] Kristin Witt MD Unavailable Encounter Details Date Type Department Care Team (Late st Contact Info) Description 03/12/2025 Abstract [facility] [address] [facility] [address] [place] [address] Kristin Witt MD [address] [facility] [address] [place] [address] Social History Tobacco Use Types Packs/Day Years Used Date Smoking Tobacco: Former Cigarettes Smokeless Tobacco: Never Alcohol Use Standard Drinks/Week Comments Never 0 (1 standard drink = 0.6 oz pure alcohol) caffeine: tea, 1-2 cups per day PHQ-2 Answer Date Recorded Patient Health Questionnaire-2 Score 0 03/11/2025 Comments Unknown Sex and Gender Information Value Date Recorded Sex Assigned at Female 07/03/2023 10:46 AM EDT Legal Sex Female 7:20 PM EDT Gender Identity Female 07/03/2023 10:46 AM EDT Sexual Orientation Not on file documented as of this encounter Plan of Treatment Not on file documented as of this encounter Visit Diagnoses Not on filedocumented in this encounter Care Teams Living Skills Advisor Relationship Specialty Start Date End Date Kristin Witt MD [address] [facility] [address] [place] [address] PCP - General Family Medicine 04/10/23 Kristin Witt MD [address] [place] [address] PCP - Medical [place] [employer] 11/05/02 11/04/99 documented as of this encounter
--- OUTSIDE RECORDS SUMMARY | 2025-06-30 13:33 | XMS_ITS | Encounter Summary ---
Author Organization [facility] Address [address] [place] [address] Care Team Providers Care Trimmer Sawyer Name Role Phone Kristin Witt MD Primary Care Provider [phone] Kristin Witt MD Unavailable Encounter Details Date Type Department Care Team (Late st Contact Info) Description 02/24/2025 Abstract [facility] [address] [facility] [address] [place] [id number] Kristin Witt MD [address] [place] [facility] [address] [place], [place] [id number] Social History Tobacco Use Types Packs/Day Years Used Date Smoking Tobacco: Former Cigarettes Smokeless Tobacco: Never Alcohol Use Standard Drinks/Week Comments Never 0 (1 standard drink = 0.6 oz pure alcohol) caffeine: tea, 1-2 cups per day Comments Unknown Sex and Gender Information Value Date Recorded Sex Assigned at Female 07/03/2023 10:46 AM EDT Legal Sex Female 7:20 PM EDT Gender Identity Female 07/03/2023 10:46 AM EDT Sexual Orientation Not on file documented as of this encounter Plan of Treatment Not on file documented as of this encounter Visit Diagnoses Not on filedocumented in this encounter Care Teams Trimmer Sawyer Relationship Specialty Start Date End Date Kristin Witt MD [address] [place] [facility] [address] [place] [address] PCP - General Family Medicine 04/10/23 Kristin Witt MD [address] [facility] [address] [place] [address] PCP - Medical [place] [employer] 11/05/02 11/04/99 documented as of this encounter
--- OUTSIDE RECORDS SUMMARY | 2025-06-30 13:33 | XMS_ITS | Encounter Summary ---
Author Organization [facility] Address [address] [place] [address] Care Team Providers Care Ship Manager Name Role Phone Kristin Young MD Primary Care Provider [phone] Kristin Young MD Unavailable Encounter Details Date Type Department Care Team (Late st Contact Info) Description 05/20/2024 Clinisync Result Encounter [facility] External Department Unsolicited Provider, Generic External Data Social History Tobacco Use Types Packs/Day Years [...] on file documented as of this encounter Procedures Procedure Name Priority Date/Time Associated Diagnosis Comments MM TOMOSYNTHESIS SCREENING BI 05/20/2024 12:10 PM EDT ALL SED RATE Routine 05/20/2024 11:53 AM EDT ALL C REACTIVE PROTEIN Routine 11:53 AM EDT documented in this encounter Results * MM TOMOSYNTHESIS SCREENING BI (05/20/2024 12:10 PM EDT) Anatomical Region Laterality Modality Other 05/20/2024 12:1 0 PM EDT Narrative 05/20/2024 12:11 [place] [address] Mammography Report Signed Patient: MIRIAM ESTRADA MR#: [id number] : 1970 Acct:[id number] Age/Sex: 53 / F ADM Date: 05/20/24 Loc: MAMMO Attending Dr: ALEENA ORNELAS Ordering Physician: ALEENA ORNELAS Results: Date of Service: 05/20/24 Follow Up: Procedure(s): MM tomosynthesis screening BI Accession Number(s): [id number] cc: KRISTIN YOUNG ; ALEENA ORNELAS Patient Name: MIRIAM ESTRADA MR#: [id number] : 1970 Exam Date: 05/20/2024 Ordering Doctor: ALEENA ORNELAS . RADIOLOGY REPORT PROCEDURE: MM TOMOSYNTHESIS SCREENING BI COMPARISON: MG MAMM SCREEN CRUZITO W CAD, 07/18/2018. MG MAMM SCREEN 3D CRUZITO CAD, 01/26/2021. INDICATIONS: Screening Calculator Name NCI Breast Cancer Risk Assessment Tool 5 Year Breast Cancer Risk 0.80% Lifetime Breast Cancer Risk 7.00% Personal Breast Cancer No Personal Ovarian Cancer No Treatments None Family Cancers None LOCATION: [facility] BREAST COMPOSITION: There are scattered areas of fibroglandular density. FINDINGS: DIAGNOSTIC CATEGORY 2--BENIGN FINDING. NO CHANGE FROM COMPARISON. This exam includes additional mammographic views for implant evaluation and shows no visible implant abnormality. Scattered benign-appearing calcifications are present. Scattered benign-appearing lymph nodes are present. RIGHT BREAST: No significant suspicious finding. LEFT BREAST: No significant suspicious finding. RECOMMENDATIONS: ROUTINE MAMMOGRAM AND CLINICAL EVALUATION IN 12 MONTHS. PLEASE NOTE: A NORMAL MAMMOGRAM DOES NOT EXCLUDE THE POSSIBILITY OF BREAST CANCER. A CLINICALLY SUSPICIOUS PALPABLE LUMP SHOULD BE BIOPSIED. Dictated by: Keith Narayanan MD on 05/20/2024 at 12:08 Approved by: Keith Narayanan MD on 05/20/2024 at 12:10 Dictated By: Keith Narayanan M.D. Signed By: 05/20/24 1211 DD/ 1210 TD/TT: Mining And Quarrying Machinery Repairer: Procedure Note Radiology, Radiologist, - 05/20/2024 [place] [address] Mammography Report Signed Patient: MIRIAM ESTRADA LMR#: [id number] : 1970Acct:[id number] Age/Sex: 53 / FADM Date: 05/20/24 Loc: MAMMO Attending Dr: ALEENA ORNELAS Ordering Physician: ALEENA ORNELAS LRterryults: Date of Service: 05/20/24Follow Up: Procedure(s): MM tomosynthesis screening BI Accession Number(s): [id number] cc: KRISTIN YOUNG ; ALEENA ORNELAS Patient Name: MIRIAM ESTRADA MR#: [id number] : 1970 Exam Date: 05/20/2024 Ordering Doctor: ALEENA ORNELAS . RADIOLOGY REPORT PROCEDURE: MM TOMOSYNTHESIS SCREENING BI COMPARISON: MG MAMM SCREEN CRUZITO W CAD, 07/18/2018. MG MAMM SCREEN 3DBIL CAD, 01/26/2021. INDICATIONS: Screening Calculator Name NCI Breast Cancer Risk Assessment Tool 5 Year Breast Cancer Risk 0.80% Lifetime Breast Cancer Risk 7.00% Personal Breast Cancer No Personal Ovarian Cancer No Treatments None Family Cancers None LOCATION: [facility] BREAST COMPOSITION: There are scattered areas of fibroglandulardensity. FINDINGS: DIAGNOSTIC CATEGORY 2--BENIGN FINDING. NO CHANGE FROM COMPARISON. This exam includes additional mammographic views for implant evaluationand shows no visible implant abnormality. Scattered benign-appearing calcifications are present. Scattered benign-appearing lymph nodes are present. RIGHT BREAST: No significant suspicious finding. LEFT BREAST: No significant suspicious finding. RECOMMENDATIONS: ROUTINE MAMMOGRAM AND CLINICAL EVALUATION IN 12 MONTHS. PLEASE NOTE: A NORMAL MAMMOGRAM DOES NOT EXCLUDE THE POSSIBILITY OFBREAST CANCER. A CLINICALLY SUSPICIOUS PALPABLE LUMP SHOULD BE BIOPSIED. Dictated by: Keith Narayanan MD on 05/20/2024 at 12:08 Approved by: Keith Narayanan MD on 05/20/2024 at 12:10 Dictated By: Keith Narayanan M.D. Signed By:05/20/24 1211 DD/ 1210 TD/TT: [employer] Repairer: us Generic External Data Provider [facility] Final Result * ALL C REACTIVE PROTEIN (05/20/2024 11:53 AM EDT) Pathologist [facility] C REACTIVE PROTEIN <0.50 <=0.50 mg/dL [facility] 05/20/2024 11:5 3 AM EDT 05/20/2024 11:54 AM EDT Narrative [facility] - 05/20/2024 4:23 PM EDT Generic External Data Provider [facility] F inal Result [facility] TB * ALL SED RATE (05/20/2024 11:53 AM EDT) Pathologist [facility] TBH SED RATE 25 <=30 mm/hr [facility] 05/20/2024 11:5 3 AM EDT 05/20/2024 11:54 AM EDT Narrative [facility] - 05/20/2024 12:16 PM EDT Generic External Data Provider [facility] F inal Result Performing Organization Address City/[facility]/ZIP Co de Phone Number [facility] TB documented in this encounter Visit Diagnoses Not on filedocumented in this encounter Care Teams Ship Manager Relationship Specialty Start Date End Date Kristin Young MD [address] [facility] [address] [place] [address] PCP - General Family Medicine 04/10/23 Kristin Young MD [address] [place] [address] [place] [address] PCP - Medical [place] [employer] 11/05/02 11/04/99 documented as of this encounter
--- OUTSIDE RECORDS SUMMARY | 2025-06-30 13:33 | XMS_ITS | Encounter Summary ---
Author Organization [facility] Address [address] [place] [address] Care Team Providers Care Fermenter Helper Name Role Phone Kristin Witt MD Primary Care Provider [phone] Kristin Witt MD Unavailable Encounter Details Date Type Department Care Team (Late st Contact Info) Description 10/23/2023 Orders Only [facility] [address] [place] [address] [place] [phone] A, Unknown Practice [address] [place] [phone] Social History Tobacco Use Types Packs/Day Years Used Date Smoking Tobacco: Former Cigarettes Smokeless Tobacco: Never Alcohol Use Standard Drinks/Week Comments Not Currently 0 (1 standard drink = 0.6 oz pure alcohol) 1-2 drinks montly or less, caffeine: tea Comments Unknown Sex and Gender Information Value Date Recorded Sex Assigned at Female 07/03/2023 10:46 AM EDT Legal Sex Female 7:20 PM EDT Gender Identity Female 07/03/2023 10:46 AM EDT Sexual Orientation Not on file documented as of this encounter Plan of Treatment Not on file documented as of this encounter Procedures Procedure Name Priority Date/Time Associated Diagnosis Comments SCANNED LABS Routine 10/15/2023 8:17 AM EST documented in this encounter Results * SCANNED LABS (10/15/2023 8:17 AM EST) us Unknown Practice A LAB CHG PERFORMABLES Final Re sult documented in this encounter Visit Diagnoses Not on filedocumented in this encounter Care Teams Fermenter Helper Relationship Specialty Start Date End Date Kristin Witt MD [address] [facility] 110 [place] [address] PCP - General Family Medicine 04/10/23 Kristin Witt MD [address] [facility] [address] [place] [address] PCP - Medical [place] [employer] 11/05/02 11/04/99 documented as of this encounter
--- OUTSIDE RECORDS SUMMARY | 2025-06-30 13:33 | XMS_ITS | Clinical Summary ---
Author Organization [facility] Address [address] [place] [id number] Care Team Providers Care Product Scientist Name Role Phone Kristin Witt MD Primary Care Provider Allergies Active Allergy Reactions Criticality Noted Date Comments Metronidazole Nausea and Vomiting 05/04/2023 Nsaids 04/08/2015 Other reaction(s): Unknown Sulfa Antibiotics Rash,Hives 10/20/2021 Medications acetaminophen (TYLENOL) 500 MG tablet Take 1-2 tablets by mouth as needed for Pain or Fever. Active ALPRAZolam (Xanax) 0.5 MG tablet Take 1 tablet by mouth 2 times daily as needed. 3 Active clonazePAM (KlonoPIN) 1 MG tablet Take 1 tablet by mouth daily. 0.5 - 1 tablet BID prn tremor Active Cyclobenzaprin e 5 MG tablet Take 1 tablet by mouth 3 times daily as needed. 3 Active escitalopram 20 MG tablet Take 1 tablet by mouth daily. 3 Active Folic acid 1 MG tablet 1 tablet Orally Once a day for 30 day(s) 3 Active Premarin 1.25 MG tablet 3 Active SODIUM FLUORIDE, DENTAL GEL, (PreviDent 5000 Dry Mouth) 1.1 % Gel PreviDent 5000 Dry Mouth Active Ajovy 225 MG/1.5ML Solution Prefilled Syringe INJECT SUBCUTANEOUSLY DIRECTED EVERY 28 DAYS 3 Active Ibuprofen 400 MG tablet 1 tablet with food or milk as needed Orally PRN Active Synthroid 50 MCG tablet 3 Active Montelukast (Singulair) 10 MG tablet 1 tablet Orally Once a day Active OXcarbazepine (Trileptal) 300 MG tablet 1 tablet Orally BID Active Promethazine HCl 12.5 MG tablet 1 tablet as needed Orally PRN Active Sucralfate (Carafate) 1 GM/10ML oral suspension 10ml Orally BID Act francia valACYclovir HCl (VALACYCLOVIR PO) Take by mouth. prn A ctive Bacillus Coagulans-Inul in (Probiotic) 1-250 BILLION-MG capsule Take by mouth. daily Active faMOTIdine 20 MG tablet Take 1 tablet by mouth daily. 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 Abnormal laboratory test result 04/25/2023 05/04/2023 Acquired hypothyroidism 04/25/2023 05/04/20 23 Dry eyes 04/25/2023 05/04/2023 Postablative ovarian failure 04/25/2023 Other specified abnormal findings of blood chemi stry 04/25/2023 05/04/2023 Vitamin B deficiency 04/25/2023 05/04/2023 Lesion of ulnar nerve 10/04/2021 05/04/2023 Arthritis of right acromioclavicular joint 09/1305/04/2023 Internal derangement of right shoulder 05/04/2023 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 07/12/2021 05/04/2023 Urge incontinence of urine 04/05/202105/04 Hypoglycemia 03/22/2021 05/04/2023 COVID-19 virus detected 11/15/2020 05/04/20 23 Otitis externa 05/06/2020 05/04/2023 Essential tremor 04/17/2019 05/04/2023 History of hysterectomy 04/17/2019 05/04/20 23 Diverticulitis 02/10/2019 05/04/2023 Chronic sinusitis 05/22/2018 05/04/2023 Slow transit constipation 04/22/20182022 Adjustment disorder with anxiety 04/10/2018 05/04/2023 Migraine with aura and witho ut status migrainosus, not intractable 06/13/2017 05/04/2023 Disorder of liver 03/05/2017 05/04/2023 Iron deficiency anemia 03/05/2017 Sicca syndrome 03/05/2017 05/04/2023 Sjogren's syndrome 03/05/2017 05/04/2023 Sicca syndrome with lung involvement 03/05/2017 05/04/2023 Parietoalveolar pneumopathy 02/05/201704/07 Interstitial lung disease 02/05/20172022 Spasmodic torticollis 01/22/2017 05/04/2023 Fibromyalgia 01/12/2017 05/04/2023 Gastroesophageal reflux disease without esophagi tis 01/04/2017 05/04/2023 Vitamin D deficiency 01/04/2017 05/04/2023 Smoker 12/26/2016 05/04/2023 Abdominal pain 08/18/2015 05/04/2023 Intestinal obstruction 07/23/2015 Herpes simplex with complication 03/24/2010 05/04/2023 Allergic rhinitis 09/16/2009 05/04/2023 Anemia 04/27/2008 05/04/2023 Atypical depressive disorder 04/27/2008 Excessive and frequent menstruation 04/27/2008 05/04/2023 Female stress incontinence 04/27/200805/04 Impaired fasting glucose 04/27/2008 023 Ulcerative colitis 04/27/2008 05/04/2023 Encounters Date Type Department Care Team Description 06/26/2025 11:00 AM EDT Telemed Clin Support Neurology Outpatient Care [place] [address] [facility] [address] [place] [phone] Analia Perez LISW Adjustment disorder with mixed anxiety and depressed mood (Primary Dx); Functional neurological symptom disorder (conversion disorder), with abnormal movement; Functional tremor; Functional gait disorder 05/22/2025 2:00 PM EDT Telemed Clin Support Neurology Outpatient Care [place] [address] [facility] [address] [place] [phone] Analia Perez LISW Adjustment disorder with mixed anxiety and depressed mood (Primary Dx); Functional neurological symptom disorder (conversion disorder), with abnormal movement; Functional tremor; Functional gait disorder from Last 3 Months Social History Tobacco Use Types Packs/Day Years [...] Orientation Straight 11/27/2024 6: 15 PM EST Last Filed Vital Signs Vital Sign Reading Time Taken Comments Blood Pressure 136/81 11/28/2024 7:37 AM EST Pulse 95 11/28/2024 7:37 AM EST Temperature 36.1 C (97 F) 11/28/2024 7:37 AM EST Respiratory Rate - - Oxygen Saturation - - Inhaled Oxygen Concentration - - Weight 72.1 kg (159 lb) 11/28/2024 7:37 AM EST Height 149.9 cm (4' 11 ) 11/28/2024 7:37 AM EST Body Mass Index 32.11 11/28/2024 7:37 AM EST Plan of Treatment Upcoming Encounters Date Type Department Care Team (Late st Contact Info) Description 07/03/2025 1:00 PM EDT Telemed Clin Support Neurology Outpatient Care [place] [address] [facility] [address] [place] [address] Analia Perez LISW [address] [facility] [address] [place] [address] Health Maintenance Due Date Last Done Comments HEPATITIS C VIRUS SCREENING 1972 TETANUS 1972 TSH 1972 HIV SCREENING DISCUSSION 1987 HEP B VACCINE (1 of 3 - 19+ 3-dose series) 1991 PNEUMOCOCCAL VACCINE SERIES (1 of 2 - PCV) 1991 TDAP (ADULT) 1991 CERVICAL CANCER SCREENING DISCUSSION 1993 LIPID SCREENING 2012 COLORECTAL CANCER SCREENING DISCUSSION 04/04/2020 04/04/2019, 09/21/2015, 08/12/2015 MAMMOGRAM SCREENING DISCUSSION 01/26/2022 0 01/26/2021, 07/18/2018, 07/18/2018 ZOSTER (SHINGLES) VACCINE (1 of 2) 2022 COVID-19 VACCINE ( season) 2024 INFLUENZA VACCINE (#1) 2025 Insurance MMO Generic Plan Member Subscriber Plan / Payer (Ef fective 2024-Present) Name:Jennifer Alexander Relation to Subscriber:Spouse Name:Dimitris Alexander Date of :1969 (Home) Address: [address] [place], [place] [id number] Payer ID:Not on file Group ID:Not on file Type:Not on file Address: [address] [place] [address] Care Teams Product Scientist Relationship Specialty Start Date End Date Kristin Witt MD [address] [facility] 110 [place] [address] PCP - General Family Medicine 05/04/23
--- OUTSIDE RECORDS SUMMARY | 2025-06-30 13:33 | XMS_ITS | Encounter Summary ---
Author Organization [facility] Address [address] [place] [address] Care Team Providers Care Raise Drill Operator Name Role Phone Kristin Witt MD Primary Care Provider [phone] Kristin Witt MD Unavailable Encounter Details Date Type Department Care Team (Late st Contact Info) Description 04/15/2024 Abstract [facility] [place] [facility] [address] [facility] 110 [place] [phone] Kristin Witt MD [address] [place] [facility] 110 [place], [place] [phone] Social History Tobacco Use Types Packs/Day Years [...] on filedocumented in this encounter Care Teams Raise Drill Operator Relationship Specialty Start Date End Date Kristin Witt MD 112 [facility] 110 [place] [address] PCP - General Family Medicine 04/10/23 Kristin Witt MD 112 [facility] 110 [place] [address] PCP - Medical [employer] 11/05/02 11/04/99 documented as of this encounter
--- OUTSIDE RECORDS SUMMARY | 2025-06-30 13:33 | XMS_ITS | Encounter Summary ---
Author Organization [facility] Address [address] [place] [address] Care Team Providers Care Restaurant Hourly Manager Name Role Phone Kristin Witt MD Primary Care Provider [phone] Kristin Witt MD Unavailable Encounter Details Date Type Department Care Team (Late st Contact Info) Description 10/17/2023 Orders Only [facility] [address] [place] [address] [place] [phone] A, Unknown Practice [address] [place] [phone] Social History Tobacco Use Types Packs/Day [...] Associated Diagnosis Comments SCANNED LABS Routine 10/15/2023 9:11 AM EST documented in this encounter Results * SCANNED LABS (10/15/2023 9:11 AM EST) us Unknown Practice A LAB CHG PERFORMABLES Final Re sult documented in this encounter Visit Diagnoses Not on filedocumented in this encounter Care Teams Restaurant Hourly Manager Relationship Specialty Start Date End Date Kristin Witt MD [address] [place] [facility] 110 [place] [address] PCP - General Family Medicine 04/10/23 Kristin Witt MD [address] [facility] [facility] 110 [place] [address] PCP - Medical [place] [employer] 11/05/02 11/04/99 documented as of this encounter
--- OUTSIDE RECORDS SUMMARY | 2025-06-30 13:33 | XMS_ITS | Encounter Summary ---
Author Organization [facility] Address [address] [place] [address] Care Team Providers Care Blind Escort Name Role Phone Kristin Witt MD Primary Care Provider [phone] Kristin Witt MD Unavailable Encounter Details Date Type Department Care Team (Late st Contact Info) Description 06/26/2025 Telephone [facility] [place] [facility] [address] [facility] 110 [place] [address] Yolanda Jimenez PA [address] [facility] 110 [place] [address] Social History Tobacco Use Types Packs/Day Years Used Date Smoking Tobacco: Former Cigarettes Smokeless Tobacco: Never Alcohol Use Standard Drinks/Week Comments Never 0 (1 standard drink = 0.6 oz pure alcohol) caffeine: tea, 1-2 cups per day PHQ-2 Answer Date Recorded Patient Health Questionnaire-2 Score 0 03/19/2025 Comments Unknown Sex and Gender Information Value Date Recorded Sex Assigned at Female 07/03/2023 10:46 AM EDT Legal Sex Female 7:20 PM EDT Gender Identity Female 07/03/2023 10:46 AM EDT Sexual Orientation Not on file documented as of this encounter Miscellaneous Notes * Telephone Encounter - ALPA Florez - 06/26/2025 9:17 AM EDT Please let pt know that her recent labs showed anemia, blood counts lower than previous, and her sodium is very low. She is on a few different medications that can cause sodium to decrease, Trileptal, Trazodone, and Lexapro. May need to consider changing Trazodone to eliminate a medication that could be contributing. Is taking her MV daily. Drinks 4-5 bottles of water a day. Decrease to 3 bottles of water a day and add one serving of an electrolyte solution with sodium. Will plan to correct the sodium gradually. Will recheck on Sunday. Sees [facility] for movement disorder. Sees [facility] for her migraines, prescribes the Trileptal for her. Sees them next week. Will make sure they receive a copy of her labs. documented in this encounter Plan of Treatment Not on file documented as of this encounter Visit Diagnoses Diagnosis Hyponatremia- Primary Hyposmolality and/or hyponatremia documented in this encounter Care Teams Blind Escort Relationship Specialty Start Date End Date Kristin Witt MD 112 [facility] 110 [place] [address] PCP - General Family Medicine 04/10/23 Kristin Witt MD [address] [place] [facility] 110 [place] [address] PCP - Medical [place] [employer] 11/05/02 11/04/99 documented as of this encounter
--- OUTSIDE RECORDS SUMMARY | 2025-06-30 13:33 | XMS_ITS | Clinical Summary ---
Author Organization [facility] Address [id number] [address] [place] [id number] Care Team Providers Care Data Librarian Name Role Phone Kristin Witt MD Primary Care Provider [phone] Social History Tobacco Use Types Packs/Day Years Used Date Smoking Tobacco: Never Assessed Comments Unknown Sex and Gender Information Value Date Recorded Sex Assigned at Not on file Legal Sex Female 1:24 PM EDT Gender Identity Not on file Sexual Orientation Not on file Plan of Treatment Health Maintenance Due Date Last Done Comments Depression Screening 1984 Tobacco Screening 1984 Adult BMI Screening 1990 DTaP,Tdap and Td Vaccines (1 - Tdap) 1991 Pap Smear 1993 Zoster (Shingles) Vaccine (1 of 2) 2022 Influenza Vaccine 07/06/2025 Medical Devices Not on file Insurance [employer] Care Teams Data Librarian Relationship Specialty Start Date End [place] [address] [place] [address] PCP - General Family Medicine 05/26/24
--- OUTSIDE RECORDS SUMMARY | 2025-06-30 13:33 | XMS_ITS | Encounter Summary ---
Author Organization [facility] Address [address] [place] [address] Care Team Providers Care Humane Officer Name Role Phone Kristin Witt MD Primary Care Provider [phone] Kristin Witt MD Unavailable Encounter Details Date Type Department Care Team (Late st Contact Info) Description 10/18/2023 Orders Only [facility] [address] [place] [address] [place] [phone] A, Unknown Practice [address] [place] [phone] Social History Tobacco Use Types Packs/Day [...] Associated Diagnosis Comments SCANNED LABS Routine 10/15/2023 4:13 PM EST documented in this encounter Results * SCANNED LABS (10/15/2023 4:13 PM EST) us Unknown Practice A LAB CHG PERFORMABLES Final Re sult documented in this encounter Visit Diagnoses Not on filedocumented in this encounter Care Teams Humane Officer Relationship Specialty Start Date End Date Kristin Witt MD [address] [place] [facility] 110 [place] [address] PCP - General Family Medicine 04/10/23 Kristin Witt MD [address] [place] [facility] 110 [place] [address] PCP - Medical [place] [employer] 11/05/02 11/04/99 documented as of this encounter
--- OUTSIDE RECORDS SUMMARY | 2025-06-30 13:33 | XMS_ITS | Encounter Summary ---
Author Organization [facility] Address [address] [place] [address] Care Team Providers Care Clay Artist Name Role Phone Kristin Witt MD Primary Care Provider [phone] Kristin Witt MD Unavailable Encounter Details Date Type Department Care Team (Late st Contact Info) Description 06/26/2025 Abstract [facility] [place] [facility] [address] [facility] 110 [place] [phone] Kristin Witt MD [address] [place] [facility] 110 [place] [address] Social History Tobacco Use Types Packs/Day Years [...] on file documented as of this encounter Functional Status * Over the [...] LP N documented as of this encounter Plan of Treatment Not on file documented as of this encounter Visit Diagnoses Not on filedocumented in this encounter Care Teams Clay Artist Relationship Specialty Start Date End Date Kristin Witt MD 112 [facility] 110 [place] [address] PCP - General Family Medicine 04/10/23 Kristin Witt MD 112 [facility] 110 [place] [address] PCP - Medical [place] [employer] 11/05/02 11/04/99 documented as of this encounter
--- OUTSIDE RECORDS SUMMARY | 2025-06-30 13:33 | XMS_ITS | Encounter Summary ---
Author Organization [facility] Address [address] [place] [address] Care Team Providers Care Electrical Tests Supervisor Name Role Phone Kristin Witt MD Primary Care Provider [phone] Kristin Witt MD Unavailable Encounter Details Date Type Department Care Team (Late st Contact Info) Description 08/16/2023 Abstract [facility] [address] [facility] 110 [place] [address] Kristin Witt MD [address] [facility] 110 [place], [place] [id number] Social History Tobacco Use Types Packs/Day Years Used Date Smoking Tobacco: Former Cigarettes Smokeless Tobacco: Never Tobacco Cessation:Counseling Given: Not Answered Alcohol Use Standard Drinks/Week Comments Not Currently [...] on filedocumented in this encounter Care Teams Electrical Tests Supervisor Relationship Specialty Start Date End Date Kristin Witt MD [address] [facility] 110 [place] [address] PCP - General Family Medicine 04/10/23 Kristin Witt MD 112 [facility] 110 [place] [address] PCP - Medical [place] [employer] 11/05/02 11/04/99 documented as of this encounter
--- OUTSIDE RECORDS SUMMARY | 2025-06-30 13:33 | XMS_ITS | Encounter Summary ---
Author Organization [facility] Address [address] [place] [address] Care Team Providers Care General Counselor Name Role Phone Kristin Witt MD Primary Care Provider [phone] Kristin Witt MD Unavailable Encounter Details Date Type Department Care Team (Late st Contact Info) Description 10/16/2023 Orders Only [facility] [address] [place] [address] [place] [address] A, Unknown Practice [address] [place] [phone] Social History Tobacco Use Types Packs/Day [...] Associated Diagnosis Comments SCANNED LABS Routine 10/15/2023 8:42 AM EST SCANNED LABS Routine 10/15/2023 8:14 AM EST documented in this encounter Results * SCANNED LABS (10/15/2023 8:42 AM EST) us Unknown Practice A LAB CHG PERFORMABLES Final Re sult * SCANNED LABS (10/15/2023 8:14 AM EST) us Unknown Practice A LAB CHG PERFORMABLES Final Re sult documented in this encounter Visit Diagnoses Not on filedocumented in this encounter Care Teams General Counselor Relationship Specialty Start Date End Date Kristin Witt MD 112 [facility] 110 [place] [address] PCP - General Family Medicine 04/10/23 Kristin Witt MD [address] [place] [facility] 110 [place] [address] PCP - Medical [place] [employer] 11/05/02 11/04/99 documented as of this encounter
--- OUTSIDE RECORDS SUMMARY | 2025-06-30 13:33 | XMS_ITS | Encounter Summary ---
Author Organization [facility] Address [address] [place] [address] Care Team Providers Care Mortuary Technician Name Role Phone Kristin Witt MD Primary Care Provider [phone] Kristin Witt MD Unavailable Reason for Visit * Reason Comments Med Refill Encounter Details Date Type Department Care Team (Late st Contact Info) Description 03/23/2025 Refill [facility]Z [address] [place] [phone] Denise Lozano, TRANSITIONAL LIVING SPECIALIST [address], [address] [address] Migraine without aura and without status migrainosus, not intractable Social History Tobacco Use Types Packs/Day Years [...] Miscellaneous Notes * Telephone Encounter - ALPA Cabrales - 03/25/2025 3:59 PM EDT Sending to you regarding the ALPA, thanks! * Telephone Encounter - IDANIA Aiken - 03/25/2025 11:38 AM EDT Patient called stating that her pharmacy told her she needs a PA for the Ubrelvy. She states she also needs a refill of Qulipta (pharmacy told her it was canceled ??) sent to [facility] in [place]. (Continue Qulipta 60mg PO daily for headache prevention ... Per Luz YUEN on 03/16/25) documented in this encounter Plan of Treatment Not on file documented as of this encounter Visit Diagnoses Diagnosis Migraine without aura and without status migrainosus, not intractable documented in this encounter Care Teams Mortuary Technician Relationship Specialty Start Date End Date Kristin Witt MD [address] [address] PCP - General Family Medicine 04/10/23 Kristin Witt MD 112 [facility] 110 [place] [address] PCP - Medical [place] [employer] 11/05/02 11/04/99 documented as of this encounter
--- OUTSIDE RECORDS SUMMARY | 2025-06-30 13:33 | XMS_ITS | Encounter Summary ---
Author Organization [facility] Address [address] [place] [address] Care Team Providers Care Stock Control Supervisor Name Role Phone Kristin Witt MD Primary Care Provider [phone] Kristin Witt MD Unavailable Encounter Details Date Type Department Care Team (Late st Contact Info) Description 06/30/2025 Telephone [facility] [address] [facility] 110 [place] [address] Yolanda Jimenez PA 112 [place] [facility] 110 [place] [address] Social History Tobacco Use Types Packs/Day Years [...] encounter Miscellaneous Notes * Telephone Encounter - DAVID ALFARO - 06/30/2025 1:00 PM EDT Patient called and is asking for some Toradol due to having a massive migraine since last night, she is even throwing up. Please Advise documented in this encounter Plan of Treatment Not on file documented as of this encounter Visit Diagnoses Not on filedocumented in this encounter Care Teams Stock Control Supervisor Relationship Specialty Start Date End Date Kristin Witt MD [address] [address] PCP - General Family Medicine 04/10/23 Kristin Witt MD [address] [address] PCP - Medical [place] [employer] 11/05/02 11/04/99 documented as of this encounter
--- OUTSIDE RECORDS SUMMARY | 2025-06-30 13:33 | XMS_ITS | Encounter Summary ---
Author Organization [facility] Address [address] [facility] [place] [address] Care Team Providers Care Print Operator Name Role Phone Kristin Witt MD Primary Care Provider [phone] Kristin Witt MD Unavailable Encounter Details Date Type Department Care Team (Late st Contact Info) Description 05/21/2023 Abstract [facility] [address] [facility] 110 [place] [address] Kristin Witt MD 112 [facility] 110 [place], [place] [phone] Social History Tobacco Use Types Packs/Day Years [...] on filedocumented in this encounter Care Teams Print Operator Relationship Specialty Start Date End Date Kristin Witt MD 112 [facility] 110 [place] [address] PCP - General Family Medicine 04/10/23 Kristin Witt MD 112 [place] [facility] 110 [place] [address] PCP - Medical [place] [employer] 11/05/02 11/04/99 documented as of this encounter
--- OUTSIDE RECORDS SUMMARY | 2025-06-30 13:33 | XMS_ITS | Encounter Summary ---
Author Organization [facility] Address [address] [place] [address] Care Team Providers Care Certified Medical Coder Name Role Phone Kristin Witt MD Primary Care Provider [phone] Kristin Witt MD Unavailable Encounter Details Date Type Department Care Team (Late st Contact Info) Description 10/22/2023 Orders Only [facility] [address] [place] 110 [place] [phone] A, Unknown Practice [address] [place] [phone] Social History Tobacco Use Types Packs/Day [...] Associated Diagnosis Comments SCANNED LABS Routine 10/15/2023 1:55 PM EST SCANNED LABS Routine 10/15/2023 10:13 AM EST SCANNED LABS Routine 10/15/2023 9:20 AM EST documented in this encounter Results * SCANNED LABS (10/15/2023 1:55 PM EST) us Unknown Practice A LAB CHG PERFORMABLES Final Re sult * SCANNED LABS (10/15/2023 10:13 AM EST) us Unknown Practice A LAB CHG PERFORMABLES Final Re sult * SCANNED LABS (10/15/2023 9:20 AM EST) us Unknown Practice A LAB CHG PERFORMABLES Final Re sult documented in this encounter Visit Diagnoses Not on filedocumented in this encounter Care Teams Certified Medical Coder Relationship Specialty Start Date End Date Kristin Witt MD 112 [place] [facility] 110 [place] [address] PCP - General Family Medicine 04/10/23 Kristin Witt MD [address] [facility] 110 [place] [address] PCP - Medical [place] [employer] 11/05/02 11/04/99 documented as of this encounter
--- OUTSIDE RECORDS SUMMARY | 2025-06-30 13:33 | XMS_ITS | Encounter Summary ---
Author Organization [facility] Address [address] [facility] [place] [address] Care Team Providers Care Dish Machine Operator Name Role Phone Kristin Witt MD Primary Care Provider [phone] Kristin Witt MD Unavailable Encounter Details Date Type Department Care Team (Late st Contact Info) Description 04/30/2025 Abstract [facility] [address] [facility] 110 [place] [address] Kristin Witt MD [address] [facility] 110 [place] [address] Social History Tobacco Use Types Packs/Day Years [...] on filedocumented in this encounter Care Teams Dish Machine Operator Relationship Specialty Start Date End Date Kristin Witt MD [address] [facility] 110 [place] [address] PCP - General Family Medicine 04/10/23 Kristin Witt MD 112 [place] [address] PCP - Medical [place] [employer] 11/05/02 11/04/99 documented as of this encounter
--- OUTSIDE RECORDS SUMMARY | 2025-06-30 13:33 | XMS_ITS | Encounter Summary ---
Author Organization [facility] Address [address] [place] [address] Care Team Providers Care Sizing End Bander Name Role Phone Kristin Witt MD Primary Care Provider [phone] Kristin Witt MD Unavailable Encounter Details Date Type Department Care Team (Latest Contact Info) Description 06/29/2025 Travel Social History Tobacco Use Types Packs/Day Years [...] on filedocumented in this encounter Care Teams Sizing End Bander Relationship Specialty Start Date End Date Kristin Witt MD 112 [place] [facility] 110 [place] [address] PCP - General Family Medicine 04/10/23 Kristin Witt MD 112 [place] [facility] 110 [place] [address] PCP - Medical [place] [employer] 11/05/02 11/04/99 documented as of this encounter
--- OUTSIDE RECORDS SUMMARY | 2025-06-30 13:33 | XMS_ITS | Encounter Summary ---
Author Organization [facility] Address [address] [place] [address] Care Team Providers Care Lead Mechanical Engineer Name Role Phone Kristin Witt MD Primary Care Provider [phone] Kristin Witt MD Unavailable Encounter Details Date Type Department Care Team (Late st Contact Info) Description 10/24/2023 Abstract [facility] [address] [facility] 110 [place] [address] Kristin Witt MD [address] [facility] 110 [place], [place] [phone] Social History Tobacco Use Types Packs/Day Years [...] on filedocumented in this encounter Care Teams Lead Mechanical Engineer Relationship Specialty Start Date End Date Kristin Witt MD 112 [place] [facility] 110 [place] [address] PCP - General Family Medicine 04/10/23 Kristin Witt MD 112 [facility] 110 [place] [address] PCP - Medical [place] [employer] 11/05/02 11/04/99 documented as of this encounter
--- OUTSIDE RECORDS SUMMARY | 2025-06-30 13:33 | XMS_ITS | Encounter Summary ---
Author Organization [facility] Address [address] [place] [address] Care Team Providers Care Trading Floor Operator Name Role Phone Kristin Witt MD Primary Care Provider [phone] Kristin Witt MD Unavailable Encounter Details Date Type Department Care Team (Late st Contact Info) Description 11/19/2023 Abstract [facility] [address] [facility] 110 [place] [address] Kristin Witt MD [address] [facility] 110 [place], [place] [phone] Social History Tobacco Use Types Packs/Day Years [...] on filedocumented in this encounter Care Teams Trading Floor Operator Relationship Specialty Start Date End Date Kristin Witt MD 112 [place] [facility] 110 [place] [address] PCP - General Family Medicine 04/10/23 Kristin Witt MD 112 [facility] 110 [place] [address] PCP - Medical [place] [employer] 11/05/02 11/04/99 documented as of this encounter
--- OUTSIDE RECORDS SUMMARY | 2025-06-30 13:33 | XMS_ITS | Encounter Summary ---
Author Organization [facility] Address [address] [place] [address] Care Team Providers Care Loom Fixer Apprentice Name Role Phone Kristin Witt MD Primary Care Provider [phone] Kristin Witt MD Unavailable Encounter Details Date Type Department Care Team (Late st Contact Info) Description 10/19/2023 Orders Only [facility] [address] [place] 110 [place] [phone] A, Unknown Practice [address] [place] [phone] Social History Tobacco Use Types Packs/Day [...] Date/Time Associated Diagnosis Comments SCANNED LABS Routine 10/19/2023 8:50 AM EST documented in this encounter Results * SCANNED LABS (10/19/2023 8:50 AM EST) us Unknown Practice A LAB CHG PERFORMABLES Final Re sult documented in this encounter Visit Diagnoses Not on filedocumented in this encounter Care Teams Loom Fixer Apprentice Relationship Specialty Start Date End Date Kristin Witt MD 112 [place] [facility] 110 [place] [address] PCP - General Family Medicine 04/10/23 Kristin Witt MD 112 [place] [facility] 110 [place] [address] PCP - Medical [place] [employer] 11/05/02 11/04/99 documented as of this encounter
--- OUTSIDE RECORDS SUMMARY | 2025-06-30 13:33 | XMS_ITS | Encounter Summary ---
Author Organization [facility] Address [address] [facility] [place] [address] Care Team Providers Care Cell Tower Climber Name Role Phone Kristin Witt MD Primary Care Provider [phone] Kristin Witt MD Unavailable Encounter Details Date Type Department Care Team (Late st Contact Info) Description 04/09/2023 Abstract [facility] [address] [facility] 110 [place] [phone] Kristin Witt MD 112 [facility] 110 [place], [place] [phone] Social History Tobacco Use Types Packs/Day Years [...] on filedocumented in this encounter Care Teams Cell Tower Climber Relationship Specialty Start Date End Date Kristin Witt MD 112 [facility] 110 [place] [address] PCP - General Family Medicine 04/10/23 Kristin Witt MD 112 [place] [facility] 110 [place] [address] PCP - Medical [place] [employer] 11/05/02 11/04/99 documented as of this encounter
--- OUTSIDE RECORDS SUMMARY | 2025-06-30 13:33 | XMS_ITS | Encounter Summary ---
Author Organization [facility] Address [address] [place] [address] Care Team Providers Care Wire Technician Name Role Phone Kristin Witt MD Primary Care Provider [phone] Kristin Witt MD Unavailable Encounter Details Date Type Department Care Team (Late st Contact Info) Description 11/28/2023 Abstract [facility] [address] [facility] 110 [place] [address] Kristin Witt MD [address] [facility] 110 [place], [place] [phone] Social History Tobacco Use Types Packs/Day Years [...] on filedocumented in this encounter Care Teams Wire Technician Relationship Specialty Start Date End Date Kristin Witt MD 112 [place] [facility] 110 [place] [address] PCP - General Family Medicine 04/10/23 Kristin Witt MD [address] [facility] 110 [place] [address] PCP - Medical [place] [employer] 11/05/02 11/04/99 documented as of this encounter
--- OUTSIDE RECORDS SUMMARY | 2025-06-30 13:33 | XMS_ITS | Encounter Summary ---
Author Organization [facility] Address [address] [place] [facility] [address] Care Team Providers Care Elevator Attendant Name Role Phone Kristin Witt MD Primary Care Provider [phone] Kristin Witt MD Unavailable Encounter Details Date Type Department Care Team (Late st Contact Info) Description 05/10/2023 Abstract [facility] [address] [facility] 110 [place] [address] Kristin Witt MD 112 [facility] 110 [place], [place] [phone] Social History Tobacco Use Types Packs/Day Years [...] on filedocumented in this encounter Care Teams Elevator Attendant Relationship Specialty Start Date End Date Kristin Witt MD 112 [facility] 110 [place] [address] PCP - General Family Medicine 04/10/23 Kristin Witt MD 112 [place] [facility] 110 [place] [address] PCP - Medical [place] [employer] 11/05/02 11/04/99 documented as of this encounter
--- OUTSIDE RECORDS SUMMARY | 2025-06-30 13:33 | XMS_ITS | Encounter Summary ---
Author Organization [facility] Address [address] [place] [address] Care Team Providers Care Biofuels Plant Construction Worker Name Role Phone Kristin Witt MD Primary Care Provider [phone] Kristin Witt MD Unavailable Encounter Details Date Type Department Care Team (Late st Contact Info) Description 06/25/2025 Clinisync Result Encounter N[facility] External Department Unsolicited Yolanda Jimenez, ALPA 112 [facility] 110 [place] [address] Social History Tobacco Use Types Packs/Day Years [...] Procedure Name Priority Date/Time Associated Diagnosis Comments VITAMIN B12 Routine 06/25/2025 11:50 AM EDT TRANSFERRIN Routine 06/25/2025 11:50 AM EDT [facility] VITAMIN D 25 [place] Routine 06/25/2025 1 1:50 AM EDT METRO IRON AND TIBC Routine 06/25/2025 1 1:50 AM EDT [facility] FERRITIN Routine 06/25/2025 11:50 AM EDT [facility] CMP (CMP) (FOR REMOTE [facility] USE) Routine 06/25/2025 11:50 AM EDT ALL CBC WITH AUTO DIFF Routine 06/25/2025 11:50 AM EDT documented in this encounter Results * VITAMIN B12 (06/25/2025 11:50 AM EDT) VITAMIN B12 632 232 - 1245 pg/mL TB[facility] Comment: Performed at: [address] [id number] Email Marketing Processor: Quincy Anguiano PhD, Phone: [phone] 06/25/2025 11:5 0 AM EDT 06/25/2025 11:57 AM EDT Narrative CLINISYNC - 06/26/2025 4:08 AM EDT Yolanda YUEN LAB BLOOD ORDERABLES Final Res ult Performing Organization Address [facility] de Phone Number CLINISYNC [facility] * TRANSFERRIN (06/25/2025 11:50 AM EDT) TRANSFERRIN 339 192 - 364 mg/dL TBH Comment: Performed at: [address] [id number] Email Marketing Processor: Quincy Anguiano PhD, Phone: [phone] 06/25/2025 11:5 0 AM EDT 06/25/2025 11:57 AM EDT Narrative CLINISYNC - 06/26/2025 4:08 AM EDT Yolanda YUEN LAB BLOOD ORDERABLES Final Res ult Performing Organization Address [facility] Co de Phone Number CLINISYNC [facility] * [facility] VITAMIN D 25 [place] (06/25/2025 11:50 AM EDT) VITAMIN D 45.0 ng/mL [facility] Comment: <20 ng/mL Vit D deficient 20-<30 ng/mL Vit D insufficient 30-100 ng/mL Vit D sufficient >100 ng/mL Potential Toxicity 06/25/2025 11:5 0 AM EDT 06/25/2025 11:57 AM EDT Narrative CLINISYNC - 06/25/2025 1:39 PM EDT us Yolanda YUEN CLINISYNC Final Result CLINISYNC [facility] * [facility] FERRITIN (06/25/2025 11:50 AM EDT) FERRITIN 17.0 8.0 - 252.0 ng/mL [facility] 06/25/2025 11:5 0 AM EDT 06/25/2025 11:57 AM EDT Narrative CLINISYNC - 06/25/2025 1:39 PM EDT us Yolanda YUEN CLINISYJON Final Result Performing Organization Address [facility] Co de Phone Number CLINISYNC TB * METRO IRON AND TIBC (06/25/2025 11:50 AM EDT) TBH IRON 73.0 50.0 - 170.0 ug/dL TBH TBH TOTAL IRON BINDING CAPACITY 431.0 250.0 - 450.0 ug/dL TBH TBH PERCENT IRON SATURATION 16.9 % [facility]H 06/25/2025 11:5 0 AM EDT 06/25/2025 11:57 AM EDT Narrative CLINISYNC - 06/25/2025 1:15 PM EDT Yolanda YUEN CLINISYJON Final Result CLINISYNC [facility] * (ABNORMAL) ALL CBC WITH AUTO DIFF (06/25/2025 11:50 AM EDT) [facility] TB WBC 6.3 4.0 - 11.0 10 3/uL TBH TBH RBC 3.38(L) 4.20 - 5.40 10 6/uL TBH TBH HGB 10.5(L) 12.0 - 16.0 g/dL TBH TBH HCT 30.1(L) 36.0 - 48.0 % TBH TBH MCV 89.1 81.0 - 99.0 fL TBH TBH MCH 31.1 26.7 - 34.0 pg TBH TBH MCHC 34.9 29.9 - 35.2 g/dL TBH TBH RDW 13.0 11.0 - 15.0 % TBH TBH PLT 452(H) 150 - 450 10 3/uL TBH TBH MPV 8.5(L) 9.5 - 13.5 fL TBH NEUTROPHILS PERCENT AUTO 72.6 43.0 - 75.0 % TBH LYMPHOCYTES PERCENT AUTO 16.7(L) 20.5 - 60.0 % TBH MONOCYTES PERCENT AUTO 6.5 1.7 - 12.0 % TBH TBH EO % 2.7 0.9 - 7.0 % TBH BASOPHILS PERCENT AUTO 1.3 0.2 - 2.0 % TBH IMMATURE GRANULOCYTES PCT AUTO 0.2 0.0 - 0.5 % TBH NEUTROPHILS ABSOLUTE AUTO 4.6 1.4 - 6.5 10 3/uL TBH LYMPHOCYTES ABSOLUTE AUTO 1.1(L) 1.2 - 3.8 10 3/uL TBH MONOCYTES ABSOLUTE AUTO 0.4 0.3 - 0.8 10 3/uL TBH TBH EO # 0.2 0.0 - 0.7 10 3/uL TBH BASOPHILS ABSOLUTE AUTO 0.1 0.0 - 0.1 10 3/uL TBH IMMATURE GRANULOCYTES ABS AUTO 0.01 0.00 - 0.03 10 3/uL [facility] 06/25/2025 11:5 0 AM EDT 06/25/2025 11:57 AM EDT Narrative CLINISYNC - 06/25/2025 12:55 PM EDT us Yolanda M Hemmer PA CLINISYNC Final Result CLINISYNC [facility] * (ABNORMAL) [facility] CMP (CMP) (FOR [facility]OTE [facility] USE) (06/25/2025 11:50 AM EDT) SODIUM 125(L) 136 - 145 mmol/L TBH POTASSIUM 4.1 3.5 - 5.1 mmol/L TBH CHLORIDE 92(L) 98 - 107 mmol/L TBH CARBON DIOXIDE 25.4 21.0 - 32.0 mmol/L TBH ANION GAP 11.7 TBH GLUCOSE 104 74 - 106 mg/dL TBH BLOOD UREA NITROGEN 7.0 7.0 - 18.0 mg/dL TBH CREATININE 0.67 0.55 - 1.02 mg/dL TBH TBH EGFR-AF [place] >60 >=60 mL/min/1. 73m 2 TBH TBH EGFR-NON AF [place] >60 >=60 mL/min/1. 73m 2 TBH BUN CREATININE RATIO 10.4 TBH CALCIUM 8.6 8.5 - 10.1 mg/dL TBH BILIRUBIN TOTAL 0.2 0.2 - 1.0 mg/dL TBH ASPARTATE AMINO TRANSFERASE 19 15 - 37 U/L TBH ALANINE AMINOTRANSFERASE 23 14 - 59 U/L TBH ALKALINE PHOSPHATASE 103 46 - 116 U/L TBH TOTAL PROTEIN 7.1 6.4 - 8.2 g/dL TBH ALBUMIN LEVEL 3.7 3.4 - 5.0 g/dL TBH GLOBULIN 3.4 g/dL TBH ALBUMIN GLOBULIN RATIO 1.1 TBH 06/25/2025 11:5 0 AM EDT 06/25/2025 11:57 AM EDT Narrative CLINISYNC - 06/25/2025 12:37 PM EDT us Yolanda YUEN CLINISYNC Final Result CLINISYNC TBH documented in this encounter Visit Diagnoses Not on filedocumented in this encounter Care Teams Biofuels Plant Construction Worker Relationship Specialty Start Date End Date Kristin Witt MD [address] [place] [address] PCP - General Family Medicine 04/10/23 Kristin Witt MD [address] [place] [address] PCP - Medical [place] [employer] 11/05/02 11/04/99 documented as of this encounter
--- OUTSIDE RECORDS SUMMARY | 2025-06-30 13:33 | XMS_ITS | Clinical Summary ---
Author Organization [facility] Address [address] [place] [address] Care Team Providers Care Tea Room Manager Name Role Phone Kristin Witt MD Primary Care Provider [phone] Allergies Active Allergy Reactions Criticality Noted Date Comments Nsaids (Non-Steroidal Anti-I nflammatory Drug) Unknown 04/08/2015 Sulfa (Sulfonamide Antibiotics) Hives 02/2015 Medications PREMARIN 0.9 mg tablet 0.9 mg once daily. 5 Active ALPRAZolam (XANAX) 0.5 mg tabletIndication s:Periodic headache syndrome, not intractable,Anem ia, unspecified type,History of Jd-en-Y gastric bypass,Iron deficiency anemia, unspecified iron deficiency anemia type,Irritable bowel syndrome, unspecified type Take 0.5 mg by mouth as needed. 8 Active cyclobenzaprine (FLEXERIL) 5 mg tabletIndication s:Periodic headache syndrome, not intractable,Anem ia, unspecified type,History of Jd-en-Y gastric bypass,Iron deficiency anemia, unspecified iron deficiency anemia type,Irritable bowel syndrome, unspecified type Take 5 mg by mouth as needed. 8 Active eletriptan (RELPAX) 40 mg tabletIndication s:Periodic headache syndrome, not intractable,Anem ia, unspecified type,History of Jd-en-Y gastric bypass,Iron deficiency anemia, unspecified iron deficiency anemia type,Irritable bowel syndrome, unspecified type TAKE 1 TABLET BY MOUTH FOR HEADACH, IF HEADACHE RETURNS MAY REPEAT DOSE AFTER 2 8 Active ondansetron (ZOFRAN) 4 mg tabletIndication s:Periodic headache syndrome, not intractable,Anem ia, unspecified type,History of Jd-en-Y gastric bypass,Iron deficiency anemia, unspecified iron deficiency anemia type,Irritable bowel syndrome, unspecified type Take 4 mg by mouth as needed. 8 Active OXcarbazepine (TRILEPTAL) 300 mg tabletIndication s:Periodic headache syndrome, not intractable,Anem ia, unspecified type,History of Jd-en-Y gastric bypass,Iron deficiency anemia, unspecified iron deficiency anemia type,Irritable bowel syndrome, unspecified type Take 300 mg by mouth twice daily. 8 Active valACYclovir (VALTREX) 500 mg tabletIndication s:Periodic headache syndrome, not intractable,Anem ia, unspecified type,History of Jd-en-Y gastric bypass,Iron deficiency anemia, unspecified iron deficiency anemia type,Irritable bowel syndrome, unspecified type Take 500 mg by mouth as needed. 8 Active K-PHOS ORIGINAL 500 mg tabletIndication s:History of Jd-en-Y gastric bypass,Iron deficiency anemia, unspecified iron deficiency anemia type Take 500 mg by mouth four times daily. 8 Active sucralfate (CARAFATE) 100 mg/mL suspension Take 1 g by mouth four times daily. Active Active Problems Problem Noted Date Diagnosed Date Periodic headache syndrome, not intractable 09/05 Anemia 09/20/2018 History of Jd-en-Y gastric bypass 09/20/2018 Iron deficiency anemia 09/20/2018 Diarrhea 08/18/2015 Abdominal pain 08/18/2015 Unspecified intestinal obstruction 07/23/2015 Family History Medical History Relation Comments COPD Father Diabetes Father Heart Father Hypertension Mother Relation Status Comments Father (Age 57) COPD,Diabetes, Heart attack Mother Alive hypertension Social History Tobacco Use Types Packs/Day Years Used Date Smoking Tobacco: Former Cigarettes 0.5 20 Smokeless Tobacco: Never Comments:stopped april 05 2015 Alcohol Use Standard Drinks/Week Comments Yes 0 (1 standard drink = 0.6 oz pur e alcohol) social Area Deprivation Index Answer Date Niraj rded National Score (1-100), lower number is lower ri sk Not on file 10/13/2020 State Score (1-10), lower number is lower risk N ot on file 10/13/2020 Data from: https://www.neighborhoodatlas.medicine.[facility].edu/. Last address used for calculation Not on file 10/13/2020 Comments No Sex and Gender Information Value Date Recorded Sex Assigned at Not on file Legal Sex Female 10:16 AM EDT Gender Identity Not on file Sexual Orientation Not on file Last Filed Vital Signs Vital Sign Reading Time Taken Comments Blood Pressure 107/58 11/12/2019 3:45 PM EST Pulse 71 11/12/2019 3:45 PM EST Temperature 36.5 C (97.7 F) 11/12/2019 3:45 PM EST Respiratory Rate 16 11/12/2019 3:45 PM EST Oxygen Saturation 100% 11/12/2019 3:45 PM EST Inhaled Oxygen Concentration - - Weight 51.5 kg (113 lb 9.6 oz) 11/12/2019 3:45 P M EST Height 152.4 cm (5') 11/12/2019 3:45 PM EST Body Mass Index 22.19 11/12/2019 3:45 PM EST Plan of Treatment Health Maintenance Due Date Last Done Comments Anxiety Screening 1990 Depression Screening 1990 HIV Screening 1990 DTaP,Tdap,Td Vaccine (1 - Tdap) 1991 Hepatitis B Vaccine (1 of 3 - 19+ 3-dose series) 1991 Cervical Cancer Screening [address] Colonography 2017 Cologuard (FIT-DNA) 2017 Colonoscopy 2017 09/21/2015, 08/12/2015 Colorectal Cancer Screening 2017 Fecal Occult Blood 2017 Lipid Screening 2017 Sigmoidoscopy 2017 Pneumococcal Vaccine: 50+ (1 of 1 - PCV) 2022 Shingrix Vaccine (1 of 2) 2022 Diabetes Screening 11/12/2022 11/12/2019, 1 12/24/2017, 10/23/2018, Additional history exists Influenza Vaccine (#1) 2025 Hepatitis C Screening Completed 08/04/2015 Procedures Procedure Name Priority Date/Time Associated Diagnosis Comments COMPREHENSIVE METABOLIC PANEL Routine 11/12/2019 3:40 PM EST Iron deficiency anemia, unspecified iron deficiency anemia type COLONOSCOPY GEN ANES Routine 09/21/2015 10:52 AM EST Generalized abdominal pain HEP REMOTE PANEL BL Routine 08/04/2015 1 2:00 PM EDT Epigastric pain Ulcerative colitis without complications, unspecified ulcerative colitis (HCC) Non-intractable vomiting with nausea, vomiting of unspecified type from Last 3 Months or Most Recently Relevant to Health Maintenance Results * (ABNORMAL) COMP METABOLIC PANEL (11/12/2019 3:40 PM EST) Protein, Total 6.5 6.3 - 8.0 g/dL 11/13/2019 8:05 AM [facility] Albumin 4.6 3.9 - 4.9 g/dL 11/13/2019 8:05 AM EST [facility] Calcium 9.3 8.5 - 10.2 mg/dL 11/13/2019 8:05 AM EST [facility] Bilirubin, Total 0.2 0.2 - 1.3 mg/dL 11/13/2019 8:05 AM [facility] Alkaline Phosphatase 71 34 - 123 U/L 11/13/2019 8:05 AM [facility] AST 18 13 - 35 U/L 11/13/2019 8:05 AM [facility] Glucose 103(H) 74 - 99 mg/dL 11/13/2019 8:05 AM [facility] Comment: The [place] [employer] Association (ADA) provides guidance for cutoff [...] Standards of Medical Care in Diabetes 2016, [place] [employer]. Diabetes Care. 2016.39(Suppl 1). BUN 5(L) 7 - 21 mg/dL 11/13/2019 8:05 AM [facility] Creatinine 0.69 0.58 - 0.96 mg/dL 11/13/2019 8:05 AM [facility] Sodium 136 136 - 144 mmol/L 11/13/2019 8:05 AM [facility] Potassium 4.3 3.7 - 5.1 mmol/L 11/13/2019 8:05 AM [facility] Chloride 101 97 - 105 mmol/L 11/13/2019 8:05 AM [facility] CO2 23 22 - 30 mmol/L 11/13/2019 8:05 AM [facility] Anion Gap 12 9 - 18 mmol/L 11/13/2019 8:05 AM [facility] ALT 16 7 - 38 U/L 11/13/2019 8:05 AM [facility] eGFR- >60 11/13/2019 8:05 AM [facility] eGFR-All Other Races >60 . 11/13/2019 8:05 AM [facility] Comment: eGFR (Estimated GFR) Units of measure: [...] eGFR may not accurately reflect actual GFR. Blood specimen (specimen) 11/12/2019 3:40 PM EST 11/12/2019 3:42 PM EST us Sumaya Jean PA-C LABORATORY Final Result [address] [address] [facility] [address] [place], [place] * COLONOSCOPY GEN ANES (09/21/2015 10:52 AM EST) Clinical Documentation Improvement Specialist Q3 Patient Name: Miriam Estrada Procedure Date: 09/21/2015 10:52 AM Date of : 1970 Admit Type: Outpatient Age: 45 Gender: Female Note Status: Finalized Attending MD: Brooks Gordillo MD Procedure: Colonoscopy Indications: Abdominal pain Providers: Brooks Gordillo MD Patient Profile: This is a 45 year old female. Refer to note in patient chart for documentation of history and physical. Last Colonoscopy: date unknown. Referring Physician: Medicines: Monitored Anesthesia Care Complications: No immediate complications. Requesting Provider: Procedure: Pre-Anesthesia Assessment: - ASA Grade Assessment: II - A patient with mild systemic disease. After I obtained informed consent, the scope was passed under direct vision. Throughout the procedure, the patient's blood pressure, pulse, and oxygen saturations were monitored continuously. The Colonoscope was introduced through the anus and advanced to the terminal ileum. The Colonoscope was introduced through the anus and advanced to the terminal ileum. The colonoscopy was performed without difficulty. The patient tolerated the procedure well. The quality of the bowel preparation was good. The terminal ileum, the ileocecal valve, the appendiceal orifice and the rectum were photographed. Findings: The terminal ileum appeared normal. A 5 mm, non-bleeding polyp was found in the sigmoid colon. The polyp was sessile. The polyp was removed with a cold biopsy forceps. Resection and retrieval were complete. Localized mild inflammation characterized by erythema and friability was found in the rectum. Biopsies were taken with a cold forceps for histology. Impression: - The examined portion of the ileum was normal. - One 5 mm, non-bleeding polyp in the sigmoid colon. Resected and retrieved. - Localized mild inflammation was found in the rectum secondary to colitis. Biopsied. Estimated Blood Loss: Estimated blood loss: none. Recommendation: - Await pathology results. - Repeat colonoscopy at appointment to be scheduled for surveillance based on pathology results. - Patient has a contact number available for emergencies. The signs and symptoms of potential delayed complications were discussed with the patient. Return to normal activities tomorrow. Written discharge instructions were provided to the patient. - Continue present medications. - Resume previous diet. Procedure Code(s): --- Professional --- 32226 Diagnosis Code(s): --- Professional --- D12.5 K52.9 R10.9 CPT copyright 2014 [place]. All rights reserved. Attending Participation: I personally performed the entire procedure. MD Brooks Lucas MD 09/21/2015 11:48:32 AM This report has been signed electronically by Brooks Gordillo MD Number of Addenda: 0 Note Initiated On: 09/21/2015 10:52 AM Procedure Start: 11:26:57 AM Procedure End: 11:42:56 AM [facility] Anatomical Region Laterality Modality Other 09/21/2015 10:5 2 AM EST Brooks Gordillo MD [facility] Final Result * HEP REMOTE PANEL BL (08/04/2015 12:00 PM EDT) Hep B Core Ab, Total Negative Negative 08/04/2015 7:31 PM EDT [facility] Hep C Antibody IA Negative Negative 08/04/2015 7:31 PM EDT [facility] HBsAg Negative Negative 08/04/2015 7:31 PM EDT [facility] Hep B Surface Ab, Qual Negative Negative 08/04/2015 7:31 PM [facility] Comment:NEGATIVE Blood specimen (specimen) BLOOD SPECIMEN / Unknown 08/04/2015 12:00 PM EDT 08/04/2015 12:02 PM EDT Soham Esqueda MD LABORATORY Final Result [facility] [address] [facility] [place] [address] from Last 3 Months or Most Recently Relevant to Health Maintenance Insurance [facility] PPO Care Teams Tea Room Manager Relationship Specialty Start Date End Date Kristin [place] MD PCP - General Family Medicine 04/06/15
--- OUTSIDE RECORDS SUMMARY | 2025-06-30 13:33 | XMS_ITS | Encounter Summary ---
Author Organization [facility] Address [address] [place] [address] Care Team Providers Care Loss Prevention Investigator Name Role Phone Kristin [place] MD Primary Care Provider [phone] Kristin Witt MD Unavailable Encounter Details Date Type Department Care Team (Late st Contact Info) Description 08/26/2024 Abstract [facility] [address] [facility] [address] [place] [id number] Kristin Witt MD 112 [facility] 110 [place], [place] [id number] Social History Tobacco Use Types Packs/Day Years [...] on filedocumented in this encounter Care Teams Loss Prevention Investigator Relationship Specialty Start Date End Date Kristin Witt MD 112 [facility] 110 [place] [address] PCP - General Family Medicine 04/10/23 Kristin Witt MD 112 [facility] 110 [place] [address] PCP - Medical [place] [employer] 11/05/02 11/04/99 documented as of this encounter
--- OUTSIDE RECORDS SUMMARY | 2025-06-30 13:33 | XMS_ITS | Encounter Summary ---
Author Organization [facility] Address [address] [facility] [place] [address] Care Team Providers Care Paralegal Supervisor Name Role Phone Kristin [place] MD Primary Care Provider [phone] Kristin Witt MD Unavailable Encounter Details Date Type Department Care Team (Late st Contact Info) Description 06/25/2025 Abstract [facility] [address] [facility] [address] [place] [address] Kristin [place] MD [address] [facility] [address] [place] [address] Social History Tobacco Use Types Packs/Day Years [...] on filedocumented in this encounter Care Teams Paralegal Supervisor Relationship Specialty Start Date End Date Kristin Witt MD [address] [facility] 110 [place] [address] PCP - General Family Medicine 04/10/23 Kristin Witt MD [address] [place] [address] PCP - Medical [place] [employer] 11/05/02 11/04/99 documented as of this encounter
--- OUTSIDE RECORDS SUMMARY | 2025-06-30 13:33 | XMS_ITS | Encounter Summary ---
Author Organization [facility] Address [address] [facility] [place] [address] Care Team Providers Care Knurling Machine Operator Name Role Phone Kristin [place] MD Primary Care Provider [phone] Kristin [place] MD Unavailable Encounter Details Date Type Department Care Team (Late st Contact Info) Description 06/25/2025 Abstract [facility] [address] [facility] [address] [place] [address] Kristin [place] MD [address] [facility] [address] [place] [address] Social History Tobacco Use Types Packs/Day Years [...] on filedocumented in this encounter Care Teams Knurling Machine Operator Relationship Specialty Start Date End Date Kristin [place] MD [address] [facility] [address] [place] [address] PCP - General Family Medicine 04/10/23 Kristin Witt MD 112 [place] [address] PCP - Medical [place] [employer] 11/05/02 11/04/99 documented as of this encounter
--- OUTSIDE RECORDS SUMMARY | 2025-06-30 13:33 | XMS_ITS | Encounter Summary ---
Author Organization [facility] Address [address] [place] [address] Care Team Providers Care Journeyman Molder Name Role Phone Kristin [place] MD Primary Care Provider [phone] Kristin Witt MD Unavailable Encounter Details Date Type Department Care Team (Latest Contact Info) Description 06/23/2025 Travel Social History Tobacco Use Types Packs/Day [...] on filedocumented in this encounter Care Teams Journeyman Molder Relationship Specialty Start Date End Date Kristin Witt MD [address] [facility] [address] [place] [address] PCP - General Family Medicine 04/10/23 Kristin Witt MD [address] [facility] [address] [place] [address] PCP - Medical [place] [employer] 11/05/02 11/04/99 documented as of this encounter
--- OUTSIDE RECORDS SUMMARY | 2025-06-30 13:33 | XMS_ITS | Encounter Summary ---
Author Organization [facility] Address [address] [facility] [place] [address] Care Team Providers Care Bilingual Case Manager Name Role Phone Kristin [place] MD Primary Care Provider [phone] Kristin Witt MD Unavailable Encounter Details Date Type Department Care Team (Late st Contact Info) Description 06/29/2025 Bamboo flowsheet [facility] [address] [place] [address] [place] [address] Yolanda Jimenez PA [address] [facility] [address] [place] [address] Social History Tobacco Use Types Packs/Day Years [...] on filedocumented in this encounter Care Teams Bilingual Case Manager Relationship Specialty Start Date End Date Kristin Witt MD [address] [facility] [address] [place] [address] PCP - General Family Medicine 6/6/23 Kristin Witt MD [address] [place] [address] PCP - Medical [place] [employer] 11/05/02 11/04/99 documented as of this encounter
--- OUTSIDE RECORDS SUMMARY | 2025-06-30 13:33 | XMS_ITS | Encounter Summary ---
Author Organization [facility] Address [address] [facility] [place] [place] [address] Care Team Providers Care Associate Accountant Name Role Phone Kristin Witt MD Primary Care Provider [phone] Kristin Witt MD Unavailable Encounter Details Date Type Department Care Team (Late st Contact Info) Description 03/26/2023 Abstract [facility] [address] [facility] 110 [place] [phone] Kristin Witt MD 112 [facility] 110 [place], [place] [id number] Social History Tobacco Use Types Packs/Day Years [...] on filedocumented in this encounter Care Teams Associate Accountant Relationship Specialty Start Date End Date Kristin Witt MD 112 [facility] 110 [place] [address] PCP - General Family Medicine 04/10/23 Kristin Witt MD [address] [facility] 110 [place] [address] PCP - Medical [place] [employer] 11/05/02 11/04/99 documented as of this encounter
--- OUTSIDE RECORDS SUMMARY | 2025-06-30 13:33 | XMS_ITS | Clinical Summary ---
Author Organization [facility] Address [address] [place] [address] Care Team Providers Care Services Rep Name Role Phone Kristin Young MD Primary Care Provider Kristin Young MD Unavailable Allergies Active Allergy Reactions Criticality Noted Date Comments Levofloxacin 02/26/2024 Metronidazole Nausea And Vomiting, GI intolerance 05/04/2023 Nsaids 04/08/2015 Other reaction(s): Unknown Sulfa Antibiotics 02/26/2024 Sulfanilamide Unknown 07/01/2023 Medications sucralfate (Carafate) 1 GM/10ML suspension Take 10 mL by mouth On an empty stomach before meals and bedtime 03/22/20 23 Active clonazePAM (KlonoPIN) 0.5 MG tablet Take 1 tablet by mouth at bedtime PRN 05/14/20 23 Active famotidine (Pepcid) 20 MG tablet Take 1 tablet by mouth Daily Active saccharomyces boulardii (Florastor) 250 MG capsule Take 250 mg by mouth Daily Active fluticasone (Flonase) 50 MCG/ACT nasal sprayIndications: Non-seasonal allergic rhinitis due to pollen Administer 1-2 sprays into each nostril Daily Shake gently. Before first use, prime pump. After use, clean tip and replace cap. 16 g 5 01/18/20 24 Active OXcarbazepine (Trileptal) 300 MG tabletIndications :Migraine with aura and without status migrainosus, not intractable TAKE ONE AND ONE-HALF TABLETS TWICE A DAY 270 tablet 3 05/26/20 24 Active montelukast (Singulair) 10 MG tabletIndications :Memory changes TAKE 1 TABLET DAILY 90 tablet 3 07/11/20 24 Active cyclobenzaprine (Flexeril) 5 MG tabletIndications :Muscle spasm TAKE 1 TABLET THREE TIMES A DAY NEEDED FOR MUSCLE SPASM 270 tablet 3 08/11/20 24 Active valACYclovir (Valtrex) 500 MG tabletIndications :Herpes simplex with complication Take 2 tablets (1,000 mg) by mouth in the morning and 2 tablets (1,000 mg) before bedtime. 120 tablet 11 12/01/19 25 026 Active Onabotulinumtoxin A (BOTOX IJ) Inject as directed One injection every 3 months for migraines and tremors Active escitalopram (Lexapro) 20 MG tabletIndications :Adjustment disorder with anxiety TAKE ONE AND ONE-HALF TABLETS DAILY 135 tablet 3 02/17/20 25 Active Ubrogepant (Ubrelvy) 100 MG tabletIndications :Migraine without aura and without status migrainosus, not intractable TAKE 1 TAB AT ONSET OF MIGRAINE NEEDED, MAY REPEAT 1 TAB IN 2 HRS NO MORE THAN 2/DAY AND 2/WK 16 tablet 2 03/16/20 25 Active cholecalciferol (Vitamin D-3) 1.25 MG (48253 UT) capsuleIndication s:Vitamin D deficiency Take 1 capsule (1.25 mg) by mouth See administration instructions Take 1 capsule once a week x 4 weeks, then take 1 capsule monthly. 6 capsule 03/19/20 25 Active Multiple Vitamin (multivitamin) tablet Take 1 tablet by mouth Daily Active folic acid (Folvite) 1 MG tabletIndications :Liver disease,Vitamin B deficiency,Abnorm al laboratory test result TAKE 1 TABLET IN THE MORNING 100 tablet 3 03/23/20 25 Active Atogepant (Qulipta) 60 MG tabletIndications :Migraine without aura and without status migrainosus, not intractable Take 1 tablet by mouth Daily Neurology prescribes. 30 tablet 2 03/25/20 25 Active levothyroxine (Synthroid, Levoxyl) 50 MCG tabletIndications :Acquired hypothyroidism TAKE 1 TABLET IN THE MORNING BEFORE A MEAL 100 tablet 3 03/31/20 25 Active estrogens, conjugated, (Premarin) 1.25 MG tabletIndications :Postablative ovarian failure TAKE 1 TABLET IN THE MORNING 100 tablet 3 05/18/20 25 Active traZODone (Desyrel) 50 MG tabletIndications :Primary insomnia Take 1-1.5 tablets (50-75 mg) by mouth as needed at bedtime for sleep 135 tablet 05/18/20 25 Active ALPRAZolam (Xanax) 0.5 MG tabletIndications :Adjustment disorder with anxiety Take 1 tablet (0.5 mg) by mouth every 12 (twelve) hours for 15 days PRN 30 tablet 06/29/20 25 025 Active ALPRAZolam (Xanax) 0.5 MG tabletIndications :Adjustment disorder with anxiety Take 1 tablet (0.5 mg) by mouth every 12 (twelve) hours for 15 days PRN 30 tablet 01/23/20 25 025 [facility], or Other Facility Administered Medication Ordered Dose Route Frequency Start Date End Date Status triamcinolone acetonide (Kenalog-40) injection 40 mgIndications:Seasonal allergic rhinitis due to pollen 40 mg IM Once 06/29/2025 06/29/2025 Ended Active Problems Problem Noted Date Diagnosed Date Hyponatremia 06/26/2025 Elevated liver enzymes 03/19/2025 Thrombocytosis 03/19/2025 Sacroiliac joint pain 03/11/2025 History of COVID-19 03/11/2025 Diverticulosis of colon without hemorrhage 03/11 Overweight 03/11/2025 Former smoker 03/11/2025 Arthritis of right hand 02/03/2025 Seasonal allergic rhinitis due to pollen 025 Memory changes 02/26/2024 Overview (02/26/2024): Was having issues with expressing her thoughts and what she describes as dyslexia. She has historically declined neuropsychological testing but reconsidered more recently and referral was sent. Memory is worsening to the point that she stopped working last year. MOCA 11/01/2022 is 20/30. B12 and MMA [...] pain, significant tremors, and medication side effects. 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 07/02/2023 Assessment & Plan (07/02/2023 1:30 PM EDT): Has seen neurologist Will follow-up in 4 months Only sedative will be helpful Possible Stimulator Dizziness 07/02/2023 Assessment & Plan (07/02/2023 1:38 PM EDT): Increase fluids If NB consider TILT Test Treatments Escitalprams on board already Atrophy of vagina 05/22/2023 Pruritus of vagina 05/22/2023 Internal derangement of right shoulder Spasmodic torticollis 05/22/2023 Ulnar neuropathy of right upper extremity 2022 Urge incontinence of urine 05/22/2023 Sjogren's syndrome with keratoconjunctivitis sic ca 05/22/2023 Disorder of lung with Sjogren's syndrome 023 Gastroesophageal reflux disease without esophagi tis 04/25/2023 Acquired hypothyroidism 04/25/2023 Assessment & Plan (07/02/2023 1:38 PM EDT): No current symptoms Abnormal laboratory test result 04/25/2023 Adjustment disorder with anxiety 04/25/2023 Assessment & Plan (10/02/2023 11:25 AM EST): Patient's Medicine is effective at controlling symptoms at current dose and frequency. PDMP reviewed with no evidence of overuse and abuse D/W patient to avoid use of benzodiazepines when consuming alcohol Advised against operating heavy machinery and driving long distances while on medicines. Assessment & Plan (07/02/2023 1:26 PM EDT): Patient's Medicine is effective at controlling symptoms at current dose and frequency. PDMP reviewed with no evidence of overuse and abuse D/W patient to avoid use of benzodiazepines when consuming alcohol Advised against operating heavy machinery and driving long distances while on medicines. Arthritis of right acromioclavicular joint 04/25 Chronic sinusitis 04/25/2023 Dry eyes 04/25/2023 Essential tremor 04/25/2023 Overview (02/26/2024): Patient has persistent tremor that is generalized and worse in her head and upper extremities as well as gait instability with a steppage type gait with tremor noted in her lower extremities. Tremor is most consistent with a functional tremor and/or essential tremor worsened by stress and anxiety. She is following with a movement disorder clinic in [place] and diagnosed with FND w/tremor. They have weakned her off the primodone. She does respond to Klonopin. MRI of the brain in 2017 was normal. Fibromyalgia 04/25/2023 History of hysterectomy 04/25/2023 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 04/25/2023 Postablative ovarian failure 04/25/2023 Liver disease 04/25/2023 Migraine with aura and witho ut status migrainosus, not intractable 04/25/2023 Sicca syndrome 04/25/2023 Interstitial lung disease 04/25/2023 Slow transit constipation 04/25/2023 Vitamin B deficiency 04/25/2023 Vitamin D deficiency 04/25/2023 History of gestational diabetes mellitus 021 History of Jd-en-Y gastric bypass 09/20/2018 Iron deficiency anemia 03/05/2017 Parietoalveolar pneumopathy 02/05/2017 Herpes simplex with complication 03/24/2010 Atypical depressive disorder 04/27/2008 Ulcerative colitis 04/27/2008 Impaired fasting glucose 04/27/2008 Excessive and frequent menstruation 04/27/2008 Female stress incontinence 04/27/2008 Resolved Problems Problem Noted Date Diagnosed Date Resolved Date Bacterial vaginitis 02/03/2025 03/11/20 25 Cervical cancer screening 02/03/2025 Localized, primary osteoarthritis of hand 02/03/2025 03/11/2025 Other skin changes 02/03/2025 Sacrococcygeal disorders, no t elsewhere classified 02/03/2025 03/11/2025 Breast cancer screening by mammogram 02/03/2025 02/03/2025 Headache 02/26/2024 03/11/2025 Migraine 02/26/2024 02/03/2025 Overview (02/26/2024): Headaches that turn into migraines that lessened in intensity with Trileptal but it seemed to make tremor worse so she stopped it. Imitrex and Cambia were not effective. CT of the sinuses 07/2018 was normal. Relpax was no longer effective. Patient has trialed amitriptyline and had side effect. She is currently on lexapro, so will avoid additional antidepressants. She has trialed Ubrelvy 100mg but occasionally has to redose. She does not respond to steroids. Depacon/magnesium infusion caused nausea and diarrhea. She continues on flexeril and ubrelvy with infrequent headaches that she relates to neck pain and tremor which is likely playing a role. Migraines have improved. Acute reaction to stress 02/26/202405/2025 Tremor 02/26/2024 03/11/2025 Hypersomnia 02/26/2024 03/11/2025 Overview (02/26/2024): Patient experiences chronic daytime fatigue with associated memory changes, and headaches possibly. Sleep study 11/2022 was negative for ROSA M. Medication side effect may also be contributing to her symptoms. She does report previous history of ROSA M prior to gastric bypass surgery. She will nap throughout the day due to fatigue. ROSA M (obstructive sleep apnea) 02/26/2024 03/11/2025 Viral upper respiratory tract infection 10/02/2023 02/03/2025 Assessment & Plan (10/02/2023 11:25 AM EST): Supportive Care Increase fluids, Tylenol, Ibuporfen, John''''s vapor vapor rub, john''''s humidifier. Watch for bacterial infections. Mucinex D Acute non-recurrent maxillary sinusitis 10/02/2023 02/03/2025 Assessment & Plan (10/02/2023 11:33 AM EST): Add Probiotic to help replenish the good bacteria that are destroyed by the Antibiotics Florastor Florajen Align or try Activia in Yogurt Probiotics reduce the risk of antibiotic induced diarrhea Diverticulitis 05/22/2023 03/11/2025 Pain of breast 05/22/2023 03/11/2025 Severe acute respiratory syn drome coronavirus 2 (SARS-CoV-2) detected 05/22/2023 03/11/2025 Other specified abnormal fin dings of blood chemistry 04/25/2023 03/11/2025 Hypoglycemia 03/22/2021 03/11/2025 Otitis externa 05/06/2020 02/03/2025 Smoker 12/26/2016 03/11/2025 Abdominal pain 08/18/2015 03/11/2025 Intestinal obstruction 07/23/201502/03 Allergic rhinitis 09/16/2009 02/03/2025 Anemia 04/27/2008 03/11/2025 Encounters Date Type Department Care Team Description 06/30/2025 Telephone [facility] [address] [facility] [address] [place] [id number] Yolanda Jimenez PA 06/29/2025 2:00 PM EDT Office Visit [facility] [address] [facility] [address] [place] [address] Yolanda Jimenez PA Hyponatremia (Primary Dx); Adjustment disorder with anxiety ; Other ulcerative colitis without complication (HCC); Alternating constipation and diarrhea; Dark stools; Anemia, unspecified type; Seasonal allergic rhinitis due to pollen 06/29/2025 Bamboo flowsheet [facility] [address] [facility] [address] [place] [address] Yolanda Jimenez PA 06/29/2025 Travel 06/26/2025 Telephone [facility] [address] [facility] [address] [place] [address] Yolanda Jimenez PA 06/26/2025 Abstract [facility] [address] [facility] [address] [place] [address] Kristin Young MD 06/25/2025 Abstract [facility] [address] [facility] [address] [place] [address] Kristin Young MD 06/25/2025 Abstract [facility] [address] [place] [address] Kristin Young MD 06/25/2025 Clinisync Result Encounter [facility] External Department Unsolicited Yolanda Jimenez PA 06/23/2025 Travel 05/18/2025 Refill [facility] [address] [place] [address] Yolanda Jimenez PA Primary insomnia 05/18/2025 Refill [facility] [address] [place] [address] Yolanda Jimenez PA Postablative ovarian failure 05/04/2025 Refill [facility] [address] [place] [address] Nikkie Sutherland MA Primary insomnia 04/30/2025 Abstract [facility] [address] [place] [address] Kristin Young MD 03/30/2025 Refill [facility] [address] [place] [address] Kristin Young MD Acquired hypothyroidism from Last 3 Months Family History Medical History Relation Name Comments Allergies Brother COPD Father Cancer Father Diabetes Father Heart disease Father Lung disease Father Diabetes Maternal Grandfather Heart disease Maternal Grandfather Cancer Maternal Grandmother Mental illness Maternal Grandmother Cancer Mother Diabetes Mother Heart disease Mother Hypertension Mother Lymphoma Mother Stroke Mother Heart disease Paternal Grandfather Heart disease Paternal Grandmother Mental illness Son Relation Name Status Comments Brother Alive 1 brother Daughter 1 daughter Father Maternal Grandfather Maternal Grandmother Mother ocular lymphoma Paternal Grandfather Paternal Grandmother Sister Alive 1 sister Son 2 sons Social History Tobacco Use Types Packs/Day Years Used Date Smoking Tobacco: Former Cigarettes Smokeless Tobacco: Never Tobacco Cessation:Counseling Given: Not Answered Alcohol Use Standard Drinks/Week Comments Never 0 [...] AM EDT Sexual Orientation Not on file Last Filed Vital Signs Vital Sign Reading Time Taken Comments Blood Pressure 138/98 06/29/2025 2:12 PM EDT Pulse 85 06/29/2025 2:12 PM EDT Temperature 36.3 C (97.4 F) 01/18/2024 8:38 AM EDT Respiratory Rate 16 06/29/2025 2:12 PM EDT Oxygen Saturation 98% 06/29/2025 2:12 PM EDT Inhaled Oxygen Concentration - - Weight 66.9 kg (147 lb 6.4 oz) 06/29/2025 2:12 P M EDT Height 149.9 cm (4' 11 ) 06/29/2025 2:12 PM EDT Body Mass Index 29.77 06/29/2025 2:12 PM EDT Plan of Treatment Health Maintenance Due Date Last Done Comments CT Colonography 1972 FIT-DNA 1972 FIT 1972 FOBT 1970 Sigmoidoscopy 1972 Mammogram 05/20/2025 05/20/2024, 01/04, 07/18/2018, Additional history exists Influenza Vaccine (#1) 2025 Colonoscopy 04/04/2029 04/04/2019, 09/21/2015 Colorectal Cancer Screening 04/04/2029 Procedures Procedure Name Priority Date/Time Associated Diagnosis Comments VITAMIN B12 Routine 06/25/2025 11:50 AM EDT TRANSFERRIN Routine 06/25/2025 11:50 AM EDT [facility] VITAMIN D 25 [place] Routine 06/25/2025 1 1:50 AM EDT [facility] FERRITIN Routine 06/25/2025 11:50 AM EDT METRO IRON AND TIBC Routine 06/25/2025 1 1:50 AM EDT ALL CBC WITH AUTO DIFF Routine 11:50 AM EDT [facility] CMP (CMP) (FOR REMOTE CRITICAL ACCESS HOSPITAL USE) Routine 06/25/2025 11:50 AM EDT MM TOMOSYNTHESIS SCREENING BI 05/20/2024 12:10 PM EDT COLONOSCOPY Routine 04/04/2019 12:00 PM EDT from Last 3 Months or Most Recently Relevant to Health Maintenance Results * VITAMIN B12 (06/25/2025 11:50 AM EDT) VITAMIN B12 632 232 - 1245 pg/mL [facility] Comment: Performed at: [address] [id number] Manager Of Development: Quincy Anguiano PhD, Phone: [phone] 06/25/2025 11:5 0 AM EDT 06/25/2025 11:57 AM EDT Narrative CLINISYNC - 06/26/2025 4:08 AM EDT Yolanda YUEN LAB BLOOD ORDERABLES Final Res ult Performing Organization Address [facility] de Phone Number CLINISYNC [facility] * TRANSFERRIN (06/25/2025 11:50 AM EDT) Pathologist [facility] TRANSFERRIN 339 192 - 364 mg/dL [facility] Comment: Performed at: [address] [id number] Manager Of Development: Quincy Anguiano PhD, Phone: [phone] 06/25/2025 11:5 0 AM EDT 06/25/2025 11:57 AM EDT Narrative CLINISYNC - 06/26/2025 4:08 AM EDT us Yolanda YUEN LAB BLOOD ORDERABLES Final Res ult Performing Organization Address [facility]/ZIP Co de Phone Number CLINIS[facility]NC [facility] * [facility] VITAMIN D 25 [place] (06/25/2025 11:50 AM EDT) VITAMIN D 45.0 ng/mL [facility] Comment: <20 ng/mL Vit D deficient 20-<30 ng/mL Vit D insufficient 30-100 ng/mL Vit D sufficient >100 ng/mL Potential Toxicity 06/25/2025 11:5 0 AM EDT 06/25/2025 11:57 AM EDT Narrative CLINISYNC - 06/25/2025 1:39 PM EDT Yolanda YUEN CLINISYNC Final Result Performing Organization Address [facility] de Phone Number CLINISYNC TB * METRO IRON AND TIBC (06/25/2025 11:50 AM EDT) [facility] IRON 73.0 50.0 - 170.0 ug/dL [facility] TOTAL IRON BINDING CAPACITY 431.0 250.0 - 450.0 ug/dL [facility] PERCENT IRON SATURATION 16.9 % [facility] 06/25/2025 11:5 0 AM EDT 06/25/2025 11:57 AM EDT Narrative CLINISYNC - 06/25/2025 1:15 PM EDT Yolanda BENSONISYJON Final Result Performing Organization Address [facility] de Phone Number CLINISYNC TB * [facility] FERRITIN (06/25/2025 11:50 AM EDT) FERRITIN 17.0 8.0 - 252.0 ng/mL [facility] 06/25/2025 11:5 0 AM EDT 06/25/2025 11:57 AM EDT Narrative CLINISYNC - 06/25/2025 1:39 PM EDT Yolanda BENSONISYJON Final Result Performing Organization Address [facility] Co de Phone Number CLINISYNC [facility] * (ABNORMAL) [facility] CMP (CMP) (FOR REMOTE CRITICAL ACCESS HOSPITAL USE) (06/25/2025 11:50 AM EDT) SODIUM 125(L) 136 - 145 mmol/L [facility] POTASSIUM 4.1 3.5 - 5.1 mmol/L [facility] CHLORIDE 92(L) 98 - 107 mmol/L [facility] CARBON DIOXIDE 25.4 21.0 - 32.0 mmol/L [facility] ANION GAP 11.7 [facility] GLUCOSE 104 74 - 106 mg/dL [facility] BLOOD UREA NITROGEN 7.0 7.0 - 18.0 mg/dL [facility] CREATININE 0.67 0.55 - 1.02 mg/dL [facility] EGFR-AF DANISH >60 >=60 mL/min/1. 73m 2 [facility] EGFR-NON AF DANISH >60 >=60 mL/min/1. 73m 2 [facility] BUN [...] EDT us Yolanda YUEN CLINISYNC Final Result [place] * (ABNORMAL) ALL CBC WITH AUTO DIFF (06/25/2025 11:50 AM EDT) [facility] WBC 6.3 4.0 - 11.0 10 3/uL [...] - 06/25/2025 12:55 PM EDT us Yolanda YUEN CLINISYNC Final Result CLINIS[facility]NC [facility] * MM TOMOSYNTHESIS SCREENING BI (05/20/2024 12:10 PM EDT) Anatomical Region Laterality Modality Other 05/20/2024 12:1 0 PM EDT Narrative 05/20/2024 12:11 [place] [address] Mammography Report Signed Patient: MIRIAM ESTRADA MR#: [id number] : 1970 Acct:[id number] Age/Sex: 53 / F ADM Date: 05/20/24 Loc: MAMMO Attending Dr: ALEENA ORNELAS Ordering Physician: ALEENA ORNELAS Results: Date of Service: 05/20/24 Follow Up: Procedure(s): MM tomosynthesis screening BI Accession Number(s): [id number] cc: KRISTIN YOUNG ; ALEENA ORNELAS Patient Name: MIRIAM ESTRADA MR#: [id number] : 1970 Exam Date: 05/20/2024 Ordering Doctor: [...] Treatments None Family Cancers None LOCATION: [facility] BREAST COMPOSITION: There are scattered areas of [...] Signed By: 05/20/24 1211 DD/ 1210 TD/TT: Heel Seat Sander: Procedure Note Radiology, Radiologist, MD - 05/20/2024 [facility] [place] [id number] Mammography Report Signed Patient: MIRIAM ESTRADA LMR#: [id number] : 1970Acct:[id number] Age/Sex: 53 / FADM Date: 05/20/24 Loc: MAMMO Attending Dr: ALEENA ORNELAS Ordering Physician: ALEENA ORNELAS LRterryults: Date of Service: 05/20/24Follow Up: Procedure(s): MM tomosynthesis screening BI Accession Number(s): [id number] cc: KRISTIN YOUNG ; ALEENA ORNELAS Patient Name: MIRIAM ESTRADA MR#: [id number] : 1970 Exam Date: 05/20/2024 Ordering Doctor: [...] Treatments None Family Cancers None LOCATION: [facility] BREAST COMPOSITION: There are scattered areas of [...] M.D. Signed By:05/20/24 1211 DD/ 1210 TD/TT: Heel Seat Sander: us Generic External Data Provider [facility] Final Result * Colonoscopy (04/04/2019 12:00 PM EDT) Anatomical Region Laterality Modality Endoscopy 04/04/2019 12:0 0 PM EDT Narrative 04/04/2019 12:00 PM EDT PERFORMED AT [facility] LOCATION:[id number] IBS Procedure Note CONVERSION, GENERIC - 03/21/2023 PERFORMED AT [facility] LOCATION:[id number] IBS Kristin Young MD ENDOSCOPY PROCEDURE ORDERABLES F inal Result from Last 3 Months or Most Recently Relevant to Health Maintenance Insurance [employer] Care Teams Services Rep Relationship Specialty Start Date End Date Kristin Young MD [address] [facility] [address] [place] [address] PCP - General Family Medicine 04/10/23 Kristin Young MD [address] [facility] [address] [place] [address] PCP - Medical Drain Commercial 11/05/02 11/04/99
[2025-06-30] MEDS: 0.9 % SODIUM CHLORIDE 1,000 ML 1000 ML IV (13:44)
[2025-06-30] MEDS: KETOROLAC TROMETHAMINE 30 MG/ML VIAL 15 MG IVP (13:45)
[2025-06-30] MEDS: PROCHLORPERAZINE 10 MG/2 ML VIAL IV (13:47)
[2025-06-30 13:48] LABS: Hematocrit 39.6 % (36.0-48.0); Hemoglobin 13.6 g/dL (12.0-16.0); Immature Granulocytes Abs Auto 0.03 10^3/uL (0.00-0.03); Immature Granulocytes Pct Auto 0.4 % (0.0-0.5); Lymphocytes Absolute Auto 1.6 10^3/uL (1.2-3.8); Mean Corpuscular HGB Conc 34.3 g/dL (29.9-35.2); Mean Corpuscular Hemoglobin 30.4 pg (26.7-34.0); Mean Corpuscular Volume 88.6 fL (81.0-99.0); Platelet Count 505 10^3/uL (150-450); Red Blood Count 4.47 10^6/uL (4.20-5.40); White Blood Count 7.4 10^3/uL (4.0-11.0)
[2025-06-30] MEDS: DIPHENHYDRAMINE HCL 50 MG/ML VIAL 25 MG IVP (13:50)
[2025-06-30 14:04] LABS: Alanine Aminotransferase 225 U/L (14-59); Albumin Globulin Ratio 1.0; Albumin Level 4.2 g/dL (3.4-5.0); Alkaline Phosphatase 173 U/L (46-116); Anion Gap 20.5; Aspartate Amino Transferase 171 U/L (15-37); Blood Urea Nitrogen 4.0 mg/dL (7.0-18.0); Calcium 9.0 mg/dL (8.5-10.1); Carbon Dioxide 19.4 mmol/L (21.0-32.0); Chloride 91 mmol/L (98-107); Estimated GFR (African America >60 (>=60 mL/min/1.73m^2); Estimated GFR (Non-African Ame 55 (>=60 mL/min/1.73m^2); Globulin 4.1 g/dL; Glucose 143 mg/dL (74-106); Potassium 3.9 mmol/L (3.5-5.1); Sodium 127 mmol/L (136-145); Total Protein 8.3 g/dL (6.4-8.2)
--- NOTE | 2025-06-30 14:08 | CT_ITS ---
The [address] [address] Patient Name: MIRIAM ALEXANDER MRN: [id number] date: 1970 Sex: F Assigned Patient Location: ER Current Patient Location: ER Accession/Order Number: [id number] Exam Date: 06/30/2025 14:23 Report Date: 06/30/2025 14:53 At the request of: MILLY GRAJEDA DO Procedure: CT abdomen pelvis w con CT ABDOMEN AND PELVIS WITH INTRAVENOUS CONTRAST: CLINICAL HISTORY: abdominal pain COMPARISON: None TECHNIQUE: Spiral images were obtained through the abdomen and pelvis following the administration of intravenous contrast. This CT exam was performed using one or more following dose reduction techniques: Automated exposure control, adjustment of the mA and/or kV according to patient size, or use of iterative reconstruction technique. FINDINGS: Lung Bases: [Minimal atelectasis.] Organs:Gallbladder has been removed. Liver portal vein spleen pancreas and adrenal glands all unremarkable. No enhancing renal mass or hydronephrosis. Abdominal aorta appears normal in caliber.[ GI: Gastric bypass changes. Small bowel appears nondilated. No acute colonic abnormality.[Questionable focal areas of wall thickening involving the colon likely due to underdistention. Pelvis:[Urinary bladder is grossly unremarkable. Uterus appears unremarkable. No adnexal mass.] Peritoneum/Retroperitoneum:No free air or free fluid or lymphadenopathy.[ Abd wall/Bones:Abdominal wall incisional acute findings. Osseous structures demonstrate degenerative change.[ CT/CT abdomen pelvis w con IMPRESSION: No definite acute process. Questionable focal areas of wall thickening involving the colon likely related to underdistention. If further evaluation is needed, colonoscopy is suggested. Impression dictated by: Kyle Armendariz Jr., D.O. 06/30/2025 2:53 PM Dictation Location: [employer] Electronically authenticated by: [id number] Y Date: 06/30/2025 14:53
--- NOTE | 2025-06-30 14:36 | PC.NURSE ---
pt returned from imaging via stretcher at this time, pt states improement of pain. pt denies nausea and denies current needs at this time. pt aware of pending imaging result.
--- NOTE | 2025-06-30 19:22 | ED_ITS ---
HPI HPI - General Adult General Chief complaint: Headache Stated complaint: FRONTAL PAIN Time Seen by Provider: 06/30/25 13:29 Source: patient Mode of arrival: Wheelchair Limitations: no limitations History of Present Illness HPI narrative: Patient is a 55-year-old female presenting to the emergency department for evaluation of a headache. Patient states that she has a chronic history of migraines. She states that over the last few days she has been experiencing a typical migraine. However, she presented to the ED, because the pain is significant and will not subside despite using 2 doses of Ubrelvy. The pain was progressive in onset, not sudden. She denies any neck pain or stiffness. She also endorses associated nausea, vomiting, and generalized abdominal discomfort. She denies any fevers or chills. No constipation or diarrhea. No chest pain or shortness of breath. She denies any visual disturbances. No weakness in extremities. No number/tingling extremities. She has a history of essential tremors, but believes she is at her neurologic baseline. Related Data Allergies Allergy/AdvReac Type Severity Reaction Status Date / Time Sulfa (Sulfonamide Allergy Intermediate Hives Verified 06/30/25 13:32 Antibiotics) Opioid HPI Opioid Management Most Recent Opioid Data: Last Pain Scale 6 Today, 14:43 Last ED Pain Assessment Today, 14:43 Last MAR Pain Assessment Today, 13:45 Review of Systems ROS Status of ROS 10 or more systems reviewed and unremark able except as noted in history and below PFSH PFSH Social History Little interest or pleasure in doing things: not at all Feeling down, depressed, or hopeless: not at all Exam Narrative Exam Narrative: CONSTITUTIONAL: Patient appears extremely anxious, answering questions and following commands appropriately SKIN: Was warm and dry. EYES: Sclerae white. PERRLA. EOMI. EARS, NOSE, THROAT: Moist oral mucosa. RESPIRATORY: Clear to auscultation bilaterally, no wheezes, crackles, or stridor, no use of accessory muscles CARDIOVASCULAR: Tachycardic rate and regular rhythm. There is no S3, S4, murmur, rub. GASTROINTESTINAL: Generalized tenderness to palpation throughout the abdomen. No rebound tenderness or guarding. MUSCULOSKELETAL: No peripheral edema. NEUROLOGIC: Patient is awake and alert. She has consistent large frequency tremors throughout all 4 extremities. 5/5 strength in the bilateral upper/lower extremities. Sensation intact to light touch in the bilateral upper and lower extremities. Sensation intact to light touch in V1/V2/V3 distribution of the face. Tongue protrudes midline. Uvula midline. Shoulder shrug equal. Facies were symmetrical. Constitutional Vital Signs, click to edit/add: Last Vital Signs Temp 97.5 F L 06/30/25 13:33 Pulse 110 H 06/30/25 13:33 Resp 18 06/30/25 13:33 BP 122/76 06/30/25 14:38 Pulse Ox 98 06/30/25 15:00 O2 Del Method Room Air 06/30/25 14:19 Course Vital Signs Vital signs: Vital Signs Blood Pressure 166/95 H 06/30/25 13:32 Pulse Oximetry 99 06/30/25 13:32 Temperature 97.5 F L 06/30/25 13:33 Pulse Rate 110 H 06/30/25 13:33 Respiratory Rate 18 06/30/25 13:33 Blood Pressure 122/76 06/30/25 14:38 Pulse Oximetry 98 06/30/25 15:00 Oxygen Delivery Method Room Air 06/30/25 14:19 Medical Decision Making [facility] [place] Narrative Medical decision making narrative: Patient is a 55-year-old female presenting to the emergency department for concerns of a 3-day history of headache and generalized abdominal discomfort /nausea/vomiting. Vital signs arrival are significant for tachycardia, though this is likely related to her acute anxiety. She is otherwise afebrile and hemodynamically stable. Examination as noted above, however was notable for generalized abdominal tenderness without peritoneal signs. She has no focal neurologic deficits. Differential diagnosis includes migraine, gastroenteritis, gastritis, colitis, pancreatitis, tension headache, or other electrolyte/metabolic derangement. The headache was not sudden in onset, and she has no neck pain/stiffness, or focal neurologic deficits, making subarachnoid hemorrhage less likely. IV was established laboratory studies were obtained. CT abdomen and CT head were ordered. She was treated symptomatically IV Benadryl, IV Compazine, 1 L bolus normal saline, and IV Toradol. CT head independently reviewed/interpreted by myself demonstrated no acute intracranial pathology or hemorrhage. CT abdomen/pelvis demonstrated no acute intra-abdominal pathologies. Laboratory studies were significant for mild transaminitis without hyperbilirubinemia. Otherwise, no significant findings. No electrolyte or metabolic derangement. She is hyponatremic, but the patient states this is chronic and is being worked up as an outpatient. She is not anemic and has no leukocytosis. On reevaluation, patient states her headache is 50% improved. She is requesting to be discharged home. I do believe the patient is stable for discharge at this time. Patient's presentation is most likely consistent with migraine headache. They were instructed to follow up with her PCP for further care. Return precautions were given including any new or worsening symptoms. Patient understands and agrees to the plan. FINAL IMPRESSION: #Acute migraine headache DISPOSITION: Discharged home CONDITION: Good Medical Records Medical records reviewed: Yes I reviewed the patient's medical records Lab Data Lab results reviewed: Yes I reviewed the patient's lab results Labs: Lab Results 06/30/25 Range/Units 13:30 WBC 7.4 (4.0-11.0) 10^3/uL RBC 4.47 (4.20-5.40) 10^6/uL Hgb 13.6 (12.0-16.0) g/dL Hct 39.6 (36.0-48.0) % MCV 88.6 (81.0-99.0) fL MCH 30.4 (26.7-34.0) pg MCHC 34.3 (29.9-35.2) g/dL RDW 12.9 (11.0-15.0) % Plt Count 505 H (150-450) 10^3/uL MPV 8.1 L (9.5-13.5) fL Neut % (Auto) 70.2 (43.0-75.0) % Lymph % (Auto) 21.0 (20.5-60.0) % [place] % (Auto) 6.9 (1.7-12.0) % Eos % (Auto) 0.8 L (0.9-7.0) % Baso % (Auto) 0.7 (0.2-2.0) % Neut # (Auto) 5.2 (1.4-6.5) 10^3/uL Lymph # (Auto) 1.6 (1.2-3.8) 10^3/uL [place] # (Auto) 0.5 (0.3-0.8) 10^3/uL Eos # (Auto) 0.1 (0.0-0.7) 10^3/uL Baso # (Auto) 0.1 (0.0-0.1) 10^3/uL Abs Immat Gran (auto) 0.03 (0.00-0.03) 10^3/uL Imm/Tot Granulo (auto) 0.4 (0.0-0.5) % Sodium 127 L (136-145) mmol/L Potassium 3.9 (3.5-5.1) mmol/L Chloride 91 L (98-107) mmol/L Carbon Dioxide 19.4 L (21.0-32.0) mmol/L Anion Gap 20.5 BUN 4.0 L (7.0-18.0) mg/dL Creatinine 1.04 H (0.55-1.02) mg/dL Est GFR ( Amer) >60 (>=60 mL/min/1.73m^2) Est GFR (Non-Af Amer) 55 L (>=60 mL/min/1.73m^2) BUN/Creatinine Ratio 3.8 Glucose 143 H (74-106) mg/dL Calcium 9.0 (8.5-10.1) mg/dL Total Bilirubin 0.2 (0.2-1.0) mg/dL AST 171 H (15-37) U/L ALT 225 H (14-59) U/L Alkaline Phosphatase 173 H (46-116) U/L Total Protein 8.3 H (6.4-8.2) g/dL Albumin 4.2 (3.4-5.0) g/dL Globulin 4.1 g/dL Albumin/Globulin Ratio 1.[address] scan - head: Attestation: I personally reviewed and interpreted this imaging study as follows: Radiologist's impression: ITS Impressions Head CT 06/30/25 13:30 IMPRESSION: NO ACUTE INTRACRANIAL ABNORMALITY. Impression dictated by: Kyle Armendariz Jr., D.O. 06/30/2025 2:49 PM Dictation Location: [place] [address] Electronically authenticated by: [id number] Y Date: 06/30/2025 14:49 Abdomen/Pelvis CT 06/30/25 14:08 IMPRESSION: No definite acute process. Questionable focal areas of wall thickening involving the colon likely related to underdistention. If further evaluation is needed, colonoscopy is suggested. Impression dictated by: Kyle Armendariz Jr., D.O. 06/30/2025 2:53 PM Dictation Location: [place] [address] Electronically authenticated by: [id number] Y Date: 06/30/2025 14:53 Discharge Plan Discharge Chief Complaint: Headache Clinical Impression: Migraine Patient Disposition: Home, Self-Care Time of Disposition Decision: 14:57 Condition: Good Mode of Transportation: Private Vehicle Print Language: Sami Instructions: Migraine Headache (ED) Referrals: TESSA YOUNG [Primary Care Provider, Family Practice] - 1 week Discharge Date/Time: 06/30/25 15:34
== END 2025-06-30 15:34 | disposition home or self-care (01) ==
PROVIDERS: Emergency Provider Student in an Organized Health Care Education/Training Program; PCP Family Medicine
DX: G43.909 Migraine, unspecified, not intractable, without status migrainosus (principal)
CPT/HCPCS: 36415; 70450; 74177; 80053; 85025; 96361; 96374; 96375; 99285; J0780; J1200; J1885; Q9967